=== PATIENT | female | born 1970 | race Hispanic/Latino ===

== ENCOUNTER 2016-05-19 04:34 | Emergency (ER) | payer BC ==
[2016-05-19 04:34] VITALS: BMI 21.5
[2016-05-19] MEDS ORDERED: Sodium Chloride 0.9% 2,000 ML IV STA (04:56)
[2016-05-19] MEDS ORDERED: Sodium Chloride 0.9% 1,000 ML IV STA (04:56)
[2016-05-19] MEDS ORDERED: Albuterol-Ipratrop 3 mg / 0.5 (3 ml) UD INH STA ×2 (04:57→04:58)
[2016-05-19] MEDS ORDERED: Piperacillin/Tazobact 3.375 GM in Sodium Chloride 0.9% 100 ML IVPB STA (05:02)
[2016-05-19] MEDS ORDERED: Albuterol-Ipratrop 3 mg / 0.5 (3 ml) UD ONE (05:06)
[2016-05-19] MEDS ORDERED: Vancomycin 1 g Inj ONE (05:07)
[2016-05-19] MEDS ORDERED: Piperacillin/Tazobact 3.375 gm Inj IVPB ONE (05:07)
[2016-05-19 05:18] LABS: VENOUS BLOOD GAS BASE EXCESS 8.3 mmol/L (0.0-2.0); VENOUS BLOOD GAS PCO2 50 mmHg (40-60); VENOUS BLOOD PH 7.44 (7.32-7.43)
--- NOTE | 2016-05-19 05:25 | ED PDOC ---
HPI:Nausea, Vomiting, Diarrhea Time Seen by Provider: 05/19/16 04:39 Chief Complaint (Nursing): GI Problem Chief Complaint (Provider): vomiting History Per: Patient History/Exam Limitations: no limitations Onset/Duration Of Symptoms: Days Current Symptoms Are (Timing): Still Present Have you had recent travel within the past 21 days to any of the following countries: [place], [place], [place] or [place]?: No Additional Complaint(s): 46yo female with longstanding hx of asthma presents to the ED with c/o vomiting x 5 days. Patient states she has bad water running through her house and her dogs have also been vomiting. Patient has started to tolerate liquids, but cannot tolerate solids. Patient also complaining of wheezing for a couple days. Past Medical History Reviewed: Historical Data, Nursing Documentation, Vital Signs Vital Signs: Last Vital Signs Temp 100.9 F H 05/19/16 05:00 Pulse 113 H 05/19/16 04:45 Resp 20 05/19/16 04:45 BP 87/71 L 05/19/16 04:45 Pulse Ox 89 L 05/19/16 04:45 - Medical History PMH: Anxiety, Asthma, Bronchitis, COPD Denies: HIV, Chronic Kidney Disease - Surgical History Surgical History: No Surg Hx - Family History Family History: States: No Known Family Hx - Home Medications Home Medications: Ambulatory Orders Medication Instructions Recorded Albuterol 0.083% [Albuterol 0.083% 3 ml IH Q6H PRN #30 neb 02/28/16 Inhal Jamee (2.5 mg/3 ml) UD] Albuterol HFA [Ventolin HFA 90 2 puff IH [id number] PRN #1 bottle 02/28/16 mcg/actuation (8 g)] Prednisone 50 mg PO DAILY #4 tab 03/18/16 Azithromycin [Z-Ang] 250 mg PO DAILY #6 tab 05/19/16 Ondansetron ODT [Zofran ODT] 4 mg PO Q8 #12 odt 05/19/16 predniSONE [predniSONE Tab] 40 mg PO DAILY 3 Days 05/19/16 - Allergies Allergies/Adverse Reactions: Allergies Allergy/AdvReac Type Severity Reaction Status Date / Time acetaminophen Allergy SHORTNESS Verified 05/19/16 04:45 OF BREATH moxifloxacin HCl Allergy tendonitis Verified 05/19/16 04:45 [From Avelox] Penicillins Allergy SHORTNESS Verified 05/19/16 04:45 OF BREATH Review of Systems ROS Statement: Except As Marked, All Systems Reviewed And Found Negative Respiratory: Positive for: Wheezing Gastrointestinal: Positive for: Vomiting Physical Exam - Reviewed Nursing Documentation Reviewed: Yes Vital Signs Reviewed: Yes - Physical Exam Appears: Positive for: Well, No Acute Distress Head Exam: Positive for: ATRAUMATIC, NORMAL INSPECTION, NORMOCEPHALIC Skin: Positive for: Normal Color, Warm, Dry Eye Exam: Positive for: Normal appearance, EOMI, PERRL ENT: Positive for: Normal ENT Inspection Neck: Positive for: Normal, Painless ROM, Supple Cardiovascular/Chest: Positive for: Regular Rate, Rhythm. Negative for: Murmur , Tachycardia Respiratory: Positive for: Wheezing (b/l ). Negative for: Respiratory Distress Gastrointestinal/Abdominal: Positive for: Normal Exam, Bowel Sounds, Soft. Negative for: Tenderness Back: Positive for: Normal Inspection. Negative for: L CVA Tenderness, R CVA Tenderness Extremity: Positive for: Normal ROM. Negative for: Deformity, Swelling Neurologic/Psych: Positive for: Alert, Oriented - Laboratory Results Result Diagrams: 05/19/16 04:59 05/19/16 05:16 - ECG O2 Sat by Pulse Oximetry: 89 Medical Decision Making Medical Decision Makin: Impression: gastroenteritis with asthma Plan: Patient with initial hypotension and tachycardia. Tachycardia resolving spontaneously. Patient also febrile. Code sepsis called. Sepsis workup initiated. VBG, labs, flu swab, CXR, and blood culture ordered. IVF, Duoneb 3ml INH x2, Mag Sulfate 50ml IVPB, Solu-Medrol 62.5mg IVP, Vancomycin 1gm IVPB, Zosyn 3.375gm IVPB, Zofran 4mg IVP Reassess 0644: Patient feeling much better. Wheezing has improved and vital signs have improved markedly. Will treat patient for bronchitis and refer to PCP for f/u in 1-2 days. Return precautions given. Patient stable for d/c. O2 saturation flucuating but remains near mid-90s, pt. uses O2 at home. Scribe Attestation: Documented by You Morris acting as a scribe for Mack Higuera MD. Provider Scribe Attestation: All medical record entries made by the Scribe were at my direction and personally dictated by me. I have reviewed the chart and agree that the record accurately reflects my personal performance of the history, physical exam, medical decision making, and the department course for this patient. I have also personally directed, reviewed, and agree with the discharge instructions and disposition. Disposition - Clinical Impression Clinical Impression: Bronchitis, Vomiting - Patient ED Disposition Is Patient to be Admitted: No - Disposition Referrals: [facility] [Outside] Disposition: Routine/Home Disposition Time: 06:44 Condition: IMPROVED Prescriptions: Azithromycin [Z-Ang] 250 mg PO DAILY #6 tab Ondansetron ODT [Zofran ODT] 4 mg PO Q8 #12 odt predniSONE [predniSONE Tab] 40 mg PO DAILY 3 Days Instructions: Acute Bronchitis (ED), Acute Nausea and Vomiting (ED)
[2016-05-19 06:05] LABS: BASO # 0.1 K/uL (0.0-0.2); BASO % 1.4 % (0.0-2.0); EOS # 0.3 K/uL (0.0-0.7); EOS % 4.4 % (0.0-4.0); HEMATOCRIT 40.7 % (34.0-47.0); LYMPH # 0.9 K/uL (1.0-4.3); LYMPH % 14.2 % (20.0-40.0); MEAN CELL VOLUME 92.2 fl (81.0-99.0); MEAN CORPUSCULAR HGB CONC 33.6 g/dL (33.0-37.0); MEAN PLATELET VOLUME 8.6 fl (7.2-11.7); MONO % 15.1 % (0.0-10.0); NEUT # 4.1 K/uL (1.8-7.0); NEUT % 64.9 % (50.0-75.0); RED CELL DISTRIBUTION WIDTH 13.6 % (11.5-14.5); WHITE BLOOD COUNT 6.4 K/uL (4.8-10.8)
[2016-05-19 06:14] LABS: BLOOD UREA NITROGEN 23 mg/dl (7-17); CALCIUM 9.6 mg/dL (8.4-10.2); CARBON DIOXIDE 28 mmol/L (22-30); CHLORIDE 100 mmol/L (98-107); GFR AFRICAN-AMERICAN > 60; GLUCOSE,RANDOM 114 mg/dL (65-105); MAGNESIUM 1.8 MG/DL (1.6-2.3); POTASSIUM 3.8 MMOL/L (3.6-5.0); SODIUM 144 mmol/l (132-148)
--- NOTE | 2016-05-19 08:19 | RAD ---
PROCEDURE: CHEST RADIOGRAPH, 1 VIEW HISTORY: r/o PNA COMPARISON: 03/24/2016 FINDINGS: LUNGS: Clear. PLEURA: No pneumothorax or pleural fluid seen. CARDIOVASCULAR: Normal. OSSEOUS STRUCTURES: No significant abnormalities. VISUALIZED UPPER ABDOMEN: Normal. OTHER FINDINGS: None. IMPRESSION: No active disease. No interval pathology noted
[2016-05-19 09:16] VITALS: BP 104/64; PULSE 82; RESP 18; TEMP 98.3; O2SAT 97
== END 2016-05-19 09:36 | disposition home or self-care (01) ==
LOC: H.ER 04:34
DX: J20.9 Acute bronchitis, unspecified (principal); R11.2 Nausea with vomiting, unspecified; J45.909 Unspecified asthma, uncomplicated; R19.7 Diarrhea, unspecified; F41.9 Anxiety disorder, unspecified; I95.9 Hypotension, unspecified; K52.9 Noninfective gastroenteritis and colitis, unspecified; Z99.81 Dependence on supplemental oxygen
CPT/HCPCS: 71010; 80048; 82803; 83735; 84484; 85025; 85610; 85730; 87040; 87804; 94640; 96361; 96374; 96375; 99284; J2930; J7040

== ENCOUNTER 2016-05-20 17:12 | Emergency (ER) | payer BC ==
[2016-05-20 17:15] VITALS: BMI 17.7
[2016-05-20] MEDS ORDERED: Albuterol-Ipratrop 3 mg / 0.5 (3 ml) UD ONE (18:04)
--- NOTE | 2016-05-20 18:12 | ED PDOC ---
HPI: SOB/CHF/COPD Time Seen by Provider: 05/20/16 17:53 Chief Complaint (Nursing): Shortness Of Breath Chief Complaint (Provider): Shortness Of Breath History Per: Patient History/Exam Limitations: no limitations Onset/Duration Of Symptoms: Days Current Symptoms Are (Timing): Still Present Initiating Event: Upper Respiratory Illness Quality: Tightness Current Respiratory Medications: See Home Med List Severity: Moderate Associated Symptoms: Chills Additional Complaint(s): Patient is a 46 year old female with a history of chronic asthma, presents to ED for SOB with wheezing and chills today. Patient reports she was evaluated in ED yesterday for similar symptoms associated with vomiting and fever. States using her nebulizer at home with no relief. Past Medical History Reviewed: Historical Data, Nursing Documentation, Vital Signs Vital Signs: Last Vital Signs Temp 98.3 F 05/20/16 22:05 Pulse 89 05/20/16 22:05 Resp 20 05/20/16 22:05 BP 110/72 05/20/16 22:05 Pulse Ox 94 L 05/20/16 22:33 - Medical History PMH: Anxiety, Asthma, Bronchitis, COPD Denies: HIV, Chronic Kidney Disease - Surgical History Surgical History: No Surg Hx - Family History Family History: States: Unknown Family Hx - Living Arrangements Living Arrangements: With Family - Home Medications Home Medications: Ambulatory Orders Medication Instructions Recorded Albuterol 0.083% [Albuterol 0.083% 3 ml IH Q6H PRN #30 neb 02/28/16 Inhal Jamee (2.5 mg/3 ml) UD] Albuterol HFA [Ventolin HFA 90 2 puff IH [id number] PRN #1 bottle 02/28/16 mcg/actuation (8 g)] Prednisone 50 mg PO DAILY #4 tab 03/18/16 Azithromycin [Z-Ang] 250 mg PO DAILY #6 tab 05/19/16 Ondansetron ODT [Zofran ODT] 4 mg PO Q8 #12 odt 05/19/16 predniSONE [predniSONE Tab] 40 mg PO DAILY 3 Days 05/19/16 - Allergies Allergies/Adverse Reactions: Allergies Allergy/AdvReac Type Severity Reaction Status Date / Time acetaminophen Allergy SHORTNESS Verified 05/19/16 04:45 OF BREATH moxifloxacin HCl Allergy tendonitis Verified 05/19/16 04:45 [From Avelox] Penicillins Allergy SHORTNESS Verified 05/19/16 04:45 OF BREATH Review of Systems ROS Statement: Except As Marked, All Systems Reviewed And Found Negative Constitutional: Positive for: Chills. Negative for: Fever Cardiovascular: Negative for: Chest Pain, Palpitations, Light Headedness Respiratory: Positive for: Shortness of Breath, Wheezing Gastrointestinal: Negative for: Nausea, Vomiting, Abdominal Pain Musculoskeletal: Negative for: Neck Pain Skin: Negative for: Rash Neurological: Negative for: Weakness, Numbness Physical Exam - Reviewed Nursing Documentation Reviewed: Yes Vital Signs Reviewed: Yes - Physical Exam Appears: Positive for: Uncomfortable Skin: Positive for: Normal Color, Warm Eye Exam: Positive for: Normal appearance Neck: Positive for: Normal, Painless ROM Cardiovascular/Chest: Positive for: Regular Rate, Rhythm. Negative for: Murmur Respiratory: Positive for: Wheezing, Respiratory Distress (mild). Negative for : Rhonchi Extremity: Positive for: Normal ROM. Negative for: Pedal Edema Neurologic/Psych: Positive for: Alert, Oriented - Laboratory Results Result Diagrams: 05/20/16 18:26 05/20/16 18:26 - ECG O2 Sat by Pulse Oximetry: 99 (RA) Pulse Ox Interpretation: Normal Medical Decision Making Medical Decision Making: Time: 1805 Initial impression: SOB, chronic asthma exacerbation Initial plan: -- Duoneb -- Magnesium IV --Methylprednisolone IV --Reassess Scribe Attestation: Documented by Valerie Estevez acting as a scribe for Mio Whitfield MD MD Scribe Attestation: All medical record entries made by the Scribe were at my direction and personally dictated by me. I have reviewed the chart and agree that the record accurately reflects my personal performance of the history, physical exam, medical decision making, and the department course for this patient. I have also personally directed, reviewed, and agree with the discharge instructions and disposition. Disposition - Clinical Impression Clinical Impression: Asthma exacerbation - Patient ED Disposition Is Patient to be Admitted: Transfer of Care Counseled Patient/Family Regarding: Studies Performed, Diagnosis - Disposition Disposition: Transfer of Care Disposition Time: 19:00 Condition: FAIR Instructions: Asthma (ED) Patient Signed Over To: Lisandro Norman
[2016-05-20] MEDS ORDERED: Albuterol-Ipratrop 3 mg / 0.5 (3 ml) UD INH STA ×2 (18:14→18:15)
[2016-05-20 18:33] LABS: BASO % 0.8 % (0.0-2.0); EOS % 0.4 % (0.0-4.0); HEMATOCRIT 39.9 % (34.0-47.0); LYMPH # 0.9 K/uL (1.0-4.3); LYMPH % 16.1 % (20.0-40.0); MEAN CELL VOLUME 92.3 fl (81.0-99.0); MEAN CORPUSCULAR HEMOGLOBIN 31.4 pg (27.0-31.0); MEAN PLATELET VOLUME 7.8 fl (7.2-11.7); MONO # 0.6 K/uL (0.0-0.8); MONO % 9.9 % (0.0-10.0); NEUT # 4.2 K/uL (1.8-7.0); NEUT % 72.8 % (50.0-75.0); NRBC % 0.2 % (0.0-0.0); RED CELL DISTRIBUTION WIDTH 13.9 % (11.5-14.5); WHITE BLOOD COUNT 5.8 K/uL (4.8-10.8)
[2016-05-20 18:43] LABS: BLOOD UREA NITROGEN 15 mg/dl (7-17); CALCIUM 9.8 mg/dL (8.4-10.2); CARBON DIOXIDE 26 mmol/L (22-30); CHLORIDE 102 mmol/L (98-107); GFR AFRICAN-AMERICAN > 60; GLUCOSE,RANDOM 101 mg/dL (65-105); MAGNESIUM 1.9 MG/DL (1.6-2.3); POTASSIUM 3.8 MMOL/L (3.6-5.0); SODIUM 144 mmol/l (132-148)
--- NOTE | 2016-05-20 19:43 | ED PDOC ---
- Laboratory Results Result Diagrams: 05/20/16 18:26 05/20/16 18:26 - ECG O2 Sat by Pulse Oximetry: 94 Medical Decision Making Medical Decision Making: Time: 1900 Patient signed out by Dr. Whitfield pending labs, re-evaluation and disposition Labs: Hematology and Chemistry [id number] Patient reports significant improvement in symptoms and is stable for discharge. Patient was advised to fill all prescriptions that were previously given. Dx: asthma exacerbation Scribe Attestation: Documented by Valerie Estevez acting as a scribe for Lisandro Norman MD MD Scribe Attestation: All medical record entries made by the Scribe were at my direction and personally dictated by me. I have reviewed the chart and agree that the record accurately reflects my personal performance of the history, physical exam, medical decision making, and the department course for this patient. I have also personally directed, reviewed, and agree with the discharge instructions and disposition. Disposition - Clinical Impression Clinical Impression: Asthma exacerbation - POA Present On Arrival: None - Disposition Disposition: Routine/Home Disposition Time: 22:20 Condition: STABLE Instructions: Asthma (ED)
[2016-05-20 22:06] VITALS: BP 110/72; PULSE 89; RESP 20; TEMP 98.3
--- NOTE | 2016-05-21 23:09 | CARD ---
APPROVED REPORT EKG Measurement Heart [id number] [place] [id number] <Conclusion> Normal sinus rhythm with sinus arrhythmia Normal ECG
[2016-05-22 09:23] VITALS: O2SAT 99
== END 2016-05-20 22:05 | disposition home or self-care (01) ==
LOC: H.ER 17:12
DX: J45.901 Unspecified asthma with (acute) exacerbation (principal); J44.9 Chronic obstructive pulmonary disease, unspecified; F41.9 Anxiety disorder, unspecified; Z88.0 Allergy status to penicillin
CPT/HCPCS: 80048; 83735; 84484; 85025; 93005; 94640; 96365; 96375; 99284; J2930; J3475

== ENCOUNTER 2016-07-02 20:38 | Emergency (ER) | payer BC ==
[2016-07-02 20:38] VITALS: BMI 17.7
[2016-07-02 20:43] VITALS: BP 108/85; TEMP 98.4
[2016-07-02] MEDS ORDERED: Albuterol-Ipratrop 3 mg / 0.5 (3 ml) UD ONE (20:59)
[2016-07-02] MEDS ORDERED: Magnesium Sulfate 2 gm/50 ml 2 GM/50 ML BAG ONE (20:59)
[2016-07-02] MEDS ORDERED: Albuterol-Ipratrop 3 mg / 0.5 (3 ml) UD INH STA (21:00)
[2016-07-02 21:23] LABS: BASO # 0.2 K/uL (0.0-0.2); BASO % 2.4 % (0.0-2.0); EOS # 0.6 K/uL (0.0-0.7); EOS % 8.3 % (0.0-4.0); HEMATOCRIT 38.5 % (34.0-47.0); LYMPH # 1.9 K/uL (1.0-4.3); LYMPH % 27.6 % (20.0-40.0); MEAN CELL VOLUME 93.5 fl (81.0-99.0); MEAN CORPUSCULAR HEMOGLOBIN 31.2 pg (27.0-31.0); MEAN CORPUSCULAR HGB CONC 33.3 g/dL (33.0-37.0); MONO # 0.8 K/uL (0.0-0.8); MONO % 12.1 % (0.0-10.0); NEUT # 3.5 K/uL (1.8-7.0); NEUT % 49.6 % (50.0-75.0); RED CELL DISTRIBUTION WIDTH 14.4 % (11.5-14.5)
[2016-07-02 21:33] LABS: ALB/GLOB RATIO 1.2 (1.0-2.1); ALKALINE PHOSPHATASE 75 U/L (38-126); ALT/SGPT 29 U/L (9-52); AST/SGOT 31 U/L (14-36); BILIRUBIN,TOTAL 0.4 mg/dl (0.2-1.3); BLOOD UREA NITROGEN 17 mg/dl (7-17); CALCIUM 9.7 mg/dL (8.4-10.2); CARBON DIOXIDE 27 mmol/L (22-30); CHLORIDE 103 mmol/L (98-107); GFR AFRICAN-AMERICAN > 60; GLUCOSE,RANDOM 124 mg/dL (65-105); MAGNESIUM 1.8 MG/DL (1.6-2.3); POTASSIUM 3.7 MMOL/L (3.6-5.0); SODIUM 141 mmol/l (132-148); TOTAL PROTEIN 8.1 G/DL (6.3-8.2)
--- NOTE | 2016-07-02 21:57 | ED PDOC ---
HPI: SOB/CHF/COPD Time Seen by Provider: 07/02/16 20:45 Chief Complaint (Nursing): Shortness Of Breath Chief Complaint (Provider): Shortness of Breath History Per: Patient History/Exam Limitations: no limitations Onset/Duration Of Symptoms: Days Current Symptoms Are (Timing): Still Present Initiating Event: Upper Respiratory Illness (Asthma) Current Respiratory Medications: See Home Med List Severity: Moderate Associated Symptoms: denies: Fever, Chills Recently: Seen In ED Additional Complaint(s): Rachel Brown is a 46 year old female, well known to this provider and department, with a past medical history of asthma, who presents to the emergency room for the evaluation of shortness of breath, inclusive of wheezing. Denies a fever, chills, or any other medical complaints. PMD: none specified Past Medical History Reviewed: Historical Data, Nursing Documentation, Vital Signs Vital Signs: Last Vital Signs Temp 98.4 F 07/02/16 20:41 Pulse 106 H 07/02/16 20:41 Resp 22 07/02/16 20:41 BP 108/85 07/02/16 20:41 Pulse Ox 98 07/02/16 22:05 - Medical History PMH: Anxiety, Asthma, Bronchitis, COPD Denies: HIV, Chronic Kidney Disease - Surgical History Surgical History: No Surg Hx - Family History Family History: States: No Known Family Hx - Home Medications Home Medications: Ambulatory Orders Medication Instructions Recorded Albuterol 0.083% [Albuterol 0.083% 3 ml IH Q6H PRN #30 neb 02/28/16 Inhal Jamee (2.5 mg/3 ml) UD] Albuterol HFA [Ventolin HFA 90 2 puff IH [id number] PRN #1 bottle 02/28/16 mcg/actuation (8 g)] Prednisone 50 mg PO DAILY #4 tab 03/18/16 Azithromycin [Z-Ang] 250 mg PO DAILY #6 tab 05/19/16 Ondansetron ODT [Zofran ODT] 4 mg PO Q8 #12 odt 05/19/16 predniSONE [predniSONE Tab] 40 mg PO DAILY 3 Days 05/19/16 Methylprednisolone [Medrol Dosepak] 4 mg PO ASDIR #1 pkg 07/03/16 - Allergies Allergies/Adverse Reactions: Allergies Allergy/AdvReac Type Severity Reaction Status Date / Time acetaminophen Allergy SHORTNESS Verified 05/19/16 04:45 OF BREATH moxifloxacin HCl Allergy tendonitis Verified 05/19/16 04:45 [From Avelox] Penicillins Allergy SHORTNESS Verified 05/19/16 04:45 OF BREATH Review of Systems ROS Statement: Except As Marked, All Systems Reviewed And Found Negative Constitutional: Negative for: Fever, Chills Respiratory: Positive for: Shortness of Breath, Wheezing Physical Exam - Reviewed Nursing Documentation Reviewed: Yes Vital Signs Reviewed: Yes - Physical Exam Appears: Positive for: Well, Non-toxic, No Acute Distress Head Exam: Positive for: ATRAUMATIC, NORMOCEPHALIC Skin: Positive for: Normal Color, Warm, Dry Eye Exam: Positive for: EOMI, Normal appearance, PERRL ENT: Positive for: Normal ENT Inspection. Negative for: Pharyngeal Erythema, Tonsillar Exudate, Tonsillar Swelling Neck: Positive for: Normal, Painless ROM, Supple Cardiovascular/Chest: Positive for: Regular Rate, Rhythm. Negative for: Murmur Respiratory: Positive for: Wheezing. Negative for: Normal Breath Sounds, Respiratory Distress Gastrointestinal/Abdominal: Positive for: Normal Exam, Soft. Negative for: Tenderness Back: Positive for: Normal Inspection. Negative for: L CVA Tenderness, R CVA Tenderness Extremity: Positive for: Normal ROM. Negative for: Tenderness, Swelling Neurologic/Psych: Positive for: Alert, Oriented - Laboratory Results Result Diagrams: 07/02/16 21:00 07/02/16 21:00 - ECG O2 Sat by Pulse Oximetry: 98 (RA) Pulse Ox Interpretation: Normal Medical Decision Making Medical Decision Makin:45 Initial Impression: 46 year old female who presents to the emergency department with a known setting of asthma. Initial Plan: * Electrocardiogram * Complete Blood Count * Comprehensive Metabolic Panel * Magnesium * Urine Dip * Urine * Albuterol 3 ml INH * Magnesium Sulfate 1 gm * SOLU-Medrol 125 mg IVP * Peak Flow Pre/Post Treatment * Reevaluation Scribe Attestation: Documented by Severino Barrett, acting as a scribe for Lisandro Norman MD. Provider Scribe Attestation: All medical record entries made by the Scribe were at my direction and personally dictated by me. I have reviewed the chart and agree that the record accurately reflects my personal performance of the history, physical exam, medical decision making, and the department course for this patient. I have also personally directed, reviewed, and agree with the discharge instructions and disposition. Time: 00:22 --30 minutes of critical care --Reports significant improvement in symptoms after second dose of Magnesium Sulfate 1 gm. Upon provider reevaluation patient is feeling better, is medically stable, and requires no further treatment in the ED at this time. Patient will be discharged home with Rx for Medrol Dosepak 4 mg. Counseling was provided and all questions were answered regarding diagnosis and need for follow up with primary care physician. There is agreement to discharge plan. Return if symptoms persist or worsen. Clinical Impression: Asthma Exacerbation Scribe Attestation: Documented by Rox Matta, acting as a scribe for Lisandro Norman MD. Provider Scribe Attestation: All medical record entries made by the Scribe were at my direction and personally dictated by me. I have reviewed the chart and agree that the record accurately reflects my personal performance of the history, physical exam, medical decision making, and the department course for this patient. I have also personally directed, reviewed, and agree with the discharge instructions and disposition. Disposition - Clinical Impression Clinical Impression: Asthma exacerbation - Patient ED Disposition Is Patient to be Admitted: No Counseled Patient/Family Regarding: Studies Performed, Diagnosis, Rx Given - Disposition Disposition: Routine/Home Disposition Time: 00:22 Condition: STABLE Prescriptions: Methylprednisolone [Medrol Dosepak] 4 mg PO ASDIR #1 pkg Instructions: Asthma (ED)
[2016-07-03] MEDS ORDERED: MethylPREDNISolone 40 mg Vial ONE (00:24)
[2016-07-03] MEDS ORDERED: Albuterol-Ipratrop 3 mg / 0.5 (3 ml) UD ONE (00:39)
[2016-07-03] MEDS ORDERED: Albuterol-Ipratrop 3 mg / 0.5 (3 ml) UD INH STA (00:42)
[2016-07-03] MEDS ORDERED: Promethazine/Cod 6.25mg-10mg/5ml Syr UD ONE (01:31)
[2016-07-03] MEDS ORDERED: Promethazine/Cod 6.25mg-10mg/5ml Syr UD PO STA (01:33)
[2016-07-03 02:22] VITALS: PULSE 97; O2SAT 92
[2016-07-03 02:30] VITALS: RESP 25
--- NOTE | 2016-07-07 10:03 | CARD ---
APPROVED REPORT EKG Measurement Heart [id number] [place] [id number] [id number] <Conclusion> Normal sinus rhythm with sinus arrhythmia Normal ECG
== END 2016-07-03 02:32 | disposition home or self-care (01) ==
LOC: H.ER 20:38
DX: J44.9 Chronic obstructive pulmonary disease, unspecified (principal); J45.901 Unspecified asthma with (acute) exacerbation; F41.9 Anxiety disorder, unspecified; Z88.0 Allergy status to penicillin
CPT/HCPCS: 80053; 83735; 85025; 94640; 96365; 96366; 96375; 99282; J2930; J3475

== ENCOUNTER 2016-07-23 04:21 | Emergency (ER) | payer BC ==
[2016-07-23 04:21] VITALS: BMI 17.7
--- NOTE | 2016-07-23 04:38 | ED PDOC ---
HPI: SOB/CHF/COPD Time Seen by Provider: 07/23/16 04:27 Chief Complaint (Nursing): Shortness Of Breath Chief Complaint (Provider): SOB History Per: Patient History/Exam Limitations: no limitations Onset/Duration Of Symptoms: Mins Current Symptoms Are (Timing): Still Present Additional Complaint(s): Rachel Brown is a 46 year old female, well known to this provider and department, with a past medical history of asthma, who presents to the emergency room for evaluation of shortness of breath with associated wheezing. Denies fever, chills, or any other medical complaints. Past Medical History Reviewed: Historical Data, Nursing Documentation, Vital Signs Vital Signs: Last Vital Signs Temp 98 F 07/23/16 06:34 Pulse 92 H 07/23/16 06:34 Resp 16 07/23/16 06:34 BP 102/55 L 07/23/16 06:34 Pulse Ox 95 07/23/16 06:34 - Medical History PMH: Anxiety, Asthma, Bronchitis, COPD Denies: HIV, Chronic Kidney Disease - Surgical History Surgical History: No Surg Hx - Family History Family History: States: No Known Family Hx - Social History Current smoker - smoking cessation education provided: No Alcohol: None Drugs: Denies - Home Medications Home Medications: Ambulatory Orders Medication Instructions Recorded Albuterol 0.083% [Albuterol 0.083% 3 ml IH Q6H PRN #30 neb 02/28/16 Inhal Jamee (2.5 mg/3 ml) UD] Albuterol HFA [Ventolin HFA 90 2 puff IH [id number] PRN #1 bottle 02/28/16 mcg/actuation (8 g)] Prednisone 50 mg PO DAILY #4 tab 03/18/16 Azithromycin [Z-Ang] 250 mg PO DAILY #6 tab 05/19/16 Ondansetron ODT [Zofran ODT] 4 mg PO Q8 #12 odt 05/19/16 predniSONE [predniSONE Tab] 40 mg PO DAILY 3 Days 05/19/16 Methylprednisolone [Medrol Dosepak] 4 mg PO ASDIR #1 pkg 07/03/16 - Allergies Allergies/Adverse Reactions: Allergies Allergy/AdvReac Type Severity Reaction Status Date / Time acetaminophen Allergy SHORTNESS Verified 05/19/16 04:45 OF BREATH moxifloxacin HCl Allergy tendonitis Verified 05/19/16 04:45 [From Avelox] Penicillins Allergy SHORTNESS Verified 05/19/16 04:45 OF BREATH Review of Systems ROS Statement: Except As Marked, All Systems Reviewed And Found Negative Constitutional: Negative for: Fever, Chills Respiratory: Positive for: Shortness of Breath, Wheezing Physical Exam - Reviewed Nursing Documentation Reviewed: Yes Vital Signs Reviewed: Yes - Physical Exam Appears: Positive for: Well, No Acute Distress Head Exam: Positive for: ATRAUMATIC, NORMAL INSPECTION, NORMOCEPHALIC Skin: Positive for: Normal Color, Warm, Dry Eye Exam: Positive for: Normal appearance, EOMI, PERRL ENT: Positive for: Normal ENT Inspection Neck: Positive for: Normal, Painless ROM, Supple Cardiovascular/Chest: Positive for: Regular Rate, Rhythm. Negative for: Murmur , Tachycardia Respiratory: Positive for: Wheezing (b/l ). Negative for: Respiratory Distress Gastrointestinal/Abdominal: Positive for: Normal Exam, Soft. Negative for: Tenderness Back: Positive for: Normal Inspection Extremity: Positive for: Normal ROM. Negative for: Deformity, Swelling Neurologic/Psych: Positive for: Alert, Oriented - Laboratory Results Result Diagrams: 07/23/16 04:55 07/23/16 04:55 - ECG O2 Sat by Pulse Oximetry: 98 Pulse Ox Interpretation: Normal - Critical Care Total Time (In Min): 30 Medical Decision Making Medical Decision Makin: Impression: 46yo female w/ SOB and wheezing in setting of known hx of asthma Plan: EKG Labs duoneb 3ml INH x3, mag sulfate 1gm in 100ml IV, solu-medrol 60mg in 50ml IV reassess At 6AM pt reports marked improvement and is stable on discharge Dx Asthma Exacerbation Stable Scribe Attestation: Documented by You Morris acting as a scribe for Lisandro Norman MD. Provider Scribe Attestation: All medical record entries made by the Scribe were at my direction and personally dictated by me. I have reviewed the chart and agree that the record accurately reflects my personal performance of the history, physical exam, medical decision making, and the department course for this patient. I have also personally directed, reviewed, and agree with the discharge instructions and disposition. Disposition - Clinical Impression Clinical Impression: Asthma exacerbation attacks - Patient ED Disposition Is Patient to be Admitted: No - Disposition Disposition: Routine/Home Disposition Time: 06:00 Condition: STABLE Instructions: Asthma (ED)
[2016-07-23] MEDS ORDERED: methylPREDNISolone 60 MG in Sodium Chloride 0.9% 50 ML IV STA (04:41)
[2016-07-23] MEDS ORDERED: Albuterol-Ipratrop 3 mg / 0.5 (3 ml) UD INH STA ×3 (04:42→04:43)
[2016-07-23 04:59] LABS: BASO # 0.1 K/uL (0.0-0.2); BASO % 1.1 % (0.0-2.0); EOS # 0.6 K/uL (0.0-0.7); HEMATOCRIT 39.4 % (34.0-47.0); LYMPH # 2.6 K/uL (1.0-4.3); LYMPH % 27.8 % (20.0-40.0); MEAN CELL VOLUME 94.8 fl (81.0-99.0); MEAN CORPUSCULAR HEMOGLOBIN 31.6 pg (27.0-31.0); MEAN CORPUSCULAR HGB CONC 33.3 g/dL (33.0-37.0); MONO # 0.9 K/uL (0.0-0.8); MONO % 9.3 % (0.0-10.0); NEUT # 5.3 K/uL (1.8-7.0); NEUT % 55.8 % (50.0-75.0); RED CELL DISTRIBUTION WIDTH 13.9 % (11.5-14.5); WHITE BLOOD COUNT 9.4 K/uL (4.8-10.8)
[2016-07-23 05:17] LABS: ALB/GLOB RATIO 1.3 (1.0-2.1); ALKALINE PHOSPHATASE 67 U/L (38-126); ALT/SGPT 34 U/L (9-52); AST/SGOT 34 U/L (14-36); BILIRUBIN,TOTAL 0.9 mg/dl (0.2-1.3); BLOOD UREA NITROGEN 16 mg/dl (7-17); CALCIUM 9.3 mg/dL (8.4-10.2); CARBON DIOXIDE 26 mmol/L (22-30); CHLORIDE 101 mmol/L (98-107); GFR AFRICAN-AMERICAN > 60; GLUCOSE,RANDOM 97 mg/dL (65-105); MAGNESIUM 2.3 MG/DL (1.6-2.3); POTASSIUM 4.2 MMOL/L (3.6-5.0); SODIUM 138 mmol/l (132-148); TOTAL PROTEIN 8.1 G/DL (6.3-8.2)
[2016-07-23 06:34] VITALS: BP 102/55; PULSE 92; RESP 16; TEMP 98
[2016-07-23 06:42] VITALS: O2SAT 98
--- NOTE | 2016-07-23 12:05 | CARD ---
APPROVED REPORT EKG Measurement Heart [id number] [place] [id number] <Conclusion> Normal sinus rhythm with sinus arrhythmia Normal ECG
== END 2016-07-23 06:36 | disposition home or self-care (01) ==
LOC: H.ER 04:21
DX: J45.909 Unspecified asthma, uncomplicated (principal)
CPT/HCPCS: 80053; 83735; 85025; 93005; 94640; 96360; 99283; J2920; J3475

== ENCOUNTER 2016-08-16 22:38 | Emergency (ER) | payer BC ==
[2016-08-16 22:38] VITALS: BMI 17.7
[2016-08-16] MEDS ORDERED: Albuterol-Ipratrop 3 mg / 0.5 (3 ml) UD ONE (23:08)
[2016-08-16] MEDS ORDERED: MethylPREDNISolone 40 mg Vial IVPB STA ×2 (23:19→23:43)
[2016-08-16] MEDS ORDERED: Albuterol-Ipratrop 3 mg / 0.5 (3 ml) UD INH STA (23:19)
--- NOTE | 2016-08-16 23:39 | ED PDOC ---
HPI: SOB/CHF/COPD Time Seen by Provider: 08/16/16 23:16 Chief Complaint (Nursing): Shortness Of Breath Chief Complaint (Provider): cough History Per: Patient History/Exam Limitations: no limitations Onset/Duration Of Symptoms: Days (2), Gradual, Persistent Additional Complaint(s): Coughing productive of yellow sputum associated with shortness of breath and chest tightness similar to previous episodes of asthma exacerbation. No relief with home meds. She regularly gets asthma exacerbation due to dental infection which she has chronically. Past Medical History Reviewed: Historical Data, Nursing Documentation, Vital Signs Vital Signs: Last Vital Signs Temp 97.4 F L 08/17/16 04:43 Pulse 72 08/17/16 04:43 Resp 16 08/17/16 04:43 BP 110/66 08/17/16 04:43 Pulse Ox 96 08/17/16 04:43 - Medical History PMH: Anxiety, Asthma, Bronchitis, COPD Denies: HIV, Chronic Kidney Disease - Family History Family History: States: No Known Family Hx - Social History Current smoker - smoking cessation education provided: No - Home Medications Home Medications: Ambulatory Orders Medication Instructions Recorded Albuterol 0.083% [Albuterol 0.083% 3 ml IH Q6H PRN #30 neb 02/28/16 Inhal Jamee (2.5 mg/3 ml) UD] Albuterol HFA [Ventolin HFA 90 2 puff IH [id number] PRN #1 bottle 02/28/16 mcg/actuation (8 g)] Prednisone 50 mg PO DAILY #4 tab 03/18/16 Azithromycin [Z-Ang] 250 mg PO DAILY #6 tab 05/19/16 Ondansetron ODT [Zofran ODT] 4 mg PO Q8 #12 odt 05/19/16 predniSONE [predniSONE Tab] 40 mg PO DAILY 3 Days 05/19/16 Methylprednisolone [Medrol Dosepak] 4 mg PO ASDIR #1 pkg 07/03/16 Albuterol HFA [Ventolin HFA 90 1 - 2 puff IH Q6 PRN #1 inhaler 08/17/16 mcg/actuation (8 g)] Methylprednisolone [Medrol Dosepak] 4 mg PO ASDIR #1 pkg 08/17/16 - Allergies Allergies/Adverse Reactions: Allergies Allergy/AdvReac Type Severity Reaction Status Date / Time acetaminophen Allergy SHORTNESS Verified 05/19/16 04:45 OF BREATH moxifloxacin HCl Allergy tendonitis Verified 05/19/16 04:45 [From Avelox] Penicillins Allergy SHORTNESS Verified 05/19/16 04:45 OF BREATH Review of Systems ROS Statement: Except As Marked, All Systems Reviewed And Found Negative Constitutional: Negative for: Fever, Chills ENT: Negative for: Nose Discharge, Throat Pain Cardiovascular: Positive for: Chest Pain Respiratory: Positive for: Cough, Shortness of Breath, SOB with Exertion, Pleuritic Pain Physical Exam - Reviewed Nursing Documentation Reviewed: Yes Vital Signs Reviewed: Yes - Physical Exam Appears: Positive for: Uncomfortable, In Acute Distress Head Exam: Positive for: ATRAUMATIC, NORMOCEPHALIC Skin: Positive for: Warm, Dry Eye Exam: Positive for: EOMI, PERRL ENT: Negative for: Pharyngeal Erythema, Tonsillar Exudate Neck: Positive for: Painless ROM, Supple Cardiovascular/Chest: Positive for: Chest Non Tender, Tachycardia. Negative for : Murmur Respiratory: Positive for: Rhonchi, Wheezing, Respiratory Distress Gastrointestinal/Abdominal: Positive for: Soft. Negative for: Tenderness Back: Positive for: Normal Inspection. Negative for: Vertebral Tenderness Lymphatic: Negative for: Adenopathy Neurologic/Psych: Positive for: Alert. Negative for: Motor/Sensory Deficits - Laboratory Results Result Diagrams: 08/16/16 23:50 08/16/16 23:50 - ECG O2 Sat by Pulse Oximetry: 91 Medical Decision Making Medical Decision Making: Impression: Asthma exacerbation Duoneb x 3, Solumedrol 60mg and Mag 1mg IV Reassess. Disposition - Clinical Impression Clinical Impression: Asthma exacerbation - Disposition Disposition: Transfer of Care Disposition Time: 00:00 Condition: STABLE Prescriptions: Albuterol HFA [Ventolin HFA 90 mcg/actuation (8 g)] 1 - 2 puff IH Q6 PRN #1 inhaler PRN Reason: Shortness Of Breath Methylprednisolone [Medrol Dosepak] 4 mg PO ASDIR #1 pkg Patient Signed Over To: Lisandro Norman Handoff Comments: Pending reassessment and final ER dispo
[2016-08-16] MEDS ORDERED: Magnesium Sulfate 2 gm/50 ml 2 GM/50 ML BAG ONE (23:52)
[2016-08-16 23:54] LABS: BASO # 0.2 K/uL (0.0-0.2); BASO % 3.3 % (0.0-2.0); EOS # 0.7 K/uL (0.0-0.7); EOS % 8.7 % (0.0-4.0); HEMOGLOBIN 13.3 g/dL (12.0-16.0); LYMPH # 2.9 K/uL (1.0-4.3); LYMPH % 38.1 % (20.0-40.0); MEAN CELL VOLUME 95.6 fl (81.0-99.0); MEAN CORPUSCULAR HEMOGLOBIN 31.6 pg (27.0-31.0); MEAN PLATELET VOLUME 8.1 fl (7.2-11.7); MONO # 0.7 K/uL (0.0-0.8); MONO % 8.9 % (0.0-10.0); NEUT # 3.1 K/uL (1.8-7.0); PLATELET COUNT 302 K/uL (130-400); RBC 4.22 Mil/uL (3.80-5.20); RED CELL DISTRIBUTION WIDTH 13.9 % (11.5-14.5); WHITE BLOOD COUNT 7.6 K/uL (4.8-10.8)
[2016-08-17 00:05] LABS: ALB/GLOB RATIO 1.2 (1.0-2.1); ALBUMIN 4.5 g/dL (3.5-5.0); ALT/SGPT 34 U/L (9-52); AST/SGOT 29 U/L (14-36); BLOOD UREA NITROGEN 21 mg/dl (7-17); CALCIUM 9.3 mg/dL (8.4-10.2); GFR AFRICAN-AMERICAN > 60; GFR NON-AFRICAN AMERICAN > 60; MAGNESIUM 1.9 MG/DL (1.6-2.3)
--- NOTE | 2016-08-17 00:33 | ED PDOC ---
- Laboratory Results Result Diagrams: 08/16/16 23:50 08/16/16 23:50 - ECG O2 Sat by Pulse Oximetry: 91 Medical Decision Making Medical Decision Makin Patient signed out to provider from Dr. Fuller pending labs and re-evaluation. 0030 * Magnesium sulfate 1gm IV * Re-eval 0105 * Duonebs 3mL INH * Peak flow pre/post Tx 0115 Upon re-evaluation, patient notes significant improvement in symptoms after 2nd gram of magnesium sulfate. Patient is stable for discharge. Counseling has been provided and patient is in agreement. Return if symptoms persist or acutely worsen. Dx: asthma exacerbation Scribe Attestation: Documented by Mattie Melo acting as a scribe for Lisandro Norman MD. Scribe Attestation: All medical record entries made by the Scribe were at my direction and personally dictated by me. I have reviewed the chart and agree that the record accurately reflects my personal performance of the history, physical exam, medical decision making, and the department course for this patient. I have also personally directed, reviewed, and agree with the discharge instructions and disposition. Disposition - Clinical Impression Clinical Impression: Asthma exacerbation - POA Present On Arrival: None - Disposition Disposition: Routine/Home Disposition Time: 01:15 Condition: IMPROVED Prescriptions: Albuterol HFA [Ventolin HFA 90 mcg/actuation (8 g)] 1 - 2 puff IH Q6 PRN #1 inhaler PRN Reason: Shortness Of Breath Methylprednisolone [Medrol Dosepak] 4 mg PO ASDIR #1 pkg
[2016-08-17] MEDS ORDERED: Albuterol-Ipratrop 3 mg / 0.5 (3 ml) UD INH STA (01:05)
[2016-08-17] MEDS ORDERED: Albuterol-Ipratrop 3 mg / 0.5 (3 ml) UD ONE (01:09)
[2016-08-17 03:29] LABS: BASOPHIL 1 % (0-2); EOSINOPHIL 6 % (0-7); LYMPHOCYTE 36 % (20-50); MONOCYTE 4 % (0-10); NEUTROPHIL 53 % (42-75); PLATELET ESTIMATE NORMAL (NORMAL); TOTAL CELLS COUNTED 100
[2016-08-17 03:33] LABS: ANISOCYTOSIS SLIGHT
[2016-08-17 03:34] LABS: LARGE PLATELETS PRESENT
[2016-08-17 03:35] LABS: TEARDROP CELLS SLIGHT
[2016-08-17 04:44] VITALS: BP 110/66; PULSE 72; RESP 16; TEMP 97.4
[2016-08-17 14:30] VITALS: O2SAT 91
--- NOTE | 2016-08-20 13:09 | CARD ---
APPROVED REPORT EKG Measurement Heart [id number] [id number] <Conclusion> Sinus tachycardia Otherwise normal ECG
== END 2016-08-17 04:51 | disposition home or self-care (01) ==
LOC: H.ER 22:38
DX: J45.901 Unspecified asthma with (acute) exacerbation (principal); Z88.0 Allergy status to penicillin; F41.9 Anxiety disorder, unspecified; J44.9 Chronic obstructive pulmonary disease, unspecified
CPT/HCPCS: 80053; 83735; 84100; 85025; 87040; 93005; 94640; 96365; 96366; 96375; 99283; J2920; J3475

== ENCOUNTER 2016-08-24 06:21 | Emergency (ER) | payer BC ==
[2016-08-24 06:21] VITALS: BMI 17.7
[2016-08-24 06:39] VITALS: O2SAT 96
[2016-08-24] MEDS ORDERED: Magnesium Sulfate 2 GM in Sodium Chloride 0.9% 100 ML IVPB ONE (07:05)
[2016-08-24] MEDS ORDERED: Albuterol-Ipratrop 3 mg / 0.5 (3 ml) UD INH STA ×2 (07:05→09:23)
[2016-08-24] MEDS ORDERED: Magnesium Sulfate 2 gm/50 ml 2 GM/50 ML BAG ONE (07:18)
[2016-08-24] MEDS ORDERED: Albuterol-Ipratrop 3 mg / 0.5 (3 ml) UD ONE (07:18)
--- NOTE | 2016-08-24 07:32 | ED PDOC ---
HPI: SOB/CHF/COPD Time Seen by Provider: 08/24/16 07:05 Chief Complaint (Nursing): Respiratory Distress Chief Complaint (Provider): Respiratory Distress History Per: Patient History/Exam Limitations: no limitations Onset/Duration Of Symptoms: Hrs (x1.5), Persistent Current Symptoms Are (Timing): Still Present Quality: Tightness Exacerbating Factor(s): Exertion, Coughing Severity: Moderate Recently: Seen In ED Additional Complaint(s): Rachel Brown is a 46 year old female, with a past medical history of severe persistent asthma who was brought to the emergency department via EMS due to asthma exacerbation onset for an hour and half prior to arrival. Patient reports wheezing, shortness of breath, coughing and chest tightness. Patient reports symptoms are similar to that of her previous asthma symptoms. She has a history of multiple intubations in the past. PMD: none provided Past Medical History Reviewed: Historical Data, Nursing Documentation, Vital Signs Vital Signs: Last Vital Signs Temp 97 F L 08/24/16 10:11 Pulse 81 08/24/16 10:11 Resp 18 08/24/16 10:11 BP 121/77 08/24/16 10:11 Pulse Ox 96 08/24/16 10:11 - Medical History PMH: Anxiety, Asthma, Bronchitis, COPD Denies: HIV, Chronic Kidney Disease - Family History Family History: States: Unknown Family Hx - Social History Alcohol: None Drugs: Denies - Home Medications Home Medications: Ambulatory Orders Medication Instructions Recorded Albuterol 0.083% [Albuterol 0.083% 3 ml IH Q6H PRN #30 neb 02/28/16 Inhal Jamee (2.5 mg/3 ml) UD] Albuterol HFA [Ventolin HFA 90 2 puff IH [id number] PRN #1 bottle 02/28/16 mcg/actuation (8 g)] Prednisone 50 mg PO DAILY #4 tab 03/18/16 Azithromycin [Z-Ang] 250 mg PO DAILY #6 tab 05/19/16 Ondansetron ODT [Zofran ODT] 4 mg PO Q8 #12 odt 05/19/16 predniSONE [predniSONE Tab] 40 mg PO DAILY 3 Days 05/19/16 Methylprednisolone [Medrol Dosepak] 4 mg PO ASDIR #1 pkg 07/03/16 Albuterol HFA [Ventolin HFA 90 1 - 2 puff IH Q6 PRN #1 inhaler 08/17/16 mcg/actuation (8 g)] Methylprednisolone [Medrol Dosepak] 4 mg PO ASDIR #1 pkg 08/17/16 Albuterol 0.083% [Albuterol 0.083% 2.5 mg IH Q4 PRN #20 neb 08/24/16 Inhal Jamee (2.5 mg/3 ml) UD] - Allergies Allergies/Adverse Reactions: Allergies Allergy/AdvReac Type Severity Reaction Status Date / Time acetaminophen Allergy SHORTNESS Verified 05/19/16 04:45 OF BREATH moxifloxacin HCl Allergy tendonitis Verified 05/19/16 04:45 [From Avelox] Penicillins Allergy SHORTNESS Verified 05/19/16 04:45 OF BREATH Review of Systems ROS Statement: Except As Marked, All Systems Reviewed And Found Negative Respiratory: Positive for: Cough, Shortness of Breath, Wheezing, Other (chest tightness) Physical Exam - Reviewed Nursing Documentation Reviewed: Yes Vital Signs Reviewed: Yes - Physical Exam Appears: Positive for: Non-toxic, In Acute Distress (mild to moderate respiratory distress) Head Exam: Positive for: ATRAUMATIC, NORMAL INSPECTION, NORMOCEPHALIC Skin: Positive for: Normal Color, Warm, Dry Eye Exam: Positive for: Normal appearance, EOMI, PERRL ENT: Positive for: Other (poor dentition ) Neck: Positive for: Normal, Painless ROM, Supple Cardiovascular/Chest: Positive for: Regular Rate, Rhythm Respiratory: Positive for: Wheezing (bilaterally ), Respiratory Distress (mild to moderate) Gastrointestinal/Abdominal: Positive for: Normal Exam, Bowel Sounds, Soft. 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 labs reviewed, unremarkable. given mag sulfate, susi anderson improvement 935a- SPO2 94% RA. Work of breathing improved, she states at baseline. Wants to go home. Offered hospital admission but states she prefers to use meds at home. Explained risk of respiratory failure, she knows her asthma very well. Scribe Attestation: Documented by Fran England, acting as a scribe for Danny Bingham DO. Provider Scribe Attestation: All medical record entries made by the Scribe were at my direction and personally dictated by me. I have reviewed the chart and agree that the record accurately reflects my personal performance of the history, physical exam, medical decision making, and the department course for this patient. I have also personally directed, reviewed, and agree with the discharge instructions and disposition. Disposition - Clinical Impression Clinical Impression: Acute respiratory distress, Asthma exacerbation - Patient ED Disposition Is Patient to be Admitted: No Counseled Patient/Family Regarding: Studies Performed, Diagnosis - Disposition Disposition: Routine/Home Disposition Time: 09:00 Condition: STABLE Prescriptions: Albuterol 0.083% [Albuterol 0.083% Inhal Jamee (2.5 mg/3 ml) UD] 2.5 mg IH Q4 PRN #20 neb PRN Reason: Wheezing Instructions: Asthma (ED)
[2016-08-24 07:50] LABS: BASO # 0.2 K/uL (0.0-0.2); BASO % 2.4 % (0.0-2.0); EOS # 0.7 K/uL (0.0-0.7); EOS % 9.1 % (0.0-4.0); HEMOGLOBIN 13.8 g/dL (12.0-16.0); LYMPH # 2.5 K/uL (1.0-4.3); LYMPH % 33.9 % (20.0-40.0); MEAN CORPUSCULAR HEMOGLOBIN 31.7 pg (27.0-31.0); MEAN CORPUSCULAR HGB CONC 33.7 g/dL (33.0-37.0); MEAN PLATELET VOLUME 8.4 fl (7.2-11.7); MONO # 0.7 K/uL (0.0-0.8); MONO % 9.7 % (0.0-10.0); NEUT # 3.3 K/uL (1.8-7.0); NEUT % 44.9 % (50.0-75.0); NRBC % 0.1 % (0.0-0.0); RBC 4.35 Mil/uL (3.80-5.20); RED CELL DISTRIBUTION WIDTH 13.8 % (11.5-14.5); WHITE BLOOD COUNT 7.4 K/uL (4.8-10.8)
[2016-08-24 08:01] LABS: BLOOD UREA NITROGEN 16 mg/dl (7-17); CALCIUM 9.3 mg/dL (8.4-10.2); GFR AFRICAN-AMERICAN > 60; GFR NON-AFRICAN AMERICAN > 60
[2016-08-24 10:11] VITALS: BP 121/77; PULSE 81; RESP 18; TEMP 97
--- NOTE | 2016-08-27 06:13 | CARD ---
APPROVED REPORT EKG Measurement Heart [id number] [place] [id number] <Conclusion> Normal sinus rhythm with sinus arrhythmia Normal ECG
== END 2016-08-24 10:11 | disposition home or self-care (01) ==
LOC: H.ER 06:21
DX: J45.51 Severe persistent asthma with (acute) exacerbation (principal); F41.9 Anxiety disorder, unspecified; Z88.0 Allergy status to penicillin
CPT/HCPCS: 80048; 85025; 93005; 94640; 96365; 99282; J3475

== ENCOUNTER 2016-08-28 18:13 | Emergency (ER) | payer BC ==
[2016-08-28 18:13] VITALS: BMI 17.7
[2016-08-28] MEDS ORDERED: Albuterol-Ipratrop 3 mg / 0.5 (3 ml) UD ONE ×2 (18:24→18:56)
[2016-08-28 18:29] VITALS: BP 150/80; PULSE 130; RESP 24; TEMP 98.3
[2016-08-28] MEDS ORDERED: Magnesium Sulfate 2 gm/50 ml 2 GM/50 ML BAG IVPB ONE (18:33)
[2016-08-28] MEDS ORDERED: MethylPREDNISolone 40 mg Vial IVP STA (18:33)
[2016-08-28] MEDS ORDERED: Albuterol-Ipratrop 3 mg / 0.5 (3 ml) UD INH STA (18:33)
[2016-08-28] MEDS ORDERED: MethylPREDNISolone 40 mg Vial ONE (18:43)
[2016-08-28] MEDS ORDERED: Magnesium Sulfate 2 gm/50 ml 2 GM/50 ML BAG ONE (18:43)
--- NOTE | 2016-08-28 18:46 | ED PDOC ---
HPI: Asthma Time Seen by Provider: 08/28/16 18:33 Chief Complaint (Nursing): Respiratory Distress Chief Complaint (Provider): shortness of breath History Per: Patient History/Exam Limitations: no limitations Onset/Duration Of Symptoms: Days (4), Gradual, Persistent Associated Symptoms: Cough, Sputum Production Additional Complaint(s): shortness of breath progressive for 4 days, started day she had some dental work done. 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 - Asthma History Date Of Last ED Visit: 08/24/16 Past Medical History Vital Signs: Last Vital Signs Temp 98.3 F 08/28/16 18:27 Pulse 130 H 08/28/16 18:27 Resp 24 08/28/16 18:27 BP 150/80 08/28/16 18:27 Pulse Ox 87 L 08/28/16 18:27 - Medical History PMH: Anxiety, Asthma, Bronchitis, COPD Denies: HIV, Chronic Kidney Disease - Family History Family History: States: Unknown Family Hx - Social History Current smoker - smoking cessation education provided: No - Home Medications Home Medications: Ambulatory Orders Medication Instructions Recorded Albuterol 0.083% [Albuterol 0.083% 3 ml IH Q6H PRN #30 neb 02/28/16 Inhal Jamee (2.5 mg/3 ml) UD] Albuterol HFA [Ventolin HFA 90 2 puff IH [id number] PRN #1 bottle 02/28/16 mcg/actuation (8 g)] Prednisone 50 mg PO DAILY #4 tab 03/18/16 Azithromycin [Z-Ang] 250 mg PO DAILY #6 tab 05/19/16 Ondansetron ODT [Zofran ODT] 4 mg PO Q8 #12 odt 05/19/16 predniSONE [predniSONE Tab] 40 mg PO DAILY 3 Days 05/19/16 Methylprednisolone [Medrol Dosepak] 4 mg PO ASDIR #1 pkg 07/03/16 Albuterol HFA [Ventolin HFA 90 1 - 2 puff IH Q6 PRN #1 inhaler 08/17/16 mcg/actuation (8 g)] Methylprednisolone [Medrol Dosepak] 4 mg PO ASDIR #1 pkg 08/17/16 Albuterol 0.083% [Albuterol 0.083% 2.5 mg IH Q4 PRN #20 neb 08/24/16 Inhal Jamee (2.5 mg/3 ml) UD] Clindamycin [Cleocin] 300 mg PO TID #21 cap 08/28/16 - Allergies Allergies/Adverse Reactions: Allergies Allergy/AdvReac Type Severity Reaction Status Date / Time acetaminophen Allergy SHORTNESS Verified 05/19/16 04:45 OF BREATH moxifloxacin HCl Allergy tendonitis Verified 05/19/16 04:45 [From Avelox] Penicillins Allergy SHORTNESS Verified 05/19/16 04:45 OF BREATH Review of Systems ROS Statement: Except As Marked, All Systems Reviewed And Found Negative (and as per HPI) Cardiovascular: Positive for: Chest Pain Respiratory: Positive for: Cough, Shortness of Breath, Pleuritic Pain, Sputum, Wheezing Physical Exam - Reviewed Nursing Documentation Reviewed: Yes Vital Signs Reviewed: Yes - Physical Exam Appears: Positive for: Non-toxic, In Acute Distress Head Exam: Positive for: ATRAUMATIC, NORMOCEPHALIC Skin: Positive for: Warm, Dry Eye Exam: Positive for: EOMI, PERRL ENT: Positive for: Normal ENT Inspection Neck: Positive for: Painless ROM, Supple Cardiovascular/Chest: Positive for: Regular Rate, Rhythm, Chest Non Tender, Tachycardia Respiratory: Positive for: Accessory Muscle Use, Rhonchi, Wheezing, Respiratory Distress Gastrointestinal/Abdominal: Positive for: Soft. Negative for: Tenderness Back: Positive for: Normal Inspection. Negative for: Vertebral Tenderness Extremity: Positive for: Normal ROM. Negative for: Pedal Edema Lymphatic: Negative for: Adenopathy Neurologic/Psych: Positive for: Alert. Negative for: Motor/Sensory Deficits - Laboratory Results Result Diagrams: 08/28/16 18:39 08/28/16 18:39 Interpretation Of Abn Labs: Labs unremarkable - ECG O2 Sat by Pulse Oximetry: 87 Pulse Ox Interpretation: Abnormal (IV steroid and nebs given.) - Radiology X-Ray Interpretation: No Acute Disease - Progress Re-evaluation Time: 21:15 Condition: Improved (Feels better, appears more comfortable, and eager to go home) - Critical Care Total Time (In Min): 30 Documented Critical Care: Time excludes all time spent performint seperately billable procedures Disposition - Clinical Impression Clinical Impression: Asthma exacerbation Counseled Patient/Family Regarding: Studies Performed, Diagnosis, Need For Followup, Rx Given - Disposition Disposition: Routine/Home Disposition Time: 21:13 Condition: IMPROVED Prescriptions: Clindamycin [Cleocin] 300 mg PO TID #21 cap Instructions: Asthma (ED)
[2016-08-28 18:50] LABS: BASO # 0.1 K/uL (0.0-0.2); BASO % 0.6 % (0.0-2.0); EOS # 0.8 K/uL (0.0-0.7); EOS % 7.7 % (0.0-4.0); HEMOGLOBIN 14.6 g/dL (12.0-16.0); LYMPH # 3.1 K/uL (1.0-4.3); LYMPH % 29.5 % (20.0-40.0); MEAN CELL VOLUME 94.4 fl (81.0-99.0); MEAN CORPUSCULAR HEMOGLOBIN 31.4 pg (27.0-31.0); MEAN CORPUSCULAR HGB CONC 33.3 g/dL (33.0-37.0); MEAN PLATELET VOLUME 8.4 fl (7.2-11.7); MONO # 0.9 K/uL (0.0-0.8); MONO % 8.5 % (0.0-10.0); NEUT # 5.6 K/uL (1.8-7.0); NEUT % 53.7 % (50.0-75.0); NRBC % 0.1 % (0.0-0.0); RBC 4.67 Mil/uL (3.80-5.20); RED CELL DISTRIBUTION WIDTH 13.4 % (11.5-14.5); WHITE BLOOD COUNT 10.4 K/uL (4.8-10.8)
[2016-08-28 18:58] LABS: ALB/GLOB RATIO 1.4 (1.0-2.1); ALBUMIN 4.9 g/dL (3.5-5.0); ALT/SGPT 34 U/L (9-52); AST/SGOT 24 U/L (14-36); BLOOD UREA NITROGEN 22 mg/dl (7-17); CALCIUM 9.8 mg/dL (8.4-10.2); GFR AFRICAN-AMERICAN > 60; GFR NON-AFRICAN AMERICAN > 60
[2016-08-28 21:15] VITALS: O2SAT 87
--- NOTE | 2016-08-29 08:30 | RAD ---
HISTORY: sob COMPARISON: No prior. FINDINGS: LUNGS: No active pulmonary disease. PLEURA: No significant pleural effusion identified, no pneumothorax apparent. CARDIOVASCULAR: Normal. OSSEOUS STRUCTURES: No significant abnormalities. VISUALIZED UPPER ABDOMEN: Normal. OTHER FINDINGS: None. IMPRESSION: No active disease.
--- NOTE | 2016-09-01 06:31 | CARD ---
APPROVED REPORT EKG Measurement Heart [id number] ID [id number] <Conclusion> Sinus tachycardia Right atrial enlargement Borderline ECG
== END 2016-08-28 21:30 | disposition home or self-care (01) ==
LOC: H.ER 18:13
DX: J45.901 Unspecified asthma with (acute) exacerbation (principal); F41.9 Anxiety disorder, unspecified; Z88.0 Allergy status to penicillin
CPT/HCPCS: 71010; 80053; 83735; 84100; 84484; 85025; 87040; 94640; 96374; 99284; J2920

== ENCOUNTER 2016-10-08 04:51 | Emergency (ER) | payer BC ==
[2016-10-08] MEDS ORDERED: Albuterol-Ipratrop 3 mg / 0.5 (3 ml) UD INH STA ×3 (04:58→04:59)
[2016-10-08] MEDS ORDERED: Magnesium Sulfate 2 GM in Sodium Chloride 0.9% 100 ML IV STA (04:58)
[2016-10-08 04:59] VITALS: BP 138/87; PULSE 125; TEMP 98.1; O2SAT 92
--- NOTE | 2016-10-08 05:06 | ED PDOC ---
HPI: SOB/CHF/COPD Time Seen by Provider: 10/08/16 04:55 Chief Complaint (Nursing): Respiratory Distress Chief Complaint (Provider): Respiratory distress History Per: Patient History/Exam Limitations: no limitations Onset/Duration Of Symptoms: Days (x1) Additional Complaint(s): Rachel Brown is a 46 year old female, well known to this provider and department, with a past medical history of asthma, COPD and bronchitis, who presents to the emergency room for evaluation of shortness of breath with associated cough. Denies fever, chills, or any other medical complaints. PMD: None provided Past Medical History Reviewed: Historical Data, Nursing Documentation, Vital Signs Vital Signs: Last Vital Signs Temp 98.1 F 10/08/16 04:56 Pulse 125 H 10/08/16 04:56 Resp 24 10/08/16 05:21 BP 138/87 10/08/16 04:56 Pulse Ox 92 L 10/08/16 05:14 - Medical History PMH: Anxiety, Asthma, Bronchitis, COPD Denies: HIV, Chronic Kidney Disease - Family History Family History: States: Unknown Family Hx - Social History Current smoker - smoking cessation education provided: Yes Alcohol: None Drugs: Denies - Home Medications Home Medications: Ambulatory Orders Medication Instructions Recorded Albuterol 0.083% [Albuterol 0.083% 3 ml IH Q6H PRN #30 neb 02/28/16 Inhal Jamee (2.5 mg/3 ml) UD] Albuterol HFA [Ventolin HFA 90 2 puff IH [id number] PRN #1 bottle 02/28/16 mcg/actuation (8 g)] Prednisone 50 mg PO DAILY #4 tab 03/18/16 Azithromycin [Z-Ang] 250 mg PO DAILY #6 tab 05/19/16 Ondansetron ODT [Zofran ODT] 4 mg PO Q8 #12 odt 05/19/16 predniSONE [predniSONE Tab] 40 mg PO DAILY 3 Days 05/19/16 Methylprednisolone [Medrol Dosepak] 4 mg PO ASDIR #1 pkg 07/03/16 Albuterol HFA [Ventolin HFA 90 1 - 2 puff IH Q6 PRN #1 inhaler 08/17/16 mcg/actuation (8 g)] Methylprednisolone [Medrol Dosepak] 4 mg PO ASDIR #1 pkg 08/17/16 Albuterol 0.083% [Albuterol 0.083% 2.5 mg IH Q4 PRN #20 neb 08/24/16 Inhal Jamee (2.5 mg/3 ml) UD] Clindamycin [Cleocin] 300 mg PO TID #21 cap 08/28/16 Methylprednisolone [Medrol Dosepak] 4 mg PO ASDIR #1 pkg 10/08/16 - Allergies Allergies/Adverse Reactions: Allergies Allergy/AdvReac Type Severity Reaction Status Date / Time acetaminophen Allergy SHORTNESS Verified 05/19/16 04:45 OF BREATH moxifloxacin HCl Allergy tendonitis Verified 05/19/16 04:45 [From Avelox] Penicillins Allergy SHORTNESS Verified 05/19/16 04:45 OF BREATH Review of Systems ROS Statement: Except As Marked, All Systems Reviewed And Found Negative Constitutional: Negative for: Fever, Chills Respiratory: Positive for: Cough, Shortness of Breath Physical Exam - Reviewed Nursing Documentation Reviewed: Yes Vital Signs Reviewed: Yes - Physical Exam Appears: Positive for: Well, Non-toxic, No Acute Distress Head Exam: Positive for: ATRAUMATIC, NORMAL INSPECTION, NORMOCEPHALIC Skin: Positive for: Normal Color, Warm, Dry Eye Exam: Positive for: EOMI, Normal appearance, PERRL Neck: Positive for: Normal, Painless ROM, Supple Cardiovascular/Chest: Positive for: Regular Rate, Rhythm. Negative for: Murmur Respiratory: Positive for: Normal Breath Sounds, Other (cough). Negative for: Respiratory Distress Gastrointestinal/Abdominal: Positive for: Normal Exam, Bowel Sounds, Soft. Negative for: Tenderness Back: Positive for: Normal Inspection. Negative for: L CVA Tenderness, R CVA Tenderness Extremity: Positive for: Normal ROM. Negative for: Pedal Edema, Deformity Neurologic/Psych: Positive for: Alert, Oriented. Negative for: Motor/Sensory Deficits - Laboratory Results Result Diagrams: 10/08/16 05:27 10/08/16 05:27 - ECG O2 Sat by Pulse Oximetry: 92 (RA) Pulse Ox Interpretation: Abnormal - Critical Care Total Time (In Min): 30 Medical Decision Making Medical Decision Making: Initial Impression: 46yo female w/ SOB and cough in setting of known hx of asthma Initial Plan: --EKG --Labs --duoneb 3ml INH x3, mag sulfate 1gm in 100ml IV, solu-medrol 60mg in 50ml IV --reassess 0647 -Lab show no significant abnormalities. Patient's symptoms are improving and is stable for discharge. -Diagnosis: Asthma exarcebation Scribe Attestation: Documented by Fran England, acting as a scribe for Lisandro Norman MD Provider Scribe Attestation: All medical record entries made by the Scribe were at my direction and personally dictated by me. I have reviewed the chart and agree that the record accurately reflects my personal performance of the history, physical exam, medical decision making, and the department course for this patient. I have also personally directed, reviewed, and agree with the discharge instructions and disposition. Disposition - Clinical Impression Clinical Impression: Asthma exacerbation - Disposition Disposition Time: 06:50 Condition: STABLE Prescriptions: Methylprednisolone [Medrol Dosepak] 4 mg PO ASDIR #1 pkg Instructions: Asthma (ED) Forms: [facility] ([place]isian)
[2016-10-08] MEDS ORDERED: Albuterol-Ipratrop 3 mg / 0.5 (3 ml) UD ONE (05:20)
[2016-10-08] MEDS ORDERED: Magnesium Sulfate 2 gm/50 ml 2 GM/50 ML BAG ONE (05:20)
[2016-10-08 05:23] VITALS: RESP 24
[2016-10-08 05:52] LABS: BASO # 0.2 K/uL (0.0-0.2); EOS # 0.4 K/uL (0.0-0.7); EOS % 3.6 % (0.0-4.0); HEMATOCRIT 40.4 % (34.0-47.0); LYMPH # 3.7 K/uL (1.0-4.3); LYMPH % 34.5 % (20.0-40.0); MEAN CELL VOLUME 93.5 fl (81.0-99.0); MEAN CORPUSCULAR HGB CONC 33.1 g/dL (33.0-37.0); MEAN PLATELET VOLUME 8.3 fl (7.2-11.7); MONO # 1.2 K/uL (0.0-0.8); MONO % 11.2 % (0.0-10.0); NEUT # 5.2 K/uL (1.8-7.0); NEUT % 48.7 % (50.0-75.0); RED CELL DISTRIBUTION WIDTH 12.8 % (11.5-14.5); WHITE BLOOD COUNT 10.7 K/uL (4.8-10.8)
[2016-10-08 06:13] LABS: ALB/GLOB RATIO 1.2 (1.0-2.1); ALKALINE PHOSPHATASE 74 U/L (38-126); ALT/SGPT 29 U/L (9-52); AST/SGOT 26 U/L (14-36); BILIRUBIN,TOTAL 0.6 mg/dl (0.2-1.3); BLOOD UREA NITROGEN 18 mg/dl (7-17); CALCIUM 9.6 mg/dL (8.4-10.2); CARBON DIOXIDE 27 mmol/L (22-30); CHLORIDE 106 mmol/L (98-107); GFR AFRICAN-AMERICAN > 60; GLUCOSE,RANDOM 117 mg/dL (65-105); MAGNESIUM 1.7 MG/DL (1.6-2.3); POTASSIUM 4.2 MMOL/L (3.6-5.0); SODIUM 143 mmol/l (132-148); TOTAL PROTEIN 7.9 G/DL (6.3-8.2)
--- NOTE | 2016-10-08 11:49 | CARD ---
APPROVED REPORT EKG Measurement Heart [id number] <Conclusion> Sinus tachycardia Otherwise normal ECG
== END 2016-10-08 07:08 | disposition home or self-care (01) ==
LOC: H.ER 04:51
DX: J45.901 Unspecified asthma with (acute) exacerbation (principal); F41.9 Anxiety disorder, unspecified; Z88.0 Allergy status to penicillin
CPT/HCPCS: 80053; 83735; 85025; 93005; 94640; 96374; 99283; J2930; J3475

== ENCOUNTER 2016-10-15 11:53 | Observation (INO) | payer BC ==
[2016-10-15 11:53] VITALS: BMI 17.7
[2016-10-15] MEDS ORDERED: Albuterol-Ipratrop 3 mg / 0.5 (3 ml) UD INH STA ×4 (12:00→15:34)
[2016-10-15] MEDS ORDERED: Magnesium Sulfate 2 gm/50 ml 2 GM/50 ML BAG IVPB STA (12:00)
[2016-10-15 12:02] VITALS: TEMP 98.2
[2016-10-15] MEDS ORDERED: Magnesium Sulfate 2 gm/50 ml 2 GM/50 ML BAG ONE (12:27)
[2016-10-15] MEDS ORDERED: Albuterol-Ipratrop 3 mg / 0.5 (3 ml) UD ONE (12:28)
[2016-10-15 12:31] LABS: BASO # 0.1 K/uL (0.0-0.2); BASO % 1.2 % (0.0-2.0); EOS # 0.6 K/uL (0.0-0.7); EOS % 6.3 % (0.0-4.0); HEMATOCRIT 42.3 % (34.0-47.0); MEAN CELL VOLUME 93.6 fl (81.0-99.0); MEAN CORPUSCULAR HEMOGLOBIN 30.2 pg (27.0-31.0); MEAN CORPUSCULAR HGB CONC 32.3 g/dL (33.0-37.0); MEAN PLATELET VOLUME 8.4 fl (7.2-11.7); MONO # 0.9 K/uL (0.0-0.8); MONO % 8.9 % (0.0-10.0); NEUT # 4.3 K/uL (1.8-7.0); NEUT % 43.6 % (50.0-75.0); RED CELL DISTRIBUTION WIDTH 12.8 % (11.5-14.5); WHITE BLOOD COUNT 9.9 K/uL (4.8-10.8)
[2016-10-15 12:45] LABS: ALB/GLOB RATIO 1.3 (1.0-2.1); ALKALINE PHOSPHATASE 73 U/L (38-126); ALT/SGPT 29 U/L (9-52); AST/SGOT 25 U/L (14-36); BILIRUBIN,TOTAL 0.5 mg/dl (0.2-1.3); BLOOD UREA NITROGEN 13 mg/dl (7-17); CALCIUM 9.7 mg/dL (8.4-10.2); CARBON DIOXIDE 26 mmol/L (22-30); CHLORIDE 105 mmol/L (98-107); GFR AFRICAN-AMERICAN > 60; GLUCOSE,RANDOM 146 mg/dL (65-105); POTASSIUM 4.2 MMOL/L (3.6-5.0); SODIUM 143 mmol/l (132-148); TOTAL PROTEIN 7.9 G/DL (6.3-8.2)
--- NOTE | 2016-10-15 13:50 | ED PDOC ---
HPI: SOB/CHF/COPD Time Seen by Provider: 10/15/16 11:55 Chief Complaint (Nursing): Shortness Of Breath Chief Complaint (Provider): Shortness of Breath History Per: Patient History/Exam Limitations: clinical condition Onset/Duration Of Symptoms: Hrs (prior to arrival ) Additional Complaint(s): Rachel Brown is a 46 year old female presenting to the ED for an evaluation of shortness of breath occurring prior to arrival. She reports taking a nebulizer treatment at home, with no relief. She then called the ambulance and is requesting Magnesium. PMD: None Provided Past Medical History Reviewed: Historical Data, Nursing Documentation, Vital Signs Vital Signs: Last Vital Signs Temp 98.2 F 10/15/16 12:01 Pulse 87 10/15/16 16:42 Resp 19 10/15/16 16:42 BP 94/66 L 10/15/16 16:42 Pulse Ox 99 10/15/16 16:42 - Medical History PMH: Anxiety, Asthma, Bronchitis, COPD Denies: HIV, Chronic Kidney Disease - Family History Family History: States: Unknown Family Hx - Social History Current smoker - smoking cessation education provided: No Ex-Smoker (has not smoked in the last 12 months): No Alcohol: None Drugs: Denies - Home Medications Home Medications: Ambulatory Orders Medication Instructions Recorded Albuterol 0.083% [Albuterol 0.083% 3 ml IH Q6H PRN #30 neb 02/28/16 Inhal Jamee (2.5 mg/3 ml) UD] Albuterol HFA [Ventolin HFA 90 2 puff IH [id number] PRN #1 bottle 02/28/16 mcg/actuation (8 g)] Prednisone 50 mg PO DAILY #4 tab 03/18/16 Azithromycin [Z-Ang] 250 mg PO DAILY #6 tab 05/19/16 Ondansetron ODT [Zofran ODT] 4 mg PO Q8 #12 odt 05/19/16 predniSONE [predniSONE Tab] 40 mg PO DAILY 3 Days 05/19/16 Methylprednisolone [Medrol Dosepak] 4 mg PO ASDIR #1 pkg 07/03/16 Albuterol HFA [Ventolin HFA 90 1 - 2 puff IH Q6 PRN #1 inhaler 08/17/16 mcg/actuation (8 g)] Methylprednisolone [Medrol Dosepak] 4 mg PO ASDIR #1 pkg 08/17/16 Albuterol 0.083% [Albuterol 0.083% 2.5 mg IH Q4 PRN #20 neb 08/24/16 Inhal Jamee (2.5 mg/3 ml) UD] Clindamycin [Cleocin] 300 mg PO TID #21 cap 08/28/16 Methylprednisolone [Medrol Dosepak] 4 mg PO ASDIR #1 pkg 10/08/16 Albuterol 0.083% [Albuterol 0.083% 3 ml IH Q6H PRN #30 neb 10/15/16 Inhal Jamee (2.5 mg/3 ml) UD] Albuterol HFA [Ventolin HFA 90 2 puff IH [id number] PRN #1 bottle 10/15/16 mcg/actuation (8 g)] Prednisone 50 mg PO DAILY #4 tab 10/15/16 - Allergies Allergies/Adverse Reactions: Allergies Allergy/AdvReac Type Severity Reaction Status Date / Time acetaminophen Allergy SHORTNESS Verified 10/15/16 11:56 OF BREATH moxifloxacin HCl Allergy tendonitis Verified 10/15/16 11:56 [From Avelox] Penicillins Allergy SHORTNESS Verified 10/15/16 11:56 OF BREATH Review of Systems Review Of Systems: ROS cannot be obtained secondary to pt's inabilty to answer questions. (due to clinical condition of pt) Physical Exam - Reviewed Nursing Documentation Reviewed: Yes Vital Signs Reviewed: Yes - Physical Exam Appears: Positive for: Non-toxic Head Exam: Positive for: ATRAUMATIC, NORMOCEPHALIC Cardiovascular/Chest: Positive for: Regular Rate, Rhythm. Negative for: Murmur Respiratory: Positive for: Wheezing (bilateral), Respiratory Distress (in moderate respiratory distress ) Extremity: Positive for: Normal ROM Neurologic/Psych: Positive for: Alert, Oriented (x3). Negative for: Motor/ Sensory Deficits - Laboratory Results Result Diagrams: 10/15/16 12:20 10/15/16 12:20 - ECG Interpretation Of ECG: ST @ 125, no ST-T changes. O2 Sat by Pulse Oximetry: 100 (RA) Pulse Ox Interpretation: Normal - Critical Care Total Time (In Min): 30 Medical Decision Making Medical Decision Making: Time: 11:55 Impression: Shortness of Breath Differential diagnosis includes but is not limited to asthma exacerbation. Plan: * ED EKG * CMP * CBC (with differential) * Chest Portable [RAD] * Blood Culture * Peak Flow Pre/Post Tx * Duoneb 3 mg/0.5 mg (3 ml) UD 3 ml Inh * Magnesium Sulfate 2 gm/50 ml Water IVPB * SOLU-Medrol 125 mg IVP * Reevaluation 16:15 Pt feels better, wants to go home, requesting copy of labs. Scribe Attestation: Documented by Susanne Becerra, acting as a scribe for Olga Cervantes MD. Provider Scribe Attestation: All medical record entries made by the Scribe were at my direction and personally dictated by me. I have reviewed the chart and agree that the record accurately reflects my personal performance of the history, physical exam, medical decision making, and the department course for this patient. I have also personally directed, reviewed, and agree with the discharge instructions and disposition. ED OBSERVATION Date of observation admission: 10/15/16 Time of observation admission: 12:00 - Observation admission statement Patient is being placed in observation because:: Time intensive ED evaluation. - Goals of Observation Goals of observation are:: Results of ED workup and eventual disposition. - Progress Note Progress Note: 10/15/16 15:38 Pt's symptoms are better, with continued wheezing. Pt is speaking full sentences and resting comfortably. Disposition - Clinical Impression Clinical Impression: Asthma exacerbation - Patient ED Disposition Is Patient to be Admitted: No - Disposition Disposition: Routine/Home Disposition Time: 16:15 Condition: IMPROVED
[2016-10-15 16:44] VITALS: BP 94/66; PULSE 87; RESP 19
[2016-10-15 18:15] VITALS: O2SAT 100
--- NOTE | 2016-10-15 18:20 | CARD ---
APPROVED REPORT EKG Measurement Heart [id number] <Conclusion> Sinus tachycardia Biatrial enlargement Nonspecific ST abnormality Abnormal ECG
== END 2016-10-15 16:30 | disposition home or self-care (01) ==
LOC: H.ER 11:53 → H.EROBSV 12:00
PROVIDERS: ADMIT Emergency Medicine; ATTEND Emergency Medicine
DX: J44.9 Chronic obstructive pulmonary disease, unspecified (principal); J45.901 Unspecified asthma with (acute) exacerbation; F41.9 Anxiety disorder, unspecified
CPT/HCPCS: 80053; 85025; 87040; 93005; 96374; 99282; G0378; J2930

== ENCOUNTER 2016-10-22 03:05 | Emergency (ER) | payer BC ==
[2016-10-22 03:06] VITALS: BMI 17.7
[2016-10-22 03:10] VITALS: BP 132/88; PULSE 125; RESP 19; O2SAT 92
[2016-10-22] MEDS ORDERED: Albuterol-Ipratrop 3 mg / 0.5 (3 ml) UD INH STA ×4 (03:13→05:12)
--- NOTE | 2016-10-22 03:22 | ED PDOC ---
HPI: SOB/CHF/COPD Time Seen by Provider: 10/22/16 03:12 Chief Complaint (Nursing): Respiratory Distress Chief Complaint (Provider): SOB and cough History Per: Patient History/Exam Limitations: no limitations Onset/Duration Of Symptoms: Intermittent Episodes Current Symptoms Are (Timing): Still Present Current Respiratory Medications: See Home Med List Severity: Moderate Associated Symptoms: denies: Fever, Chills, Sweating, Chest Pain, Bloody Cough, Heart Racing, Leg/Calf Pain, Ankle/Leg Swelling, Dizziness, Light-headedness, Anxiety, Tingling In Hands Or Face, Musle Spasms In Hands Or Feet Recently: Seen In ED Additional History Per: Patient Additional Complaint(s): 46 y/o female with known history of asthma, COPD, and bronchitis complaining of shortness of breath and cough. No fever, chills, chest pain, or other complaint. Past Medical History Vital Signs: Last Vital Signs Temp Pulse 125 H 10/22/16 03:07 Resp 19 10/22/16 03:07 BP 132/88 10/22/16 03:07 Pulse Ox 92 L 10/22/16 05:50 - Medical History PMH: Anxiety, Asthma, Bronchitis, COPD Denies: HIV, Chronic Kidney Disease - Surgical History Surgical History: No Surg Hx - Family History Family History: States: Unknown Family Hx - Social History Current smoker - smoking cessation education provided: No Ex-Smoker (has not smoked in the last 12 months): No Alcohol: None Drugs: Denies - Home Medications Home Medications: Ambulatory Orders Medication Instructions Recorded Albuterol 0.083% [Albuterol 0.083% 3 ml IH Q6H PRN #30 neb 02/28/16 Inhal Jamee (2.5 mg/3 ml) UD] Albuterol HFA [Ventolin HFA 90 2 puff IH [id number] PRN #1 bottle 02/28/16 mcg/actuation (8 g)] Prednisone 50 mg PO DAILY #4 tab 03/18/16 Azithromycin [Z-Ang] 250 mg PO DAILY #6 tab 05/19/16 Ondansetron ODT [Zofran ODT] 4 mg PO Q8 #12 odt 05/19/16 predniSONE [predniSONE Tab] 40 mg PO DAILY 3 Days 05/19/16 Methylprednisolone [Medrol Dosepak] 4 mg PO ASDIR #1 pkg 07/03/16 Albuterol HFA [Ventolin HFA 90 1 - 2 puff IH Q6 PRN #1 inhaler 08/17/16 mcg/actuation (8 g)] Methylprednisolone [Medrol Dosepak] 4 mg PO ASDIR #1 pkg 08/17/16 Albuterol 0.083% [Albuterol 0.083% 2.5 mg IH Q4 PRN #20 neb 08/24/16 Inhal Jamee (2.5 mg/3 ml) UD] Clindamycin [Cleocin] 300 mg PO TID #21 cap 08/28/16 Methylprednisolone [Medrol Dosepak] 4 mg PO ASDIR #1 pkg 10/08/16 Albuterol 0.083% [Albuterol 0.083% 3 ml IH Q6H PRN #30 neb 10/15/16 Inhal Jamee (2.5 mg/3 ml) UD] Albuterol HFA [Ventolin HFA 90 2 puff IH [id number] PRN #1 bottle 10/15/16 mcg/actuation (8 g)] Prednisone 50 mg PO DAILY #4 tab 10/15/16 - Allergies Allergies/Adverse Reactions: Allergies Allergy/AdvReac Type Severity Reaction Status Date / Time acetaminophen Allergy SHORTNESS Verified 10/15/16 11:56 OF BREATH moxifloxacin HCl Allergy tendonitis Verified 10/15/16 11:56 [From Avelox] Penicillins Allergy SHORTNESS Verified 10/15/16 11:56 OF BREATH Review of Systems ROS Statement: Except As Marked, All Systems Reviewed And Found Negative Respiratory: Positive for: Cough, Shortness of Breath Physical Exam - Reviewed Nursing Documentation Reviewed: Yes Vital Signs Reviewed: Yes - Physical Exam Appears: Positive for: Well, Non-toxic, No Acute Distress Head Exam: Positive for: ATRAUMATIC, NORMAL INSPECTION, NORMOCEPHALIC Skin: Positive for: Normal Color, Warm, DRY Eye Exam: Positive for: EOMI, Normal appearance, PERRL ENT: Positive for: Normal ENT Inspection Neck: Positive for: Normal, Painless ROM Cardiovascular/Chest: Positive for: Regular Rate, Rhythm Respiratory: Positive for: Normal Breath Sounds, Other (cough). Negative for: Respiratory Distress Gastrointestinal/Abdominal: Positive for: Normal Exam, Bowel Sounds, Soft Back: Positive for: Normal Inspection Extremity: Positive for: Normal ROM Neurologic/Psych: Positive for: Alert, Oriented - Laboratory Results Result Diagrams: 10/22/16 03:27 10/22/16 03:27 - ECG O2 Sat by Pulse Oximetry: 92 (RA) Pulse Ox Interpretation: Abnormal - Critical Care Total Time (In Min): 30 Medical Decision Making Medical Decision Making: Impression: 46 y/o female with cough and shortness of breath in the setting of known asthma and COPD. Plan: - Labs - Duo Neb x3 - Prednisone, Magnesium Sulfate - Reevaluation 05:13: patient is feeling better, but continues to feel short of breath. Duo Neb given 5:30: Labs reviewed and showed no clinically significant findings. Patient reevaluated and is markedly improved. She is medically stable for discharge. All questions answered. Encouraged her to follow up with her PMD in the next 2- 3 days. Scribe Attestation: Documented by Rebecca Jaimes, acting as a scribe for Lisandro Norman MD Provider Scribe Attestation: All medical record entries made by the Scribe were at my direction and personally dictated by me. I have reviewed the chart and agree that the record accurately reflects my personal performance of the history, physical exam, medical decision making, and the department course for this patient. I have also personally directed, reviewed, and agree with the discharge instructions and disposition. Disposition - Clinical Impression Clinical Impression: Asthma exacerbation - Patient ED Disposition Is Patient to be Admitted: No Doctor Will See Patient In The: Office Counseled Patient/Family Regarding: Studies Performed, Diagnosis, Need For Followup - Disposition Disposition: Routine/Home Disposition Time: 05:30 Condition: STABLE Instructions: Asthma (ED) Forms: [facility] (Kazakh)
[2016-10-22 03:31] LABS: BASO # 0.1 K/uL (0.0-0.2); BASO % 0.9 % (0.0-2.0); EOS # 0.9 K/uL (0.0-0.7); EOS % 9.8 % (0.0-4.0); HEMATOCRIT 40.6 % (34.0-47.0); LYMPH # 3.7 K/uL (1.0-4.3); MEAN CELL VOLUME 92.4 fl (81.0-99.0); MEAN CORPUSCULAR HGB CONC 33.6 g/dL (33.0-37.0); MEAN PLATELET VOLUME 8.3 fl (7.2-11.7); MONO # 0.9 K/uL (0.0-0.8); MONO % 9.6 % (0.0-10.0); NEUT # 3.8 K/uL (1.8-7.0); NEUT % 40.7 % (50.0-75.0); NRBC % 0.1 % (0.0-0.0); RED CELL DISTRIBUTION WIDTH 13.1 % (11.5-14.5); WHITE BLOOD COUNT 9.4 K/uL (4.8-10.8)
[2016-10-22 03:45] LABS: BLOOD UREA NITROGEN 18 mg/dl (7-17); CALCIUM 9.1 mg/dL (8.4-10.2); CARBON DIOXIDE 26 mmol/L (22-30); CHLORIDE 103 mmol/L (98-107); GFR AFRICAN-AMERICAN > 60; GLUCOSE,RANDOM 148 mg/dL (65-105); MAGNESIUM 1.7 MG/DL (1.6-2.3); POTASSIUM 3.4 MMOL/L (3.6-5.0); SODIUM 142 mmol/l (132-148)
[2016-10-22] MEDS ORDERED: Albuterol-Ipratrop 3 mg / 0.5 (3 ml) UD ONE ×2 (04:11→05:15)
--- NOTE | 2016-10-22 08:58 | CARD ---
APPROVED REPORT EKG Measurement Heart [id number] <Conclusion> Sinus rhythm rhythm Nonspecific T wave abnormality Abnormal ECG
== END 2016-10-22 05:52 | disposition home or self-care (01) ==
LOC: H.ER 03:05
DX: J45.901 Unspecified asthma with (acute) exacerbation (principal)
CPT/HCPCS: 80048; 83735; 85025; 93005; 96374; 99282; J2930; J3475

== ENCOUNTER 2016-10-29 02:31 | Emergency (ER) | payer BC ==
[2016-10-29 02:32] VITALS: BMI 17.7
--- NOTE | 2016-10-29 02:51 | ED PDOC ---
HPI: SOB/CHF/COPD Chief Complaint (Provider): Shortness of breath History Per: Patient History/Exam Limitations: no limitations Onset/Duration Of Symptoms: Days (1) Additional Complaint(s): Patient is a 46 y/o female with a past medical history of asthma and chronic pulmonary obstructive disease presenting to the emergency department for shortness of breath. Denies fever, chills, chest pain, or other complaints. PCP: none provided. Past Medical History Reviewed: Historical Data, Nursing Documentation, Vital Signs Vital Signs: Last Vital Signs Temp 98.1 F 10/29/16 02:53 Pulse 129 H 10/29/16 02:53 Resp 20 10/29/16 03:12 BP 136/103 H 10/29/16 02:53 Pulse Ox 100 10/29/16 03:12 - Medical History PMH: Anxiety, Asthma, Bronchitis, COPD Denies: HIV, Chronic Kidney Disease - Surgical History Other surgeries: Jaw surgery - Family History Family History: States: Unknown Family Hx - Social History Current smoker - smoking cessation education provided: No Ex-Smoker (has not smoked in the last 12 months): No Alcohol: None Drugs: Denies - Home Medications Home Medications: Ambulatory Orders Medication Instructions Recorded Albuterol 0.083% [Albuterol 0.083% 3 ml IH Q6H PRN #30 neb 02/28/16 Inhal Jamee (2.5 mg/3 ml) UD] Albuterol HFA [Ventolin HFA 90 2 puff IH [id number] PRN #1 bottle 02/28/16 mcg/actuation (8 g)] Prednisone 50 mg PO DAILY #4 tab 03/18/16 Azithromycin [Z-Ang] 250 mg PO DAILY #6 tab 05/19/16 Ondansetron ODT [Zofran ODT] 4 mg PO Q8 #12 odt 05/19/16 predniSONE [predniSONE Tab] 40 mg PO DAILY 3 Days tab 05/19/16 Methylprednisolone [Medrol Dosepak] 4 mg PO ASDIR #1 pkg 07/03/16 Albuterol HFA [Ventolin HFA 90 1 - 2 puff IH Q6 PRN #1 inhaler 08/17/16 mcg/actuation (8 g)] Methylprednisolone [Medrol Dosepak] 4 mg PO ASDIR #1 pkg 07/11/17 Albuterol 0.083% [Albuterol 0.083% 2.5 mg IH Q4 PRN #20 neb 08/24/16 Inhal Jamee (2.5 mg/3 ml) UD] Clindamycin [Cleocin] 300 mg PO TID #21 cap 08/28/16 Methylprednisolone [Medrol Dosepak] 4 mg PO ASDIR #1 pkg 10/08/16 Albuterol 0.083% [Albuterol 0.083% 3 ml IH Q6H PRN #30 neb 10/15/16 Inhal Jamee (2.5 mg/3 ml) UD] Albuterol HFA [Ventolin HFA 90 2 puff IH [id number] PRN #1 bottle 10/15/16 mcg/actuation (8 g)] Prednisone 50 mg PO DAILY #4 tab 10/15/16 - Allergies Allergies/Adverse Reactions: Allergies Allergy/AdvReac Type Severity Reaction Status Date / Time acetaminophen Allergy SHORTNESS Verified 10/15/16 11:56 OF BREATH moxifloxacin HCl Allergy tendonitis Verified 10/15/16 11:56 [From Avelox] Penicillins Allergy SHORTNESS Verified 10/15/16 11:56 OF BREATH Review of Systems ROS Statement: Except As Marked, All Systems Reviewed And Found Negative Constitutional: Negative for: Fever, Chills Cardiovascular: Negative for: Chest Pain Respiratory: Positive for: Shortness of Breath Physical Exam - Reviewed Nursing Documentation Reviewed: Yes Vital Signs Reviewed: Yes - Physical Exam Appears: Positive for: Non-toxic Head Exam: Positive for: ATRAUMATIC, NORMAL INSPECTION, NORMOCEPHALIC Skin: Positive for: Normal Color, Warm, Dry Eye Exam: Positive for: Normal appearance Cardiovascular/Chest: Positive for: Regular Rate, Rhythm. Negative for: Murmur Respiratory: Positive for: Wheezing (bilateral diffuse expiratory wheezing), Respiratory Distress (moderate). Negative for: Accessory Muscle Use Extremity: Positive for: Normal ROM. Negative for: Pedal Edema Neurologic/Psych: Positive for: Alert, Oriented (x3) - Laboratory Results Result Diagrams: 10/29/16 03:11 10/29/16 03:11 - Critical Care Total Time (In Min): 30 Medical Decision Making Medical Decision Making: Time: 02:59 Initial impression: Patient is a 46 y/o female complaining of shortness of breath. Initial plan: EKG Labs Duoneb 3 mL INH SOLU-Medrol 60 mg IVP Heplock Insertion Peak flow assessment pre/post treatment Reevaluation 05:07 Patient's condition remains stable. 05:49 Upon provider reevaluation patient shows marked improvement of symptoms, is medically stable for discharge, and requires no further treatment in the ED at this time. Counseling was provided and all questions were answered regarding diagnosis. There is agreement to discharge plan. Return if symptoms persist or worsen. Clinical Impression: Asthma exacerbation Scribe Attestation: Documented by Maribell Delcid, acting as a scribe for Lisandro Norman MD. Provider Scribe Attestation: All medical record entries made by the Scribe were at my direction and personally dictated by me. I have reviewed the chart and agree that the record accurately reflects my personal performance of the history, physical exam, medical decision making, and the department course for this patient. I have also personally directed, reviewed, and agree with the discharge instructions and disposition. Disposition - Clinical Impression Clinical Impression: Asthma exacerbation - Patient ED Disposition Is Patient to be Admitted: No Counseled Patient/Family Regarding: Diagnosis - Disposition Disposition: Routine/Home Disposition Time: 05:49 Condition: STABLE Instructions: Asthma (ED) Forms: [email or web address] (Khmer)
[2016-10-29 02:58] VITALS: TEMP 98.1
[2016-10-29] MEDS ORDERED: Albuterol-Ipratrop 3 mg / 0.5 (3 ml) UD INH STA ×3 (02:59→03:01)
[2016-10-29] MEDS ORDERED: MethylPREDNISolone 40 mg Vial ONE (03:01)
[2016-10-29] MEDS ORDERED: Sterile Water 10 ML IV ONE (03:03)
[2016-10-29 03:16] LABS: BASO # 0.1 K/uL (0.0-0.2); BASO % 0.8 % (0.0-2.0); EOS # 0.8 K/uL (0.0-0.7); EOS % 8.3 % (0.0-4.0); HEMATOCRIT 39.5 % (34.0-47.0); LYMPH # 3.8 K/uL (1.0-4.3); LYMPH % 39.2 % (20.0-40.0); MEAN CELL VOLUME 92.2 fl (81.0-99.0); MEAN CORPUSCULAR HEMOGLOBIN 31.4 pg (27.0-31.0); MEAN PLATELET VOLUME 8.1 fl (7.2-11.7); MONO # 0.8 K/uL (0.0-0.8); MONO % 8.2 % (0.0-10.0); NEUT # 4.3 K/uL (1.8-7.0); NEUT % 43.5 % (50.0-75.0); NRBC % 0.1 % (0.0-0.0); RED CELL DISTRIBUTION WIDTH 12.8 % (11.5-14.5); WHITE BLOOD COUNT 9.8 K/uL (4.8-10.8)
[2016-10-29 03:30] LABS: GLUCOSE,RANDOM 123 mg/dL (65-105)
[2016-10-29 03:31] LABS: BLOOD UREA NITROGEN 19 mg/dl (7-17); CALCIUM 9.4 mg/dL (8.4-10.2); CARBON DIOXIDE 27 mmol/L (22-30); CHLORIDE 104 mmol/L (98-107); GFR AFRICAN-AMERICAN > 60; POTASSIUM 3.6 MMOL/L (3.6-5.0); SODIUM 142 mmol/l (132-148)
[2016-10-29 05:57] VITALS: BP 123/69; PULSE 99; RESP 18; O2SAT 95
--- NOTE | 2016-10-29 08:44 | CARD ---
APPROVED REPORT EKG Measurement Heart [id number] <Conclusion> Sinus tachycardia Cannot rule out Anterior infarct, age undetermined Abnormal ECG
== END 2016-10-29 06:17 | disposition home or self-care (01) ==
LOC: H.ER 02:31
DX: J45.901 Unspecified asthma with (acute) exacerbation (principal); F41.9 Anxiety disorder, unspecified; Z88.0 Allergy status to penicillin; J44.9 Chronic obstructive pulmonary disease, unspecified
CPT/HCPCS: 80048; 85025; 93005; 94150; 94640; 96374; 99285; J2930; J3475

== ENCOUNTER 2016-11-03 12:24 | Emergency (ER) | payer BC ==
[2016-11-03 12:24] VITALS: BMI 17.7
[2016-11-03 12:33] VITALS: TEMP 98.9
[2016-11-03] MEDS ORDERED: Magnesium Sulfate 1 gm in D5W 1 GM/100 ML BAG IVPB ONE (12:39)
[2016-11-03] MEDS ORDERED: Albuterol-Ipratrop 3 mg / 0.5 (3 ml) UD IH STA (12:40)
[2016-11-03] MEDS ORDERED: Sodium Chloride 0.9% 1,000 ML IV STA ×2 (12:40→14:46)
[2016-11-03] MEDS ORDERED: Magnesium Sulfate 2 gm/50 ml 2 GM/50 ML BAG ONE (12:50)
--- NOTE | 2016-11-03 12:51 | ED PDOC ---
HPI: CCC, URI, Sore Throat Time Seen by Provider: 11/03/16 12:36 Chief Complaint (Nursing): Cough, Cold, Congestion Chief Complaint (Provider): coughing History Per: Patient History/Exam Limitations: no limitations Onset/Duration Of Symptoms: Days (x 2) Additional Complaint(s): Rachel Brown is a 46 year old female, with a previous medical history of asthma and COPD, who presents to the ED with complaints of a cough associated with wheezing and shortness of breath ongoing for 2 days. Patient is requesting IV magnesium sulfate along with IV fluids. She is refusing to have any CXR, nebulizers, blood work and steroids. PMD: none provided Past Medical History Reviewed: Historical Data, Nursing Documentation, Vital Signs Vital Signs: Last Vital Signs Temp 98.9 F 11/03/16 12:30 Pulse 128 H 11/03/16 12:30 Resp 18 11/03/16 12:30 BP 107/70 11/03/16 12:30 Pulse Ox 99 11/03/16 12:55 - Medical History PMH: Anxiety, Asthma, Bronchitis, COPD Denies: HIV, Chronic Kidney Disease - Family History Family History: States: Unknown Family Hx - Home Medications Home Medications: Ambulatory Orders Medication Instructions Recorded Albuterol 0.083% [Albuterol 0.083% 3 ml IH Q6H PRN #30 neb 02/28/16 Inhal Jamee (2.5 mg/3 ml) UD] Albuterol HFA [Ventolin HFA 90 2 puff IH [id number] PRN #1 bottle 02/28/16 mcg/actuation (8 g)] Prednisone 50 mg PO DAILY #4 tab 03/18/16 Azithromycin [Z-Ang] 250 mg PO DAILY #6 tab 05/19/16 Ondansetron ODT [Zofran ODT] 4 mg PO Q8 #12 odt 05/19/16 predniSONE [predniSONE Tab] 40 mg PO DAILY 3 Days tab 05/19/16 Methylprednisolone [Medrol Dosepak] 4 mg PO ASDIR #1 pkg 07/03/16 Albuterol HFA [Ventolin HFA 90 1 - 2 puff IH Q6 PRN #1 inhaler 08/17/16 mcg/actuation (8 g)] Methylprednisolone [Medrol Dosepak] 4 mg PO ASDIR #1 pkg 08/17/16 Albuterol 0.083% [Albuterol 0.083% 2.5 mg IH Q4 PRN #20 neb 08/24/16 Inhal Jamee (2.5 mg/3 ml) UD] Clindamycin [Cleocin] 300 mg PO TID #21 cap 08/28/16 Methylprednisolone [Medrol Dosepak] 4 mg PO ASDIR #1 pkg 10/08/16 Albuterol 0.083% [Albuterol 0.083% 3 ml IH Q6H PRN #30 neb 10/15/16 Inhal Jamee (2.5 mg/3 ml) UD] Albuterol HFA [Ventolin HFA 90 2 puff IH [id number] PRN #1 bottle 10/15/16 mcg/actuation (8 g)] Prednisone 50 mg PO DAILY #4 tab 10/15/16 - Allergies Allergies/Adverse Reactions: Allergies Allergy/AdvReac Type Severity Reaction Status Date / Time acetaminophen Allergy SHORTNESS Verified 10/15/16 11:56 OF BREATH moxifloxacin HCl Allergy tendonitis Verified 10/15/16 11:56 [From Avelox] Penicillins Allergy SHORTNESS Verified 10/15/16 11:56 OF BREATH Review of Systems ROS Statement: Except As Marked, All Systems Reviewed And Found Negative Respiratory: Positive for: Cough, Shortness of Breath, Wheezing Physical Exam - Reviewed Nursing Documentation Reviewed: Yes Vital Signs Reviewed: Yes - Physical Exam Appears: Positive for: Well, Non-toxic, No Acute Distress Head Exam: Positive for: ATRAUMATIC, NORMAL INSPECTION, NORMOCEPHALIC Skin: Positive for: Normal Color, Warm, DRY Eye Exam: Positive for: EOMI, Normal appearance, PERRL ENT: Positive for: Normal ENT Inspection Neck: Positive for: Normal, Painless ROM Cardiovascular/Chest: Positive for: Regular Rate, Rhythm Respiratory: Positive for: Rhonchi (bilaterally ), Wheezing (expiratory). Negative for: Respiratory Distress Gastrointestinal/Abdominal: Positive for: Normal Exam, Bowel Sounds, Soft Back: Positive for: Normal Inspection Extremity: Positive for: Normal ROM Neurologic/Psych: Positive for: Alert, Oriented - ECG O2 Sat by Pulse Oximetry: 99 (RA) Pulse Ox Interpretation: Normal - Progress Re-evaluation Time: 15:14 Condition: Improved Medical Decision Making Medical Decision Making: Initial Plan: * IV NS 1,000 ml at 200 ml/hr * magnesium sulfate * albuterol * peak flow pre/post treatment * reevaluation ----- Scribe Attestation: Documented by Olga Horton acting as a scribe for Danny Segura MD. Scribe Attestation: All medical record entries made by the Scribe were at my direction and personally dictated by me. I have reviewed the chart and agree that the record accurately reflects my personal performance of the history, physical exam, medical decision making, and the department course for this patient. I have also personally directed, reviewed, and agree with the discharge instructions and disposition. Disposition - Clinical Impression Clinical Impression: Asthma exacerbation, mild - Patient ED Disposition Is Patient to be Admitted: No Counseled Patient/Family Regarding: Diagnosis, Need For Followup - Disposition Referrals: Rita Ochoa MD [Staff Provider] - Disposition: Routine/Home Disposition Time: 15:15 Condition: FAIR Instructions: Asthma (ED) Forms: [facility] ([place]err[place]ian)
[2016-11-03 15:22] VITALS: BP 106/73; PULSE 89; RESP 16; O2SAT 96
== END 2016-11-03 15:28 | disposition home or self-care (01) ==
LOC: H.ER 12:24
DX: J45.901 Unspecified asthma with (acute) exacerbation (principal); F41.9 Anxiety disorder, unspecified; Z88.0 Allergy status to penicillin
CPT/HCPCS: 94640; 96374; 99282; J3475; J7040

== ENCOUNTER 2016-12-09 00:33 | Emergency (ER) | payer BC ==
[2016-12-09] MEDS ORDERED: Albuterol-Ipratrop 3 mg / 0.5 (3 ml) UD IH STA (00:45)
[2016-12-09 00:46] VITALS: BMI 18.3
[2016-12-09] MEDS ORDERED: Albuterol-Ipratrop 3 mg / 0.5 (3 ml) UD INH STA (00:46)
[2016-12-09] MEDS ORDERED: Albuterol-Ipratrop 3 mg / 0.5 (3 ml) UD ONE (00:50)
[2016-12-09 01:05] VITALS: O2SAT 98
[2016-12-09 01:08] LABS: BASO # 0.1 K/uL (0.0-0.2); BASO % 1.4 % (0.0-2.0); EOS # 0.6 K/uL (0.0-0.7); EOS % 6.7 % (0.0-4.0); HEMATOCRIT 34.6 % (34.0-47.0); LYMPH # 2.2 K/uL (1.0-4.3); LYMPH % 26.1 % (20.0-40.0); MEAN CELL VOLUME 93.5 fl (81.0-99.0); MEAN CORPUSCULAR HEMOGLOBIN 30.8 pg (27.0-31.0); MEAN CORPUSCULAR HGB CONC 32.9 g/dL (33.0-37.0); MONO # 0.9 K/uL (0.0-0.8); NEUT # 4.6 K/uL (1.8-7.0); NEUT % 54.8 % (50.0-75.0); RED CELL DISTRIBUTION WIDTH 14.2 % (11.5-14.5); WHITE BLOOD COUNT 8.4 K/uL (4.8-10.8)
[2016-12-09 01:08] LABS: VENOUS BLOOD GAS BASE EXCESS -1.2 mmol/L (0.0-2.0); VENOUS BLOOD GAS PCO2 39 mmHg (40-60); VENOUS BLOOD PH 7.39 (7.32-7.43)
--- NOTE | 2016-12-09 01:14 | ED PDOC ---
HPI: SOB/CHF/COPD Time Seen by Provider: 12/09/16 00:38 Chief Complaint (Nursing): Respiratory Distress Chief Complaint (Provider): Respiratory Distress History Per: Patient History/Exam Limitations: no limitations Additional Complaint(s): Rachel Brown is a 46 year old female that is well known to the ED and has a history of asthma that was brought in by EMS for difficulty breathing. Patient was given Solumedrol, Albuterol Nebulizer treatment, Magnesium, and Atrovent treatment prior to arrival in ED. She reports that she had allergy-like symptoms , including a runny nose and itchy throat, that triggered her asthma exacerbation. Past Medical History Reviewed: Historical Data, Nursing Documentation, Vital Signs Vital Signs: Last Vital Signs Temp 98.3 F 12/09/16 00:42 Pulse 84 12/09/16 02:01 Resp 17 12/09/16 02:01 BP 116/73 12/09/16 02:01 Pulse Ox 98 12/09/16 03:43 - Medical History PMH: Anxiety, Asthma, Bronchitis, COPD Denies: HIV, Chronic Kidney Disease - Family History Family History: States: Unknown Family Hx - Home Medications Home Medications: Ambulatory Orders Medication Instructions Recorded Albuterol 0.083% [Albuterol 0.083% 3 ml IH Q6H PRN #30 neb 02/28/16 Inhal Jamee (2.5 mg/3 ml) UD] Albuterol HFA [Ventolin HFA 90 2 puff IH [id number] PRN #1 bottle 02/28/16 mcg/actuation (8 g)] Prednisone 50 mg PO DAILY #4 tab 03/18/16 Azithromycin [Z-Ang] 250 mg PO DAILY #6 tab 05/19/16 Ondansetron ODT [Zofran ODT] 4 mg PO Q8 #12 odt 05/19/16 predniSONE [predniSONE Tab] 40 mg PO DAILY 3 Days tab 05/19/16 Methylprednisolone [Medrol Dosepak] 4 mg PO ASDIR #1 pkg 07/03/16 Albuterol HFA [Ventolin HFA 90 1 - 2 puff IH Q6 PRN #1 inhaler 08/17/16 mcg/actuation (8 g)] Methylprednisolone [Medrol Dosepak] 4 mg PO ASDIR #1 pkg 08/17/16 Albuterol 0.083% [Albuterol 0.083% 2.5 mg IH Q4 PRN #20 neb 08/24/16 Inhal Jamee (2.5 mg/3 ml) UD] Clindamycin [Cleocin] 300 mg PO TID #21 cap 08/28/16 Methylprednisolone [Medrol Dosepak] 4 mg PO ASDIR #1 pkg 10/08/16 Albuterol 0.083% [Albuterol 0.083% 3 ml IH Q6H PRN #30 neb 10/15/16 Inhal Jamee (2.5 mg/3 ml) UD] Albuterol HFA [Ventolin HFA 90 2 puff IH [id number] PRN #1 bottle 10/15/16 mcg/actuation (8 g)] Prednisone 50 mg PO DAILY #4 tab 10/15/16 Prednisone 10 mg PO DAILY #3 12/09/16 - Allergies Allergies/Adverse Reactions: Allergies Allergy/AdvReac Type Severity Reaction Status Date / Time acetaminophen Allergy SHORTNESS Verified 10/15/16 11:56 OF BREATH moxifloxacin HCl Allergy tendonitis Verified 10/15/16 11:56 [From Avelox] Penicillins Allergy SHORTNESS Verified 10/15/16 11:56 OF BREATH Review of Systems Respiratory: Positive for: Other (Respiratory distress) Physical Exam - Reviewed Nursing Documentation Reviewed: Yes Vital Signs Reviewed: Yes - Physical Exam Appears: Positive for: Non-toxic, No Acute Distress Head Exam: Positive for: ATRAUMATIC, NORMOCEPHALIC Skin: Positive for: Normal Color, Warm Eye Exam: Positive for: Normal appearance, EOMI, PERRL Neck: Positive for: Normal, Painless ROM, Supple Cardiovascular/Chest: Positive for: Regular Rate, Rhythm. Negative for: Murmur Respiratory: Positive for: Wheezing (b/l), Other (Prolonged expiratory phase). Negative for: Normal Breath Sounds Gastrointestinal/Abdominal: Positive for: Normal Exam, Soft. Negative for: Tenderness Back: Positive for: Normal Inspection. Negative for: L CVA Tenderness, R CVA Tenderness Extremity: Positive for: Normal ROM. Negative for: Pedal Edema, Deformity Neurologic/Psych: Positive for: Alert, Oriented. Negative for: Motor/Sensory Deficits - Laboratory Results Result Diagrams: 12/09/16 00:51 12/09/16 00:51 - ECG O2 Sat by Pulse Oximetry: 98 (RA) Pulse Ox Interpretation: Normal Medical Decision Making Medical Decision Making: Impression: Asthma Exacerbation Plan: * BMP * CBC * Duoneb 3 ml INH, 2 txs * Peak Flow Pre/Post Tx * Reevaluation 3:35 Patient is no longer wheezing and reports that she is feeling much better. Patient given Rx for Prednisone and is stable for discharge home. Clinical Impression: Asthma Exacerbation/Hypokalemia Scribe Attestation: Documented by Pam Carty, acting as a scribe for Mack Higuera MD. Provider Scribe Attestation: All medical record entries made by the Scribe were at my direction and personally dictated by me. I have reviewed the chart and agree that the record accurately reflects my personal performance of the history, physical exam, medical decision making, and the department course for this patient. I have also personally directed, reviewed, and agree with the discharge instructions and disposition. Disposition - Clinical Impression Clinical Impression: Asthma exacerbation, Hypokalemia - Disposition Referrals: [facility] [Outside] Disposition: Routine/Home Disposition Time: 03:35 Condition: STABLE Prescriptions: Prednisone 10 mg PO DAILY #3 Instructions: Asthma (ED), Hypokalemia (ED) Forms: [employer] (Upper Sorbian)
[2016-12-09] MEDS ORDERED: Potassium Chloride 20 mEq ER Tab PO ONE ×2 (01:21→01:33)
[2016-12-09 01:27] LABS: BLOOD UREA NITROGEN 12 mg/dl (7-17); CALCIUM 8.5 mg/dL (8.4-10.2); CARBON DIOXIDE 22 mmol/L (22-30); CHLORIDE 108 mmol/L (98-107); GFR AFRICAN-AMERICAN > 60; GLUCOSE,RANDOM 137 mg/dL (65-105); POTASSIUM 2.9 MMOL/L (3.6-5.0); SODIUM 140 mmol/l (132-148)
[2016-12-09 03:48] VITALS: RESP 17
[2016-12-09 03:50] VITALS: BP 114/71; PULSE 82; TEMP 98
== END 2016-12-09 03:43 | disposition home or self-care (01) ==
LOC: H.ER 00:33
DX: J45.901 Unspecified asthma with (acute) exacerbation (principal); E87.6 Hypokalemia; F41.9 Anxiety disorder, unspecified; Z88.0 Allergy status to penicillin

== ENCOUNTER 2016-12-22 04:34 | Emergency (ER) | payer BC ==
[2016-12-22 04:34] VITALS: BMI 18.3
[2016-12-22 04:39] VITALS: PULSE 117; RESP 25; O2SAT 94
[2016-12-22] MEDS ORDERED: Albuterol-Ipratrop 3 mg / 0.5 (3 ml) UD INH STA ×5 (04:41→06:33)
[2016-12-22] MEDS ORDERED: Magnesium Sulfate 2 gm/50 ml 2 GM/50 ML BAG IV STA (04:51)
[2016-12-22] MEDS ORDERED: Albuterol-Ipratrop 3 mg / 0.5 (3 ml) UD ONE (04:57)
[2016-12-22] MEDS ORDERED: Magnesium Sulfate 2 gm/50 ml 2 GM/50 ML BAG ONE (04:57)
[2016-12-22 04:59] LABS: BASO # 0.2 K/uL (0.0-0.2); BASO % 0.9 % (0.0-2.0); EOS # 1.7 K/uL (0.0-0.7); HEMATOCRIT 39.9 % (34.0-47.0); LYMPH % 33.4 % (20.0-40.0); MEAN CORPUSCULAR HGB CONC 32.3 g/dL (33.0-37.0); MEAN PLATELET VOLUME 7.9 fl (7.2-11.7); MONO # 1.6 K/uL (0.0-0.8); MONO % 7.6 % (0.0-10.0); NEUT # 10.6 K/uL (1.8-7.0); NEUT % 50.1 % (50.0-75.0); NRBC % 0.1 % (0.0-0.0); RED CELL DISTRIBUTION WIDTH 14.2 % (11.5-14.5); WHITE BLOOD COUNT 21.1 K/uL (4.8-10.8)
--- NOTE | 2016-12-22 05:03 | ED PDOC ---
HPI: SOB/CHF/COPD Time Seen by Provider: 12/22/16 04:37 Chief Complaint (Nursing): Respiratory Distress Chief Complaint (Provider): Shortness of breath History Per: Patient, Other (ALS - Advanced Life Support) History/Exam Limitations: clinical condition Onset/Duration Of Symptoms: Hrs (half hour) Current Symptoms Are (Timing): Still Present Additional Complaint(s): Patient is a 46 y/o female with past medical history of asthma who is well known to this provider and ED for multiple visits related to asthma exacerbation. Patient brought to ED by ALS (advanced life support) with shortness of breath and wheezing, and was given a single DuoNeb in the field. As per ALS personnel, patient refused any steroids and was demanding Magnesium Sulfate. History is limited due to patient's clinical condition. PCP: Provider SYDNEY Past Medical History Reviewed: Historical Data, Nursing Documentation, Vital Signs Vital Signs: Last Vital Signs Temp 98.1 F 12/22/16 05:04 Pulse 117 H 12/22/16 04:36 Resp 25 H 12/22/16 05:03 BP 130/83 12/22/16 06:05 Pulse Ox 94 L 12/22/16 05:15 - Medical History PMH: Anxiety, Asthma, Bronchitis, COPD Denies: HIV, Chronic Kidney Disease - Surgical History Surgical History: No Surg Hx - Family History Family History: States: No Known Family Hx, Unknown Family Hx - Home Medications Home Medications: Ambulatory Orders Medication Instructions Recorded Albuterol 0.083% [Albuterol 0.083% 3 ml IH Q6H PRN #30 neb 02/28/16 Inhal Jamee (2.5 mg/3 ml) UD] Albuterol HFA [Ventolin HFA 90 2 puff IH [id number] PRN #1 bottle 02/28/16 mcg/actuation (8 g)] Prednisone 50 mg PO DAILY #4 tab 03/18/16 Azithromycin [Z-Ang] 250 mg PO DAILY #6 tab 05/19/16 Ondansetron ODT [Zofran ODT] 4 mg PO Q8 #12 odt 05/19/16 predniSONE [predniSONE Tab] 40 mg PO DAILY 3 Days tab 05/19/16 Methylprednisolone [Medrol Dosepak] 4 mg PO ASDIR #1 pkg 07/03/16 Albuterol HFA [Ventolin HFA 90 1 - 2 puff IH Q6 PRN #1 inhaler 08/17/16 mcg/actuation (8 g)] Methylprednisolone [Medrol Dosepak] 4 mg PO ASDIR #1 pkg 08/17/16 Albuterol 0.083% [Albuterol 0.083% 2.5 mg IH Q4 PRN #20 neb 08/24/16 Inhal Jamee (2.5 mg/3 ml) UD] Clindamycin [Cleocin] 300 mg PO TID #21 cap 08/28/16 Methylprednisolone [Medrol Dosepak] 4 mg PO ASDIR #1 pkg 10/08/16 Albuterol 0.083% [Albuterol 0.083% 3 ml IH Q6H PRN #30 neb 10/15/16 Inhal Jamee (2.5 mg/3 ml) UD] Albuterol HFA [Ventolin HFA 90 2 puff IH [id number] PRN #1 bottle 10/15/16 mcg/actuation (8 g)] Prednisone 50 mg PO DAILY #4 tab 10/15/16 Prednisone 10 mg PO DAILY #3 12/09/16 predniSONE [predniSONE Tab] 60 mg PO QAM #12 tab 12/22/16 - Allergies Allergies/Adverse Reactions: Allergies Allergy/AdvReac Type Severity Reaction Status Date / Time acetaminophen Allergy SHORTNESS Verified 10/15/16 11:56 OF BREATH moxifloxacin HCl Allergy tendonitis Verified 10/15/16 11:56 [From Avelox] Penicillins Allergy SHORTNESS Verified 10/15/16 11:56 OF BREATH Review of Systems ROS Statement: Except As Marked, All Systems Reviewed And Found Negative Respiratory: Positive for: Shortness of Breath, Wheezing Physical Exam - Reviewed Nursing Documentation Reviewed: Yes Vital Signs Reviewed: Yes - Physical Exam Appears: Positive for: No Acute Distress Head Exam: Positive for: ATRAUMATIC, NORMOCEPHALIC Skin: Positive for: Normal Color, Warm, Dry Eye Exam: Positive for: Normal appearance, EOMI, PERRL Neck: Positive for: Normal, Painless ROM, Supple Cardiovascular/Chest: Positive for: Regular Rate, Rhythm. Negative for: Murmur Respiratory: Positive for: Wheezing (Bilateral expiratory wheezing), Respiratory Distress (mild), Other (Decreased air entry) Gastrointestinal/Abdominal: Positive for: Normal Exam, Soft. Negative for: Tenderness Back: Positive for: Normal Inspection. Negative for: L CVA Tenderness, R CVA Tenderness, Vertebral Tenderness Extremity: Positive for: Normal ROM. Negative for: Pedal Edema, Deformity Neurologic/Psych: Positive for: Alert, Oriented (x3). Negative for: Motor/ Sensory Deficits - Laboratory Results Result Diagrams: 12/22/16 04:56 12/22/16 04:56 - ECG O2 Sat by Pulse Oximetry: 94 (RA) Pulse Ox Interpretation: Normal - Critical Care Total Time (In Min): 60 Medical Decision Making Medical Decision Makin:40 Initial Impression: 46 y/o female with acute asthma exacerbation Initial Plan: --EKG --Labs --Albuterol/Ipratropium 3 ml INH --Albuterol/Ipratropium 3 ml INH --Albuterol/Ipratropium 3 ml INH --Magnesium Sulfate 1 gm, Sodium Chloride 0.9% 100 ml IV --Magnesium Sulfate 1 gm, Sodium Chloride 0.9% 50 ml IV --Magnesium Sulfate 2 gm in 50 ml IV --Solu-Medrol 125 mg IVP --Heplock Onsertion --Peak flow pre/post treatment 06:21 -Patient shows marked improvement in symptoms, stable for discharge Clinical Impression: Asthma Exacerbation Upon provider evaluation patient is medically stable, and requires no further treatment in the ED at this time. Patient will be discharged with Rx for Prednisone 60mg. Counseling was provided and all questions were answered regarding diagnosis. There is agreement to discharge plan. Return if symptoms persist or worsen. Scribe Attestation: Documented by Jermaine Clay, acting as a scribe for Lisandro Norman MD Provider Scribe Attestation: All medical record entries made by the Scribe were at my direction and personally dictated by me. I have reviewed the chart and agree that the record accurately reflects my personal performance of the history, physical exam, medical decision making, and the department course for this patient. I have also personally directed, reviewed, and agree with the discharge instructions and disposition. Disposition - Clinical Impression Clinical Impression: Asthma exacerbation - Patient ED Disposition Is Patient to be Admitted: No - Disposition Disposition: Routine/Home Disposition Time: 06:21 Condition: IMPROVED Prescriptions: predniSONE [predniSONE Tab] 60 mg PO QAM #12 tab Instructions: Asthma (ED) Forms: [employer] (Divehi)
[2016-12-22 05:05] VITALS: TEMP 98.1
[2016-12-22 05:10] LABS: ALB/GLOB RATIO 1.2 (1.0-2.1); ALKALINE PHOSPHATASE 66 U/L (38-126); ALT/SGPT 33 U/L (9-52); AST/SGOT 23 U/L (14-36); BILIRUBIN,TOTAL 0.3 mg/dl (0.2-1.3); BLOOD UREA NITROGEN 19 mg/dl (7-17); CARBON DIOXIDE 27 mmol/L (22-30); CHLORIDE 104 mmol/L (98-107); GFR AFRICAN-AMERICAN > 60; GLUCOSE,RANDOM 193 mg/dL (65-105); MAGNESIUM 1.8 MG/DL (1.6-2.3); POTASSIUM 4.2 MMOL/L (3.6-5.0); SODIUM 141 mmol/l (132-148); TOTAL PROTEIN 7.9 G/DL (6.3-8.2)
[2016-12-22 06:28] VITALS: BP 130/83
--- NOTE | 2016-12-22 11:45 | CARD ---
APPROVED REPORT EKG Measurement Heart [id number] <Conclusion> Sinus tachycardia Otherwise normal ECG
== END 2016-12-22 07:20 | disposition home or self-care (01) ==
LOC: H.ER 04:34
DX: J45.901 Unspecified asthma with (acute) exacerbation (principal); F41.9 Anxiety disorder, unspecified; J44.9 Chronic obstructive pulmonary disease, unspecified; Z88.0 Allergy status to penicillin
CPT/HCPCS: 80053; 83735; 85025; 93005; 94640; 96374; 99284; J2930

== ENCOUNTER 2016-12-31 04:41 | Emergency (ER) | payer BC ==
[2016-12-31 04:41] VITALS: BMI 18.3
[2016-12-31] MEDS ORDERED: Albuterol-Ipratrop 3 mg / 0.5 (3 ml) UD INH STA ×2 (04:55)
[2016-12-31 04:56] VITALS: BP 123/72; PULSE 107; RESP 18; O2SAT 99
--- NOTE | 2016-12-31 05:03 | ED PDOC ---
HPI: SOB/CHF/COPD Time Seen by Provider: 12/31/16 04:54 Chief Complaint (Nursing): Shortness Of Breath Chief Complaint (Provider): Shortness of breath History Per: Patient History/Exam Limitations: no limitations Onset/Duration Of Symptoms: Persistent Current Symptoms Are (Timing): Still Present Additional Complaint(s): 46 y/o female with a past medical history of asthma and chronic pulmonary obstructive disease, brought to the ED by EMS with complaints of shortness of breath. Per EMS, patient has been given a dose of Duoneb, solumedrol and magnesium sulfate in the field prior to arrival. Patient denies fever, chills, chest pain, or other complaints. Of note, patient is well known to provider and facility for multiple visits with same complaints. Past Medical History Reviewed: Historical Data, Nursing Documentation, Vital Signs Vital Signs: Last Vital Signs Temp Pulse 107 H 12/31/16 04:46 Resp 18 12/31/16 04:46 BP 123/72 12/31/16 04:46 Pulse Ox 99 12/31/16 06:08 - Medical History PMH: Anxiety, Asthma, Bronchitis, COPD Denies: HIV, Chronic Kidney Disease - Surgical History Surgical History: No Surg Hx - Family History Family History: States: No Known Family Hx, Unknown Family Hx - Home Medications Home Medications: Ambulatory Orders Medication Instructions Recorded Albuterol 0.083% [Albuterol 0.083% 3 ml IH Q6H PRN #30 neb 02/28/16 Inhal Jamee (2.5 mg/3 ml) UD] Albuterol HFA [Ventolin HFA 90 2 puff IH [id number] PRN #1 bottle 02/28/16 mcg/actuation (8 g)] Prednisone 50 mg PO DAILY #4 tab 03/18/16 Azithromycin [Z-Ang] 250 mg PO DAILY #6 tab 05/19/16 Ondansetron ODT [Zofran ODT] 4 mg PO Q8 #12 odt 05/19/16 predniSONE [predniSONE Tab] 40 mg PO DAILY 3 Days tab 05/19/16 Methylprednisolone [Medrol Dosepak] 4 mg PO ASDIR #1 pkg 07/03/16 Albuterol HFA [Ventolin HFA 90 1 - 2 puff IH Q6 PRN #1 inhaler 07/11/17 mcg/actuation (8 g)] Methylprednisolone [Medrol Dosepak] 4 mg PO ASDIR #1 pkg 08/17/16 Albuterol 0.083% [Albuterol 0.083% 2.5 mg IH Q4 PRN #20 neb 08/24/16 Inhal Jamee (2.5 mg/3 ml) UD] Clindamycin [Cleocin] 300 mg PO TID #21 cap 08/28/16 Methylprednisolone [Medrol Dosepak] 4 mg PO ASDIR #1 pkg 10/08/16 Albuterol 0.083% [Albuterol 0.083% 3 ml IH Q6H PRN #30 neb 10/15/16 Inhal Jamee (2.5 mg/3 ml) UD] Albuterol HFA [Ventolin HFA 90 2 puff IH [id number] PRN #1 bottle 10/15/16 mcg/actuation (8 g)] Prednisone 50 mg PO DAILY #4 tab 10/15/16 Prednisone 10 mg PO DAILY #3 12/09/16 predniSONE [predniSONE Tab] 60 mg PO QAM #12 tab 12/22/16 - Allergies Allergies/Adverse Reactions: Allergies Allergy/AdvReac Type Severity Reaction Status Date / Time acetaminophen Allergy SHORTNESS Verified 10/15/16 11:56 OF BREATH moxifloxacin HCl Allergy tendonitis Verified 10/15/16 11:56 [From Avelox] Penicillins Allergy SHORTNESS Verified 10/15/16 11:56 OF BREATH Review of Systems ROS Statement: Except As Marked, All Systems Reviewed And Found Negative Constitutional: Negative for: Fever, Chills Cardiovascular: Negative for: Chest Pain Respiratory: Positive for: Shortness of Breath Gastrointestinal: Negative for: Abdominal Pain Physical Exam - Reviewed Nursing Documentation Reviewed: Yes Vital Signs Reviewed: Yes - Physical Exam Appears: Positive for: Non-toxic, Uncomfortable (mild distress) Head Exam: Positive for: ATRAUMATIC, NORMAL INSPECTION, NORMOCEPHALIC Skin: Positive for: Normal Color Eye Exam: Positive for: Normal appearance Neck: Positive for: Supple Cardiovascular/Chest: Positive for: Regular Rate, Rhythm Respiratory: Positive for: Wheezing (bilateral diffuse expiratory wheezing). Negative for: Respiratory Distress Gastrointestinal/Abdominal: Positive for: Normal Exam Back: Positive for: Normal Inspection Extremity: Positive for: Normal ROM Neurologic/Psych: Positive for: Alert, Oriented - Laboratory Results Result Diagrams: 12/31/16 05:12 12/31/16 05:12 - ECG O2 Sat by Pulse Oximetry: 99 (RA) Pulse Ox Interpretation: Normal Medical Decision Making Medical Decision Making: Time: 454 Impression: 46yo female w/ shortness of breath in setting of history of COPD Plan: -- labs -- Duoneb x 2 Reassess Time: 55 Patient reports feeling much better, stable for discharge home. Scribe Attestation: Documented by Mariah Johns acting as a scribe for Lisandro Norman MD. Provider Attestation: All medical record entries made by the Scribe were at my direction and personally dictated by me. I have reviewed the chart and agree that the record accurately reflects my personal performance of the history, physical exam, medical decision making, and the department course for this patient. I have also personally directed, reviewed, and agree with the discharge instructions and disposition. Disposition - Clinical Impression Clinical Impression: Asthma exacerbation attacks - Patient ED Disposition Is Patient to be Admitted: No - Disposition Disposition: Routine/Home Disposition Time: 06:55 Condition: STABLE Instructions: Asthma (ED) Forms: [employer] (Qatari)
[2016-12-31 05:17] LABS: BASO # 0.1 K/uL (0.0-0.2); BASO % 0.6 % (0.0-2.0); EOS # 0.7 K/uL (0.0-0.7); EOS % 6.8 % (0.0-4.0); HEMATOCRIT 40.9 % (34.0-47.0); LYMPH # 2.3 K/uL (1.0-4.3); MEAN CORPUSCULAR HEMOGLOBIN 31.2 pg (27.0-31.0); MEAN CORPUSCULAR HGB CONC 32.9 g/dL (33.0-37.0); MEAN PLATELET VOLUME 8.3 fl (7.2-11.7); MONO # 1.1 K/uL (0.0-0.8); NEUT # 6.6 K/uL (1.8-7.0); NEUT % 61.6 % (50.0-75.0); RED CELL DISTRIBUTION WIDTH 14.2 % (11.5-14.5); WHITE BLOOD COUNT 10.7 K/uL (4.8-10.8)
[2016-12-31 05:29] LABS: ALB/GLOB RATIO 1.2 (1.0-2.1); ALKALINE PHOSPHATASE 69 U/L (38-126); ALT/SGPT 28 U/L (9-52); AST/SGOT 22 U/L (14-36); BILIRUBIN,TOTAL 0.8 mg/dl (0.2-1.3); BLOOD UREA NITROGEN 14 mg/dl (7-17); CALCIUM 8.8 mg/dL (8.4-10.2); CARBON DIOXIDE 24 mmol/L (22-30); CHLORIDE 104 mmol/L (98-107); GFR AFRICAN-AMERICAN > 60; GLUCOSE,RANDOM 141 mg/dL (65-105); MAGNESIUM 3.3 MG/DL (1.6-2.3); POTASSIUM 3.8 MMOL/L (3.6-5.0); SODIUM 139 mmol/l (132-148); TOTAL PROTEIN 7.5 G/DL (6.3-8.2)
--- NOTE | 2016-12-31 08:25 | CARD ---
APPROVED REPORT EKG Measurement Heart [id number] [place] [id number] <Conclusion> Sinus tachycardia Biatrial enlargement Nonspecific T wave abnormality Abnormal ECG
== END 2016-12-31 07:03 | disposition home or self-care (01) ==
LOC: H.ER 04:41
DX: J45.901 Unspecified asthma with (acute) exacerbation (principal); F41.9 Anxiety disorder, unspecified; I51.7 Cardiomegaly; Z88.0 Allergy status to penicillin
CPT/HCPCS: 80053; 83735; 85025; 93005; 94640; 96365; 99283; J3475

== ENCOUNTER 2017-01-06 14:39 | Emergency (ER) | payer BC ==
[2017-01-06 14:39] VITALS: BMI 18.3
[2017-01-06 14:43] VITALS: BP 135/80; PULSE 107; TEMP 98.6; O2SAT 100
[2017-01-06] MEDS ORDERED: Albuterol-Ipratrop 3 mg / 0.5 (3 ml) UD INH STA (15:19)
[2017-01-06] MEDS ORDERED: Magnesium Sulfate 2 gm/50 ml 2 GM/50 ML BAG IVPB ONE (15:20)
[2017-01-06] MEDS ORDERED: Magnesium Sulfate 2 gm/50 ml 2 GM/50 ML BAG ONE (15:40)
[2017-01-06] MEDS ORDERED: Albuterol-Ipratrop 3 mg / 0.5 (3 ml) UD ONE (15:40)
[2017-01-06 15:59] LABS: BASO # 0.1 K/uL (0.0-0.2); BASO % 1.4 % (0.0-2.0); EOS # 0.7 K/uL (0.0-0.7); EOS % 8.8 % (0.0-4.0); HEMATOCRIT 36.6 % (34.0-47.0); LYMPH # 2.2 K/uL (1.0-4.3); LYMPH % 26.5 % (20.0-40.0); MEAN CORPUSCULAR HEMOGLOBIN 31.3 pg (27.0-31.0); MEAN CORPUSCULAR HGB CONC 32.9 g/dL (33.0-37.0); MEAN PLATELET VOLUME 8.1 fl (7.2-11.7); MONO # 0.8 K/uL (0.0-0.8); MONO % 9.4 % (0.0-10.0); NEUT # 4.4 K/uL (1.8-7.0); NEUT % 53.9 % (50.0-75.0); NRBC % 0.1 % (0.0-0.0); RED CELL DISTRIBUTION WIDTH 13.9 % (11.5-14.5); WHITE BLOOD COUNT 8.2 K/uL (4.8-10.8)
--- NOTE | 2017-01-06 16:17 | ED PDOC ---
HPI: SOB/CHF/COPD Time Seen by Provider: 01/06/17 15:18 Chief Complaint (Nursing): Shortness Of Breath Chief Complaint (Provider): Shortness of breath History Per: Patient History/Exam Limitations: no limitations Onset/Duration Of Symptoms: Days (x1) Current Symptoms Are (Timing): Still Present Current Respiratory Medications: See Home Med List Pain Scale Rating Of: 0 Associated Symptoms: Other (cough & wheeze) Recently: Seen In ED Additional Complaint(s): Rachel Brown is a 46 year old female, with a past medical history of asthma, COPD, and bronchitis, who presents to the emergency department complaining of shortness of breath associated with cough and wheeze onset since last night. Patient is well known to me for frequent visits for asthma. Asthma exacerbation consistent with her normal and regular episodes. States she is currently taking Ivermectin due to intestinal parasites. She denies any fever, hemoptysis, or respiratory distress. No further medical complaints. PMD: None provided. Past Medical History Reviewed: Historical Data, Nursing Documentation, Vital Signs Vital Signs: Last Vital Signs Temp 98.6 F 01/06/17 14:40 Pulse 107 H 01/06/17 14:40 Resp 18 01/06/17 16:17 BP 135/80 01/06/17 14:40 Pulse Ox 100 01/06/17 16:28 - Medical History PMH: Anxiety, Asthma, Bronchitis, COPD Denies: HIV, Chronic Kidney Disease - Family History Family History: States: Unknown Family Hx - Social History Current smoker - smoking cessation education provided: No - Home Medications Home Medications: Ambulatory Orders Medication Instructions Recorded Albuterol 0.042% [Albuterol 0.042% 1 inh NEB QID 01/07/17 Inhal Jamee (1.25mg/3ml) UD] Codeine Sulfate 30 mg PO BID PRN 01/07/17 Ivermectin [Stromectol] 3 mg PO DAILY 01/07/17 Morphine [Morphine Immediate 15 mg PO BID PRN 01/07/17 Release Tab] - Allergies Allergies/Adverse Reactions: Allergies Allergy/AdvReac Type Severity Reaction Status Date / Time acetaminophen Allergy SHORTNESS Verified 10/15/16 11:56 OF BREATH moxifloxacin HCl Allergy tendonitis Verified 10/15/16 11:56 [From Avelox] Penicillins Allergy SHORTNESS Verified 09/08/17 11:56 OF BREATH Review of Systems ROS Statement: Except As Marked, All Systems Reviewed And Found Negative Constitutional: Negative for: Fever Respiratory: Positive for: Cough, Shortness of Breath, Wheezing. Negative for: Hemoptysis Physical Exam - Reviewed Vital Signs Reviewed: Yes - Physical Exam Appears: Positive for: Non-toxic Head Exam: Positive for: ATRAUMATIC, NORMAL INSPECTION, NORMOCEPHALIC Skin: Positive for: Normal Color, Warm, Dry Eye Exam: Positive for: EOMI, Normal appearance, PERRL Neck: Positive for: Normal, Painless ROM, Supple Cardiovascular/Chest: Positive for: Regular Rate, Rhythm. Negative for: Murmur Respiratory: Positive for: Wheezing (audible bilaterally ), Respiratory Distress (mild. speaking full sentences) Gastrointestinal/Abdominal: Positive for: Normal Exam, Bowel Sounds, Soft. Negative for: Tenderness, Guarding, Rebound Back: Positive for: Normal Inspection. Negative for: L CVA Tenderness, R CVA Tenderness Extremity: Positive for: Normal ROM. Negative for: Deformity, Swelling Neurologic/Psych: Positive for: Alert, Oriented. Negative for: Motor/Sensory Deficits Comments: Poor hygiene - Laboratory Results Result Diagrams: 01/06/17 15:43 01/06/17 15:43 - ECG O2 Sat by Pulse Oximetry: 100 (RA) Pulse Ox Interpretation: Normal Medical Decision Making Medical Decision Making: Initial Impression: Asthma exacerbation Initial Plan: --Basic Metabolic Panel --Magnesium --CBC w/ differential --Chest portable [RAD] --Duoneb 3 ml INH --Magnesium Sulfate 2gm in 50 ml IVPB --SOLU-medrol 125 mg IVP --reevaluation -Patient requested magnesium sulfate as it often helps her asthma. -Patient refused chest x-ray and SOLU-medrol Over course of ED stay she improved, SPO2 was 98% on RA. She refused further nebulizer treatments and was comfortable appearing, spoke normal sentences, inquiring if her dogs could be a cause of her asthma (noticed to have her clothes and hat covered in extensive dog hair). She also questioned need for continued ivermectin, I explained unable to offer adequate insight as she is unaware of what specific parasite she has, if its been located in her stool, or if this is empiric treatment, or the length of such. She stated a Dr Mccann? prescribed it, but shes unsure when followup is scheduled. She was offered further hospital monitoring as wheeze remained, but stated she often wheezes daily. She refused Rx for prednisone (also refused solumedrol in ED, and stated she had albuterol at home. She requested food prior to discharge and left ED under own power with stable vitals and no respiratory distress. note-Chart was completed with awareness of events of 01/07. Scribe Attestation: Documented by Fran England, acting as a scribe for Danny Bingham MD Provider Scribe Attestation: All medical record entries made by the Scribe were at my direction and personally dictated by me. I have reviewed the chart and agree that the record accurately reflects my personal performance of the history, physical exam, medical decision making, and the department course for this patient. I have also personally directed, reviewed, and agree with the discharge instructions and disposition. Disposition - Clinical Impression Clinical Impression: Asthma attack - Patient ED Disposition Is Patient to be Admitted: No Counseled Patient/Family Regarding: Studies Performed, Diagnosis, Need For Followup, Rx Given - Disposition Disposition: Routine/Home Disposition Time: 17:35 Condition: STABLE Additional Instructions: Return to ER for any difficulty breathing. Instructions: Asthma (ED), How Your Lungs Work (ED) Forms: [employer] (Uzbek)
[2017-01-06 16:21] VITALS: RESP 18
[2017-01-06 16:28] LABS: BLOOD UREA NITROGEN 15 mg/dl (7-17); CALCIUM 8.6 mg/dL (8.4-10.2); CARBON DIOXIDE 24 mmol/L (22-30); CHLORIDE 108 mmol/L (98-107); GFR AFRICAN-AMERICAN > 60; GLUCOSE,RANDOM 94 mg/dL (65-105); MAGNESIUM 1.8 MG/DL (1.6-2.3); POTASSIUM 3.6 MMOL/L (3.6-5.0); SODIUM 140 mmol/l (132-148)
[2017-01-06] MEDS ORDERED: Albuterol 0.083% Inhal Sol (2.5 mg/3 mL) UD INH STA (17:03)
[2017-01-06] MEDS ORDERED: Albuterol 0.083% Inhal Sol (2.5 mg/3 mL) UD ONE (17:19)
== END 2017-01-06 17:50 | disposition home or self-care (01) ==
LOC: H.ER 14:39
DX: J45.901 Unspecified asthma with (acute) exacerbation (principal); Z88.0 Allergy status to penicillin; F41.9 Anxiety disorder, unspecified

== ENCOUNTER 2017-01-07 08:30 | Inpatient (IN) | payer BC ==
[2017-01-07 08:31] VITALS: BMI 18.3
--- NOTE | 2017-01-07 08:40 | ED PDOC ---
HPI: SOB/CHF/COPD Time Seen by Provider: 01/07/17 08:36 Chief Complaint (Nursing): Respiratory Distress Chief Complaint (Provider): Respiratory arrest History Per: EMS History/Exam Limitations: clinical condition Onset/Duration Of Symptoms: Mins Current Symptoms Are (Timing): Still Present Additional Complaint(s): 46yo female, history of asthma, COPD (per prior charts) brought to ED by EMS in respiratory arrest. Per EMS, patient was noted by her partner to have difficulty breathing after which her partner called EMS to her home. EMS report the patient arrested in front of them and was subsequently intubated in field using a 7.0 ET tube. She was given 75 mg Ketamine prior to intubation and 100 mg ketamine post intubation. Patient was also given 2g magnesium, 125 mg solumedol and 3x nebulizer treatment in field. Patient is currently unresponsive so a full HPI and ROS is unavailable. Past Medical History Reviewed: Historical Data, Nursing Documentation, Vital Signs Vital Signs: Last Vital Signs Temp 98.6 F 01/07/17 09:49 Pulse 101 H 01/07/17 10:17 Resp 10 L 01/07/17 09:49 BP 140/90 01/07/17 09:49 Pulse Ox 100 01/07/17 10:17 - Medical History PMH: Anxiety, Asthma, Bronchitis, COPD Denies: HIV, Chronic Kidney Disease - Family History Family History: States: No Known Family Hx, Unknown Family Hx - Home Medications Home Medications: Ambulatory Orders Medication Instructions Recorded Albuterol 0.042% [Albuterol 0.042% 1 inh NEB QID 01/07/17 Inhal Jamee (1.25mg/3ml) UD] Codeine Sulfate 30 mg PO BID PRN 01/07/17 Ivermectin [Stromectol] 3 mg PO DAILY 01/07/17 Morphine [Morphine Immediate 15 mg PO BID PRN 01/07/17 Release Tab] - Allergies Allergies/Adverse Reactions: Allergies Allergy/AdvReac Type Severity Reaction Status Date / Time acetaminophen Allergy SHORTNESS Verified 10/15/16 11:56 OF BREATH moxifloxacin HCl Allergy tendonitis Verified 10/15/16 11:56 [From Avelox] Penicillins Allergy SHORTNESS Verified 10/15/16 11:56 OF BREATH Review of Systems Review Of Systems: ROS cannot be obtained secondary to pt's inabilty to answer questions. Respiratory: Positive for: Other (respiratory arrest) Physical Exam - Reviewed Nursing Documentation Reviewed: Yes Vital Signs Reviewed: Yes - Physical Exam Appears: Positive for: In Acute Distress Head Exam: Positive for: ATRAUMATIC, NORMAL INSPECTION, NORMOCEPHALIC Skin: Positive for: Normal Color ENT: Positive for: Other (intubated) Cardiovascular/Chest: Positive for: Regular Rate, Rhythm, Tachycardia Respiratory: Positive for: Decreased Breath Sounds (bilaterally, more decreased sound in left than right), Wheezing (severe wheezing bilateral), Respiratory Distress Gastrointestinal/Abdominal: Positive for: Soft. Negative for: Distended Neurologic/Psych: Positive for: Other (sedated ). Negative for: Alert, Oriented - Laboratory Results Result Diagrams: 01/07/17 08:47 01/07/17 08:47 - ECG ECG: Positive for: Interpreted By Me, Viewed By Me ECG Rhythm: Positive for: Normal QRS, Normal ST Segment, Sinus Tachycardia. Negative for: ST/T Changes Rate: 101 O2 Sat by Pulse Oximetry: 100 - Radiology X-Ray: Viewed By Me X-Ray Interpretation: No Acute Disease (ET Tube in place) - Critical Care Total Time (In Min): 60 Documented Critical Care: Time excludes all time spent performint seperately billable procedures Medical Decision Making Medical Decision Making: Time: 836 Impression: Respiratory arrest Plan: --ABG -- EKG -- BMP -- Urine drug screen -- Magnesium levels -- CBC -- Chest x-ray -- Albuterol 10mg INH continuous -- Fentanyl 2500MCG/250 ML D5W Reassess Time: [address] Michael, human resources administrator manager business operations who is aware. Patient to be admitted under Dr. Ho Jacobo for acute respiratory failure. Time: 904 Patient is stable on ventilator; properly sedated at present. Continuous nebs administered. Condition unchanged and critical. Time: 936 Patient unchanged from prior evaluation; stable on ventilator. Condition critical. Scribe Attestation: Documented by Mariah Johns acting as a scribe for Mio Whitfield MD. Provider Attestation: All medical record entries made by the Scribe were at my direction and personally dictated by me. I have reviewed the chart and agree that the record accurately reflects my personal performance of the history, physical exam, medical decision making, and the department course for this patient. I have also personally directed, reviewed, and agree with the discharge instructions and disposition. Disposition - Clinical Impression Clinical Impression: Acute respiratory failure with hypercapnia, Asthma exacerbation, COPD (chronic obstructive pulmonary disease) - Patient ED Disposition Is Patient to be Admitted: Yes Discussed With : Ho Jacobo Doctor Will See Patient In The: Hospital Counseled Patient/Family Regarding: Studies Performed, Diagnosis - Disposition Disposition Time: 08:45 Condition: CRITICAL - Pt Status Changed To: Hospital Disposition Of: Inpatient - Admit Certification Admit to Inpatient:: After my assessment, the patient will require hospitalization for at least two midnights. This is because of the severity of symptoms shown, intensity of services needed, and/or the medical risk in this patient being treated as an outpatient. - POA Present On Arrival: None
[2017-01-07] MEDS ORDERED: Albuterol 0.083% Inhal Sol (2.5 mg/3 mL) UD INH STA (08:41)
[2017-01-07] MEDS ORDERED: Albuterol-Ipratrop 3 mg / 0.5 (3 ml) UD ONE (08:42)
[2017-01-07] MEDS ORDERED: Fentanyl Citrate 2,500 MCG in Dextrose 5% In Water 200 ML IV SCH (08:45)
[2017-01-07 08:53] LABS: BASO # 0.2 K/uL (0.0-0.2); BASO % 1.1 % (0.0-2.0); EOS # 0.5 K/uL (0.0-0.7); EOS % 3.5 % (0.0-4.0); HEMATOCRIT 36.2 % (34.0-47.0); LYMPH # 3.3 K/uL (1.0-4.3); LYMPH % 24.3 % (20.0-40.0); MEAN CELL VOLUME 95.2 fl (81.0-99.0); MEAN CORPUSCULAR HEMOGLOBIN 30.3 pg (27.0-31.0); MEAN CORPUSCULAR HGB CONC 31.8 g/dL (33.0-37.0); MEAN PLATELET VOLUME 7.8 fl (7.2-11.7); MONO # 0.9 K/uL (0.0-0.8); NEUT # 8.6 K/uL (1.8-7.0); NEUT % 64.1 % (50.0-75.0); RED CELL DISTRIBUTION WIDTH 13.7 % (11.5-14.5); WHITE BLOOD COUNT 13.4 K/uL (4.8-10.8)
[2017-01-07 09:03] LABS: BLOOD UREA NITROGEN 14 mg/dl (7-17); CALCIUM 7.9 mg/dL (8.4-10.2); CARBON DIOXIDE 23 mmol/L (22-30); CHLORIDE 107 mmol/L (98-107); GFR AFRICAN-AMERICAN > 60; GLUCOSE,RANDOM 226 mg/dL (65-105); MAGNESIUM 3.4 MG/DL (1.6-2.3); POTASSIUM 3.8 MMOL/L (3.6-5.0); SODIUM 140 mmol/l (132-148)
[2017-01-07 09:16] LABS: ABG ALLEN TEST YES; ABG MECHANICAL RATE 8; ARTERIAL BLOOD GAS HCO3 21.7 mmol/L (21-28); ARTERIAL BLOOD GAS MODE PRVC AC; ARTERIAL BLOOD GAS O2 CAPACITY 10.8 mL/dL (16-24); ARTERIAL BLOOD GAS O2 CONTENT 10.8 ML/dL (15-23); ARTERIAL BLOOD GAS PH 7.16 (7.35-7.45); ARTERIAL BLOOD GAS PO2 203 mm/Hg (80-100); ARTERIAL BLOOD HGB O2 SAT 96.4 % (95.0-98.0); ATERIAL BLOOD GAS PEEP 5; CARBOXYHEMOGLOBIN 0.9 % (0.5-1.5); HHB 0.2 % (0.0-5.0); METHEMOGLOBIN 2.5 % (0.0-3.0)
--- NOTE | 2017-01-07 10:40 | RAD ---
PROCEDURE: CHEST RADIOGRAPH, 1 VIEW HISTORY: asthma COMPARISON: None available. FINDINGS: LUNGS: Clear. PLEURA: No pneumothorax or pleural fluid seen. CARDIOVASCULAR: Normal. OSSEOUS STRUCTURES: No significant abnormalities. VISUALIZED UPPER ABDOMEN: Markedly distended stomach. OTHER FINDINGS: Interval intubation with tip at the level of the clavicular heads. IMPRESSION: Endotracheal tube with tip projecting between the clavicles and the corey. Marked interval gaseous distention of the stomach.
--- NOTE | 2017-01-07 13:07 | CP.CCUPN ---
CCU Subjective - Physician Review Subjective (Free Text): ICU Admission for intubated patient: 46F with h/o Asthma, was found by Paramedics in resp arrest from severe asthma and intubated in the field, brought to ER, stable hemodynamics otherwise and remains orally intubated on MV support. Sedated on fentanyl drip now. Breathing 14 on AC 14, 450 ml TV, 5PEEP 60% oxygen, SPo2 100%. No family available, no further HPI obtainable from patient, all [facility] available records and entries reviewed. Multiple ER visits over the past several months since May 2016 for SOB and asthma. Last hospitalization in ICU in Mar 2016 for Asthma exacerbation and was intubated at that time. Other vitals and I/O's reviewed. ALLERGIES: penicillin, Moxifloxacin, Acetaminophen Home Meds: Albuterol, Codeine prn, Ivermectin, Morphine ROS: Unobtainable, intubated and sedated. No other pertinent negs or positives on 10+ system review. PMSFH: All Nursing and physician documentation reviewed to date; no new pertinent info noted relevant to current medical problems. CXR: ETT position OM, hyperinflated lung emmanuel, no PTX, mild increase in R basilar interstitial changes, no gross consolidation. Air-Distended stomach (my interp) EKG: sinus tachy 100/min, no acute ischemic changes. IMPRESSION / MAJOR PROBLEMS NOW: 1. Acute Hypoxemic Resp Failure 2 severe asthma exacerbation 2. r/o Tracheobronchits 3. Ivermectin usage: indication?? Lice, scabies, other parasitic. 4. Opiate Abuse?? PLAN: 1. MV support, Duonebs, steroids, empiric abx coverage. Check ABG, Pulm eval. 2. Decrease FIo2 3. IVF hydration. 4. Check Mag, Phos levels. 5. ICU supportive care, see orders. CCU Objective - Vital Signs / Intake & Output Vital Signs (Last 4 hours): Vital Signs Temp Pulse Resp BP Pulse Ox 01/07/17 11:04 97.6 F 92 H 10 L 122/90 100 01/07/17 10:38 101 H 01/07/17 10:33 101 H 100 01/07/17 10:33 97.6 F 92 H 10 L 122/75 100 01/07/17 09:49 98.6 F 110 H 10 L 140/90 100 01/07/17 09:19 104 H 16 150/90 100 Intake and Output (Last 8hrs): Intake & Output 01/06/17 01/07/17 01/07/17 22:59 06:59 14:59 Weight 130 lb - Medications Active Medications: Active Medications Generic Name Dose Route Start Last Admin Trade Name Bradq PRN Reason Stop Dose Admin Fentanyl Citrate 2,500 mcg/ 250 mls @ 5.89 mls/hr 01/07/17 08:45 01/07/17 09: 42 Dextrose IV 5.89 mls/hr .Q24H BRANDI Administration Protocol 1 MCG/KG/HR - Patient Studies Lab Studies: Lab Studies 01/07/17 01/07/17 01/07/17 Range/Units 09:01 08:47 08:47 WBC 13.4 H D (4.8-10.8) K/uL RBC 3.81 (3.80-5.20) Mil/uL Hgb 11.5 L (12.0-16.0) g/dL Hct 36.2 (34.0-47.0) % MCV 95.2 (81.0-99.0) fl MCH 30.3 (27.0-31.0) pg MCHC 31.8 L (33.0-37.0) g/dL RDW 13.7 (11.5-14.5) % Plt Count 285 (130-400) K/uL MPV 7.8 (7.2-11.7) fl Neut % (Auto) 64.1 (50.0-75.0) % Lymph % (Auto) 24.3 (20.0-40.0) % [place] % (Auto) 7.0 (0.0-10.0) % Eos % (Auto) 3.5 (0.0-4.0) % Baso % (Auto) 1.1 (0.0-2.0) % Neut # 8.6 H (1.8-7.0) K/uL Lymph # 3.3 (1.0-4.3) K/uL [place] # 0.9 H (0.0-0.8) K/uL Eos # 0.5 (0.0-0.7) K/uL Baso # 0.2 (0.0-0.2) K/uL pCO2 (35-45) mm/Hg pO2 (80-100) mm/Hg HCO3 (21-28) mmol/L ABG pH (7.35-7.45) ABG Total CO2 (22-28) mmol/L ABG O2 Saturation (95-98) % ABG O2 Content (15-23) ML/dL ABG Base Excess (-2.0-3.0) mmol/L ABG Hemoglobin (11.7-17.4) g/dL ABG Carboxyhemoglobin (0.5-1.5) % POC ABG HHb (Measured) (0.0-5.0) % ABG Methemoglobin (0.0-3.0) % ABG O2 Capacity (16-24) mL/dL Apolinar Test A-a O2 Difference mm/Hg Hgb O2 Saturation (95.0-98.0) % Vent Mode Mechanical Rate FiO2 % Tidal Volume PEEP Crit Value Called To Crit Value Called By Crit Value Read Back Blood Gas Notified Time Sodium 140 (132-148) mmol/l Potassium 3.8 (3.6-5.0) MMOL/L Chloride 107 (98-107) mmol/L Carbon Dioxide 23 (22-30) mmol/L Anion Gap 14 (10-20) BUN 14 (7-17) mg/dl Creatinine 0.6 L (0.7-1.2) mg/dl Est GFR ( Amer) > 60 Est GFR (Non-Af Amer) > 60 Random Glucose 226 H (65-105) mg/dL Calcium 7.9 L (8.4-10.2) mg/dL Magnesium 3.4 H (1.6-2.3) MG/DL Urine Opiates Screen Positive H (NEGATIVE) Urine Methadone Screen Negative (NEGATIVE) Ur Barbiturates Screen Negative (NEGATIVE) Ur Phencyclidine Scrn Negative (NEGATIVE) Ur Amphetamines Screen Negative (NEGATIVE) U Benzodiazepines Scrn Negative (NEGATIVE) U Oth Cocaine Metabols Negative (NEGATIVE) U Cannabinoids Screen Negative (NEGATIVE) 01/07/17 Range/Units 08:40 WBC (4.8-10.8) K/uL RBC (3.80-5.20) Mil/uL Hgb (12.0-16.0) g/dL Hct (34.0-47.0) % MCV (81.0-99.0) fl MCH (27.0-31.0) pg MCHC (33.0-37.0) g/dL RDW (11.5-14.5) % Plt Count (130-400) K/uL MPV (7.2-11.7) fl Neut % (Auto) (50.0-75.0) % Lymph % (Auto) (20.0-40.0) % [place] % (Auto) (0.0-10.0) % Eos % (Auto) (0.0-4.0) % Baso % (Auto) (0.0-2.0) % Neut # (1.8-7.0) K/uL Lymph # (1.0-4.3) K/uL [place] # (0.0-0.8) K/uL Eos # (0.0-0.7) K/uL Baso # (0.0-0.2) K/uL pCO2 69 H (35-45) mm/Hg pO2 203 H (80-100) mm/Hg HCO3 21.7 (21-28) mmol/L ABG pH 7.16 L* (7.35-7.45) ABG Total CO2 26.7 (22-28) mmol/L ABG O2 Saturation 99.8 H (95-98) % ABG O2 Content 10.8 L (15-23) ML/dL ABG Base Excess -4.2 L (-2.0-3.0) mmol/L ABG Hemoglobin 7.6 L (11.7-17.4) g/dL ABG Carboxyhemoglobin 0.9 (0.5-1.5) % POC ABG HHb (Measured) 0.2 (0.0-5.0) % ABG Methemoglobin 2.5 (0.0-3.0) % ABG O2 Capacity 10.8 L (16-24) mL/dL Apolinar Test Yes A-a O2 Difference 139.0 mm/Hg Hgb O2 Saturation 96.4 (95.0-98.0) % Vent Mode Prvc ac Mechanical Rate 8 FiO2 60.0 % Tidal Volume 450 PEEP 5 Crit Value Called To Armen deleon Crit Value Called By 15 Crit Value Read Back Y Blood Gas Notified Time 950 Sodium (132-148) mmol/l Potassium (3.6-5.0) MMOL/L Chloride (98-107) mmol/L Carbon Dioxide (22-30) mmol/L Anion Gap (10-20) BUN (7-17) mg/dl Creatinine (0.7-1.2) mg/dl Est GFR ( Amer) Est GFR (Non-Af Amer) Random Glucose (65-105) mg/dL Calcium (8.4-10.2) mg/dL Magnesium (1.6-2.3) MG/DL Urine Opiates Screen (NEGATIVE) Urine Methadone Screen (NEGATIVE) Ur Barbiturates Screen (NEGATIVE) Ur Phencyclidine Scrn (NEGATIVE) Ur Amphetamines Screen (NEGATIVE) U Benzodiazepines Scrn (NEGATIVE) U Oth Cocaine Metabols (NEGATIVE) U Cannabinoids Screen (NEGATIVE) Laboratory Results - last 24 hr 01/07/17 01/07/17 01/07/17 08:40 08:47 08:47 WBC 13.4 H D RBC 3.81 Hgb 11.5 L Hct 36.2 MCV 95.2 MCH 30.3 MCHC 31.8 L RDW 13.7 Plt Count 285 MPV 7.8 Neut % (Auto) 64.1 Lymph % (Auto) 24.3 [place] % (Auto) 7.0 Eos % (Auto) 3.5 Baso % (Auto) 1.1 Neut # 8.6 H Lymph # 3.3 [place] # 0.9 H Eos # 0.5 Baso # 0.2 pCO2 69 H pO2 203 H HCO3 21.7 ABG pH 7.16 L* ABG Total CO2 26.7 ABG O2 Saturation 99.8 H ABG O2 Content 10.8 L ABG Base Excess -4.2 L ABG Hemoglobin 7.6 L ABG Carboxyhemoglobin 0.9 POC ABG HHb (Measured) 0.2 ABG Methemoglobin 2.5 ABG O2 Capacity 10.8 L Apolinar Test Yes A-a O2 Difference 139.0 Hgb O2 Saturation 96.4 Vent Mode Prvc ac Mechanical Rate 8 FiO2 60.0 Tidal Volume 450 PEEP 5 Crit Value Called To Armen deleon Crit Value Called By 15 Crit Value Read Back Y Blood Gas Notified Time 950 Sodium 140 Potassium 3.8 Chloride 107 Carbon Dioxide 23 Anion Gap 14 BUN 14 Creatinine 0.6 L Est GFR ( Amer) > 60 Est GFR (Non-Af Amer) > 60 Random Glucose 226 H Calcium 7.9 L Magnesium 3.4 H Urine Opiates Screen Urine Methadone Screen Ur Barbiturates Screen Ur Phencyclidine Scrn Ur Amphetamines Screen U Benzodiazepines Scrn U Oth Cocaine Metabols U Cannabinoids Screen 01/07/17 09:01 WBC RBC Hgb Hct MCV MCH MCHC RDW Plt Count MPV Neut % (Auto) Lymph % (Auto) [place] % (Auto) Eos % (Auto) Baso % (Auto) Neut # Lymph # Columbia # Eos # Baso # pCO2 pO2 HCO3 ABG pH ABG Total CO2 ABG O2 Saturation ABG O2 Content ABG Base Excess ABG Hemoglobin ABG Carboxyhemoglobin POC ABG HHb (Measured) ABG Methemoglobin ABG O2 Capacity Apolinar Test A-a O2 Difference Hgb O2 Saturation Vent Mode Mechanical Rate FiO2 Tidal Volume PEEP Crit Value Called To Crit Value Called By Crit Value Read Back Blood Gas Notified Time Sodium Potassium Chloride Carbon Dioxide Anion Gap BUN Creatinine Est GFR ( Amer) Est GFR (Non-Af Amer) Random Glucose Calcium Magnesium Urine Opiates Screen Positive H Urine Methadone Screen Negative Ur Barbiturates Screen Negative Ur Phencyclidine Scrn Negative Ur Amphetamines Screen Negative U Benzodiazepines Scrn Negative U Oth Cocaine Metabols Negative U Cannabinoids Screen Negative EKG/Cardiology Studies: Cardiology / EKG Studies 01/07/17 08:37 ELECTROCARDIOGRAM Stat Comment: Mode Of Transportation: Reason For Exam: dyspnea Fingerstick Blood Sugar Results: 264 Review of Systems - Review of Systems Systems not reviewed;Unavailable: Intubated Critical Care Progress Note - Ventilator Checklist Head of Bed 30 Degrees: Yes Daily Sedation Vacation: Yes (Start in AM) Daily Assessment of Readiness to Wean: Yes (start in AM) Daily Spontaneous Breathing Trial: Yes (start in AM) PUD Prophalyxis: Yes DVT Prophylaxis: Yes Oral Care with Chlorhexidine Gluconate {CHG}: Yes - Vent Settings MODE:: ASSIST CONTROL TIDAL VOLUME:: 450 RESP RATE:: 14 FIO2:: 60 PEEP:: 5 - Extremities/Vascular Does the Patient have a Central Venous Catheter?: No Does the Patient need a Central Venous Catheter?: No Does the Patient have a Roche Catheter?: Yes Does the Patient need a Roche Catheter?: Yes Catheter Insertion Criteria: Need for accurate measurement of output in critically ill patient - Restraints Justification for Restraints: High risk for self extubation, High risk for removing IV access, High risk for harming self - Prophylaxis GI Prophylaxis GI: Pepsid - Prophylaxis DVT Prophylaxis DVT: SCDs
[2017-01-07] MEDS: Potassium Ch 20mEq in D5-1/2NS 1,000 ML IV SCH ×2 (14:01→23:30)
[2017-01-07] MEDS: Albuterol-Ipratrop 3 mg / 0.5 (3 ml) UD INH SCH ×3 (15:00→20:41)
--- NOTE | 2017-01-07 16:43 | PCM.PROC ---
Procedures Attestation:: I certify that I have explained the specified Operation(s) or Procedure(s), risks, benefits and reasonable alternatives to the Patient and/or other person responsible. The opportunity was given to ask questions and all questions answered - Extubation Clinical Parameters: Hemodynamically Stable, Spontaneous Respirations, Acceptable Vent Settings (FIO2<50%, PEEP<8, PaO2>75, pH>7.25) Patient Condition: Patient has been successfully extubated and assessed Oxygen Therapy: O2 via Venti Mask Patient Tolerated Procedure: Well Additional Comments: Patient awakened from Fetanyl infusion, writing notes to stepdaughter and friend at the bedside requesting ETT to be removed. Placed on brief trial on CPAP PS with good tolerance. Extubated and ETT removed without difficulty, no immediate stridor noted. As soon as ETT removed, patient asked for "oxycodone" tablets for "pain,: but could not describe the nature of the "pain." Informed patient that she had been just rapidly weaned and extubated from MV support earlier than anticipated and according to her and her male friend's urging and request; and that admistering opioid narcotics will cause lethargy, respiratory depression further impeding her spontaneous breathing efforts.
[2017-01-07] MEDS ORDERED: methylPREDNISolone 40 MG in Sodium Chloride 0.9% 50 ML IVPB SCH (17:00)
[2017-01-07] MEDS: MethylPREDNISolone 40 mg Vial IV SCH (19:09)
[2017-01-08] MEDS: MethylPREDNISolone 40 mg Vial IV SCH (01:00)
[2017-01-08] MEDS: Albuterol-Ipratrop 3 mg / 0.5 (3 ml) UD INH SCH ×4 (07:19→19:00)
[2017-01-08] MEDS ORDERED: Albuterol-Ipratrop 3 mg / 0.5 (3 ml) UD INH STA (07:28)
[2017-01-08] MEDS ORDERED: Albuterol-Ipratrop 3 mg / 0.5 (3 ml) UD INH PRN (07:29)
[2017-01-08 07:43] LABS: PARTIAL THROMBOPLASTIN TIME 26.7 Seconds (25.6-37.1)
[2017-01-08 07:45] LABS: ALB/GLOB RATIO 1.1 (1.0-2.1); ALKALINE PHOSPHATASE 68 U/L (38-126); ALT/SGPT 29 U/L (9-52); AST/SGOT 22 U/L (14-36); BILIRUBIN,TOTAL 0.5 mg/dl (0.2-1.3); BLOOD UREA NITROGEN 13 mg/dl (7-17); CALCIUM 9.2 mg/dL (8.4-10.2); CARBON DIOXIDE 26 mmol/L (22-30); CHLORIDE 106 mmol/L (98-107); GFR AFRICAN-AMERICAN > 60; GLUCOSE,RANDOM 114 mg/dL (65-105); POTASSIUM 4.7 MMOL/L (3.6-5.0); SODIUM 139 mmol/l (132-148); TOTAL PROTEIN 7.1 G/DL (6.3-8.2)
[2017-01-08 07:47] LABS: BASO % 0.3 % (0.0-2.0); EOS % 0.1 % (0.0-4.0); HEMATOCRIT 34.8 % (34.0-47.0); LYMPH # 1.4 K/uL (1.0-4.3); LYMPH % 10.4 % (20.0-40.0); MEAN CELL VOLUME 93.7 fl (81.0-99.0); MEAN CORPUSCULAR HEMOGLOBIN 31.5 pg (27.0-31.0); MEAN CORPUSCULAR HGB CONC 33.7 g/dL (33.0-37.0); MEAN PLATELET VOLUME 8.4 fl (7.2-11.7); MONO # 1.2 K/uL (0.0-0.8); MONO % 9.1 % (0.0-10.0); NEUT # 10.5 K/uL (1.8-7.0); NEUT % 80.1 % (50.0-75.0); RED CELL DISTRIBUTION WIDTH 13.7 % (11.5-14.5)
[2017-01-08] MEDS: Potassium Ch 20mEq in D5-1/2NS 1,000 ML IV SCH (09:26)
--- NOTE | 2017-01-08 10:17 | CARD ---
APPROVED REPORT EKG Measurement Heart [id number] <Conclusion> Sinus tachycardia Possible Left atrial enlargement Borderline ECG
[2017-01-09] MEDS: Albuterol-Ipratrop 3 mg / 0.5 (3 ml) UD INH SCH ×4 (07:19→19:10)
[2017-01-09 09:57] LABS: MEAN CELL VOLUME 93.6 fl (81.0-99.0); MEAN CORPUSCULAR HEMOGLOBIN 31.1 pg (27.0-31.0); MEAN CORPUSCULAR HGB CONC 33.2 g/dL (33.0-37.0); RED CELL DISTRIBUTION WIDTH 13.8 % (11.5-14.5); WHITE BLOOD COUNT 14.2 K/uL (4.8-10.8)
[2017-01-09 10:07] LABS: ALB/GLOB RATIO 1.1 (1.0-2.1); ALKALINE PHOSPHATASE 69 U/L (38-126); ALT/SGPT 17 U/L (9-52); AST/SGOT 22 U/L (14-36); BILIRUBIN,TOTAL 0.4 mg/dl (0.2-1.3); BLOOD UREA NITROGEN 23 mg/dl (7-17); CALCIUM 9.4 mg/dL (8.4-10.2); CARBON DIOXIDE 25 mmol/L (22-30); CHLORIDE 105 mmol/L (98-107); GFR AFRICAN-AMERICAN > 60; GLUCOSE,RANDOM 112 mg/dL (65-105); POTASSIUM 3.6 MMOL/L (3.6-5.0); SODIUM 139 mmol/l (132-148); TOTAL PROTEIN 7.3 G/DL (6.3-8.2)
--- NOTE | 2017-01-09 12:10 | PN ---
DATE: 01/09/2017 SUBJECTIVE: The patient seen and examined. Interim events noted. The patient remains very uncooperative with , feels much better, although still has occasional wheezing, no chest pain, was able to sleep. PHYSICAL EXAMINATION: GENERAL: The patient is in no acute distress. VITAL SIGNS: Stable. HEART: S1 and S2 normal and regular. LUNGS: Bilateral prolonged expiration and rhonchi. No audible wheezing. ABDOMEN: Soft, nontender. No organomegaly. No fluid. Bowel sounds are present. EXTREMITIES: No edema, No calf swelling. No tenderness. No acute ischemia. CENTRAL NERVOUS SYSTEM: Essentially unchanged. DIAGNOSTIC DATA: Available diagnostic data reviewed. ASSESSMENT AND PLAN: Overall, the patient is still improving, but remains uncooperative. Plan as ordered. Ho Jacobo MD
[2017-01-10 00:23] VITALS: RESP 20
[2017-01-10] MEDS: Albuterol-Ipratrop 3 mg / 0.5 (3 ml) UD INH SCH (07:30)
[2017-01-10 08:18] VITALS: BP 111/67; PULSE 81; TEMP 97.7; O2SAT 96
--- NOTE | 2017-01-10 08:54 | HP ---
CHIEF COMPLAINT: Shortness of breath and respiratory failure. HISTORY OF PRESENT ILLNESS: This is a 46-year-old female, known case of bronchial asthma, who is kind of noncompliant with her medication and disease management, who called EMS for shortness of breath and when EMS arrived, they found the patient in respiratory arrest and the patient was found in respiratory distress and was intubated by EMS and was brought to emergency room for further management. REVIEW OF SYSTEM: Positive for shortness of breath at this time. The patient had been uncooperative since admission and is currently refusing treatment other than inhalational treatment and still has audible wheezing and shortness of breath. PAST MEDICAL HISTORY: Significant for asthma, COPD, anxiety, and bronchitis. PAST SURGICAL HISTORY: Unremarkable. PERSONAL HISTORY: The patient is currently nonsmoker and nondrinker. No substance abuse. MEDICATION: The patient is on inhalational treatment for her asthma. ALLERGIES: THE PATIENT IS APPARENTLY ALLERGIC TO AVELOX, PENICILLIN, AND ACETAMINOPHEN. FAMILY HISTORY: Noncontributory. PHYSICAL EXAMINATION: GENERAL: Cachectic 46-year-old female, with audible wheezing and mild respiratory distress, but no respiratory failure. The patient is able to speak and communicate. VITAL SIGNS: Temperature 98.5, pulse 100, respirations 18, blood pressure 117/70. HEENT: Pupils reacting to light. HEART: S1 and S2, normal and regular. LUNGS: Bilateral diffuse wheezing and rhonchi. ABDOMEN: Soft, nontender. No organomegaly, no fluid. Bowel sounds are present. EXTREMITIES: No edema. No calf swelling. No tenderness. No acute ischemia. CENTRAL NERVOUS SYSTEM: Essentially unchanged. DIAGNOSTIC DATA: Available diagnostic data reviewed. WBC 13.1, hemoglobin 11.5, hematocrit 36.2, platelets 285. ABGs yesterday was pH 7.16, pCO2 of 69, pO2 of 203. Sodium 140, potassium 3.8, chloride 107, bicarb 23, BUN 14, creatinine 0.6. Accu-Cheks are 257 and 226. Toxicology is positive for opiate positive. Fur Mixer Operator's intervention noted and appreciated. ADMITTING IMPRESSION: Acute exacerbation of bronchial asthma, chronic obstructive pulmonary disease, bronchitis, and anxiety. PLAN: As ordered. Case and plan discussed with the patient. Ho Jacobo MD
[2017-01-10 10:14] LABS: HEMATOCRIT 35.8 % (34.0-47.0); MEAN CELL VOLUME 94.1 fl (81.0-99.0); MEAN CORPUSCULAR HEMOGLOBIN 31.1 pg (27.0-31.0); MEAN CORPUSCULAR HGB CONC 33.1 g/dL (33.0-37.0); RED CELL DISTRIBUTION WIDTH 13.8 % (11.5-14.5); WHITE BLOOD COUNT 9.5 K/uL (4.8-10.8)
[2017-01-10 11:02] LABS: ALB/GLOB RATIO 1.1 (1.0-2.1); ALKALINE PHOSPHATASE 64 U/L (38-126); ALT/SGPT 32 U/L (9-52); AST/SGOT 23 U/L (14-36); BILIRUBIN,TOTAL 0.6 mg/dl (0.2-1.3); BLOOD UREA NITROGEN 19 mg/dl (7-17); CARBON DIOXIDE 27 mmol/L (22-30); CHLORIDE 104 mmol/L (98-107); GFR AFRICAN-AMERICAN > 60; GLUCOSE,RANDOM 108 mg/dL (65-105); POTASSIUM 4.1 MMOL/L (3.6-5.0); SODIUM 135 mmol/l (132-148); TOTAL PROTEIN 7.1 G/DL (6.3-8.2)
--- NOTE | 2017-01-10 12:10 | PN ---
DATE OF SERVICE: 01/10/2017 SUBJECTIVE: The patient is seen and examined. Interim events noted. The patient remains in regular medical floor. Nauseated, more cooperative, and was able to get treated with Solu-Medrol. Feels a little better, still has occasional whistling in her chest . No chest pain. No chest tightness. No shortness of breath. PHYSICAL EXAMINATION: GENERAL: The patient is in no acute distress. VITAL SIGNS: Stable. HEART: S1 and S2, normal, regular. LUNGS: Good bilateral air entry. The patient still has prolonged expiration and a few rhonchi bilaterally. ABDOMEN: Soft, nontender. No organomegaly. No fluid. Bowel sounds are positive. EXTREMITIES: Some edema. No calf swelling. No tenderness. No acute ischemia. RESEARCH ENGINEER: Essentially unchanged. DIAGNOSTIC DATA: Available diagnostic data reviewed. ASSESSMENT AND PLAN: Overall, the patient is slowly improving. Plan as ordered. Ho Jacobo MD
== END 2017-01-10 10:20 | disposition left against medical advice (07) | DRG 208 ==
LOC: H.ER 08:30 → H.ERHOLD 08:46 → H.ICU/CCU 11:00 → H.MEDSURG1 21:41
PROVIDERS: ADMIT Internal Medicine; ATTEND Internal Medicine
PROC: 5A1935Z Respiratory Ventilation, Less than 24 Consecutive Hours (ICD-10-PCS; principal; 2017-01-07)
DX: J45.901 Unspecified asthma with (acute) exacerbation (principal); J96.01 Acute respiratory failure with hypoxia; R09.2 Respiratory arrest; Z88.6 Allergy status to analgesic agent; Z88.0 Allergy status to penicillin; J44.9 Chronic obstructive pulmonary disease, unspecified; F41.9 Anxiety disorder, unspecified

== ENCOUNTER 2017-02-03 03:26 | Emergency (ER) | payer BC ==
[2017-02-03 03:26] VITALS: BMI 18.3
[2017-02-03 03:38] VITALS: TEMP 97.5
[2017-02-03] MEDS ORDERED: Albuterol-Ipratrop 3 mg / 0.5 (3 ml) UD INH STA ×2 (03:40→03:41)
[2017-02-03] MEDS ORDERED: Magnesium Sulfate 2 gm/50 ml 2 GM/50 ML BAG IVPB ONE (03:41)
[2017-02-03] MEDS ORDERED: Albuterol-Ipratrop 3 mg / 0.5 (3 ml) UD ONE ×2 (03:52→09:46)
[2017-02-03] MEDS ORDERED: Magnesium Sulfate 2 gm/50 ml 2 GM/50 ML BAG ONE ×2 (03:52→09:54)
--- NOTE | 2017-02-03 04:20 | ED PDOC ---
HPI: Dental Pain/Injury Time Seen by Provider: 02/03/17 03:34 Chief Complaint (Nursing): Dental Pain Chief Complaint (Provider): Dental Pain History Per: Patient History/Exam Limitations: no limitations Onset/Duration Of Symptoms: Hrs (x 2) Current Symptoms Are (Timing): Still Present Additional Complaint(s): 46 year old female with a history of asthma presents to the ED complaining of jaw pain. Patient is well known to ED. States that asthma exacerbation provokes chronic jaw infection. She reports she takes codeine at home to control the pain. Used asthma pump without relief. Denies fever, chills and cough. PMD: none provided Past Medical History Reviewed: Historical Data, Nursing Documentation, Vital Signs Vital Signs: Last Vital Signs Temp 97.5 F L 02/03/17 03:36 Pulse 122 H 02/03/17 03:36 Resp 20 02/03/17 03:36 BP 145/86 02/03/17 03:36 Pulse Ox 94 L 02/03/17 03:36 - Medical History PMH: Anxiety, Asthma, Bronchitis, COPD Denies: HIV, Chronic Kidney Disease - Family History Family History: States: Unknown Family Hx - Home Medications Home Medications: Ambulatory Orders Medication Instructions Recorded Albuterol 0.042% [Albuterol 0.042% 1 inh NEB QID 01/07/17 Inhal Jamee (1.25mg/3ml) UD] Codeine Sulfate 30 mg PO BID PRN 01/07/17 Ivermectin [Stromectol] 3 mg PO DAILY 01/07/17 Morphine [Morphine Immediate 15 mg PO BID PRN 01/07/17 Release Tab] - Allergies Allergies/Adverse Reactions: Allergies Allergy/AdvReac Type Severity Reaction Status Date / Time acetaminophen Allergy SHORTNESS Verified 10/15/16 11:56 OF BREATH moxifloxacin HCl Allergy tendonitis Verified 10/15/16 11:56 [From Avelox] Penicillins Allergy SHORTNESS Verified 10/15/16 11:56 OF BREATH Review of Systems ROS Statement: Except As Marked, All Systems Reviewed And Found Negative Constitutional: Negative for: Fever, Chills ENT: Positive for: Mouth Pain (jaw) Respiratory: Negative for: Cough Physical Exam - Reviewed Nursing Documentation Reviewed: Yes Vital Signs Reviewed: Yes - Physical Exam Appears: Positive for: Non-toxic, No Acute Distress Head Exam: Positive for: ATRAUMATIC, NORMOCEPHALIC Skin: Positive for: Normal Color, Warm, Dry Eye Exam: Positive for: Normal appearance, PERRL ENT: Negative for: Other (jaw swelling, tenderness or erythema) Neck: Positive for: Normal, Painless ROM, Supple Cardiovascular/Chest: Positive for: Regular Rate, Rhythm. Negative for: Murmur Respiratory: Positive for: Wheezing (bilaterally) Gastrointestinal/Abdominal: Positive for: Normal Exam, Soft Back: Positive for: Normal Inspection. Negative for: L CVA Tenderness, R CVA Tenderness, Vertebral Tenderness Extremity: Positive for: Normal ROM Neurologic/Psych: Positive for: Alert, Oriented. Negative for: Motor/Sensory Deficits - ECG O2 Sat by Pulse Oximetry: 94 (RA) Pulse Ox Interpretation: Normal Medical Decision Making Medical Decision Making: Time: 03:42 Impression: asthma exacerbation Initial Plan: --Duoneb 3 ml INH --Duoneb 3 ml INH --Magnesium Sulfate 2 gm in 50 ml IVPB --Peak flow Pre/post Patient is improved, no longer wheezing and requires no further treatment in the ED at this time. Patient will be discharged home. Return if symptoms persist or worsen. Scribe Attestation: Documented by Rohini Monaco, acting as a scribe for Mack Higuera MD Provider Scribe Attestation: All medical record entries made by the Scribe were at my direction and personally dictated by me. I have reviewed the chart and agree that the record accurately reflects my personal performance of the history, physical exam, medical decision making, and the department course for this patient. I have also personally directed, reviewed, and agree with the discharge instructions and disposition. Disposition - Clinical Impression Clinical Impression: Asthma - Disposition Referrals: [facility] [Outside] Disposition: Routine/Home Disposition Time: 04:48 Condition: IMPROVED Instructions: Asthma (ED) Forms: [facility] (French)
[2017-02-03 05:28] VITALS: BP 108/71; PULSE 88; RESP 17; O2SAT 96
== END 2017-02-03 05:28 | disposition home or self-care (01) ==
LOC: H.ER 03:26
DX: J45.901 Unspecified asthma with (acute) exacerbation (principal); F41.9 Anxiety disorder, unspecified; Z88.0 Allergy status to penicillin; R68.84 Jaw pain

== ENCOUNTER 2017-02-03 09:32 | Emergency (ER) | payer BC ==
[2017-02-03 09:32] VITALS: BMI 18.3
[2017-02-03 09:45] VITALS: TEMP 98
[2017-02-03] MEDS ORDERED: Albuterol-Ipratrop 3 mg / 0.5 (3 ml) UD IH STA ×2 (09:50→10:32)
--- NOTE | 2017-02-03 09:53 | ED PDOC ---
HPI: SOB/CHF/COPD Time Seen by Provider: 02/03/17 09:39 Chief Complaint (Nursing): Shortness Of Breath History Per: Patient Onset/Duration Of Symptoms: Days (2) Initiating Event: Upper Respiratory Illness Current Respiratory Medications: See Home Med List Severity: Moderate Associated Symptoms: denies: Fever, Productive Cough Additional Complaint(s): SOB assoc with wheezing and nonproductive cough x 2 days. No fever. No chest pain. Past Medical History Vital Signs: Last Vital Signs Temp 98 F 02/03/17 09:44 Pulse 128 H 02/03/17 09:44 Resp BP 153/82 H 02/03/17 09:44 Pulse Ox 100 02/03/17 09:53 - Medical History PMH: Anxiety, Asthma, Bronchitis, COPD Denies: HIV, Chronic Kidney Disease - Family History Family History: States: Unknown Family Hx - Home Medications Home Medications: Ambulatory Orders Medication Instructions Recorded Albuterol 0.042% [Albuterol 0.042% 1 inh NEB QID 01/07/17 Inhal Jamee (1.25mg/3ml) UD] Codeine Sulfate 30 mg PO BID PRN 01/07/17 Ivermectin [Stromectol] 3 mg PO DAILY 01/07/17 Morphine [Morphine Immediate 15 mg PO BID PRN 01/07/17 Release Tab] Clindamycin [Cleocin] 300 mg PO TID #30 cap 02/03/17 - Allergies Allergies/Adverse Reactions: Allergies Allergy/AdvReac Type Severity Reaction Status Date / Time acetaminophen Allergy SHORTNESS Verified 10/15/16 11:56 OF BREATH moxifloxacin HCl Allergy tendonitis Verified 10/15/16 11:56 [From Avelox] Penicillins Allergy SHORTNESS Verified 10/15/16 11:56 OF BREATH Review of Systems ROS Statement: Except As Marked, All Systems Reviewed And Found Negative Constitutional: Positive for: Fever Respiratory: Positive for: Cough, Shortness of Breath, Wheezing Physical Exam - Reviewed Nursing Documentation Reviewed: Yes Vital Signs Reviewed: Yes - Physical Exam Appears: Positive for: Non-toxic, No Acute Distress Head Exam: Positive for: ATRAUMATIC, NORMAL INSPECTION, NORMOCEPHALIC Skin: Positive for: Normal Color, Warm, DRY Eye Exam: Positive for: EOMI, Normal appearance, PERRL ENT: Positive for: Normal ENT Inspection Neck: Positive for: Normal, Painless ROM Cardiovascular/Chest: Positive for: Regular Rate, Rhythm Respiratory: Positive for: Rhonchi, Wheezing. Negative for: Respiratory Distress Gastrointestinal/Abdominal: Positive for: Normal Exam, Bowel Sounds, Soft Back: Positive for: Normal Inspection Extremity: Positive for: Normal ROM Neurologic/Psych: Positive for: Alert, Oriented - ECG O2 Sat by Pulse Oximetry: 100 - Progress Re-evaluation Time: 11:33 Condition: Improved Disposition - Clinical Impression Clinical Impression: Asthma exacerbation - Patient ED Disposition Is Patient to be Admitted: No Counseled Patient/Family Regarding: Diagnosis, Need For Followup, Rx Given - Disposition Referrals: [facility] [Outside] Disposition: Routine/Home Disposition Time: 11:33 Condition: FAIR Prescriptions: Clindamycin [Cleocin] 300 mg PO TID #30 cap Instructions: Asthma (ED) Forms: [facility] (Lao)
[2017-02-03] MEDS ORDERED: Magnesium Sulfate 2 gm/50 ml 2 GM/50 ML BAG IVPB ONE (09:56)
[2017-02-03 12:06] VITALS: BP 100/64
[2017-02-03 12:52] VITALS: PULSE 98; RESP 20; O2SAT 96
== END 2017-02-03 14:53 | disposition home or self-care (01) ==
LOC: H.ER 09:32
DX: J45.901 Unspecified asthma with (acute) exacerbation (principal); F41.9 Anxiety disorder, unspecified; Z88.0 Allergy status to penicillin
CPT/HCPCS: 94640; 96374; 96375; 99284; J2930

== ENCOUNTER 2017-02-09 05:37 | Inpatient (IN) | payer BC ==
[2017-02-09 05:42] VITALS: BMI 18.8
[2017-02-09] MEDS ORDERED: Albuterol-Ipratrop 3 mg / 0.5 (3 ml) UD INH STA ×3 (05:46→05:55)
[2017-02-09] MEDS ORDERED: Magnesium Sulfate 2 gm/50 ml 2 GM/50 ML BAG IV STA (05:46)
[2017-02-09] MEDS ORDERED: Magnesium Sulfate 2 gm/50 ml 2 GM/50 ML BAG ONE (05:49)
[2017-02-09] MEDS ORDERED: Naloxone 0.4 mg/ml Inj (Adult) IVP STA (05:53)
[2017-02-09] MEDS ORDERED: Albuterol-Ipratrop 3 mg / 0.5 (3 ml) UD ONE (06:08)
--- NOTE | 2017-02-09 06:16 | ED PDOC ---
HPI: SOB/CHF/COPD <MagalieRachid L - Last Filed: 02/09/17 08:31> Chief Complaint (Provider): Respiratory Distress History Per: EMS History/Exam Limitations: clinical condition Onset/Duration Of Symptoms: Other (prior to arrival) Current Symptoms Are (Timing): Still Present <Lisandro Norman - Last Filed: 02/09/17 20:48> Time Seen by Provider: 02/09/17 05:46 Chief Complaint (Nursing): Respiratory Distress Additional Complaint(s): 46 year old female, with a past medical history of asthma. Patient is well known to this provider for multiple ED visits. Patient comes to ED today with EMS and ALS for shortness of breath consistent with previous asthma exacerbation. As per ALS, patient was attempting to take several pills of Codeine. On arrival to ED patient is in moderate respiratory distress. PMD: Provider TBD (Lisandro Norman) Past Medical History <MagalieRachid L - Last Filed: 02/09/17 08:31> Reviewed: Historical Data, Nursing Documentation, Vital Signs, Unable To Obtain - Medical History PMH: Anxiety, Asthma, Bronchitis, COPD Denies: HIV, Chronic Kidney Disease - Surgical History Other surgeries: Jaw Surgery - Family History Family History: States: Unknown Family Hx - Social History Current smoker - smoking cessation education provided: No Alcohol: None Drugs: Denies <CorbinkayywayneGlenisLisandrovicki Moctezuma - Last Filed: 02/09/17 20:48> Vital Signs: Last Vital Signs Temp 98.4 F 02/09/17 20:09 Pulse 94 H 02/09/17 20:09 Resp 14 02/09/17 20:09 BP 96/64 L 02/09/17 20:09 Pulse Ox 95 02/09/17 20:09 - Home Medications Home Medications: Ambulatory Orders Medication Instructions Recorded Albuterol 0.042% [Albuterol 0.042% 1 inh NEB QID 01/07/17 Inhal Jamee (1.25mg/3ml) UD] Codeine Sulfate 30 mg PO BID PRN 01/07/17 Hydrocortisone [Cortef] 02/09/17 Ipratropium 0.02% [Atrovent] 02/09/17 Levalbuterol [Xopenex] 02/09/17 - Allergies Allergies/Adverse Reactions: Allergies Allergy/AdvReac Type Severity Reaction Status Date / Time acetaminophen Allergy SHORTNESS Verified 02/09/17 05:41 OF BREATH moxifloxacin HCl Allergy tendonitis Verified 02/09/17 05:41 [From Avelox] Penicillins Allergy SHORTNESS Verified 02/09/17 05:41 OF BREATH Review of Systems Review Of Systems: ROS cannot be obtained secondary to pt's inabilty to answer questions. Respiratory: Positive for: Cough, Shortness of Breath, Wheezing <Lisandro Norman - Last Filed: 02/09/17 20:48> Physical Exam - Reviewed Nursing Documentation Reviewed: Yes Vital Signs Reviewed: Yes - Physical Exam Appears: Positive for: Non-toxic, In Acute Distress Head Exam: Positive for: ATRAUMATIC, NORMAL INSPECTION, NORMOCEPHALIC Skin: Positive for: Normal Color, Warm, Dry. Negative for: Rash Eye Exam: Positive for: EOMI, Normal appearance, PERRL Neck: Positive for: Normal, Painless ROM, Supple Cardiovascular/Chest: Positive for: Tachycardia Respiratory: Positive for: Wheezing (bilateral diffuse expiratory wheezing), Respiratory Distress (moderate), Other (Intercostal supraclavicular retractions) Gastrointestinal/Abdominal: Positive for: Normal Exam, Bowel Sounds, Soft. Negative for: Tenderness Back: Positive for: Normal Inspection. Negative for: L CVA Tenderness, R CVA Tenderness, Vertebral Tenderness Extremity: Positive for: Normal ROM. Negative for: Pedal Edema, Deformity Neurologic/Psych: Positive for: Alert. Negative for: Motor/Sensory Deficits <Lisandro Norman - Last Filed: 02/09/17 20:48> - Laboratory Results Result Diagrams: 02/09/17 06:10 02/09/17 06:10 <Rachid Mejias - Last Filed: 02/09/17 08:31> - Laboratory Results Result Diagrams: 02/09/17 06:10 02/09/17 06:10 - ECG O2 Sat by Pulse Oximetry: 93 (BIPAP) Pulse Ox Interpretation: Abnormal - Critical Care Total Time (In Min): 60 <Lisandro Norman - Last Filed: 02/09/17 20:48> Medical Decision Making <Rachid Mejias - Last Filed: 02/09/17 08:31> <Lisandro Norman - Last Filed: 02/09/17 20:48> Medical Decision Making: Dr. Michael, ICU attending, came to evaluate patient and feels as though she can go to telemetry and not the ICU. Patient is speaking in full sentences and not in respiratory distress. Her lungs are clear. No w/r/r. Mild retractions. Patient is not suicidal. Will place patient in telemetry. (Rachid Mejias) Time: 05:46 Initial Impression: 46 year old female with acute asthma exacerbation and moderate to severe respiratory distress Plan: --EKG --Acetaminophen --CMP --Salicylate --ED Urine dipstick --Urine --CBC w/ differential --Portable Chest X-Ray --Duoneb 3 ml INH --Duoneb 3 ml INH --Duoneb 3 ml INH --Tertbutaline 0.25 mg SC --Magnesium Sulfate 2 gm in 50 ml IV --Narcan 0.4 mg IVP --Blood culture --Heplock insertion --BIPAP --Peak flow pre/post treatment --Urinalysis --Reevaluation Time: 06:20 --Nursing staff informed provider that patient had verbalized feeling suicidal given her ingestion of codeine just prior. Will place on 1:1 observation. --1:1 observation --Reevaluation Time: 06:30 --Patient shows mild improvement on BIPAP after Duoneb, Magnesium Sulfate, and Tertbutaline. Patient will be admitted to ICU for respiratory distress, asthma exacerbation, and suicidal ideation/attempt. Case discussed with Dr. Mcknight, Hospitalist behavioral intervention specialist, and Dr. Bullard, ICU. Time: 06:50 --Patient markedly improved. Now reports she did not say she "does not want to live." States she said she feels like she won't live due to the condition of her asthma exacerbation. Patient is well known to this provider who finds her rendition very credible. --1:1 discontinued; Pt to remain as ICU admission due to initial requirement of 4 g Mg SO4, Terbutaline, Duonebs, Solumedrol and BIPAP Scribe Attestation: Documented by Christopher Alex acting as a scribe for Lisandro Norman MD. Scribe Attestation: All medical record entries made by the Scribe were at my direction and personally dictated by me. I have reviewed the chart and agree that the record accurately reflects my personal performance of the history, physical exam, medical decision making, and the department course for this patient. I have also personally directed, reviewed, and agree with the discharge instructions and disposition. (Lisandro Norman) Disposition - Patient ED Disposition Is Patient to be Admitted: Yes Discussed With Dr.: Corwin Mcknight - Pt Status Changed To: Hospital Disposition Of: Inpatient - Admit Certification Admit to Inpatient:: After my assessment, the patient will require hospitalization for at least two midnights. This is because of the severity of symptoms shown, intensity of services needed, and/or the medical risk in this patient being treated as an outpatient. <Rachid Mejias - Last Filed: 02/09/17 08:31> - Patient ED Disposition Is Patient to be Admitted: Yes Discussed With Dr.: Corwin Mcknight Counseled Patient/Family Regarding: Studies Performed, Diagnosis - Disposition Disposition Time: 06:30 - Pt Status Changed To: Hospital Disposition Of: Inpatient - Admit Certification Admit to Inpatient:: After my assessment, the patient will require hospitalization for at least two midnights. This is because of the severity of symptoms shown, intensity of services needed, and/or the medical risk in this patient being treated as an outpatient. <Lisandro Norman - Last Filed: 02/09/17 20:48> - Clinical Impression Clinical Impression: Asthma exacerbation, Respiratory failure - Disposition Condition: GUARDED
[2017-02-09 06:52] LABS: BASO # 0.2 K/uL (0.0-0.2); BASO % 1.2 % (0.0-2.0); EOS # 1.3 K/uL (0.0-0.7); EOS % 6.9 % (0.0-4.0); HEMOGLOBIN 13.9 g/dL (12.0-16.0); LYMPH # 7.4 K/uL (1.0-4.3); LYMPH % 40.3 % (20.0-40.0); MEAN CELL VOLUME 93.8 fl (81.0-99.0); MEAN CORPUSCULAR HEMOGLOBIN 31.3 pg (27.0-31.0); MEAN CORPUSCULAR HGB CONC 33.4 g/dL (33.0-37.0); MEAN PLATELET VOLUME 8.8 fl (7.2-11.7); MONO # 1.8 K/uL (0.0-0.8); MONO % 9.6 % (0.0-10.0); NEUT # 7.7 K/uL (1.8-7.0); NRBC % 0.1 % (0.0-0.0); RBC 4.43 Mil/uL (3.80-5.20); RED CELL DISTRIBUTION WIDTH 13.1 % (11.5-14.5); WHITE BLOOD COUNT 18.4 K/uL (4.8-10.8)
[2017-02-09 07:02] LABS: ALB/GLOB RATIO 1.2 (1.0-2.1); ALBUMIN 4.5 g/dL (3.5-5.0); ALT/SGPT 28 U/L (9-52); AST/SGOT 24 U/L (14-36); BLOOD UREA NITROGEN 21 mg/dl (7-17); CALCIUM 9.7 mg/dL (8.4-10.2); GFR AFRICAN-AMERICAN > 60; GFR NON-AFRICAN AMERICAN > 60
[2017-02-09 07:56] LABS: ACETAMINOPHEN < 10.0 ug/ml (10.0-30.0); SALICYLATE < 1.0 mg/dl
[2017-02-09 08:00] LABS: SQUAMOUS EPITHIAL 14 /hpf (0-5); URINE BACTERIA OCC (<OCC); URINE BILIRUBIN NEGATIVE (NEGATIVE); URINE BLOOD SMALL (NEGATIVE); URINE CLARITY CLOUDY (Clear); URINE COLOR YELLOW (YELLOW); URINE GLUCOSE (UA) >=500 mg/dL (Normal); URINE LEUKOCYTE ESTERASE SMALL Leu/uL (Negative); URINE NITRATE NEGATIVE (NEGATIVE); URINE PROTEIN 30 mg/dL (NEGATIVE); URINE UROBILINOGEN 0.2-1.0 mg/dL (0.2-1.0)
[2017-02-09] MEDS ORDERED: methylPREDNISolone 60 MG in Sodium Chloride 0.9% 50 ML IVPB SCH (10:15)
--- NOTE | 2017-02-09 10:45 | CP.PCM.CON ---
History of Present Illness - History of Present Illness History of Present Illness: Psychiatry consult note HPI: 46 yo female w/ history of asthma, presented w/ acute SOB. Patient states that she said that she felt like she was going to and that the ambulance staff is mistaken that she said that she "wanted" to . Patient denies acute depression/anxiety/psychosis/SI/HI. She is goal oriented and is hopeful for the further. She denies suicidal ideation/plan/intent. PPHx: No past psychiatric history. No h/o suicide attempts. PMHx: Asthma, Bronchitis, COPD, Tetanus infection ALL: Acetaminophen, Moxifloxacin, PCN FHx: Denies family h/o mental illness MSE: A + O x 3, calm, cooperative, no acute distress, mood/affect-neutral, no AH /VH/paranoia/delusions, thought process-linear/coherent, speech normal, no SI/HI , I/J good Impression: 46 yo female w/o any acute psychiatric issues. Patient does not need psychiatric medications or acute inpatient psychiatric hospitalization. Past Patient History - Infectious Disease Hx of Infectious Diseases: None - Past Medical History & Family History Past Medical History?: Yes - Past Social History Alcohol: None Drugs: Denies - CARDIAC Hx Cardiac Disorders: No - PULMONARY Hx Respiratory Disorders: Yes (asthma, bronchitis, copd) - NEUROLOGICAL Hx Neurological Disorder: No - HEENT Hx HEENT Problems: No - RENAL Hx Chronic Kidney Disease: No - ENDOCRINE/METABOLIC Hx Endocrine Disorders: No - HEMATOLOGICAL/ONCOLOGICAL Hx Human Immunodeficiency Virus (HIV): No - INTEGUMENTARY Hx Dermatological Problems: No - MUSCULOSKELETAL/RHEUMATOLOGICAL Hx Falls: No - GASTROINTESTINAL Hx Gastrointestinal Disorders: No - GENITOURINARY/GYNECOLOGICAL Hx Genitourinary Disorders: No - PSYCHIATRIC Hx Psychophysiologic Disorder: Yes (anxiety) - SURGICAL HISTORY Hx Surgeries: Yes Other/Comment: 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 - ANESTHESIA Hx Anesthesia: Yes Hx Anesthesia Reactions: No Hx Malignant Hyperthermia: No Meds Allergies/Adverse Reactions: Allergies Allergy/AdvReac Type Severity Reaction Status Date / Time acetaminophen Allergy SHORTNESS Verified 02/09/17 05:41 OF BREATH moxifloxacin HCl Allergy tendonitis Verified 02/09/17 05:41 [From Avelox] Penicillins Allergy SHORTNESS Verified 02/09/17 05:41 OF BREATH - Medications Medications: Current Medications Albuterol/Ipratropium (Duoneb 3 Mg/0.5 Mg (3 Ml) Ud) 3 ml INH RQ6 BRANDI Methylprednisolone (Solu-Medrol) 60 mg IV Q12H BRANDI Results - Vital Signs Recent Vital Signs: Last Vital Signs Temp 97.6 F 02/09/17 09:45 Pulse 100 H 02/09/17 09:45 Resp 20 02/09/17 09:45 BP 96/60 L 02/09/17 09:45 Pulse Ox 94 L 02/09/17 09:45 - Labs Result Diagrams: 02/09/17 06:10 02/09/17 06:10 Labs: Laboratory Results - last 24 hr 02/09/17 02/09/17 02/09/17 06:10 06:10 06:37 WBC 18.4 H D RBC 4.43 Hgb 13.9 D Hct 41.5 MCV 93.8 MCH 31.3 H MCHC 33.4 RDW 13.1 Plt Count 435 H MPV 8.8 Neut % (Auto) 42.0 L Lymph % (Auto) 40.3 H Swift % (Auto) 9.6 Eos % (Auto) 6.9 H Baso % (Auto) 1.2 Neut # 7.7 H Lymph # 7.4 H Swift # 1.8 H Eos # 1.3 H Baso # 0.2 Sodium 142 Potassium 4.2 Chloride 101 Carbon Dioxide 27 Anion Gap 18 BUN 21 H Creatinine 0.7 Est GFR ( Amer) > 60 Est GFR (Non-Af Amer) > 60 Random Glucose 220 H Calcium 9.7 Total Bilirubin 0.4 AST 24 ALT 28 Alkaline Phosphatase 89 Total Protein 8.3 H Albumin 4.5 Globulin 3.8 Albumin/Globulin Ratio 1.2 Urine Color Urine Clarity Urine pH Ur Specific Santa Urine Protein Urine Glucose (UA) Urine Ketones Urine Blood Urine Nitrate Urine Bilirubin Urine Urobilinogen Ur Leukocyte Esterase Urine RBC (Auto) Urine Microscopic WBC Ur Squamous Epith Cells Urine Bacteria Hyaline Casts Salicylates < 1.0 Acetaminophen < 10.0 L 02/09/17 07:30 WBC RBC Hgb Hct MCV MCH MCHC RDW Plt Count MPV Neut % (Auto) Lymph % (Auto) Swift % (Auto) Eos % (Auto) Baso % (Auto) Neut # Lymph # Swift # Eos # Baso # Sodium Potassium Chloride Carbon Dioxide Anion Gap BUN Creatinine Est GFR ( Amer) Est GFR (Non-Af Amer) Random Glucose Calcium Total Bilirubin AST ALT Alkaline Phosphatase Total Protein Albumin Globulin Albumin/Globulin Ratio Urine Color Yellow Urine Clarity Cloudy Urine pH 5.0 Ur Specific Santa 1.012 Urine Protein 30 Urine Glucose (UA) >=500 Urine Ketones Negative Urine Blood Small Urine Nitrate Negative Urine Bilirubin Negative Urine Urobilinogen 0.2-1.0 Ur Leukocyte Esterase Small Urine RBC (Auto) 7 H Urine Microscopic WBC 32 H Ur Squamous Epith Cells 14 H Urine Bacteria Occ H Hyaline Casts 11-20 H Salicylates Acetaminophen
[2017-02-09] MEDS: Albuterol-Ipratrop 3 mg / 0.5 (3 ml) UD INH SCH ×2 (13:03→19:30)
--- NOTE | 2017-02-09 18:45 | HP ---
ADMITTING HISTORY AND PHYSICAL HISTORY OF PRESENT ILLNESS: Ms. Brown is a 46-year-old female, who was admitted via the emergency room because of shortness of breath and acute exacerbation of asthma. She indicated that she got short of breath on the night of admission, was brought to the emergency room by EMS, and she had tried taking some codeine p.o. because she indicates it makes her breathe better and she was asking for IV magnesium. The EMS thought she wanted to kill herself and she was given Narcan in the emergency room and also received multiple anti-asthma medications. She feels better and indicates that she was not trying to kill herself, was indicating that she had difficulty breathing and thought she was going to . PAST MEDICAL HISTORY: She has a past medical history of anxiety, asthma. FAMILY HISTORY: Noncontributory. SOCIAL HISTORY: Lives alone. Does not drink or smoke. Indicates that she works for the [employer]; I not exactly sure in what capacity. PHYSICAL EXAMINATION: GENERAL: The patient is alert, oriented to person, place and time. VITAL SIGNS: Blood pressure 93/56 with a pulse of 110, respiratory rate 18. She is afebrile. O2 sat is 100% on nasal cannula oxygen. SKIN: Shows fair turgor. HEENT: Pupils equal and reactive to light and accommodation. Mouth shows fair hygiene. LUNGS: Fair aeration with mild wheezing. HEART: S1 and S2. BREASTS: Normal. ABDOMEN: Soft, nontender, no organomegaly. EXTREMITIES: Show no edema or cyanosis. CENTRAL NERVOUS SYSTEM: Grossly intact. LABORATORY DATA: WBC 18.4, hemoglobin 13.9, platelet count 435,000. Sodium 142, potassium 4.2, BUN 21, creatinine 0.7. Toxicology unremarkable. IMPRESSION: 1. Acute exacerbation of asthma. 2. Doubt suicidal ideation. PLAN: The plan is to obtain Psychiatry evaluation. For now, continue anti-asthma medications, obtain chest x-ray, and monitor O2 sat level and maintain above 95%. Corwin Mcknight MD
[2017-02-10 00:11] VITALS: RESP 18
[2017-02-10] MEDS: Albuterol-Ipratrop 3 mg / 0.5 (3 ml) UD INH SCH ×3 (01:00→13:12)
[2017-02-10 05:13] VITALS: O2SAT 95
[2017-02-10 07:46] VITALS: BP 92/52; PULSE 85; TEMP 98.2
--- NOTE | 2017-02-10 09:19 | PQF GENQUE ---
Dr. Mcknight, Please provide specificity regarding respiratory failure: VERSUS Respiratory Failure ruled out? 1. Please specify acuity: Acute Chronic Acute on chronic Other (please specify) Clinically unable to determine Unknown 2. Please specify type: With hypercapnia With hypoxia With hypercapnia and hypoxia Other (please specify) Clinically unable to determine Unknown 3. Please specify underlying cause: Due to procedure Due to trauma Due to underlying respiratory disease (please specify) Other cause (please specify) Clinically unable to determine Unknown ER note : ROS: Respiratory:Positive for: Cough, Shortness of Breath, Wheezing PE : Appears: Positive for:-- In Acute Distress Respiratory: Positive for: Wheezing (bilateral diffuse expiratory wheezing), Respiratory Distress ( moderate), Other (Intercostal supraclavicular retractions ) Initial Impression: 46 year old female with acute asthma exacerbation and moderate to severe respiratory distress Time: 06:30 --Patient shows mild improvement on BIPAP after Duoneb, Magnesium Sulfate, and Tertbutaline. Pt to remain as ICU admission due to initial requirement of 4 g Mg SO4, Terbutaline, Duonebs, Solumedrol and BIPAP Clinical Impression : Asthma exacerbation, Respiratory failure V/S tab in the EMR: Respirations: 30->32 (SOB, Labored: Respiratory Pattern: Tachypnea->32 This form is a permanent part of the medical record Clarification of your documentation is requested to better reflect the severity of illness and intensity of treatment of your patient. Indicators present [] Specify: [x]acute respiratory failure due to asthma [] Specify: [] [] Specify: [] [] Specify: [] Location in the medical record that reflects the above clinical findings: [] Treatment Provided: [] PHYSICIAN'S RESPONSE Based on your medical judgment of the clinical indicators outlined above please clarify the following: [] Practitioner response [] If unable to determine, please check the box, sign and date. Present On Admission (POA) Indicator: [] Present at the time of admission [] Not present at the time of admission [] Clinically Undetermined In responding to this query, please exercise your independent professional judgment. The fact that a question is asked does not imply that any particular answer is desired or expected. Thank you for your clarification on this documentation. If you have any questions please call. * Thank you, Ambar Rosales RN ext. #[phone] MTDD
--- NOTE | 2017-02-10 09:24 | PQF GENQUE ---
Dr. Mcknight, In agreement with BMI: 18.2? If yes: (1) please include the BMI in your progress note (2) and a correlating diagnosis or etiology of the BMI:18.2: i.e. Underweight or Small Frame etc. OR: Disagree OR: Other explanation of clinical finding EMR: BMI 18.8 5 ft 7in 120 lb. This form is a permanent part of the medical record Clarification of your documentation is requested to better reflect the severity of illness and intensity of treatment of your patient. Indicators present [] Specify: [] [] Specify: [] [] Specify: [] [] Specify: [] Location in the medical record that reflects the above clinical findings: [] Treatment Provided: [] PHYSICIAN'S RESPONSE Based on your medical judgment of the clinical indicators outlined above please clarify the following: [] Practitioner response [] If unable to determine, please check the box, sign and date. Present On Admission (POA) Indicator: [] Present at the time of admission [] Not present at the time of admission [] Clinically Undetermined In responding to this query, please exercise your independent professional judgment. The fact that a question is asked does not imply that any particular answer is desired or expected. Thank you for your clarification on this documentation. If you have any questions please call. * Thank you, Ambar Rosales RN ext. #[phone] MTDD
--- NOTE | 2017-02-10 09:30 | PQF GENQUE ---
Dr. Mcknight, 2 queries: 1. Please clarify type of asthma: if known: 2. COPD ruled in or ruled out? i.e. Mild intermittent Mild persistent Moderate persistent Severe persistent With bronchitis(please clarify acuity of bronchitis) With chronic lung disease (please document specific chronic lung disease) Other (please specify) Clinically unable to determine Unknown ER and Psych consult notes include: hx. COPD ER note:ROS: Respiratory:Positive for: Cough, Shortness of Breath, Wheezing PE : Appears: Positive for: Non-toxic, In Acute Distress Respiratory: Positive for: Wheezing (bilateral diffuse expiratory wheezing), Respiratory Distress ( moderate), Other (Intercostal supraclavicular retractions ) Initial Impression: 46 year old female with acute asthma exacerbation and moderate to severe respiratory distress Time: 06:30 --Patient shows mild improvement on BIPAP after Duoneb, Magnesium Sulfate, and Tertbutaline. Pt to remain as ICU admission due to initial requirement of 4 g Mg SO4, Terbutaline, Duonebs, Solumedrol and BIPAP Clinical Impression : Asthma exacerbation, Respiratory failure H and P: Impression: Acute exacerbation of asthma This form is a permanent part of the medical record Clarification of your documentation is requested to better reflect the severity of illness and intensity of treatment of your patient. Indicators present [] Specify: [x copd ruled out] [] Specify: [] [] Specify: [] [] Specify: [] Location in the medical record that reflects the above clinical findings: [] Treatment Provided: [] PHYSICIAN'S RESPONSE Based on your medical judgment of the clinical indicators outlined above please clarify the following: [] Practitioner response [] If unable to determine, please check the box, sign and date. Present On Admission (POA) Indicator: [] Present at the time of admission [] Not present at the time of admission [] Clinically Undetermined In responding to this query, please exercise your independent professional judgment. The fact that a question is asked does not imply that any particular answer is desired or expected. Thank you for your clarification on this documentation. If you have any questions please call. * Thank you, Ambar Rosales RN ext. #[phone] MTDD
--- NOTE | 2017-02-10 10:36 | CARD ---
APPROVED REPORT EKG Measurement Heart [id number] [id number] <Conclusion> Sinus tachycardia with frequent premature ventricular complexes Junctional ST depression, probably normal Borderline ECG
--- NOTE | 2017-02-10 10:42 | CP.PCM.DIS ---
Provider - Provider Date of Admission: 02/09/17 06:33 Attending physician: Corwin Mcknight MD Time Spent in preparation of Discharge (in minutes): 30 Diagnosis - Discharge Diagnosis (1) Anxiety Status: Acute (2) Asthma exacerbation Status: Acute Hospital Course - Lab Results Lab Results: Micro Results 02/09/17 05:58 Blood-Venous Blood Culture - Preliminary NO GROWTH AFTER 24 HOURS 02/09/17 06:10 Blood-Venous Blood Culture - Preliminary NO GROWTH AFTER 24 HOURS Most Recent Lab Values WBC 18.4 K/uL (4.8-10.8) H D 02/09/17 06:10 RBC 4.43 Mil/uL (3.80-5.20) 02/09/17 06:10 Hgb 13.9 g/dL (12.0-16.0) D 02/09/17 06:10 Hct 41.5 % (34.0-47.0) 02/09/17 06:10 MCV 93.8 fl (81.0-99.0) 02/09/17 06:10 MCH 31.3 pg (27.0-31.0) H 02/09/17 06:10 MCHC 33.4 g/dL (33.0-37.0) 02/09/17 06:10 RDW 13.1 % (11.5-14.5) 02/09/17 06:10 Plt Count 435 K/uL (130-400) H 02/09/17 06:10 MPV 8.8 fl (7.2-11.7) 02/09/17 06:10 Neut % (Auto) 42.0 % (50.0-75.0) L 02/09/17 06:10 Lymph % (Auto) 40.3 % (20.0-40.0) H 02/09/17 06:10 [place] % (Auto) 9.6 % (0.0-10.0) 02/09/17 06:10 Eos % (Auto) 6.9 % (0.0-4.0) H 02/09/17 06:10 Baso % (Auto) 1.2 % (0.0-2.0) 02/09/17 06:10 Neut # 7.7 K/uL (1.8-7.0) H 02/09/17 06:10 Lymph # 7.4 K/uL (1.0-4.3) H 02/09/17 06:10 [place] # 1.8 K/uL (0.0-0.8) H 02/09/17 06:10 Eos # 1.3 K/uL (0.0-0.7) H 02/09/17 06:10 Baso # 0.2 K/uL (0.0-0.2) 02/09/17 06:10 Sodium 142 mmol/l (132-148) 02/09/17 06:10 Potassium 4.2 MMOL/L (3.6-5.0) 02/09/17 06:10 Chloride 101 mmol/L (98-107) 02/09/17 06:10 Carbon Dioxide 27 mmol/L (22-30) 02/09/17 06:10 Anion Gap 18 (10-20) 02/09/17 06:10 BUN 21 mg/dl (7-17) H 02/09/17 06:10 Creatinine 0.7 mg/dl (0.7-1.2) 02/09/17 06:10 Est GFR ( Amer) > 60 02/09/17 06:10 Est GFR (Non-Af Amer) > 60 02/09/17 06:10 Random Glucose 220 mg/dL (65-105) H 02/09/17 06:10 Calcium 9.7 mg/dL (8.4-10.2) 02/09/17 06:10 Total Bilirubin 0.4 mg/dl (0.2-1.3) 02/09/17 06:10 AST 24 U/L (14-36) 02/09/17 06:10 ALT 28 U/L (9-52) 02/09/17 06:10 Alkaline Phosphatase 89 U/L (38-126) 02/09/17 06:10 Total Protein 8.3 G/DL (6.3-8.2) H 02/09/17 06:10 Albumin 4.5 g/dL (3.5-5.0) 02/09/17 06:10 Globulin 3.8 gm/dL (2.2-3.9) 02/09/17 06:10 Albumin/Globulin Ratio 1.2 (1.0-2.1) 02/09/17 06:10 Urine Color Yellow (YELLOW) 02/09/17 07:30 Urine Clarity Cloudy (Clear) 02/09/17 07:30 Urine pH 5.0 (5.0-8.0) 02/09/17 07:30 Ur Specific [place] 1.012 (1.003-1.030) 02/09/17 07:30 Urine Protein 30 mg/dL (NEGATIVE) 02/09/17 07:30 Urine Glucose (UA) >=500 mg/dL (Normal) 02/09/17 07:30 Urine Ketones Negative mg/dL (NEGATIVE) 02/09/17 07:30 Urine Blood Small (NEGATIVE) 02/09/17 07:30 Urine Nitrate Negative (NEGATIVE) 02/09/17 07:30 Urine Bilirubin Negative (NEGATIVE) 02/09/17 07:30 Urine Urobilinogen 0.2-1.0 mg/dL (0.2-1.0) 02/09/17 07:30 Ur Leukocyte Esterase Small Zac/uL (Negative) 02/09/17 07:30 Urine RBC (Auto) 7 /hpf (0-3) H 02/09/17 07:30 Urine Microscopic WBC 32 /hpf (0-5) H 02/09/17 07:30 Ur Squamous Epith Cells 14 /hpf (0-5) H 02/09/17 07:30 Urine Bacteria Occ (<OCC) H 02/09/17 07:30 Hyaline Casts 11-20 /hpf (0-2) H 02/09/17 07:30 Salicylates < 1.0 mg/dl 02/09/17 06:37 Acetaminophen < 10.0 ug/ml (10.0-30.0) L 02/09/17 06:37 - Hospital Course Hospital Course: SHORTNESS OF BREATH RESOLVED Discharge Exam - Head Exam Head Exam: ATRAUMATIC, NORMAL INSPECTION, NORMOCEPHALIC - Eye Exam Eye Exam: EOMI, Normal appearance, PERRL Pupil Exam: NORMAL ACCOMODATION, PERRL - GI/Abdominal Exam GI & Abdominal Exam: Normal Bowel Sounds - Rectal Exam Rectal Exam: NORMAL INSPECTION - Neurological Exam Neurological exam: Alert, CN II-XII Intact, Normal Gait, Oriented x3, Reflexes Normal - Psychiatric Exam Psychiatric exam: Normal Affect, Normal Mood - Skin Skin Exam: Dry, Intact, Normal Color, Warm Discharge Plan - Follow Up Plan Condition: GUARDED Disposition: HOME/ ROUTINE Patient education suggested?: Yes Additional Instructions: FOLLOW UP WITH PRIVATE PHYSICIAN
== END 2017-02-10 13:45 | disposition home or self-care (01) | DRG 189 ==
LOC: H.ER 05:37 → H.ERHOLD 06:33 → H.TEL 09:39
PROVIDERS: ADMIT Internal Medicine Pulmonary Disease; ATTEND Internal Medicine Pulmonary Disease
DX: J96.00 Acute respiratory failure, unspecified whether with hypoxia or hypercapnia (principal); J45.41 Moderate persistent asthma with (acute) exacerbation; J44.9 Chronic obstructive pulmonary disease, unspecified; F41.9 Anxiety disorder, unspecified; Z88.6 Allergy status to analgesic agent; Z88.3 Allergy status to other anti-infective agents; Z88.0 Allergy status to penicillin

== ENCOUNTER 2017-02-18 09:37 | Emergency (ER) | payer BC ==
[2017-02-18 09:46] VITALS: BMI 17.7
[2017-02-18 09:47] VITALS: BP 101/69; PULSE 109; TEMP 98.5; O2SAT 93
[2017-02-18 10:13] VITALS: RESP 19
[2017-02-18] MEDS ORDERED: Albuterol-Ipratrop 3 mg / 0.5 (3 ml) UD INH STA ×3 (10:37→10:38)
[2017-02-18] MEDS ORDERED: Magnesium Sulfate 2 gm/50 ml 2 GM/50 ML BAG IVPB ONE (10:39)
[2017-02-18] MEDS ORDERED: Magnesium Sulfate 2 gm/50 ml 2 GM/50 ML BAG ONE (10:57)
[2017-02-18] MEDS ORDERED: Albuterol-Ipratrop 3 mg / 0.5 (3 ml) UD ONE ×2 (10:57→11:06)
[2017-02-18 11:12] LABS: BASO # 0.1 K/uL (0.0-0.2); BASO % 1.5 % (0.0-2.0); EOS # 0.4 K/uL (0.0-0.7); EOS % 5.7 % (0.0-4.0); HEMOGLOBIN 12.3 g/dL (12.0-16.0); LYMPH # 3.1 K/uL (1.0-4.3); LYMPH % 39.7 % (20.0-40.0); MEAN CELL VOLUME 94.1 fl (81.0-99.0); MEAN CORPUSCULAR HEMOGLOBIN 30.8 pg (27.0-31.0); MEAN CORPUSCULAR HGB CONC 32.7 g/dL (33.0-37.0); MEAN PLATELET VOLUME 8.3 fl (7.2-11.7); MONO # 0.7 K/uL (0.0-0.8); MONO % 8.5 % (0.0-10.0); NEUT # 3.5 K/uL (1.8-7.0); NEUT % 44.6 % (50.0-75.0); NRBC % 0.1 % (0.0-0.0); RED CELL DISTRIBUTION WIDTH 12.9 % (11.5-14.5); WHITE BLOOD COUNT 7.8 K/uL (4.8-10.8)
--- NOTE | 2017-02-18 11:23 | ED PDOC ---
HPI: SOB/CHF/COPD Time Seen by Provider: 02/18/17 10:16 Chief Complaint (Nursing): Shortness Of Breath Chief Complaint (Provider): Shortness Of Breath History Per: Patient History/Exam Limitations: no limitations Onset/Duration Of Symptoms: Days Additional Complaint(s): 46 year old female presents to the emergency department with a complaint of shortness of breath with wheezing since yesterday, 02/17/2017. Associated with a dry cough and says she felt more short of breath this morning compared to yesterday. Reports taking a pump at home with nebulizer and advil with mild relief. Patient has a history of asthma and has been admitted multiple times for asthma exacerbation in this hospital many times in incentive care unit and intubated as well. Denies fever, chest pain, and leg swelling. Past Medical History Reviewed: Historical Data, Nursing Documentation, Vital Signs Vital Signs: Last Vital Signs Temp 98.5 F 02/18/17 09:46 Pulse 109 H 02/18/17 09:46 Resp 19 02/18/17 10:09 BP 101/69 02/18/17 09:46 Pulse Ox 93 L 02/20/17 12:42 - Medical History PMH: Anxiety, Asthma, Bronchitis, COPD Denies: HIV, Chronic Kidney Disease - Surgical History Surgical History: No Surg Hx - Family History Family History: States: Unknown Family Hx - Home Medications Home Medications: Ambulatory Orders Medication Instructions Recorded Albuterol 0.042% [Albuterol 0.042% 1 inh NEB QID 01/07/17 Inhal Jamee (1.25mg/3ml) UD] Codeine Sulfate 30 mg PO BID PRN 01/07/17 Hydrocortisone [Cortef] 02/09/17 Ipratropium 0.02% [Atrovent] 02/09/17 Levalbuterol [Xopenex] 02/09/17 Albuterol HFA [Ventolin HFA 90 2 puff IH [id number] PRN #1 inh 02/18/17 mcg/actuation (8 g)] Prednisone 50 mg PO DAILY #5 tablet 02/18/17 - Allergies Allergies/Adverse Reactions: Allergies Allergy/AdvReac Type Severity Reaction Status Date / Time acetaminophen Allergy SHORTNESS Verified 02/09/17 05:41 OF BREATH moxifloxacin HCl Allergy tendonitis Verified 02/09/17 05:41 [From Avelox] Penicillins Allergy SHORTNESS Verified 02/09/17 05:41 OF BREATH Review of Systems ROS Statement: Except As Marked, All Systems Reviewed And Found Negative (As per HPI, otherwise negative) Constitutional: Negative for: Fever Cardiovascular: Negative for: Chest Pain Respiratory: Positive for: Cough, Shortness of Breath, Wheezing Musculoskeletal: Negative for: Other (Leg swelling) Physical Exam - Reviewed Nursing Documentation Reviewed: Yes Vital Signs Reviewed: Yes - Physical Exam Appears: Positive for: Non-toxic, In Acute Distress (Mildly) Head Exam: Positive for: NORMAL INSPECTION, NORMOCEPHALIC Skin: Positive for: Normal Color, Warm, Dry Eye Exam: Positive for: Normal appearance, EOMI, PERRL Cardiovascular/Chest: Positive for: Regular Rate, Rhythm. Negative for: Murmur Respiratory: Positive for: Accessory Muscle Use, Wheezing (Diffuse bilaterally) Gastrointestinal/Abdominal: Positive for: Normal Exam, Soft. Negative for: Tenderness Extremity: Positive for: Normal ROM. Negative for: Pedal Edema Neurologic/Psych: Positive for: Alert, Oriented (x3) - Laboratory Results Result Diagrams: 02/18/17 10:56 02/18/17 10:56 - ECG O2 Sat by Pulse Oximetry: 93 (RA) Pulse Ox Interpretation: Normal - Progress Re-evaluation Time: 13:50 Condition: Re-examined, Improved Nebulizer Treatments/Peak Flow - Duonebs Number of Bronchodilator Doses given?: 3 - Steroid Treatment Steroid: IV - Clinical Response Clinical Response: Improved Medical Decision Making Medical Decision Making: Time: 1036 Initial Impression: Asthma exacerbation Initial Plan: EKG BMP Magnesium Duoneb 3 ml INH Duoneb 3 ml INH Duoneb 3 ml INH Magnesium Sulfate 2 gm in 50 ml iVPB Methylprednisolone 125 mg IVP Reevaluation --EKG: Sinus tachy at 105 bpm. Normal QRS. No ST changes. Scribe~Attestation: Documented by Rox Matta, acting as a scribe for Mio Whitfield MD. Provider Scribe~Attestation: All medical record entries made by the Scribe were at my direction and personally dictated by me. I have reviewed the chart and agree that the record accurately reflects my personal performance of the history, physical exam, medical decision making, and the department course for this patient. I have also personally directed, reviewed, and agree with the discharge instructions and disposition. Disposition - Clinical Impression Clinical Impression: Asthma, Asthma exacerbation - Patient ED Disposition Is Patient to be Admitted: No Doctor Will See Patient In The: Office Counseled Patient/Family Regarding: Studies Performed, Diagnosis, Need For Followup - Disposition Referrals: Corwin Mcknight MD [Staff Provider] - Disposition: Routine/Home Disposition Time: 13:59 Condition: GOOD Additional Instructions: Take your medications as instructed. Follow up with your PCP in 2-3 days. Prescriptions: Albuterol HFA [Ventolin HFA 90 mcg/actuation (8 g)] 2 puff IH [id number] PRN #1 inh PRN Reason: Wheezing Prednisone 50 mg PO DAILY #5 tablet Instructions: Asthma (ED)
[2017-02-18 11:24] LABS: BLOOD UREA NITROGEN 13 mg/dl (7-17); CALCIUM 9.1 mg/dL (8.4-10.2); GFR AFRICAN-AMERICAN > 60; GFR NON-AFRICAN AMERICAN > 60; MAGNESIUM 1.7 MG/DL (1.6-2.3)
--- NOTE | 2017-02-19 13:15 | CARD ---
APPROVED REPORT EKG Measurement Heart [id number] OR 148P80 [id number] <Conclusion> Sinus tachycardia Otherwise normal ECG
== END 2017-02-18 14:20 | disposition home or self-care (01) ==
LOC: H.ER 09:37 → SUPCPDRO 09:37 → H.ER 14:20
DX: J45.901 Unspecified asthma with (acute) exacerbation (principal); J44.9 Chronic obstructive pulmonary disease, unspecified; Z88.0 Allergy status to penicillin
CPT/HCPCS: 80048; 83735; 85025; 93005; 94640; 96374; 99284; J2930

== ENCOUNTER 2017-03-04 08:28 | Emergency (ER) | payer BC ==
[2017-03-04 08:28] VITALS: BMI 17.7
[2017-03-04 08:32] VITALS: TEMP 97.6
[2017-03-04 09:02] VITALS: RESP 17; O2SAT 96
[2017-03-04] MEDS ORDERED: Albuterol-Ipratrop 3 mg / 0.5 (3 ml) UD INH STA ×2 (09:18→10:21)
[2017-03-04] MEDS ORDERED: Magnesium Sulfate 2 gm/50 ml 2 GM/50 ML BAG IVPB STA (09:18)
[2017-03-04 09:44] LABS: BASO # 0.2 K/uL (0.0-0.2); BASO % 2.4 % (0.0-2.0); EOS # 0.6 K/uL (0.0-0.7); EOS % 9.7 % (0.0-4.0); HEMOGLOBIN 12.5 g/dL (12.0-16.0); LYMPH # 1.9 K/uL (1.0-4.3); LYMPH % 28.9 % (20.0-40.0); MEAN CELL VOLUME 92.4 fl (81.0-99.0); MEAN CORPUSCULAR HEMOGLOBIN 30.6 pg (27.0-31.0); MEAN CORPUSCULAR HGB CONC 33.2 g/dL (33.0-37.0); MEAN PLATELET VOLUME 7.8 fl (7.2-11.7); MONO # 0.6 K/uL (0.0-0.8); MONO % 8.9 % (0.0-10.0); NEUT # 3.3 K/uL (1.8-7.0); NEUT % 50.1 % (50.0-75.0); NRBC % 0.1 % (0.0-0.0); RBC 4.08 Mil/uL (3.80-5.20); RED CELL DISTRIBUTION WIDTH 12.8 % (11.5-14.5); WHITE BLOOD COUNT 6.6 K/uL (4.8-10.8)
[2017-03-04] MEDS ORDERED: Magnesium Sulfate 2 gm/50 ml 2 GM/50 ML BAG ONE (09:50)
--- NOTE | 2017-03-04 09:53 | ED PDOC ---
HPI: SOB/CHF/COPD Time Seen by Provider: 03/04/17 09:09 Chief Complaint (Nursing): Shortness Of Breath Chief Complaint (Provider): Shortness Of Breath History Per: Patient History/Exam Limitations: no limitations Onset/Duration Of Symptoms: Hrs (x2) Current Symptoms Are (Timing): Still Present Additional Complaint(s): 46 year old female with medical history of asthma and COPD, who presents to the emergency department with a complaint of shortness of breath associated with dry cough ongoing since this morning. Denied any fever, chills or chest pain. PMD: none provided Past Medical History Reviewed: Historical Data, Nursing Documentation, Vital Signs Vital Signs: Last Vital Signs Temp 97.6 F 03/04/17 08:32 Pulse 87 03/04/17 10:19 Resp 17 03/04/17 08:44 BP 103/67 03/04/17 10:19 Pulse Ox 96 03/04/17 11:20 - Medical History PMH: Anxiety, Asthma, Bronchitis, COPD Denies: HIV, Chronic Kidney Disease - Surgical History Surgical History: Denies: No Surg Hx Other surgeries: jaw - Family History Family History: States: Unknown Family Hx - Social History Current smoker - smoking cessation education provided: No Ex-Smoker (has not smoked in the last 12 months): No Alcohol: None Drugs: Denies - Home Medications Home Medications: Ambulatory Orders Medication Instructions Recorded Albuterol 0.042% [Albuterol 0.042% 1 inh NEB QID 01/07/17 Inhal Jamee (1.25mg/3ml) UD] Codeine Sulfate 30 mg PO BID PRN 01/07/17 Hydrocortisone [Cortef] 02/09/17 Ipratropium 0.02% [Atrovent] 02/09/17 Levalbuterol [Xopenex] 02/09/17 Albuterol HFA [Ventolin HFA 90 2 puff IH [id number] PRN #1 inh 02/18/17 mcg/actuation (8 g)] Prednisone 50 mg PO DAILY #5 tablet 02/18/17 Prednisone 50 mg PO DAILY #4 tab 03/04/17 - Allergies Allergies/Adverse Reactions: Allergies Allergy/AdvReac Type Severity Reaction Status Date / Time acetaminophen Allergy SHORTNESS Verified 03/04/17 08:40 OF BREATH moxifloxacin HCl Allergy tendonitis Verified 03/04/17 08:40 [From Avelox] Penicillins Allergy SHORTNESS Verified 03/04/17 08:40 OF BREATH Review of Systems ROS Statement: Except As Marked, All Systems Reviewed And Found Negative Constitutional: Negative for: Fever, Chills Cardiovascular: Negative for: Chest Pain Respiratory: Positive for: Cough (dry), Shortness of Breath Physical Exam - Reviewed Nursing Documentation Reviewed: Yes Vital Signs Reviewed: Yes - Physical Exam Appears: Positive for: Non-toxic, Uncomfortable, In Acute Distress (moderate). Negative for: No Acute Distress Head Exam: Positive for: ATRAUMATIC, NORMAL INSPECTION, NORMOCEPHALIC Skin: Positive for: Normal Color Eye Exam: Positive for: Normal appearance, EOMI, PERRL. Negative for: Nystagmus ENT: Positive for: Normal ENT Inspection Neck: Positive for: Normal, Painless ROM Cardiovascular/Chest: Positive for: Regular Rate, Rhythm, Chest Non Tender Respiratory: Positive for: Decreased Breath Sounds (with decrease air intake), Wheezing (bilteral), Respiratory Distress. Negative for: Normal Breath Sounds Gastrointestinal/Abdominal: Positive for: Normal Exam, Soft. Negative for: Tenderness Extremity: Positive for: Normal ROM (upper/lower). Negative for: Pedal Edema, Calf Tenderness Neurologic/Psych: Positive for: Alert, Aphasia (unable to speak full sentences) - Laboratory Results Result Diagrams: 03/04/17 09:31 03/04/17 09:31 - ECG O2 Sat by Pulse Oximetry: 96 (RA) Pulse Ox Interpretation: Normal Medical Decision Making Medical Decision Making: Initial Impression: Asthma exacerbation Initial Plan: * EKG * CMP * Magnesium * Urine * CBC * CXR * Duoneb 3ml INH * Magnesium sulfate 2gm in 50ml IVPB * Solu-Medrol 125mg IVP * Blood culture Time: 917 --Patient refused Medrol treatment and CXR. Pt refused further nebulizer treatents, states she is not wheezing anymore, wants to be discharged. Scribe Attestation: Documented by Kortney Bae, acting as a scribe for Olga Cervantes MD. Provider Scribe Attestation: All medical record entries made by the Scribe were at my direction and personally dictated by me. I have reviewed the chart and agree that the record accurately reflects my personal performance of the history, physical exam, medical decision making, and the department course for this patient. I have also personally directed, reviewed, and agree with the discharge instructions and disposition. Disposition - Clinical Impression Clinical Impression: Asthma exacerbation - Disposition Disposition: Routine/Home Disposition Time: 11:20 Condition: IMPROVED Additional Instructions: FOLLOW-UP WITH PMD WITHIN 2 DAYS FOR REEVALUATION. Prescriptions: Prednisone 50 mg PO DAILY #4 tab Instructions: Asthma (ED) Forms: [employer] (Frisian)
[2017-03-04 10:20] VITALS: BP 103/67; PULSE 87
[2017-03-04 10:27] LABS: ALB/GLOB RATIO 1.1 (1.0-2.1); ALT/SGPT 21 U/L (9-52); AST/SGOT 27 U/L (14-36); BLOOD UREA NITROGEN 19 mg/dl (7-17); CALCIUM 9.5 mg/dL (8.4-10.2); GFR AFRICAN-AMERICAN > 60; GFR NON-AFRICAN AMERICAN > 60; MAGNESIUM 1.7 MG/DL (1.6-2.3)
[2017-03-04] MEDS ORDERED: Albuterol-Ipratrop 3 mg / 0.5 (3 ml) UD ONE (10:29)
--- NOTE | 2017-03-04 18:07 | CARD ---
APPROVED REPORT EKG Measurement Heart [id number] TN [id number] [id number] <Conclusion> Normal sinus rhythm with sinus arrhythmia Normal ECG
== END 2017-03-04 11:38 | disposition home or self-care (01) ==
LOC: H.ER 08:28
DX: J45.901 Unspecified asthma with (acute) exacerbation (principal); F41.9 Anxiety disorder, unspecified; Z88.0 Allergy status to penicillin; J44.9 Chronic obstructive pulmonary disease, unspecified

== ENCOUNTER 2017-03-10 05:34 | Emergency (ER) | payer BC ==
[2017-03-10 05:34] VITALS: BMI 17.7
[2017-03-10] MEDS ORDERED: Magnesium Sulfate 2 gm/50 ml 2 GM/50 ML BAG IVPB ONE (06:12)
--- NOTE | 2017-03-10 06:20 | ED PDOC ---
HPI: SOB/CHF/COPD Time Seen by Provider: 03/10/17 05:44 Chief Complaint (Nursing): Shortness Of Breath Chief Complaint (Provider): Shortness Of Breath History Per: Patient History/Exam Limitations: no limitations Onset/Duration Of Symptoms: Days (x 1) Current Symptoms Are (Timing): Still Present Additional Complaint(s): 46 year old female with a history of COPD presents to the ED complaining of wheezing, onset last week. She is well known to the ED. Patient reports last week she had surgery on her jaw for tetanus. Also complains of trouble sleeping. States she used her albuterol inhaler three times with relief. Now she is concerned she is going to start wheezing again and does not want to use her inhaler because she is starting to feel jittery. Patient is requesting magnesium. PMD: none provided Past Medical History Reviewed: Historical Data, Nursing Documentation, Vital Signs Vital Signs: Last Vital Signs Temp 98.1 F 03/10/17 05:40 Pulse 105 H 03/10/17 05:40 Resp 21 03/10/17 05:40 BP 118/54 L 03/10/17 05:40 Pulse Ox 97 03/10/17 06:31 - Medical History PMH: Anxiety, Asthma, Bronchitis, COPD Denies: HIV, Chronic Kidney Disease - Surgical History Other surgeries: right jaw surgery - Family History Family History: States: Unknown Family Hx - Home Medications Home Medications: Ambulatory Orders Medication Instructions Recorded Albuterol 0.042% [Albuterol 0.042% 1 inh NEB QID 01/07/17 Inhal Jamee (1.25mg/3ml) UD] Codeine Sulfate 30 mg PO BID PRN 01/07/17 Hydrocortisone [Cortef] 02/09/17 Ipratropium 0.02% [Atrovent] 02/09/17 Levalbuterol [Xopenex] 02/09/17 Albuterol HFA [Ventolin HFA 90 2 puff IH [id number] PRN #1 inh 02/18/17 mcg/actuation (8 g)] Prednisone 50 mg PO DAILY #5 tablet 02/18/17 Prednisone 50 mg PO DAILY #4 tab 03/04/17 - Allergies Allergies/Adverse Reactions: Allergies Allergy/AdvReac Type Severity Reaction Status Date / Time acetaminophen Allergy SHORTNESS Verified 03/04/17 08:40 OF BREATH moxifloxacin HCl Allergy tendonitis Verified 03/04/17 08:40 [From Avelox] Penicillins Allergy SHORTNESS Verified 03/04/17 08:40 OF BREATH Review of Systems ROS Statement: Except As Marked, All Systems Reviewed And Found Negative Respiratory: Positive for: Wheezing Physical Exam - Reviewed Nursing Documentation Reviewed: Yes Vital Signs Reviewed: Yes - Physical Exam Appears: Positive for: Non-toxic, No Acute Distress Head Exam: Positive for: ATRAUMATIC, NORMOCEPHALIC Skin: Positive for: Normal Color, Warm, Dry Eye Exam: Positive for: EOMI, Normal appearance, PERRL Neck: Positive for: Normal, Painless ROM, Supple Cardiovascular/Chest: Positive for: Regular Rate, Rhythm. Negative for: Murmur Respiratory: Positive for: Normal Breath Sounds, Wheezing (mild ). Negative for : Respiratory Distress Gastrointestinal/Abdominal: Positive for: Normal Exam, Soft Back: Positive for: Normal Inspection Extremity: Positive for: Normal ROM. Negative for: Deformity Neurologic/Psych: Positive for: Alert, Oriented. Negative for: Motor/Sensory Deficits - ECG O2 Sat by Pulse Oximetry: 97 (RA) Pulse Ox Interpretation: Normal Medical Decision Making Medical Decision Making: Time: 06:12 Impression: mild asthma exacerbation and magnesium seeking behavior Initial Plan: --Magnesium sulfate 2 gm in 50 ml IVPB Time: 0700 Patient feeling much better, will d/c home. Return precautions discussed. Scribe Attestation: Documented by Rohini Monaco, acting as a scribe for Mack Higuera MD. Provider Scribe Attestation: All medical record entries made by the Scribe were at my direction and personally dictated by me. I have reviewed the chart and agree that the record accurately reflects my personal performance of the history, physical exam, medical decision making, and the department course for this patient. I have also personally directed, reviewed, and agree with the discharge instructions and disposition. Disposition - Clinical Impression Clinical Impression: Asthma exacerbation in COPD - Patient ED Disposition Is Patient to be Admitted: No - Disposition Referrals: Corwin Mcknight MD [Staff Provider] - Disposition: Routine/Home Disposition Time: 06:43 Condition: IMPROVED Instructions: Asthma (ED) Forms: [employer] (Czech)
[2017-03-10] MEDS ORDERED: Magnesium Sulfate 2 gm/50 ml 2 GM/50 ML BAG ONE (06:34)
[2017-03-10 07:38] VITALS: RESP 18
[2017-03-10 07:47] VITALS: BP 121/74; PULSE 86; TEMP 98; O2SAT 98
== END 2017-03-10 07:45 | disposition home or self-care (01) ==
LOC: H.ER 05:34
DX: J45.901 Unspecified asthma with (acute) exacerbation (principal); F41.9 Anxiety disorder, unspecified; Z88.0 Allergy status to penicillin; J44.0 Chronic obstructive pulmonary disease with (acute) lower respiratory infection

== ENCOUNTER 2017-03-11 21:38 | Emergency (ER) | payer BC ==
[2017-03-11 21:38] VITALS: BMI 17.7
[2017-03-11 21:44] VITALS: TEMP 97.2
[2017-03-11 22:03] VITALS: RESP 22
--- NOTE | 2017-03-11 22:14 | ED PDOC ---
HPI: SOB/CHF/COPD Time Seen by Provider: 03/11/17 22:12 Chief Complaint (Nursing): Respiratory Distress Chief Complaint (Provider): SOB History Per: Patient (46 Y/O FEMALE H/O ASTHMA HERE FOR ASTHMA EXACERABATION BROUGHT BY MEDICS. GIVEN MG 2 GM IV AND DUONEB X 3 EN ROUTE WITH IMPROVEMENT . PATIENT DENIES ANY FEVERS/CHILLS/CHANGE IN COUGH. PATIENT DOES NOT WANT ANY PREDNISONE/SOLUMEDROL. PATIENT REFUSES CXR AND ANY ADDITIONAL TESTING.) Past Medical History Reviewed: Historical Data, Nursing Documentation, Vital Signs Vital Signs: Last Vital Signs Temp 97.2 F L 03/11/17 21:40 Pulse 78 03/12/17 00:00 Resp 22 03/11/17 22:00 BP 118/78 03/12/17 00:00 Pulse Ox 98 03/12/17 00:00 - Medical History PMH: Anxiety, Asthma, Bronchitis, COPD Denies: HIV, Chronic Kidney Disease - Family History Family History: States: Unknown Family Hx - Home Medications Home Medications: Ambulatory Orders Medication Instructions Recorded Albuterol 0.042% [Albuterol 0.042% 1 inh NEB QID 01/07/17 Inhal Jamee (1.25mg/3ml) UD] Codeine Sulfate 30 mg PO BID PRN 01/07/17 Hydrocortisone [Cortef] 02/09/17 Ipratropium 0.02% [Atrovent] 02/09/17 Levalbuterol [Xopenex] 02/09/17 Albuterol HFA [Ventolin HFA 90 2 puff IH [id number] PRN #1 inh 02/18/17 mcg/actuation (8 g)] Prednisone 50 mg PO DAILY #5 tablet 02/18/17 Prednisone 50 mg PO DAILY #4 tab 03/04/17 predniSONE [predniSONE Tab] 3 tab PO DAILY #15 tab 03/11/17 - Allergies Allergies/Adverse Reactions: Allergies Allergy/AdvReac Type Severity Reaction Status Date / Time acetaminophen Allergy SHORTNESS Verified 03/11/17 21:40 OF BREATH moxifloxacin HCl Allergy tendonitis Verified 03/11/17 21:40 [From Avelox] Penicillins Allergy SHORTNESS Verified 03/11/17 21:40 OF BREATH Review of Systems ROS Statement: Except As Marked, All Systems Reviewed And Found Negative Physical Exam - Reviewed Nursing Documentation Reviewed: Yes Vital Signs Reviewed: Yes - Physical Exam Appears: Positive for: Well, Non-toxic, No Acute Distress Head Exam: Positive for: ATRAUMATIC, NORMAL INSPECTION, NORMOCEPHALIC Skin: Positive for: Normal Color, Warm, DRY Eye Exam: Positive for: EOMI, Normal appearance, PERRL ENT: Positive for: Normal ENT Inspection Neck: Positive for: Normal, Painless ROM Cardiovascular/Chest: Positive for: Regular Rate, Rhythm Respiratory: Positive for: Normal Breath Sounds, Wheezing Gastrointestinal/Abdominal: Positive for: Normal Exam, Bowel Sounds, Soft Back: Positive for: Normal Inspection Extremity: Positive for: Normal ROM Neurologic/Psych: Positive for: Alert, Oriented - ECG O2 Sat by Pulse Oximetry: 97 Disposition - Clinical Impression Clinical Impression: Asthma exacerbation attacks - Patient ED Disposition Is Patient to be Admitted: No - Disposition Disposition: Routine/Home Disposition Time: 00:00 Condition: FAIR Prescriptions: predniSONE [predniSONE Tab] 3 tab PO DAILY #15 tab Instructions: Asthma (DC) Forms: [employer] (Haitian)
[2017-03-11] MEDS ORDERED: Albuterol-Ipratrop 3 mg / 0.5 (3 ml) UD INH STA (22:15)
[2017-03-11] MEDS ORDERED: Albuterol-Ipratrop 3 mg / 0.5 (3 ml) UD ONE (22:39)
[2017-03-12 00:19] VITALS: BP 118/78; PULSE 78
[2017-03-12 04:25] VITALS: O2SAT 97
== END 2017-03-12 00:19 | disposition home or self-care (01) ==
LOC: H.ER 21:38
DX: J45.901 Unspecified asthma with (acute) exacerbation (principal); F41.9 Anxiety disorder, unspecified; Z88.0 Allergy status to penicillin

== ENCOUNTER 2017-03-12 14:56 | Observation (INO) | payer BC ==
[2017-03-12 14:57] VITALS: BMI 17.7
[2017-03-12] MEDS ORDERED: Magnesium Sulfate 2 gm/50 ml 2 GM/50 ML BAG ONE (15:12)
[2017-03-12] MEDS ORDERED: Albuterol-Ipratrop 3 mg / 0.5 (3 ml) UD IH STA (15:12)
[2017-03-12] MEDS ORDERED: Magnesium Sulfate 2 gm/50 ml 2 GM/50 ML BAG IVPB ONE (15:12)
[2017-03-12] MEDS ORDERED: Sodium Chloride 0.9% 500 ML IV STA (15:13)
--- NOTE | 2017-03-12 16:32 | ED PDOC ---
HPI: SOB/CHF/COPD Time Seen by Provider: 03/12/17 15:06 Chief Complaint (Nursing): Shortness Of Breath Chief Complaint (Provider): Shortness of Breath History Per: Patient History/Exam Limitations: no limitations Onset/Duration Of Symptoms: Hrs Current Symptoms Are (Timing): Still Present Associated Symptoms: denies: Fever, Chest Pain (chest tightness), Dizziness, Light-headedness Additional Complaint(s): 46 year old female with a pas medical history of asthma presents to the ED complaining of shortness of breath. Patient notes a cough and chest tightness. Denies dizziness, lightheadedness. Patient is known to provider as this is her 4th visit in 4 days. Has had same many times and feels like her asthma. No weakness. Got mag, duoneb, solumedrol in the ambulance. No leg pain, headaches. Of note: Patient has surgery on Tuesday for tetanus infection. PMD: Dr. Pham Past Medical History Reviewed: Historical Data, Nursing Documentation, Vital Signs Vital Signs: Last Vital Signs Temp 99.2 F 03/12/17 14:59 Pulse 121 H 03/12/17 14:59 Resp 25 H 03/12/17 14:59 BP 141/101 H 03/12/17 14:59 Pulse Ox 99 03/12/17 16:46 - Medical History PMH: Anxiety, Asthma, Bronchitis, COPD Denies: HIV, Chronic Kidney Disease - Surgical History Surgical History: No Surg Hx - Family History Family History: States: Unknown Family Hx - Social History Current smoker - smoking cessation education provided: No Alcohol: None Drugs: Denies - Home Medications Home Medications: Ambulatory Orders Medication Instructions Recorded Albuterol 0.042% [Albuterol 0.042% 1 inh NEB QID 01/07/17 Inhal Jamee (1.25mg/3ml) UD] Codeine Sulfate 30 mg PO BID PRN 01/07/17 Hydrocortisone [Cortef] 02/09/17 Ipratropium 0.02% [Atrovent] 02/09/17 Levalbuterol [Xopenex] 02/09/17 Albuterol HFA [Ventolin HFA 90 2 puff IH [id number] PRN #1 inh 02/18/17 mcg/actuation (8 g)] Prednisone 50 mg PO DAILY #5 tablet 02/18/17 Prednisone 50 mg PO DAILY #4 tab 03/04/17 predniSONE [predniSONE Tab] 3 tab PO DAILY #15 tab 03/11/17 - Allergies Allergies/Adverse Reactions: Allergies Allergy/AdvReac Type Severity Reaction Status Date / Time acetaminophen Allergy SHORTNESS Verified 03/12/17 14:59 OF BREATH moxifloxacin HCl Allergy tendonitis Verified 03/12/17 14:59 [From Avelox] Penicillins Allergy SHORTNESS Verified 03/12/17 14:59 OF BREATH Review of Systems ROS Statement: Except As Marked, All Systems Reviewed And Found Negative Constitutional: Negative for: Fever Cardiovascular: Negative for: Chest Pain (chest tightness) Respiratory: Positive for: Cough, Shortness of Breath Physical Exam - Reviewed Nursing Documentation Reviewed: Yes Vital Signs Reviewed: Yes - Physical Exam Appears: Positive for: Uncomfortable Head Exam: Positive for: ATRAUMATIC, NORMAL INSPECTION, NORMOCEPHALIC Skin: Positive for: Normal Color, Warm, Dry. Negative for: Pallor, Rash Eye Exam: Positive for: Normal appearance, EOMI, PERRL. Negative for: Nystagmus ENT: Positive for: Normal ENT Inspection. Negative for: Nasal Congestion, Tonsillar Exudate, Tonsillar Swelling Neck: Positive for: Normal, Painless ROM, Supple Cardiovascular/Chest: Positive for: Regular Rate, Rhythm, Chest Non Tender. Negative for: Tachycardia Respiratory: Positive for: Wheezing (diffuse ). Negative for: Rhonchi, Respiratory Distress Gastrointestinal/Abdominal: Positive for: Normal Exam, Bowel Sounds, Soft. Negative for: Tenderness, Guarding, Rebound Back: Positive for: Normal Inspection. Negative for: L CVA Tenderness, R CVA Tenderness Extremity: Positive for: Normal ROM. Negative for: Tenderness, Deformity, Swelling Neurologic/Psych: Positive for: Alert, Oriented, Gait - Laboratory Results Result Diagrams: 03/12/17 16:23 03/12/17 16:23 Interpretation Of Abn Labs: no acute - ECG ECG: Positive for: Interpreted By Me, Viewed By Me ECG Rhythm: Positive for: Normal QRS, Normal ST Segment, Sinus Rhythm O2 Sat by Pulse Oximetry: 99 (RA) Pulse Ox Interpretation: Normal - Radiology X-Ray: Read By Radiologist X-Ray Interpretation: No Acute Disease - Progress ED Course And Treament: 1736: Still some wheezes. Will admit to Dr. Guido. He will put in further orders. - Critical Care Total Time (In Min): 30 Documented Critical Care: Time excludes all time spent performint seperately billable procedures Medical Decision Making Medical Decision Makin Initial Impression 46 y/o female presenting with shortness of breath Initial plan: * EKG * B-type Natriuretic * CMP * Troponin * CBC * Partial Thromboplatin * Prothrombin Time * CXR * Albuterol 3mL INH * Magnesium Sulfate 2 gm in 50ml IVPB * NS 500 mL IV 100mls/hr * Peak Flow * Reevaluation Patient is requesting albuterol. Documented by Kiah Morales acting as a scribe for Sony Lin MD. All medical record entries made by the Scribe were at my direction and personally dictated by me. I have reviewed the chart and agree that the record accurately reflects my personal performance of the history, physical exam, medical decision making, and the department course for this patient. I have also personally directed, reviewed, and agree with the discharge instructions and disposition. Disposition - Clinical Impression Clinical Impression: Asthma exacerbation - Patient ED Disposition Is Patient to be Admitted: Yes Counseled Patient/Family Regarding: Studies Performed, Diagnosis - Disposition Disposition Time: 17:37 Condition: FAIR - Pt Status Changed To: Hospital Disposition Of: Observation - POA Present On Arrival: None
--- NOTE | 2017-03-12 16:35 | RAD ---
HISTORY: dyspnea COMPARISON: Chest radiograph dated 01/07/2017. FINDINGS: LUNGS: No active pulmonary disease. PLEURA: No significant pleural effusion identified, no pneumothorax apparent. CARDIOVASCULAR: Normal. OSSEOUS STRUCTURES: No significant abnormalities. VISUALIZED UPPER ABDOMEN: Normal. OTHER FINDINGS: None. IMPRESSION: No active disease.
[2017-03-12 16:40] LABS: BASO # 0.2 K/uL (0.0-0.2); BASO % 2.5 % (0.0-2.0); EOS # 0.4 K/uL (0.0-0.7); EOS % 4.8 % (0.0-4.0); HEMOGLOBIN 12.7 g/dL (12.0-16.0); LYMPH # 1.4 K/uL (1.0-4.3); LYMPH % 15.5 % (20.0-40.0); MEAN CELL VOLUME 92.9 fl (81.0-99.0); MEAN CORPUSCULAR HEMOGLOBIN 30.6 pg (27.0-31.0); MEAN PLATELET VOLUME 8.2 fl (7.2-11.7); MONO # 0.3 K/uL (0.0-0.8); NEUT # 6.9 K/uL (1.8-7.0); NEUT % 74.2 % (50.0-75.0); RBC 4.15 Mil/uL (3.80-5.20); WHITE BLOOD COUNT 9.3 K/uL (4.8-10.8)
[2017-03-12 16:51] LABS: ALB/GLOB RATIO 1.2 (1.0-2.1); ALBUMIN 4.3 g/dL (3.5-5.0); BLOOD UREA NITROGEN 15 mg/dl (7-17); CALCIUM 9.4 mg/dL (8.4-10.2); GFR AFRICAN-AMERICAN > 60; GFR NON-AFRICAN AMERICAN > 60
[2017-03-12 17:26] LABS: B-TYPE NATRIURETIC PEPTIDE 258 pg/ml (0-450)
[2017-03-12 17:41] LABS: ALT/SGPT 26 U/L (9-52); AST/SGOT 37 U/L (14-36)
[2017-03-12 18:07] LABS: PARTIAL THROMBOPLASTIN TIME 29.4 Seconds (25.6-37.1); PROTHROMBIN TIME 10.5 Seconds (9.8-13.1)
[2017-03-12] MEDS ORDERED: Albuterol 0.083% Inhal Sol (2.5 mg/3 mL) UD INH PRN (22:07)
[2017-03-12] MEDS: Dextrose 5%/Lactated Ringer's 1,000 ML IV SCH (22:31)
[2017-03-12] MEDS: Fluticasone-Salmeterol 250-50mcg Diskus IH SCH (22:46)
--- NOTE | 2017-03-12 23:56 | CP.PCM.HP ---
History of Present Illness - History of Present Illness History of Present Illness: This is a 46 y/o female admitted for worsening of asthma Past Patient History - Infectious Disease Hx of Infectious Diseases: None - Past Medical History & Family History Past Medical History?: Yes - Past Social History Alcohol: None Drugs: Denies - CARDIAC Hx Cardiac Disorders: No - PULMONARY Hx Respiratory Disorders: Yes - NEUROLOGICAL Hx Neurological Disorder: No - HEENT Hx HEENT Problems: No - RENAL Hx Chronic Kidney Disease: No - ENDOCRINE/METABOLIC Hx Endocrine Disorders: No - HEMATOLOGICAL/ONCOLOGICAL Hx Human Immunodeficiency Virus (HIV): No - INTEGUMENTARY Hx Dermatological Problems: No - MUSCULOSKELETAL/RHEUMATOLOGICAL Hx Falls: No - GASTROINTESTINAL Hx Gastrointestinal Disorders: No - GENITOURINARY/GYNECOLOGICAL Hx Genitourinary Disorders: No - PSYCHIATRIC Hx Anxiety: Yes - SURGICAL HISTORY Hx Surgeries: Yes Other/Comment: Jaw surgery (right lower) December 2014 at [facility] [place] of [place] from an infection. - ANESTHESIA Hx Anesthesia: Yes Hx Anesthesia Reactions: No Hx Malignant Hyperthermia: No Meds Allergies/Adverse Reactions: Allergies Allergy/AdvReac Type Severity Reaction Status Date / Time acetaminophen Allergy SHORTNESS Verified 03/12/17 14:59 OF BREATH moxifloxacin HCl Allergy tendonitis Verified 03/12/17 14:59 [From Avelox] Penicillins Allergy SHORTNESS Verified 03/12/17 14:59 OF BREATH Results - Vital Signs Recent Vital Signs: Last Vital Signs Temp 98.2 F 03/12/17 20:50 Pulse 94 H 03/12/17 20:50 Resp 18 03/12/17 20:50 BP 108/69 03/12/17 20:50 Pulse Ox 93 L 03/12/17 20:50 - Labs Result Diagrams: 03/12/17 16:23 03/12/17 16:23 Labs: Laboratory Results - last 24 hr 03/12/17 03/12/17 03/12/17 16:23 16:23 16:23 WBC 9.3 RBC 4.15 Hgb 12.7 Hct 38.6 MCV 92.9 MCH 30.6 MCHC 33.0 RDW 13.0 Plt Count 315 MPV 8.2 Neut % (Auto) 74.2 Lymph % (Auto) 15.5 L [place] % (Auto) 3.0 Eos % (Auto) 4.8 H Baso % (Auto) 2.5 H Neut # (Auto) 6.9 Lymph # (Auto) 1.4 [place] # (Auto) 0.3 Eos # (Auto) 0.4 Baso # (Auto) 0.2 PT 10.5 INR 1.0 APTT 29.4 Sodium 140 Potassium 3.7 Chloride 103 Carbon Dioxide 27 Anion Gap 14 BUN 15 Creatinine 0.8 Est GFR ( Amer) > 60 Est GFR (Non-Af Amer) > 60 Random Glucose 133 H Calcium 9.4 Total Bilirubin 0.6 AST 37 H D ALT 26 Alkaline Phosphatase 80 Troponin I < 0.0120 NT-Pro-B Natriuret Pep 258 Total Protein 8.0 Albumin 4.3 Globulin 3.6 Albumin/Globulin Ratio 1.2
[2017-03-13] MEDS ORDERED: Albuterol 0.083% Inhal Sol (2.5 mg/3 mL) UD INH SCH (02:00)
[2017-03-13] MEDS: Albuterol-Ipratrop 3 mg / 0.5 (3 ml) UD INH SCH ×4 (07:35→20:28)
[2017-03-13 08:51] LABS: HEMOGLOBIN 11.5 g/dL (12.0-16.0); MEAN CELL VOLUME 92.8 fl (81.0-99.0); MEAN CORPUSCULAR HEMOGLOBIN 30.7 pg (27.0-31.0); MEAN CORPUSCULAR HGB CONC 33.1 g/dL (33.0-37.0); RBC 3.74 Mil/uL (3.80-5.20); RED CELL DISTRIBUTION WIDTH 12.8 % (11.5-14.5); WHITE BLOOD COUNT 5.7 K/uL (4.8-10.8)
[2017-03-13 08:55] LABS: ALB/GLOB RATIO 1.1 (1.0-2.1); ALBUMIN 3.6 g/dL (3.5-5.0); ALT/SGPT 22 U/L (9-52); AST/SGOT 26 U/L (14-36); BLOOD UREA NITROGEN 24 mg/dl (7-17); CALCIUM 9.3 mg/dL (8.4-10.2); GFR AFRICAN-AMERICAN > 60; GFR NON-AFRICAN AMERICAN > 60
[2017-03-13] MEDS ORDERED: Magnesium Sulfate 2 gm/50 ml 2 GM/50 ML BAG IVPB ONE (09:00)
[2017-03-13] MEDS: Fluticasone-Salmeterol 250-50mcg Diskus IH SCH ×2 (09:04→21:02)
[2017-03-13] MEDS: Dextrose 5%/Lactated Ringer's 1,000 ML IV SCH (09:53)
--- NOTE | 2017-03-13 11:20 | CARD ---
APPROVED REPORT EKG Measurement Heart [id number] <Conclusion> Sinus tachycardia Otherwise normal ECG
--- NOTE | 2017-03-13 22:39 | CP.PCM.CON ---
History of Present Illness - History of Present Illness History of Present Illness: Patient seen and examined, chart reviewed, full consult to be dictated. Cont present treatment. Past Patient History - Infectious Disease Hx of Infectious Diseases: None - Past Medical History & Family History Past Medical History?: Yes - Past Social History Alcohol: None Drugs: Denies - CARDIAC Hx Cardiac Disorders: No - PULMONARY Hx Respiratory Disorders: Yes - NEUROLOGICAL Hx Neurological Disorder: No - HEENT Hx HEENT Problems: No - RENAL Hx Chronic Kidney Disease: No - ENDOCRINE/METABOLIC Hx Endocrine Disorders: No - HEMATOLOGICAL/ONCOLOGICAL Hx Human Immunodeficiency Virus (HIV): No - INTEGUMENTARY Hx Dermatological Problems: No - MUSCULOSKELETAL/RHEUMATOLOGICAL Hx Falls: No - GASTROINTESTINAL Hx Gastrointestinal Disorders: No - GENITOURINARY/GYNECOLOGICAL Hx Genitourinary Disorders: No - PSYCHIATRIC Hx Anxiety: Yes - SURGICAL HISTORY Hx Surgeries: Yes Other/Comment: Jaw surgery (right lower) December 2014 at [facility]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 - ANESTHESIA Hx Anesthesia: Yes Hx Anesthesia Reactions: No Hx Malignant Hyperthermia: No Meds Allergies/Adverse Reactions: Allergies Allergy/AdvReac Type Severity Reaction Status Date / Time acetaminophen Allergy SHORTNESS Verified 03/12/17 14:59 OF BREATH moxifloxacin HCl Allergy tendonitis Verified 03/12/17 14:59 [From Avelox] Penicillins Allergy SHORTNESS Verified 03/12/17 14:59 OF BREATH - Medications Medications: Current Medications Albuterol Sulfate (Albuterol 0.083% Inhal Jamee (2.5 Mg/3 Ml) Ud) 2.5 mg INH RQ6 PRN PRN Reason: Shortness of Breath Albuterol/Ipratropium (Duoneb 3 Mg/0.5 Mg (3 Ml) Ud) 3 ml INH RQID BRANDI Last Admin: 03/13/17 20:28 Dose: Not Given Heparin Sodium (Porcine) (Heparin) 5,000 units SC Q12 BRANDI PRN Reason: Protocol Last Admin: 03/13/17 21:03 Dose: Not Given Ibuprofen (Motrin Tab) 600 mg PO Q6 PRN PRN Reason: pain 4-7 Last Admin: 03/13/17 17:54 Dose: 600 mg Methylprednisolone (Solu-Medrol) 125 mg IVP Q6 BRANDI Last Admin: 03/13/17 21:03 Dose: Not Given Montelukast Sodium (Singulair) 10 mg PO HS [facility] Last Admin: 03/13/17 22:06 Dose: Not Given Fluticasone/Salmeterol (Advair Diskus 250/50) 1 puff IH Q12 [facility] Last Admin: 03/13/17 21:02 Dose: 1 puff Results - Vital Signs Recent Vital Signs: Last Vital Signs Temp 98.6 F 03/13/17 21:00 Pulse 92 H 03/13/17 21:00 Resp 19 03/13/17 21:00 BP 112/72 03/13/17 21:00 Pulse Ox 93 L 03/13/17 21:00 - Labs Result Diagrams: 03/13/17 07:50 03/13/17 07:50 Labs: Laboratory Results - last 24 hr 03/13/17 03/13/17 07:50 07:50 WBC 5.7 RBC 3.74 L Hgb 11.5 L Hct 34.7 MCV 92.8 MCH 30.7 MCHC 33.1 RDW 12.8 Plt Count 292 Sodium 138 Potassium 4.8 Chloride 104 Carbon Dioxide 28 Anion Gap 11 BUN 24 H Creatinine 0.7 Est GFR ( Amer) > 60 Est GFR (Non-Af Amer) > 60 Random Glucose 135 H Calcium 9.3 Total Bilirubin 0.5 AST 26 ALT 22 Alkaline Phosphatase 58 Total Protein 6.9 Albumin 3.6 Globulin 3.3 Albumin/Globulin Ratio 1.1
[2017-03-14] MEDS: Albuterol-Ipratrop 3 mg / 0.5 (3 ml) UD INH SCH ×3 (07:41→15:35)
[2017-03-14] MEDS: Fluticasone-Salmeterol 250-50mcg Diskus IH SCH (08:27)
--- NOTE | 2017-03-14 09:07 | PQF GENQUE ---
Dr. Guido, 2 queries: 1. Please clarify type of asthma: if known and 2. Is COPD ruled in or ruled out? Mild intermittent Mild persistent Moderate persistent Severe persistent With bronchitis(please clarify acuity of bronchitis) With chronic lung disease (please document specific chronic lung disease) : in exacerbation or Stable: if ruled in Other (please specify) Clinically unable to determine Unknown 2. Please clarify acuity of asthma: Uncomplicated With exacerbation(acute) With status asthmaticus Other (please specify) Clinically unable to determine Unknown ER: PMH: Anxiety, Asthma, Bronchitis, COPD Clinical Imp: Asthma exacerbation Draft H and P: - PT. hx.: Pulmpnery: Hx Respiratory Disorders: Yes HPI: admitted for worsening of asthma Advair Diskus; one puff IH Q12, Albuterol Inhal Jamee: INHRQ6 ->PRN, Duoneb INH QID, Solumedrol IVP Q6, Singulair This form is a permanent part of the medical record Clarification of your documentation is requested to better reflect the severity of illness and intensity of treatment of your patient. Indicators present [] Specify: [] [] Specify: [] [] Specify: [] [] Specify: [] Location in the medical record that reflects the above clinical findings: [] Treatment Provided: [] PHYSICIAN'S RESPONSE Based on your medical judgment of the clinical indicators outlined above please clarify the following: [] Practitioner response [] If unable to determine, please check the box, sign and date. Present On Admission (POA) Indicator: [] Present at the time of admission [] Not present at the time of admission [] Clinically Undetermined In responding to this query, please exercise your independent professional judgment. The fact that a question is asked does not imply that any particular answer is desired or expected. Thank you for your clarification on this documentation. If you have any questions please call. * Thank you, Ambar Rosales RN ext. #[phone] MTDD
--- NOTE | 2017-03-14 09:19 | PQF GENQUE ---
Dr. Guido, Please provide a nutritional diagnosis, if known, related to the information below: i.e Underweight versus Small frame etc. The following clinical indicators are present in the medical record: BMI:16.1 is listed in the EMR: 5ft 6in OR: Disagree OR: Other explanation of clinical finding This form is a permanent part of the medical record Clarification of your documentation is requested to better reflect the severity of illness and intensity of treatment of your patient. Indicators present [] Specify: [] [] Specify: [] [] Specify: [] [] Specify: [] Location in the medical record that reflects the above clinical findings: [] Treatment Provided: [] PHYSICIAN'S RESPONSE Based on your medical judgment of the clinical indicators outlined above please clarify the following: [] Practitioner response [] If unable to determine, please check the box, sign and date. Present On Admission (POA) Indicator: [] Present at the time of admission [] Not present at the time of admission [] Clinically Undetermined In responding to this query, please exercise your independent professional judgment. The fact that a question is asked does not imply that any particular answer is desired or expected. Thank you for your clarification on this documentation. If you have any questions please call. * Thank you, mAbar Rosales RN ext. #[phone] MTDD
[2017-03-14] MEDS ORDERED: Magnesium Sulfate 2 gm/50 ml 2 GM/50 ML BAG IVPB ONE (11:38)
[2017-03-14] MEDS ORDERED: Pantoprazole 40 mg EC Tab PO SCH (11:45)
[2017-03-14] MEDS: Promethazine 12.5 mg/10 ml Syrup PO SCH ×2 (12:24→17:01)
[2017-03-14 12:47] VITALS: BP 115/76; PULSE 73; RESP 20; TEMP 98.4; O2SAT 92
== END 2017-03-14 16:45 | disposition home or self-care (01) ==
LOC: H.ER 14:56 → OBSVTOIN 17:20 → UNDOADMOB 17:20 → H.ERHOLD 17:20 → INTOOBSV 17:20 → H.ERHOLD 20:46 → H.TEL 20:46 → OBSVTOIN 03-13 14:09 → H.TEL 03-13 14:09 → INTOOBSV 03-13 14:09 → UNDOADMOB 03-13 14:09 → UNDODISOB 03-14 16:45
PROVIDERS: ADMIT Family Medicine; ATTEND Family Medicine
DX: J44.9 Chronic obstructive pulmonary disease, unspecified (principal)
CPT/HCPCS: 36415; 71045; 80053; 83880; 84484; 85025; 85027; 85610; 85730; 93005; 94640; 96365; 99285; G0378; J1644; J7040; J7120

== ENCOUNTER 2017-03-18 18:48 | Emergency (ER) | payer BC, MEDICARE ==
[2017-03-18 18:48] VITALS: BMI 17.7
[2017-03-18 18:56] VITALS: BP 123/72; O2SAT 96
[2017-03-18] MEDS ORDERED: Magnesium Sulfate 2 gm/50 ml 2 GM/50 ML BAG IVPB ONE ×2 (19:09→21:01)
[2017-03-18] MEDS ORDERED: Albuterol-Ipratrop 3 mg / 0.5 (3 ml) UD INH STA (19:10)
[2017-03-18] MEDS ORDERED: Albuterol-Ipratrop 3 mg / 0.5 (3 ml) UD ONE (19:15)
[2017-03-18] MEDS ORDERED: Magnesium Sulfate 2 gm/50 ml 2 GM/50 ML BAG ONE (19:16)
--- NOTE | 2017-03-18 19:58 | ED PDOC ---
HPI: SOB/CHF/COPD Time Seen by Provider: 03/18/17 19:09 Chief Complaint (Nursing): Shortness Of Breath Chief Complaint (Provider): Anxious and whezzing History Per: Patient History/Exam Limitations: no limitations Onset/Duration Of Symptoms: Hrs (4 hours ago) Current Symptoms Are (Timing): Still Present Additional Complaint(s): 46 yo female with a history of COPD is well known to the provider and this ED, presents today complaining of feeling anxious at home with some wheezing, onset of 4 hours ago. In order to combat this, the patient took a low dose of codeine , and came into the ED today requesting magnesium. Past Medical History Reviewed: Historical Data, Nursing Documentation, Vital Signs Vital Signs: Last Vital Signs Temp 99.5 F 03/18/17 18:54 Pulse 88 03/18/17 23:22 Resp 16 03/18/17 23:22 BP 123/72 03/18/17 18:54 Pulse Ox 96 03/18/17 23:37 - Medical History PMH: Anxiety, Asthma, Bronchitis, COPD Denies: HIV, Chronic Kidney Disease - Surgical History Surgical History: No Surg Hx - Family History Family History: States: Unknown Family Hx - Social History Current smoker - smoking cessation education provided: No Ex-Smoker (has not smoked in the last 12 months): No Alcohol: None Drugs: Denies - Home Medications Home Medications: Ambulatory Orders Medication Instructions Recorded Albuterol 0.042% [Albuterol 0.042% 1 inh NEB QID 01/07/17 Inhal Jamee (1.25mg/3ml) UD] Ipratropium 0.02% [Atrovent] 1 inh INH Q6 PRN 02/09/17 Levalbuterol [Xopenex] 1 inh INH 12 02/09/17 Fluticasone/Salmeterol 500/50 1 dsk IH Q12 #60 puff 03/14/17 [Advair Diskus] Methylprednisolone [Medrol Dose 4 mg PO DAILY #21 mg 03/14/17 Pack (21 tabs)] Montelukast [Singulair] 10 mg PO HS #30 tab 03/14/17 Promethazine [Phenergan Syrup] 12.5 mg PO Q6 #1 bottle 03/14/17 predniSONE [predniSONE Tab] 60 mg PO DAILY 3 Days tab 03/18/17 - Allergies Allergies/Adverse Reactions: Allergies Allergy/AdvReac Type Severity Reaction Status Date / Time acetaminophen Allergy SHORTNESS Verified 03/18/17 18:54 OF BREATH moxifloxacin HCl Allergy tendonitis Verified 03/18/17 18:54 [From Avelox] Penicillins Allergy SHORTNESS Verified 03/18/17 18:54 OF BREATH Review of Systems ROS Statement: Except As Marked, All Systems Reviewed And Found Negative Respiratory: Positive for: Wheezing Psych: Positive for: Anxiety Physical Exam - Reviewed Nursing Documentation Reviewed: Yes Vital Signs Reviewed: Yes - Physical Exam Appears: Positive for: Non-toxic, No Acute Distress Head Exam: Positive for: ATRAUMATIC, NORMAL INSPECTION, NORMOCEPHALIC Skin: Positive for: Normal Color, Warm, DRY Eye Exam: Positive for: EOMI, Normal appearance, PERRL ENT: Positive for: Normal ENT Inspection Neck: Positive for: Normal, Painless ROM, Supple Cardiovascular/Chest: Positive for: Regular Rate, Rhythm. Negative for: Murmur Respiratory: Positive for: Wheezing (bilaterally), Respiratory Distress (mild), Other (prolonged end expiratory phase) Gastrointestinal/Abdominal: Positive for: Normal Exam, Soft. Negative for: Tenderness Back: Positive for: Normal Inspection Extremity: Positive for: Normal ROM. Negative for: Pedal Edema, Deformity Neurologic/Psych: Positive for: Alert, Oriented. Negative for: Motor/Sensory Deficits - ECG O2 Sat by Pulse Oximetry: 96 (RA) Pulse Ox Interpretation: Normal Medical Decision Making Medical Decision Making: Time: --19:09 Impression: --COPD exacerbation Plan: --albuterol 3ml INH --magnesium Sulfate 2gm in 50ml IVPB --Peak Flow Pre/Post Reassess -- Scribe Attestation: Documented by Tay Castro acting as a scribe for Mack Higuera MD. Provider Attestation: All medical record entries made by the Scribe were at my direction and personally dictated by me. I have reviewed the chart and agree that the record accurately reflects my personal performance of the history, physical exam, medical decision making, and the department course for this patient. I have also personally directed, reviewed, and agree with the discharge instructions and disposition. Time: 23:30 Upon provider reevaluation patient is no longer wheezing and heart rate had improved. Patient will follow up with electrical continuity inspector on . Return precautions were discussed. Scribe Attestation: Documented by Pooja Baker acting as a scribe for Mack Higuera MD. Scribe Attestation: All medical record entries made by the Scribe were at my direction and personally dictated by me. I have reviewed the chart and agree that the record accurately reflects my personal performance of the history, physical exam, medical decision making, and the department course for this patient. I have also personally directed, reviewed, and agree with the discharge instructions and disposition. Disposition - Clinical Impression Clinical Impression: COPD (chronic obstructive pulmonary disease) - Disposition Referrals: JENNIFER THOMAS [Other] Disposition: Routine/Home Disposition Time: 23:30 Condition: IMPROVED Prescriptions: predniSONE [predniSONE Tab] 60 mg PO DAILY 3 Days tab Instructions: COPD (Chronic Obstructive Pulmonary Disease) (DC) Forms: [employer] (Macedonian)
[2017-03-18] MEDS ORDERED: Sodium Chloride 0.9% 1,000 ML IV STA (21:01)
[2017-03-18 23:23] VITALS: PULSE 88; RESP 16
[2017-03-18 23:47] VITALS: TEMP 98.6
[2017-03-19] MEDS ORDERED: Albuterol-Ipratrop 3 mg / 0.5 (3 ml) UD INH STA (00:10)
== END 2017-03-19 00:45 | disposition home or self-care (01) ==
LOC: H.ER 18:48
DX: J44.1 Chronic obstructive pulmonary disease with (acute) exacerbation (principal); F41.9 Anxiety disorder, unspecified; Z88.0 Allergy status to penicillin
CPT/HCPCS: 94640; 96360; 99285; J7040

== ENCOUNTER 2017-03-20 17:54 | Emergency (ER) | payer MEDICARE, BC ==
[2017-03-20 17:54] VITALS: BMI 17.7
[2017-03-20 18:03] VITALS: TEMP 99.2
[2017-03-20] MEDS ORDERED: Albuterol-Ipratrop 3 mg / 0.5 (3 ml) UD ONE ×2 (18:17→19:50)
[2017-03-20] MEDS ORDERED: Albuterol-Ipratrop 3 mg / 0.5 (3 ml) UD INH STA ×2 (19:37→21:59)
[2017-03-20] MEDS ORDERED: Magnesium Sulfate 2 GM in Sodium Chloride 0.9% 100 ML IVPB ONE (19:40)
[2017-03-20] MEDS ORDERED: Albuterol-Ipratrop 3 mg / 0.5 (3 ml) UD INH PRN (19:41)
[2017-03-20] MEDS ORDERED: Magnesium Sulfate 2 gm/50 ml 2 GM/50 ML BAG ONE (19:51)
[2017-03-20] MEDS ORDERED: Magnesium Sulfate 2 gm/50 ml 2 GM/50 ML BAG IV ONE (20:00)
--- NOTE | 2017-03-20 20:09 | ED PDOC ---
HPI: SOB/CHF/COPD Chief Complaint (Provider): SOB and Wheezing Additional History Per: Patient Time Seen by Provider: 03/20/17 18:00 Chief Complaint (Nursing): Shortness Of Breath Additional Complaint(s): This is 46 y/o female with multiple ED visits and PMH of severe asthma/COPD comes to the ED c/o 1 day hx of wheezing, SOB and chest tightness. Patient has been using Albuterol every hour without any improvement. Patient denies any cough, dizziness, headache, fever, numbness, tingling or edema. Patient is requesting Mg treatment. (Mc Baker) Past Medical History - Medical History PMH: Anxiety, Asthma, Bronchitis, COPD Denies: HIV, Chronic Kidney Disease - Surgical History Surgical History: Denies: Coronary Stent, Pacemaker - Family History Family History: States: Unknown Family Hx - Social History Current smoker - smoking cessation education provided: No Ex-Smoker (has not smoked in the last 12 months): No Alcohol: None Drugs: Denies Vital Signs: Last Vital Signs Temp 99.2 F 03/20/17 17:57 Pulse 96 H 03/21/17 02:00 Resp 16 03/21/17 02:00 BP 135/94 H 03/20/17 23:37 Pulse Ox 91 L 03/21/17 02:16 - Home Medications Home Medications: Ambulatory Orders Medication Instructions Recorded Albuterol 0.042% [Albuterol 0.042% 1 inh NEB QID 01/07/17 Inhal Jamee (1.25mg/3ml) UD] Ipratropium 0.02% [Atrovent] 1 inh INH Q6 PRN 02/09/17 Levalbuterol [Xopenex] 1 inh INH 12 02/09/17 Fluticasone/Salmeterol 500/50 1 dsk IH Q12 #60 puff 03/14/17 [Advair Diskus] Methylprednisolone [Medrol Dose 4 mg PO DAILY #21 mg 03/14/17 Pack (21 tabs)] Montelukast [Singulair] 10 mg PO HS #30 tab 03/14/17 Promethazine [Phenergan Syrup] 12.5 mg PO Q6 #1 bottle 03/14/17 predniSONE [predniSONE Tab] 60 mg PO DAILY 3 Days tab 03/18/17 - Allergies Allergies/Adverse Reactions: Allergies Allergy/AdvReac Type Severity Reaction Status Date / Time acetaminophen Allergy SHORTNESS Verified 03/18/17 18:54 OF BREATH moxifloxacin HCl Allergy tendonitis Verified 03/18/17 18:54 [From Avelox] Penicillins Allergy SHORTNESS Verified 03/18/17 18:54 OF BREATH Curb-65 Severity Score - CURB-65 Severity Score Confusion: No Bun >19mg/dl (>7mmol/L): No Respiratory Rate greater than/equal to 30: No Systolic BP <90 or Diastolic BP less than/equal 60mmHg: No Age >64: No Curb-65 Score: 0 Percentage 30-day mortality: 0.6% Wells Criteria for PE - Wells Criteria for Pulmonary Embolism Clinical Signs and Symptoms of DVT: No P.E is #1 Diagnosis, or Equally Likely: No Heart Rate >100: Yes Immobilization at least 3 days;Surgery previous 4 weeks: No Previous, objectively diagnosed PE or DVT: No Hemoptysis: No Malignancy w/treatment within 6 months, or palliative: No Total Score: 1.5 Review of Systems Constitutional: Negative for: Fever, Chills Eyes: Negative for: Pain ENT: Negative for: Ear Pain, Nose Pain Cardiovascular: Positive for: Other (Chest tightness ). Negative for: Light Headedness Respiratory: Positive for: Cough, Shortness of Breath. Negative for: Hemoptysis Gastrointestinal: Negative for: Nausea, Vomiting, Abdominal Pain, Diarrhea Genitourinary Female: Negative for: Dysuria Musculoskeletal: Negative for: Neck Pain, Shoulder Pain Skin: Negative for: Rash Neurological: Negative for: Weakness, Numbness, Incoordination Physical Exam - Reviewed Nursing Documentation Reviewed: Yes Vital Signs Reviewed: Yes - Physical Exam Appears: Positive for: No Acute Distress Head Exam: Positive for: ATRAUMATIC Skin: Positive for: Normal Color Eye Exam: Positive for: Normal appearance ENT: Positive for: Normal ENT Inspection Neck: Positive for: Normal Cardiovascular/Chest: Positive for: Regular Rate, Rhythm, Chest Non Tender, Tachycardia. Negative for: Edema, JVD Respiratory: Positive for: Crackles, Wheezing. Negative for: Accessory Muscle Use Gastrointestinal/Abdominal: Positive for: Normal Exam Back: Positive for: Normal Inspection Neurologic/Psych: Positive for: Alert, Oriented. Negative for: Motor/Sensory Deficits - ECG O2 Sat by Pulse Oximetry: 91 - Progress Re-evaluation Time: 01:15 Condition: Improved - Progress ED Course And Treament: 46 y/o female with COPD and Asthma exacerbation - Duonab x2 - Mg sulfate 2mg 100ml IVP - Reevaluate Case discussed with Dr. Wagner - IV Solumedrol 60mg given (Patient denied 125mg dose) Patient was reevaluated and still wheezing but improved - Duoneb ordered, patient refused it - Patient just wants to get Mg - Patient is not in acute distress Case discussed and patient seen with Dr. Wagner ([facility]) Medical Decision Making Medical Decision Making: COPD and Asthma exacerbation (Mc Baker) Disposition - Disposition Disposition: Routine/Home Disposition Time: 02:16 - Clinical Impression Clinical Impression: Asthma exacerbation attacks - Disposition Condition: IMPROVED Additional Instructions: follow up with your primary doctor in 1-2 days return to the ED with any worsening or concerning symptoms. Instructions: Asthma (ED) Forms: [employer] (Turkmen)
[2017-03-20] MEDS ORDERED: methylPREDNISolone 125 MG in Sodium Chloride 0.9% 50 ML IVPB STA (20:59)
[2017-03-20] MEDS ORDERED: methylPREDNISolone 60 MG in Sodium Chloride 0.9% 50 ML IVPB STA (21:11)
[2017-03-20 23:38] VITALS: BP 135/94; RESP 16
[2017-03-20 23:40] VITALS: O2SAT 91
[2017-03-21 05:35] VITALS: PULSE 96
== END 2017-03-21 02:35 | disposition home or self-care (01) ==
LOC: H.ER 17:54
DX: J45.901 Unspecified asthma with (acute) exacerbation (principal); J44.9 Chronic obstructive pulmonary disease, unspecified; F41.9 Anxiety disorder, unspecified; Z87.891 Personal history of nicotine dependence; Z88.0 Allergy status to penicillin
CPT/HCPCS: 94640; 96365; 99284; J2930; J3475

== ENCOUNTER 2017-04-05 20:13 | Emergency (ER) | payer MEDICARE, BC ==
[2017-04-05 20:13] VITALS: BMI 17.7
[2017-04-05 20:24] VITALS: BP 154/84; TEMP 98
[2017-04-05] MEDS ORDERED: Albuterol-Ipratrop 3 mg / 0.5 (3 ml) UD INH STA (20:30)
[2017-04-05] MEDS ORDERED: Magnesium Sulfate 2 gm/50 ml 2 GM/50 ML BAG IVPB ONE (20:30)
[2017-04-05] MEDS ORDERED: MethylPREDNISolone 40 mg Vial ONE (20:46)
[2017-04-05 21:12] VITALS: PULSE 115; RESP 20
[2017-04-05 21:15] LABS: BASO # 0.1 K/uL (0.0-0.2); BASO % 0.7 % (0.0-2.0); EOS # 0.7 K/uL (0.0-0.7); EOS % 7.8 % (0.0-4.0); HEMOGLOBIN 13.1 g/dL (12.0-16.0); LYMPH # 2.1 K/uL (1.0-4.3); LYMPH % 23.8 % (20.0-40.0); MEAN CELL VOLUME 92.9 fl (81.0-99.0); MEAN CORPUSCULAR HEMOGLOBIN 31.2 pg (27.0-31.0); MEAN CORPUSCULAR HGB CONC 33.6 g/dL (33.0-37.0); MEAN PLATELET VOLUME 8.4 fl (7.2-11.7); MONO # 0.8 K/uL (0.0-0.8); MONO % 8.7 % (0.0-10.0); NEUT # 5.3 K/uL (1.8-7.0); NRBC % 0.1 % (0.0-0.0); RBC 4.19 Mil/uL (3.80-5.20); RED CELL DISTRIBUTION WIDTH 13.1 % (11.5-14.5)
[2017-04-05 21:28] LABS: ALB/GLOB RATIO 1.1 (1.0-2.1); ALBUMIN 4.3 g/dL (3.5-5.0); ALT/SGPT 26 U/L (9-52); AST/SGOT 27 U/L (14-36); BLOOD UREA NITROGEN 16 mg/dl (7-17); CALCIUM 9.9 mg/dL (8.4-10.2); GFR AFRICAN-AMERICAN > 60; GFR NON-AFRICAN AMERICAN > 60; MAGNESIUM 1.9 MG/DL (1.6-2.3)
--- NOTE | 2017-04-05 21:36 | ED PDOC ---
HPI: SOB/CHF/COPD Time Seen by Provider: 04/05/17 20:27 Chief Complaint (Nursing): Shortness Of Breath Chief Complaint (Provider): Shortness Of Breath History Per: Patient History/Exam Limitations: no limitations Onset/Duration Of Symptoms: Persistent (x1 week) Current Symptoms Are (Timing): Still Present Additional Complaint(s): 46 year old female with medical history of asthma and COPD, presents to the emergency department with a complaint of shortness of breath associated with clear productive cough ongoing for 1 week. She reported no improvement with inhaler use or nebulizer at home. Denied any bloody cough, fever, chills, runny nose or bodyaches. Patient is requesting Magnesium through IV in ED. Has been to this ER multiple times with same presentation. h/o intubation. PMD: none provided Past Medical History Reviewed: Historical Data, Nursing Documentation, Vital Signs Vital Signs: Last Vital Signs Temp 98.0 F 04/05/17 20:22 Pulse 115 H 04/05/17 21:11 Resp 20 04/05/17 21:51 BP 154/84 H 04/05/17 20:22 Pulse Ox 90 L 04/05/17 22:43 - Medical History PMH: Anxiety, Asthma, Bronchitis, COPD Denies: HIV, Chronic Kidney Disease - Surgical History Surgical History: Denies: Coronary Stent, Pacemaker - Family History Family History: States: Unknown Family Hx - Social History Current smoker - smoking cessation education provided: No Alcohol: None Drugs: Denies - Home Medications Home Medications: Ambulatory Orders Medication Instructions Recorded Albuterol 0.042% [Albuterol 0.042% 1 inh NEB QID 01/07/17 Inhal Jamee (1.25mg/3ml) UD] Ipratropium 0.02% [Atrovent] 1 inh INH Q6 PRN 02/09/17 Levalbuterol [Xopenex] 1 inh INH 12 02/09/17 Fluticasone/Salmeterol 500/50 1 dsk IH Q12 #60 puff 03/14/17 [Advair Diskus] Methylprednisolone [Medrol Dose 4 mg PO DAILY #21 mg 03/14/17 Pack (21 tabs)] Montelukast [Singulair] 10 mg PO HS #30 tab 03/14/17 Promethazine [Phenergan Syrup] 12.5 mg PO Q6 #1 bottle 03/14/17 predniSONE [predniSONE Tab] 60 mg PO DAILY 3 Days tab 03/18/17 - Allergies Allergies/Adverse Reactions: Allergies Allergy/AdvReac Type Severity Reaction Status Date / Time acetaminophen Allergy SHORTNESS Verified 04/05/17 20:16 OF BREATH moxifloxacin HCl Allergy tendonitis Verified 04/05/17 20:16 [From Avelox] Penicillins Allergy SHORTNESS Verified 04/05/17 20:16 OF BREATH Review of Systems ROS Statement: Except As Marked, All Systems Reviewed And Found Negative Constitutional: Negative for: Fever, Chills, Other (bodyaches) ENT: Negative for: Nose Discharge Respiratory: Positive for: Cough, Shortness of Breath, Sputum (clear). Negative for: Hemoptysis Physical Exam - Reviewed Nursing Documentation Reviewed: Yes - Physical Exam Appears: Positive for: Non-toxic, In Acute Distress Head Exam: Positive for: ATRAUMATIC, NORMOCEPHALIC Skin: Positive for: Warm, Dry Eye Exam: Positive for: EOMI, PERRL ENT: Positive for: Pharynx Is (clear) Neck: Positive for: Painless ROM, Supple Cardiovascular/Chest: Positive for: Tachycardia. Negative for: Murmur Respiratory: Positive for: Accessory Muscle Use, Rhonchi, Wheezing, Respiratory Distress Gastrointestinal/Abdominal: Positive for: Soft. Negative for: Tenderness Back: Positive for: Normal Inspection. Negative for: Decreased ROM Extremity: Positive for: Normal ROM. Negative for: Pedal Edema Lymphatic: Negative for: Adenopathy Neurologic/Psych: Positive for: Alert. Negative for: Motor/Sensory Deficits - Laboratory Results Result Diagrams: 04/05/17 21:09 04/05/17 21:09 - ECG O2 Sat by Pulse Oximetry: 90 (RA) Pulse Ox Interpretation: Normal Medical Decision Making Medical Decision Making: Initial Impression: Asthma exacerbation Initial Plan: * CMP * Magnesium * Phosphorous * CBC * Duoneb 9ml INH * Magnesium sulfate 2gm in 50ml IVPB * Solu-medrol 60mg IVP * Peak flow pre/post treatment Time: 2217 --Upon provider reevaluation, patient reported feeling better and eager for discharge. She is medically stable and requires no further treatment in the ED at this time. Counseling was provided and all questions were answered regarding diagnosis and need for follow up with PMD. There is agreement to discharge plan. Return if symptoms persist or worsen. Clinical Impression: Scribe Attestation: Documented by Kortney Bae, acting as a scribe for Cary Fuller MD. Provider Scribe Attestation: All medical record entries made by the Scribe were at my direction and personally dictated by me. I have reviewed the chart and agree that the record accurately reflects my personal performance of the history, physical exam, medical decision making, and the department course for this patient. I have also personally directed, reviewed, and agree with the discharge instructions and disposition. Disposition - Clinical Impression Clinical Impression: Asthma exacerbation Counseled Patient/Family Regarding: Studies Performed, Diagnosis - Disposition Disposition: Routine/Home Disposition Time: 22:00 Condition: IMPROVED Additional Instructions: FOLLOW UP WITH YOUR DOCTOR SOON POSSIBLE FOR REEVALUATION RETURN TO ER FOR WORSENING SYMPTOMS Instructions: Asthma, Adult (DC)
[2017-04-05 22:22] VITALS: O2SAT 90
--- NOTE | 2017-04-06 11:43 | CARD ---
APPROVED REPORT EKG Measurement Heart [id number] <Conclusion> Sinus tachycardia Possible Left atrial enlargement Cannot rule out Anterior infarct, age undetermined Abnormal ECG
== END 2017-04-05 23:58 | disposition home or self-care (01) ==
LOC: H.ER 20:13
DX: J45.901 Unspecified asthma with (acute) exacerbation (principal); Z88.0 Allergy status to penicillin; J44.9 Chronic obstructive pulmonary disease, unspecified
CPT/HCPCS: 80053; 83735; 84100; 85025; 93005; 94640; 96374; 96375; 99284; J2930

== ENCOUNTER 2017-04-12 06:03 | Emergency (ER) | payer BC, MEDICARE ==
[2017-04-12 06:04] VITALS: BMI 17.7
[2017-04-12 06:32] VITALS: TEMP 98; O2SAT 95
[2017-04-12] MEDS ORDERED: Albuterol-Ipratrop 3 mg / 0.5 (3 ml) UD ONE ×3 (06:51→08:12)
[2017-04-12] MEDS: Albuterol-Ipratrop 3 mg / 0.5 (3 ml) UD INH STA ×2 (07:20→07:50)
[2017-04-12] MEDS: Magnesium Sulfate 2 gm/50 ml 2 GM/50 ML BAG IVPB ONE (07:25)
[2017-04-12] MEDS ORDERED: Magnesium Sulfate 2 gm/50 ml 2 GM/50 ML BAG ONE (07:29)
--- NOTE | 2017-04-12 08:02 | ED PDOC ---
HPI: SOB/CHF/COPD Time Seen by Provider: 04/12/17 07:10 Chief Complaint (Nursing): Shortness Of Breath Chief Complaint (Provider): Wheezing History Per: Patient History/Exam Limitations: no limitations Onset/Duration Of Symptoms: Hrs (last night) Current Symptoms Are (Timing): Still Present Initiating Event: Upper Respiratory Illness (COPD), Possible Allergic Reaction Associated Symptoms: denies: Fever, Chills, Chest Pain Similar Symptoms Previously: with past asthma attacks Additional Complaint(s): Rachel Brown is a 46 year old female with a past medical history of asthma and chronic obstructive pulmonary disease, who presents to the Emergency Department complaining of wheezing with associated dyspnea, onset last night. Patient reports taking her nebulizer yesterday as well as this morning with minimal relief of symptoms. She has a history with the ER, with multiple visits including intubation, and ICU admission. Patient states she has had similar asthma attacks in the past and reports taking multiple asthma medications, one of which is Prednisone 20 mg. She believes the onset of her wheezing is due to an allergic reaction. She denies any fever, chills, or chest pain. Patient offers no other medical complaints at this time. PMD: Dr. Mccann Past Medical History Reviewed: Historical Data, Nursing Documentation, Vital Signs Vital Signs: Last Vital Signs Temp 98.0 F 04/12/17 06:29 Pulse 95 H 04/12/17 08:00 Resp 16 04/12/17 08:00 BP 116/75 04/12/17 08:00 Pulse Ox 95 04/12/17 08:15 - Medical History PMH: Anxiety, Asthma, Bronchitis, COPD Denies: HIV, Chronic Kidney Disease - Surgical History Surgical History: Denies: Coronary Stent, Pacemaker - Family History Family History: States: Unknown Family Hx - Home Medications Home Medications: Ambulatory Orders Medication Instructions Recorded Albuterol 0.042% [Albuterol 0.042% 1 inh NEB QID 01/07/17 Inhal Jamee (1.25mg/3ml) UD] Ipratropium 0.02% [Atrovent] 1 inh INH Q6 PRN 02/09/17 Levalbuterol [Xopenex] 1 inh INH 12 02/09/17 Fluticasone/Salmeterol 500/50 1 dsk IH Q12 #60 puff 03/14/17 [Advair Diskus] Methylprednisolone [Medrol Dose 4 mg PO DAILY #21 mg 03/14/17 Pack (21 tabs)] Montelukast [Singulair] 10 mg PO HS #30 tab 03/14/17 Promethazine [Phenergan Syrup] 12.5 mg PO Q6 #1 bottle 03/14/17 Albuterol 0.083% [Albuterol 3 ml IH Q4 PRN #20 neb 04/12/17 Sulfate 3 Ml] predniSONE [predniSONE Tab] 60 mg PO DAILY 3 Days tab 04/12/17 - Allergies Allergies/Adverse Reactions: Allergies Allergy/AdvReac Type Severity Reaction Status Date / Time acetaminophen Allergy SHORTNESS Verified 04/05/17 20:16 OF BREATH moxifloxacin HCl Allergy tendonitis Verified 04/05/17 20:16 [From Avelox] Penicillins Allergy SHORTNESS Verified 04/05/17 20:16 OF BREATH Review of Systems ROS Statement: Except As Marked, All Systems Reviewed And Found Negative Constitutional: Negative for: Fever, Chills Cardiovascular: Negative for: Chest Pain Respiratory: Positive for: Wheezing, Other (dyspnea secondary to wheezing) Physical Exam - Reviewed Nursing Documentation Reviewed: Yes Vital Signs Reviewed: Yes - Physical Exam Appears: Positive for: Non-toxic, No Acute Distress Head Exam: Positive for: ATRAUMATIC, NORMAL INSPECTION, NORMOCEPHALIC Skin: Positive for: Normal Color, Warm, Dry Eye Exam: Positive for: EOMI, Normal appearance, PERRL ENT: Positive for: Other Neck: Positive for: Normal, Painless ROM Cardiovascular/Chest: Positive for: Regular Rate, Rhythm. Negative for: Murmur Respiratory: Positive for: Wheezing (diffuse wheezing bilaterally) Gastrointestinal/Abdominal: Positive for: Normal Exam, Soft. Negative for: Tenderness Back: Positive for: Normal Inspection. Negative for: L CVA Tenderness, R CVA Tenderness, Vertebral Tenderness Extremity: Positive for: Normal ROM. Negative for: Pedal Edema, Deformity, Swelling Neurologic/Psych: Positive for: Alert, Oriented - ECG O2 Sat by Pulse Oximetry: 95 (RA) Nebulizer Treatments/Peak Flow - Duonebs Number of Bronchodilator Doses given?: 2 - Steroid Treatment Steroid: Oral - Clinical Response Clinical Response: Improved Medical Decision Making Medical Decision Making: Time: 7:37 Initial Impression: asthma exacerbation Plan: --Duoneb 3 ml INH --Magnesium 1 GM/100 ml --Prednisone 20 mg PO --Peak Flow Pre/Post TX Scribe Attestation: Documented by Lelia Adams, acting as a scribe for Mio Whitfield MD Provider Scribe Attestation: All medical record entries made by the Scribe were at my direction and personally dictated by me. I have reviewed the chart and agree that the record accurately reflects my personal performance of the history, physical exam, medical decision making, and the department course for this patient. I have also personally directed, reviewed, and agree with the discharge instructions and disposition. Disposition - Clinical Impression Clinical Impression: Asthma exacerbation - Patient ED Disposition Is Patient to be Admitted: No Doctor Will See Patient In The: Office Counseled Patient/Family Regarding: Studies Performed, Diagnosis, Need For Followup - Disposition Referrals: [facility] [Outside] Disposition: Routine/Home Disposition Time: 10:00 Condition: GOOD Additional Instructions: Take your medications as instructed. Follow up with your PCP in 2-3 days. Prescriptions: Albuterol 0.083% [Albuterol Sulfate 3 Ml] 3 ml IH Q4 PRN #20 neb PRN Reason: Wheezing predniSONE [predniSONE Tab] 60 mg PO DAILY 3 Days tab Instructions: Asthma in Adults
[2017-04-12 10:36] VITALS: BP 121/85; PULSE 88; RESP 14
== END 2017-04-12 10:35 | disposition home or self-care (01) ==
LOC: H.ER 06:03
DX: J45.901 Unspecified asthma with (acute) exacerbation (principal); F41.9 Anxiety disorder, unspecified; Z88.0 Allergy status to penicillin; J44.9 Chronic obstructive pulmonary disease, unspecified

== ENCOUNTER 2017-04-22 23:50 | Emergency (ER) | payer BC ==
[2017-04-23 00:02] VITALS: BMI 18.3
[2017-04-23 00:04] VITALS: BP 115/80; PULSE 83; TEMP 98.6; O2SAT 95
[2017-04-23] MEDS ORDERED: Albuterol-Ipratrop 3 mg / 0.5 (3 ml) UD INH STA ×3 (00:12→00:33)
[2017-04-23] MEDS ORDERED: methylPREDNISolone 60 MG in Sodium Chloride 0.9% 50 ML IV STA (00:13)
[2017-04-23] MEDS ORDERED: MethylPREDNISolone 40 mg Vial ONE (00:18)
[2017-04-23] MEDS ORDERED: MethylPREDNISolone 40 mg Vial IVP ONE (00:30)
[2017-04-23 01:12] VITALS: RESP 19
[2017-04-23 01:19] LABS: BASO # 0.1 K/uL (0.0-0.2); EOS # 0.5 K/uL (0.0-0.7); EOS % 5.9 % (0.0-4.0); HEMOGLOBIN 13.1 g/dL (12.0-16.0); LYMPH # 2.4 K/uL (1.0-4.3); LYMPH % 27.4 % (20.0-40.0); MEAN CELL VOLUME 92.9 fl (81.0-99.0); MEAN CORPUSCULAR HEMOGLOBIN 31.2 pg (27.0-31.0); MEAN CORPUSCULAR HGB CONC 33.5 g/dL (33.0-37.0); MEAN PLATELET VOLUME 8.4 fl (7.2-11.7); MONO # 0.8 K/uL (0.0-0.8); NEUT # 4.9 K/uL (1.8-7.0); NEUT % 56.7 % (50.0-75.0); RBC 4.19 Mil/uL (3.80-5.20); RED CELL DISTRIBUTION WIDTH 13.5 % (11.5-14.5); WHITE BLOOD COUNT 8.7 K/uL (4.8-10.8)
--- NOTE | 2017-04-23 01:21 | ED PDOC ---
HPI: SOB/CHF/COPD Time Seen by Provider: 04/23/17 00:07 Chief Complaint (Nursing): Respiratory Distress Chief Complaint (Provider): Respiratory Distress History Per: Patient History/Exam Limitations: no limitations Onset/Duration Of Symptoms: Days (x3 days) Additional Complaint(s): 46 y/o female with past medical history of asthma presents to the ED with cough , shortness of breath and wheezing x 3 days. Patient is well known for multiple visits in ED for asthma exacerbation. Denies any further medical complaints. Past Medical History Reviewed: Historical Data, Nursing Documentation, Vital Signs Vital Signs: Last Vital Signs Temp 98.6 F 04/23/17 00:03 Pulse 83 04/23/17 00:03 Resp 19 04/23/17 01:11 BP 115/80 04/23/17 00:03 Pulse Ox 95 04/23/17 01:25 - Medical History PMH: Anxiety, Asthma, Bronchitis, COPD Denies: HIV, Chronic Kidney Disease - Surgical History Surgical History: Denies: Coronary Stent, Pacemaker - Family History Family History: States: Unknown Family Hx - Social History Current smoker - smoking cessation education provided: No Alcohol: None Drugs: Denies - Home Medications Home Medications: Ambulatory Orders Medication Instructions Recorded Albuterol 0.042% [Albuterol 0.042% 1 inh NEB QID 01/07/17 Inhal Jamee (1.25mg/3ml) UD] Ipratropium 0.02% [Atrovent] 1 inh INH Q6 PRN 02/09/17 Levalbuterol [Xopenex] 1 inh INH 12 02/09/17 Fluticasone/Salmeterol 500/50 1 dsk IH Q12 #60 puff 03/14/17 [Advair Diskus] Methylprednisolone [Medrol Dose 4 mg PO DAILY #21 mg 03/14/17 Pack (21 tabs)] Montelukast [Singulair] 10 mg PO HS #30 tab 03/14/17 Promethazine [Phenergan Syrup] 12.5 mg PO Q6 #1 bottle 03/14/17 Albuterol 0.083% [Albuterol 3 ml IH Q4 PRN #20 neb 04/12/17 Sulfate 3 Ml] predniSONE [predniSONE Tab] 60 mg PO DAILY 3 Days tab 04/12/17 - Allergies Allergies/Adverse Reactions: Allergies Allergy/AdvReac Type Severity Reaction Status Date / Time acetaminophen Allergy SHORTNESS Verified 04/23/17 00:10 OF BREATH moxifloxacin HCl Allergy tendonitis Verified 04/23/17 00:10 [From Avelox] Penicillins Allergy SHORTNESS Verified 04/23/17 00:10 OF BREATH Review of Systems ROS Statement: Except As Marked, All Systems Reviewed And Found Negative (As per HPI, otherwise negative) Respiratory: Positive for: Cough, Shortness of Breath Physical Exam - Reviewed Nursing Documentation Reviewed: Yes Vital Signs Reviewed: Yes - Physical Exam Appears: Positive for: Non-toxic Head Exam: Positive for: ATRAUMATIC, NORMAL INSPECTION, NORMOCEPHALIC Skin: Positive for: Normal Color, Warm, Dry Eye Exam: Positive for: EOMI, Normal appearance, PERRL ENT: Positive for: Normal ENT Inspection Neck: Positive for: Normal, Painless ROM, Supple Cardiovascular/Chest: Positive for: Regular Rate, Rhythm. Negative for: Murmur Respiratory: Positive for: Wheezing (Bilateral diffused expiratory wheezing) Gastrointestinal/Abdominal: Positive for: Normal Exam, Bowel Sounds, Soft. Negative for: Tenderness Back: Positive for: Normal Inspection Extremity: Positive for: Normal ROM. Negative for: Deformity Neurologic/Psych: Positive for: Alert, Oriented (x3) - Laboratory Results Result Diagrams: 04/23/17 01:00 04/23/17 01:00 - ECG O2 Sat by Pulse Oximetry: 95 (RA) Pulse Ox Interpretation: Normal Medical Decision Making Medical Decision Making: Time: 00:06 Initial Impression: 46 y/o female with asthma exacerbation Plan: EKG BMP Magnesium CBC w/ differential Albuterol/Ipratropium 3ml INH Albuterol/Ipratropium 3ml INH Albuterol/Ipratropium 3ml INH Magnesium sulfate 1gm Sodium chloride 0.9% 100ml IV Methylprednisolone 60mg IVP Heplock insertion Peak flow pre/post tx Peak flow pre/post tx Peak flow pre/post tx Reevaluation Time: 02:50 -- Labs show no clinically significant abnormalities. Upon provider reevaluation patient shows improvement in symptoms, is medically stable, and requires no further treatment in the ED at this time. Patient will be discharged. Counseling was provided and all questions were answered regarding diagnosis. There is agreement to discharge plan. Return if symptoms persist or worsen. Clinical Impression: Asthma exacerbation Scribe Attestation: Documented by Pooja Baker, acting as a scribe for Lisandro Norman MD. Scribe Attestation: All medical record entries made by the Scribe were at my direction and personally dictated by me. I have reviewed the chart and agree that the record accurately reflects my personal performance of the history, physical exam, medical decision making, and the department course for this patient. I have also personally directed, reviewed, and agree with the discharge instructions and disposition. Disposition - Clinical Impression Clinical Impression: Asthma attack - Disposition Disposition: Routine/Home Disposition Time: 02:50 Condition: STABLE Instructions: Asthma in Adults Forms: [employer] (Romanian)
[2017-04-23] MEDS ORDERED: Albuterol-Ipratrop 3 mg / 0.5 (3 ml) UD ONE (02:12)
[2017-04-23 07:18] LABS: BLOOD UREA NITROGEN 22 mg/dl (7-17); CALCIUM 9.4 mg/dL (8.4-10.2); GFR AFRICAN-AMERICAN > 60; GFR NON-AFRICAN AMERICAN > 60
--- NOTE | 2017-04-23 14:54 | CARD ---
APPROVED REPORT EKG Measurement Heart [id number] <Conclusion> Normal sinus rhythm with sinus arrhythmia Normal ECG
== END 2017-04-23 04:23 | disposition home or self-care (01) ==
LOC: H.ER 23:50
DX: J45.901 Unspecified asthma with (acute) exacerbation (principal); F41.9 Anxiety disorder, unspecified; J44.9 Chronic obstructive pulmonary disease, unspecified; Z88.0 Allergy status to penicillin
CPT/HCPCS: 80048; 83735; 85025; 93005; 94640; 96374; 99283; J2920; J3475

== ENCOUNTER 2017-05-10 00:13 | Emergency (ER) | payer BC ==
[2017-05-10 00:14] VITALS: BMI 18.3
[2017-05-10 00:19] VITALS: TEMP 98.8
[2017-05-10] MEDS ORDERED: Albuterol-Ipratrop 3 mg / 0.5 (3 ml) UD INH STA (00:48)
[2017-05-10] MEDS ORDERED: Magnesium Sulfate 2 gm/50 ml 2 GM/50 ML BAG IVPB ONE (00:49)
[2017-05-10] MEDS ORDERED: Magnesium Sulfate 2 gm/50 ml 2 GM/50 ML BAG ONE (00:56)
[2017-05-10] MEDS ORDERED: Albuterol-Ipratrop 3 mg / 0.5 (3 ml) UD ONE (01:03)
[2017-05-10 01:14] LABS: BASO # 0.1 K/uL (0.0-0.2); BASO % 1.2 % (0.0-2.0); EOS # 0.5 K/uL (0.0-0.7); EOS % 4.4 % (0.0-4.0); HEMOGLOBIN 12.9 g/dL (12.0-16.0); LYMPH # 2.4 K/uL (1.0-4.3); MEAN CELL VOLUME 93.7 fl (81.0-99.0); MEAN CORPUSCULAR HEMOGLOBIN 31.2 pg (27.0-31.0); MEAN CORPUSCULAR HGB CONC 33.3 g/dL (33.0-37.0); MEAN PLATELET VOLUME 7.9 fl (7.2-11.7); MONO # 0.7 K/uL (0.0-0.8); NEUT # 7.4 K/uL (1.8-7.0); NEUT % 66.4 % (50.0-75.0); NRBC % 0.1 % (0.0-0.0); RBC 4.13 Mil/uL (3.80-5.20); RED CELL DISTRIBUTION WIDTH 13.8 % (11.5-14.5); WHITE BLOOD COUNT 11.1 K/uL (4.8-10.8)
[2017-05-10 01:21] LABS: BLOOD UREA NITROGEN 20 mg/dl (7-17); CALCIUM 9.4 mg/dL (8.4-10.2); GFR AFRICAN-AMERICAN > 60; GFR NON-AFRICAN AMERICAN > 60
--- NOTE | 2017-05-10 02:54 | ED PDOC ---
HPI: SOB/CHF/COPD Time Seen by Provider: 05/10/17 00:24 Chief Complaint (Nursing): Respiratory Distress Chief Complaint (Provider): Difficulty Breathing History Per: Patient History/Exam Limitations: no limitations Onset/Duration Of Symptoms: Days (1 day ago) Current Symptoms Are (Timing): Still Present Additional Complaint(s): 47 yo female with a history of asthma and anxiety, [facility] in [facility], presents to the ED complaining of wheezing, shortness of breath, and cough, onset of 1 day ago. Patient reports feeling better throughout the day but suddenly woke up late at night with wheezing, difficulty breathing, and cough. She denies any chest pain or fever. Of note, she used a nebulizer with no relief, and on arrival to the ED she was given 2 duonebs and solu-medrol in the field, where she experiences some mild relief. Past Medical History Reviewed: Historical Data Vital Signs: Last Vital Signs Temp 98.8 F 05/10/17 00:15 Pulse 123 H 05/10/17 03:01 Resp 24 05/10/17 01:15 BP 160/90 H 05/10/17 00:15 Pulse Ox 98 05/10/17 03:01 - Medical History PMH: Anxiety, Asthma, Bronchitis, COPD Denies: HIV, Chronic Kidney Disease - Surgical History Surgical History: No Surg Hx Denies: Coronary Stent, Pacemaker - Family History Family History: States: Unknown Family Hx - Social History Current smoker - smoking cessation education provided: No Ex-Smoker (has not smoked in the last 12 months): No Alcohol: None Drugs: Denies - Home Medications Home Medications: Ambulatory Orders Medication Instructions Recorded Albuterol 0.042% [Albuterol 0.042% 1 inh NEB QID 01/07/17 Inhal Jamee (1.25mg/3ml) UD] Ipratropium 0.02% [Atrovent] 1 inh INH Q6 PRN 02/09/17 Levalbuterol [Xopenex] 1 inh INH 12 02/09/17 Fluticasone/Salmeterol 500/50 1 dsk IH Q12 #60 puff 03/14/17 [Advair Diskus] Methylprednisolone [Medrol Dose 4 mg PO DAILY #21 mg 03/14/17 Pack (21 tabs)] Montelukast [Singulair] 10 mg PO HS #30 tab 02/05/18 Promethazine [Phenergan Syrup] 12.5 mg PO Q6 #1 bottle 03/14/17 Albuterol 0.083% [Albuterol 3 ml IH Q4 PRN #20 neb 04/12/17 Sulfate 3 Ml] predniSONE [predniSONE Tab] 60 mg PO DAILY 3 Days tab 05/10/17 - Allergies Allergies/Adverse Reactions: Allergies Allergy/AdvReac Type Severity Reaction Status Date / Time acetaminophen Allergy SHORTNESS Verified 04/23/17 00:10 OF BREATH moxifloxacin HCl Allergy tendonitis Verified 04/23/17 00:10 [From Avelox] Penicillins Allergy SHORTNESS Verified 04/23/17 00:10 OF BREATH Review of Systems ROS Statement: Except As Marked, All Systems Reviewed And Found Negative Respiratory: Positive for: Cough, Shortness of Breath, Wheezing Psych: Positive for: Anxiety Physical Exam - Reviewed Nursing Documentation Reviewed: Yes Vital Signs Reviewed: Yes - Physical Exam Appears: Positive for: No Acute Distress. Negative for: Uncomfortable Head Exam: Positive for: ATRAUMATIC, NORMAL INSPECTION, NORMOCEPHALIC Skin: Positive for: Normal Color, Warm, DRY Eye Exam: Positive for: EOMI, Normal appearance, PERRL ENT: Positive for: Normal ENT Inspection Neck: Positive for: Normal, Painless ROM, Supple Cardiovascular/Chest: Positive for: Regular Rate, Rhythm. Negative for: Tachycardia Respiratory: Positive for: Accessory Muscle Use, Wheezing (diffuse and bilaterally) Gastrointestinal/Abdominal: Positive for: Normal Exam, Soft. Negative for: Tenderness Back: Positive for: Normal Inspection Extremity: Positive for: Normal ROM. Negative for: Pedal Edema, Deformity Neurologic/Psych: Positive for: Alert, Oriented. Negative for: Motor/Sensory Deficits - Laboratory Results Result Diagrams: 05/10/17 00:56 05/10/17 00:56 - ECG ECG: Positive for: Interpreted By Me, Viewed By Me ECG Rhythm: Positive for: Normal QRS, Sinus Tachycardia, Nonspecific Changes Rate: 123 O2 Sat by Pulse Oximetry: 98 (RA) Pulse Ox Interpretation: Normal - Progress Re-evaluation Time: 03:20 Condition: Re-examined, Improved Medical Decision Making Medical Decision Making: Time: --00:48 Impression: --asthma exacerbation Plan: --ABG --EKG --Albuterol 3ml INH --Magnesium Sulfate 2mg in 50ml IVPB --methylpredinosolone 125mg IVP --Peak Flow Pre/Post Tx Reassess --patient refused ABG ordered Scribe Attestation: Documented by Tay Castro acting as a scribe for Mio Whitfield MD. Provider Attestation: All medical record entries made by the Scribe were at my direction and personally dictated by me. I have reviewed the chart and agree that the record accurately reflects my personal performance of the history, physical exam, medical decision making, and the department course for this patient. I have also personally directed, reviewed, and agree with the discharge instructions and disposition Disposition - Clinical Impression Clinical Impression: Asthma exacerbation - Patient ED Disposition Is Patient to be Admitted: No Doctor Will See Patient In The: Office Counseled Patient/Family Regarding: Studies Performed, Diagnosis, Need For Followup - Disposition Referrals: [facility] [Outside] Disposition: Routine/Home Disposition Time: 03:21 Condition: GOOD Additional Instructions: Take your medications as instructed. Follow up with your PCP in 2-3 days. Return for worsening. Prescriptions: predniSONE [predniSONE Tab] 60 mg PO DAILY 3 Days tab Instructions: Asthma, Adult (DC)
[2017-05-10 03:38] VITALS: BP 102/56; PULSE 103; RESP 18; O2SAT 96
--- NOTE | 2017-05-10 11:39 | CARD ---
APPROVED REPORT EKG Measurement Heart [id number] <Conclusion> Sinus tachycardia Right atrial enlargement Cannot rule out Anterior infarct, age undetermined ST & T wave abnormality, consider inferior ischemia Abnormal ECG
== END 2017-05-10 03:44 | disposition home or self-care (01) ==
LOC: H.ER 00:13
DX: J45.901 Unspecified asthma with (acute) exacerbation (principal); F41.9 Anxiety disorder, unspecified; Z88.0 Allergy status to penicillin

== ENCOUNTER 2017-05-17 16:34 | Emergency (ER) | payer BC ==
[2017-05-17 16:34] VITALS: BMI 18.3
[2017-05-17 16:40] VITALS: BP 129/76; RESP 16; TEMP 98.5
[2017-05-17] MEDS ORDERED: Albuterol-Ipratrop 3 mg / 0.5 (3 ml) UD ONE ×3 (16:47→19:05)
[2017-05-17] MEDS ORDERED: Albuterol-Ipratrop 3 mg / 0.5 (3 ml) UD INH STA ×2 (17:22→18:44)
[2017-05-17] MEDS ORDERED: Magnesium Sulfate 2 gm/50 ml 2 GM/50 ML BAG IVPB STA (17:34)
--- NOTE | 2017-05-17 17:36 | ED PDOC ---
HPI: SOB/CHF/COPD Time Seen by Provider: 05/17/17 17:19 Chief Complaint (Nursing): Respiratory Distress Chief Complaint (Provider): SOB History Per: Patient History/Exam Limitations: no limitations Current Respiratory Medications: Albuterol, Steroid Inhaler Additional Complaint(s): Pt reports SOB since last PM, cough with clear sputum, no fever, no CP, took home meds with mild relief. Past Medical History Reviewed: Nursing Documentation, Vital Signs Vital Signs: Last Vital Signs Temp 98.5 F 05/17/17 16:36 Pulse 113 H 05/17/17 16:36 Resp 16 05/17/17 16:36 BP 129/76 05/17/17 16:36 Pulse Ox 95 05/17/17 16:36 - Medical History PMH: Anxiety, Asthma, Bronchitis, COPD Denies: HIV, Chronic Kidney Disease - Surgical History Surgical History: Denies: Coronary Stent, Pacemaker - Family History Family History: States: Unknown Family Hx - Social History Current smoker - smoking cessation education provided: No - Home Medications Home Medications: Ambulatory Orders Medication Instructions Recorded Albuterol 0.042% [Albuterol 0.042% 1 inh NEB QID 01/07/17 Inhal Jamee (1.25mg/3ml) UD] Ipratropium 0.02% [Atrovent] 1 inh INH Q6 PRN 02/09/17 Levalbuterol [Xopenex] 1 inh INH 12 02/09/17 Fluticasone/Salmeterol 500/50 1 dsk IH Q12 #60 puff 03/14/17 [Advair Diskus] Methylprednisolone [Medrol Dose 4 mg PO DAILY #21 mg 03/14/17 Pack (21 tabs)] Montelukast [Singulair] 10 mg PO HS #30 tab 03/14/17 Promethazine [Phenergan Syrup] 12.5 mg PO Q6 #1 bottle 03/14/17 Albuterol 0.083% [Albuterol 3 ml IH Q4 PRN #20 neb 04/12/17 Sulfate 3 Ml] predniSONE [predniSONE Tab] 60 mg PO DAILY 3 Days tab 05/10/17 - Allergies Allergies/Adverse Reactions: Allergies Allergy/AdvReac Type Severity Reaction Status Date / Time acetaminophen Allergy SHORTNESS Verified 04/23/17 00:10 OF BREATH moxifloxacin HCl Allergy tendonitis Verified 04/23/17 00:10 [From Avelox] Penicillins Allergy SHORTNESS Verified 04/23/17 00:10 OF BREATH Review of Systems Constitutional: Negative for: Fever, Chills Cardiovascular: Negative for: Chest Pain, Palpitations Respiratory: Positive for: Cough, Shortness of Breath, Sputum (Clear), Wheezing Skin: Negative for: Rash, Lesions Neurological: Negative for: Headache Physical Exam - Reviewed Nursing Documentation Reviewed: Yes Vital Signs Reviewed: Yes - Physical Exam Appears: Positive for: Well, No Acute Distress (Speaking full sentences) Skin: Positive for: Normal Color, Warm, Dry Eye Exam: Positive for: Normal appearance, EOMI, PERRL Cardiovascular/Chest: Positive for: Tachycardia. Negative for: Irregularly Irregular Respiratory: Positive for: Wheezing (Bilateral). Negative for: Decreased Breath Sounds, Accessory Muscle Use, Rales, Rhonchi Back: Positive for: Normal Inspection Neurologic/Psych: Positive for: Alert, Oriented - ECG Interpretation Of ECG: NSR @ 82, no ST-T changes. O2 Sat by Pulse Oximetry: 95 Pulse Ox Interpretation: Normal Medical Decision Making Medical Decision Makin yo female with asthma exacerbation. - labs - EKG - CXR - Albuterol/atrovent nebs - Solumedrol - MgSO4 Disposition - Disposition
[2017-05-17] MEDS ORDERED: Magnesium Sulfate 2 gm/50 ml 2 GM/50 ML BAG ONE (18:02)
[2017-05-17 18:18] VITALS: O2SAT 98
[2017-05-17 18:18] LABS: BASO # 0.2 K/uL (0.0-0.2); BASO % 2.9 % (0.0-2.0); EOS # 0.5 K/uL (0.0-0.7); EOS % 6.8 % (0.0-4.0); HEMOGLOBIN 13.4 g/dL (12.0-16.0); LYMPH # 2.2 K/uL (1.0-4.3); MEAN CELL VOLUME 92.8 fl (81.0-99.0); MEAN CORPUSCULAR HEMOGLOBIN 31.7 pg (27.0-31.0); MEAN CORPUSCULAR HGB CONC 34.1 g/dL (33.0-37.0); MEAN PLATELET VOLUME 8.4 fl (7.2-11.7); MONO # 0.6 K/uL (0.0-0.8); NEUT # 3.4 K/uL (1.8-7.0); NEUT % 49.3 % (50.0-75.0); NRBC % 0.3 % (0.0-0.0); RBC 4.25 Mil/uL (3.80-5.20); RED CELL DISTRIBUTION WIDTH 13.3 % (11.5-14.5); WHITE BLOOD COUNT 6.8 K/uL (4.8-10.8)
[2017-05-17 18:33] LABS: ALB/GLOB RATIO 1.1 (1.0-2.1); ALT/SGPT 24 U/L (9-52); AST/SGOT 24 U/L (14-36); BLOOD UREA NITROGEN 19 mg/dl (7-17); CALCIUM 9.3 mg/dL (8.4-10.2); GFR AFRICAN-AMERICAN > 60; GFR NON-AFRICAN AMERICAN > 60
--- NOTE | 2017-05-17 20:27 | ED PDOC ---
- Laboratory Results Result Diagrams: 05/17/17 18:00 05/17/17 18:00 - ECG O2 Sat by Pulse Oximetry: 98 Pulse Ox Interpretation: Normal Medical Decision Making Medical Decision MakinPM Patient signed out to me by Dr. Cervantes pending re-eval after meds 815PM Patient no longer wheezing, states she's feeling much better. O2 sat 98% ON RA , HR 86. Advised to f/u w/ PMD. Return precautions discussed. Disposition - Clinical Impression Clinical Impression: Moderate COPD (chronic obstructive pulmonary disease) - POA Present On Arrival: None - Disposition Referrals: [facility] [Outside] Disposition: Routine/Home Disposition Time: 20:26 Condition: IMPROVED Prescriptions: Prednisone [Deltasone] 40 mg PO DAILY 3 Days tablet Instructions: Chronic Obstructive Pulmonary Disease (COPD), Including Emphysema Forms: [facility] (Romanian)
[2017-05-17 22:05] VITALS: PULSE 102
[2017-05-18] MEDS ORDERED: Albuterol-Ipratrop 3 mg / 0.5 (3 ml) UD ONE (05:35)
[2017-05-18] MEDS ORDERED: Magnesium Sulfate 2 gm/50 ml 2 GM/50 ML BAG ONE (05:36)
--- NOTE | 2017-05-18 09:01 | CARD ---
APPROVED REPORT EKG Measurement Heart [id number] CA [id number] [id number] <Conclusion> Normal sinus rhythm with sinus arrhythmia Normal ECG
== END 2017-05-17 21:00 | disposition home or self-care (01) ==
LOC: H.ER 16:34
DX: J44.9 Chronic obstructive pulmonary disease, unspecified (principal); Z88.0 Allergy status to penicillin

== ENCOUNTER 2017-05-18 05:34 | Emergency (ER) | payer BC ==
[2017-05-18 05:37] VITALS: BMI 18.7
[2017-05-18] MEDS ORDERED: Albuterol-Ipratrop 3 mg / 0.5 (3 ml) UD INH STA ×3 (05:37)
[2017-05-18] MEDS ORDERED: Magnesium Sulfate 2 gm/50 ml 2 GM/50 ML BAG IVPB ONE ×2 (05:37→06:38)
[2017-05-18 05:46] LABS: VENOUS BLOOD GAS BASE EXCESS -0.2 mmol/L (0.0-2.0); VENOUS BLOOD GAS PCO2 63 mmHg (40-60); VENOUS BLOOD GAS PO2 68 mm/Hg (30-55); VENOUS BLOOD PH 7.26 (7.32-7.43)
[2017-05-18 06:11] LABS: BASO # 0.2 K/uL (0.0-0.2); BASO % 2.3 % (0.0-2.0); EOS # 0.7 K/uL (0.0-0.7); EOS % 7.3 % (0.0-4.0); HEMOGLOBIN 13.5 g/dL (12.0-16.0); LYMPH # 3.5 K/uL (1.0-4.3); LYMPH % 39.1 % (20.0-40.0); MEAN CELL VOLUME 94.8 fl (81.0-99.0); MEAN CORPUSCULAR HEMOGLOBIN 32.6 pg (27.0-31.0); MEAN CORPUSCULAR HGB CONC 34.4 g/dL (33.0-37.0); MEAN PLATELET VOLUME 8.2 fl (7.2-11.7); MONO % 11.5 % (0.0-10.0); NEUT # 3.5 K/uL (1.8-7.0); NEUT % 39.8 % (50.0-75.0); NRBC % 0.1 % (0.0-0.0); RBC 4.13 Mil/uL (3.80-5.20); RED CELL DISTRIBUTION WIDTH 13.4 % (11.5-14.5); WHITE BLOOD COUNT 8.9 K/uL (4.8-10.8)
--- NOTE | 2017-05-18 06:22 | ED PDOC ---
HPI: SOB/CHF/COPD Time Seen by Provider: 05/18/17 05:36 Chief Complaint (Nursing): Shortness Of Breath Chief Complaint (Provider): Shortness Of Breath History Per: Patient History/Exam Limitations: no limitations Onset/Duration Of Symptoms: Sudden Onset (x1 hour [employer]) Current Symptoms Are (Timing): Still Present Additional Complaint(s): 47 year old female with medical history of (prior intubation) asthma and COPD, presents to the emergency department via EMS with a complaint of shortness of breath with unknown triggering factors occurring an hour prior to arrival. En route, she was administered (2) Duonebs/125mg Solumedrol/2gm Magnesium treatments. Patient was recently discharged from ED yesterday after treatment for asthma exacerbation. PMD: none provided Past Medical History Reviewed: Historical Data, Nursing Documentation, Vital Signs Vital Signs: Last Vital Signs Temp 97.7 F 05/18/17 05:47 Pulse 124 H 05/18/17 05:47 Resp 26 H 05/18/17 05:47 BP 141/67 05/18/17 05:47 Pulse Ox 99 05/18/17 06:31 - Medical History PMH: Anxiety, Asthma, Bronchitis, COPD Denies: HIV, Chronic Kidney Disease - Surgical History Surgical History: Denies: Coronary Stent, Pacemaker - Family History Family History: States: Unknown Family Hx - Social History Current smoker - smoking cessation education provided: No Alcohol: None Drugs: Denies - Home Medications Home Medications: Ambulatory Orders Medication Instructions Recorded Albuterol 0.042% [Albuterol 0.042% 1 inh NEB QID 01/07/17 Inhal Jamee (1.25mg/3ml) UD] Ipratropium 0.02% [Atrovent] 1 inh INH Q6 PRN 02/09/17 Levalbuterol [Xopenex] 1 inh INH 12 02/09/17 Fluticasone/Salmeterol 500/50 1 dsk IH Q12 #60 puff 03/14/17 [Advair Diskus] Methylprednisolone [Medrol Dose 4 mg PO DAILY #21 mg 03/14/17 Pack (21 tabs)] Montelukast [Singulair] 10 mg PO HS #30 tab 03/14/17 Promethazine [Phenergan Syrup] 12.5 mg PO Q6 #1 bottle 03/14/17 Albuterol 0.083% [Albuterol 3 ml IH Q4 PRN #20 neb 04/12/17 Sulfate 3 Ml] predniSONE [predniSONE Tab] 60 mg PO DAILY 3 Days tab 05/10/17 Prednisone [Deltasone] 40 mg PO DAILY 3 Days tablet 05/17/17 - Allergies Allergies/Adverse Reactions: Allergies Allergy/AdvReac Type Severity Reaction Status Date / Time acetaminophen Allergy SHORTNESS Verified 04/23/17 00:10 OF BREATH moxifloxacin HCl Allergy tendonitis Verified 04/23/17 00:10 [From Avelox] Penicillins Allergy SHORTNESS Verified 04/23/17 00:10 OF BREATH Review of Systems ROS Statement: Except As Marked, All Systems Reviewed And Found Negative Respiratory: Positive for: Shortness of Breath Physical Exam - Reviewed Nursing Documentation Reviewed: Yes Vital Signs Reviewed: Yes - Physical Exam Appears: Positive for: In Acute Distress Head Exam: Positive for: ATRAUMATIC, NORMAL INSPECTION, NORMOCEPHALIC Skin: Positive for: Normal Color Eye Exam: Positive for: Normal appearance ENT: Positive for: Normal ENT Inspection. Negative for: Pharyngeal Erythema, Tonsillar Swelling Neck: Positive for: Normal, Supple Cardiovascular/Chest: Positive for: Regular Rate, Rhythm Respiratory: Positive for: Decreased Breath Sounds, Wheezing (bilaterally), Respiratory Distress (moderate) Neurologic/Psych: Positive for: Alert, Oriented. Negative for: Other (speaking full sentences) - Laboratory Results Result Diagrams: 05/18/17 05:35 05/18/17 05:35 - ECG O2 Sat by Pulse Oximetry: 99 (RA) Pulse Ox Interpretation: Normal Medical Decision Making Medical Decision Making: Initial Impression: A/P: Hx of asthma and COPd presenting with moderate asthma exacerbation. --Will give Duoneb 3ml INH and Magnesium sulfate 2gm in 50ml IVPB for treatment. --Pending lab and CXR results. 0700 Patient still wheezing, requesting 2 grams more of Magnesium. Will administer, will endorse to Dr. Wagner pending re-eval. Patient refusing bipap stating " the Mag will help." Scribe Attestation: Documented by Kortney Bae, acting scribe for Mack Higuera MD. Provider Scribe Attestation: All medical record entries made by the Scribe were at my direction and personally dictated by me. I have reviewed the chart and agree that the record accurately reflects my personal performance of the history, physical exam, medical decision making, and the department course for this patient. I have also personally directed, reviewed, and agree with the discharge instructions and disposition. Disposition - Clinical Impression Clinical Impression: Moderate COPD (chronic obstructive pulmonary disease) - Patient ED Disposition Is Patient to be Admitted: Transfer of Care - Disposition Disposition: Transfer of Care Disposition Time: 07:00 Condition: FAIR Forms: [employer] (Yoruba) Patient Signed Over To: Juan M Wagner Handoff Comments: pending re-eval after Mag
[2017-05-18 06:27] LABS: BLOOD UREA NITROGEN 18 mg/dl (7-17); CALCIUM 8.9 mg/dL (8.4-10.2); GFR AFRICAN-AMERICAN > 60; GFR NON-AFRICAN AMERICAN > 60
--- NOTE | 2017-05-18 08:26 | RAD ---
HISTORY: asthma exacerbation COMPARISON: 03/12/2017 FINDINGS: LUNGS: Bilateral hyperaeration -similar -compatible with COPD, asthma/ emphysema. . No interval consolidation. PLEURA: No significant pleural effusion identified, no pneumothorax apparent. CARDIOVASCULAR: Normal. OSSEOUS STRUCTURES: No significant abnormalities. VISUALIZED UPPER ABDOMEN: Normal. OTHER FINDINGS: None. IMPRESSION: No interval acute cardiopulmonary pathology. Hyperaeration consistent with the above
[2017-05-18 10:49] VITALS: BP 108/71; PULSE 91; RESP 17; TEMP 98.4; O2SAT 97
== END 2017-05-18 11:12 | disposition home or self-care (01) ==
LOC: H.ER 05:34
DX: J44.9 Chronic obstructive pulmonary disease, unspecified (principal); Z88.0 Allergy status to penicillin

== ENCOUNTER 2017-05-25 05:43 | Emergency (ER) | payer BC ==
[2017-05-25 05:44] VITALS: BMI 18.7
[2017-05-25 05:52] VITALS: O2SAT 96
[2017-05-25] MEDS ORDERED: Magnesium Sulfate 1 GM in Dextrose 5% In Water 100 ML IV STA (05:54)
[2017-05-25] MEDS ORDERED: Albuterol-Ipratrop 3 mg / 0.5 (3 ml) UD INH STA ×2 (05:54→08:32)
[2017-05-25] MEDS ORDERED: Albuterol-Ipratrop 3 mg / 0.5 (3 ml) UD ONE (06:02)
--- NOTE | 2017-05-25 06:02 | ED PDOC ---
HPI: SOB/CHF/COPD Time Seen by Provider: 05/25/17 05:46 Chief Complaint (Nursing): Respiratory Distress Chief Complaint (Provider): Respiratory Distress History Per: Patient History/Exam Limitations: no limitations Onset/Duration Of Symptoms: Sudden Onset Current Symptoms Are (Timing): Still Present Additional Complaint(s): 47 year old female with medical history of asthma and COPD, presents to the emergency department for sudden onset of shortness of breath. She denied any nausea, vomiting or chest pain. Patient reports using Albuterol with no alleviation and requesting Magnesium upon arrival. PMD: none provided Past Medical History Reviewed: Historical Data, Nursing Documentation, Vital Signs Vital Signs: Last Vital Signs Temp 98 F 05/25/17 05:49 Pulse 107 H 05/25/17 05:49 Resp 24 05/25/17 06:18 BP 152/90 H 05/25/17 05:49 Pulse Ox 96 05/25/17 06:26 - Medical History PMH: Anxiety, Asthma, Bronchitis, COPD Denies: HIV, Chronic Kidney Disease - Surgical History Surgical History: Denies: Coronary Stent, Pacemaker - Family History Family History: States: Unknown Family Hx - Home Medications Home Medications: Ambulatory Orders Medication Instructions Recorded Albuterol 0.042% [Albuterol 0.042% 1 inh NEB QID 01/07/17 Inhal Jamee (1.25mg/3ml) UD] Ipratropium 0.02% [Atrovent] 1 inh INH Q6 PRN 02/09/17 Levalbuterol [Xopenex] 1 inh INH 12 02/09/17 Fluticasone/Salmeterol 500/50 1 dsk IH Q12 #60 puff 03/14/17 [Advair Diskus] Methylprednisolone [Medrol Dose 4 mg PO DAILY #21 mg 03/14/17 Pack (21 tabs)] Montelukast [Singulair] 10 mg PO HS #30 tab 03/14/17 Promethazine [Phenergan Syrup] 12.5 mg PO Q6 #1 bottle 03/14/17 Albuterol 0.083% [Albuterol 3 ml IH Q4 PRN #20 neb 04/12/17 Sulfate 3 Ml] predniSONE [predniSONE Tab] 60 mg PO DAILY 3 Days tab 05/10/17 Prednisone [Deltasone] 40 mg PO DAILY 3 Days tablet 05/17/17 - Allergies Allergies/Adverse Reactions: Allergies Allergy/AdvReac Type Severity Reaction Status Date / Time acetaminophen Allergy SHORTNESS Verified 05/25/17 05:49 OF BREATH moxifloxacin HCl Allergy tendonitis Verified 05/25/17 05:49 [From Avelox] Penicillins Allergy SHORTNESS Verified 05/25/17 05:49 OF BREATH Review of Systems ROS Statement: Except As Marked, All Systems Reviewed And Found Negative Cardiovascular: Negative for: Chest Pain Respiratory: Positive for: Shortness of Breath Gastrointestinal: Negative for: Nausea, Vomiting Physical Exam - Reviewed Nursing Documentation Reviewed: Yes Vital Signs Reviewed: Yes - Physical Exam Appears: Positive for: Non-toxic, Uncomfortable, In Acute Distress (moderate) Head Exam: Positive for: ATRAUMATIC, NORMAL INSPECTION, NORMOCEPHALIC Skin: Positive for: Normal Color Eye Exam: Positive for: Normal appearance Neck: Positive for: Normal Cardiovascular/Chest: Positive for: Regular Rate, Rhythm, Chest Non Tender Respiratory: Positive for: Decreased Breath Sounds, Wheezing (diffuse bilaterally), Respiratory Distress (moderate) Gastrointestinal/Abdominal: Positive for: Normal Exam, Soft. Negative for: Tenderness Extremity: Positive for: Normal ROM (upper/lower) Neurologic/Psych: Positive for: Alert (x3), Oriented - Laboratory Results Result Diagrams: 05/25/17 06:00 - ECG O2 Sat by Pulse Oximetry: 96 (RA) Pulse Ox Interpretation: Normal - Critical Care Total Time (In Min): 60 Medical Decision Making Medical Decision Making: Initial Impression: 47 y/o female with shortness of breath in setting of known asthma and COPD Initial Plan: * EKG * BMP * Urine * CBC * Duoneb 9ml INH * Magnesium Sulfate 100ml IV * Solu-Medrol 125mg IVP * Peak flow pre/post tx Time: 0700 --Patient is endorsed to Dr. Juan M Wagner. Pending lab results and re- evaluation. Scribe Attestation: Documented by Kortney Bae, acting as a scribe for Lisandro Norman MD. Provider Scribe Attestation: All medical record entries made by the Scribe were at my direction and personally dictated by me. I have reviewed the chart and agree that the record accurately reflects my personal performance of the history, physical exam, medical decision making, and the department course for this patient. I have also personally directed, reviewed, and agree with the discharge instructions and disposition. Disposition - Clinical Impression Clinical Impression: Asthma exacerbation - Patient ED Disposition Is Patient to be Admitted: Transfer of Care - Disposition Disposition Time: 07:00 Condition: FAIR Forms: [email or web address] (Kazakh) Patient Signed Over To: Juan M Wagner
[2017-05-25 06:19] LABS: BASO # 0.1 K/uL (0.0-0.2); BASO % 1.4 % (0.0-2.0); EOS # 0.7 K/uL (0.0-0.7); HEMOGLOBIN 14.4 g/dL (12.0-16.0); LYMPH # 3.9 K/uL (1.0-4.3); LYMPH % 39.6 % (20.0-40.0); MEAN CELL VOLUME 92.6 fl (81.0-99.0); MEAN CORPUSCULAR HEMOGLOBIN 31.6 pg (27.0-31.0); MEAN CORPUSCULAR HGB CONC 34.2 g/dL (33.0-37.0); MEAN PLATELET VOLUME 8.4 fl (7.2-11.7); MONO # 0.7 K/uL (0.0-0.8); MONO % 7.7 % (0.0-10.0); NEUT # 4.3 K/uL (1.8-7.0); NEUT % 44.3 % (50.0-75.0); RBC 4.56 Mil/uL (3.80-5.20); RED CELL DISTRIBUTION WIDTH 13.1 % (11.5-14.5); WHITE BLOOD COUNT 9.7 K/uL (4.8-10.8)
[2017-05-25 07:04] LABS: BLOOD UREA NITROGEN 22 mg/dl (7-17); CALCIUM 9.9 mg/dL (8.4-10.2); GFR AFRICAN-AMERICAN > 60; GFR NON-AFRICAN AMERICAN > 60
--- NOTE | 2017-05-25 07:38 | ED PDOC ---
- Laboratory Results Result Diagrams: 05/25/17 06:00 05/25/17 06:00 - ECG O2 Sat by Pulse Oximetry: 96 (RA) Pulse Ox Interpretation: Normal <Juan M Wagner - Last Filed: 05/25/17 07:37> - Laboratory Results Result Diagrams: 05/25/17 06:00 05/25/17 06:00 <Urban White - Last Filed: 05/25/17 11:00> Medical Decision Making <Juan M Wagner - Last Filed: 05/25/17 07:37> <Urban White - Last Filed: 05/25/17 11:00> Medical Decision Making: Time: 7:00 --Patient transferred to me by Dr. Lisandro Norman pending reevaluation Scribe Attestation: Documented by Tam Wolf, acting as a scribe for Juan M Wagner MD Provider Scribe Attestation: All medical record entries made by the Scribe were at my direction and personally dictated by me. I have reviewed the chart and agree that the record accurately reflects my personal performance of the history, physical exam, medical decision making, and the department course for this patient. I have also personally directed, reviewed, and agree with the discharge instructions and disposition. (KristyJuan M Connelly) Patient was examined at 8:30. States she is feeling better. Still has wheezing, but breathing more comfortably. No cough with inspiration. Will give Magnesium 1 gm and duoneb after. Reeval at 9:30 Declined duoneb, feels much better after Magensium treatment. Wants to go home. Patient states she has Albuterol, Atrovent, Qvar at home. Does not need prescriptions for her medications . Case d/w Dr. Wagner (Urban White) Disposition <Juan M Wagner - Last Filed: 05/25/17 07:37> - POA Present On Arrival: None - Disposition Disposition: Routine/Home Disposition Time: 10:00 <Urban White - Last Filed: 05/25/17 11:00> - Clinical Impression Clinical Impression: Asthma exacerbation - Disposition Referrals: [facility] [Outside] Condition: FAIR Additional Instructions: Patient states she has PCP and inhalers at home. Atrovent, Albuterol, Qvar. Encouraged compliance and clost follow up with PCP. ED precautions given to patient. Instructions: Asthma in Adults, Avoiding Asthma Triggers, Inhalers Forms: [facility] (Ugandan) Print Language: KAZAKH
[2017-05-25] MEDS ORDERED: Magnesium Sulfate 1 gm in D5W 1 GM/100 ML BAG IVPB ONE (08:29)
[2017-05-25 10:16] VITALS: BP 118/67; PULSE 91; RESP 19; TEMP 97.7
== END 2017-05-25 10:24 | disposition home or self-care (01) ==
LOC: H.ER 05:43
DX: J45.901 Unspecified asthma with (acute) exacerbation (principal)
CPT/HCPCS: 80048; 85025; 96365; 96375; 99284; J2930; J3475

== ENCOUNTER 2017-05-29 04:06 | Emergency (ER) | payer BC ==
[2017-05-29 04:06] VITALS: BMI 18.7
[2017-05-29 04:20] VITALS: BP 114/72; PULSE 119; RESP 21; TEMP 98.2; O2SAT 96
[2017-05-29] MEDS ORDERED: Magnesium Sulfate 2 gm/50 ml 2 GM/50 ML BAG IVPB ONE (04:38)
--- NOTE | 2017-05-29 05:16 | ED PDOC ---
HPI: Asthma Time Seen by Provider: 05/29/17 04:13 Chief Complaint (Nursing): Respiratory Distress History Per: Patient History/Exam Limitations: no limitations Onset/Duration Of Symptoms: Hrs (x couple hours ago) Current Symptoms Are (Timing): Still Present Additional History Per: Prior Records Additional Complaint(s): 47-year-old female, with a history of asthma, was brought in by EMS for asthma exacerbation couple hours ago. States she used inhaler, but did not help and called EMS. As per EMS, patient was given 3 nebulizers, Magnesium sulfate IV, and Epi IM. Patient improved after all medications given to her on the field. (+ ) cough, (+) wheezing, (+) difficulty breathing. (-) chest pain, (-) fever. Patient had multiple asthma attacks throughout the year. Patient has multiple visits for asthma exacerbation. Patient is well-know to ED staff. PMD: Dr. Keller Past Medical History Reviewed: Historical Data, Nursing Documentation, Vital Signs Vital Signs: Last Vital Signs Temp 98.2 F 05/29/17 04:12 Pulse 119 H 05/29/17 04:12 Resp 21 05/29/17 04:12 BP 114/72 05/29/17 04:12 Pulse Ox 96 05/29/17 04:12 - Medical History PMH: Anxiety, Asthma, Bronchitis, COPD Denies: HIV, Chronic Kidney Disease - Surgical History Surgical History: Denies: Coronary Stent, Pacemaker - Family History Family History: States: Unknown Family Hx - Social History Current smoker - smoking cessation education provided: No Alcohol: None Drugs: Denies - Home Medications Home Medications: Ambulatory Orders Medication Instructions Recorded Albuterol 0.042% [Albuterol 0.042% 1 inh NEB QID 01/07/17 Inhal Jamee (1.25mg/3ml) UD] Ipratropium 0.02% [Atrovent] 1 inh INH Q6 PRN 02/09/17 Levalbuterol [Xopenex] 1 inh INH 12 02/09/17 Fluticasone/Salmeterol 500/50 1 dsk IH Q12 #60 puff 03/14/17 [Advair Diskus] Methylprednisolone [Medrol Dose 4 mg PO DAILY #21 mg 03/14/17 Pack (21 tabs)] Montelukast [Singulair] 10 mg PO HS #30 tab 03/14/17 Promethazine [Phenergan Syrup] 12.5 mg PO Q6 #1 bottle 03/14/17 Albuterol 0.083% [Albuterol 3 ml IH Q4 PRN #20 neb 04/12/17 Sulfate 3 Ml] Prednisone [Deltasone] 40 mg PO DAILY 3 Days tablet 05/17/17 predniSONE [predniSONE Tab] 60 mg PO DAILY 3 Days tab 05/29/17 - Allergies Allergies/Adverse Reactions: Allergies Allergy/AdvReac Type Severity Reaction Status Date / Time acetaminophen Allergy SHORTNESS Verified 05/29/17 04:12 OF BREATH moxifloxacin HCl Allergy tendonitis Verified 05/29/17 04:12 [From Avelox] Penicillins Allergy SHORTNESS Verified 05/29/17 04:12 OF BREATH Review of Systems ROS Statement: Except As Marked, All Systems Reviewed And Found Negative Constitutional: Negative for: Fever Cardiovascular: Negative for: Chest Pain Respiratory: Positive for: Cough, Wheezing, Other (difficulty breathing) Physical Exam - Reviewed Nursing Documentation Reviewed: Yes Vital Signs Reviewed: Yes - Physical Exam Appears: Positive for: Well Head Exam: Positive for: ATRAUMATIC, NORMAL INSPECTION, NORMOCEPHALIC Skin: Positive for: Normal Color, Warm, Dry Eye Exam: Positive for: Normal appearance, EOMI, PERRL ENT: Positive for: Normal ENT Inspection Neck: Positive for: Normal Cardiovascular/Chest: Positive for: Tachycardia Respiratory: Positive for: Wheezing (Mild diffuse wheezing bilaterally). Negative for: Respiratory Distress Gastrointestinal/Abdominal: Positive for: Normal Exam Back: Positive for: Normal Inspection Extremity: Positive for: Normal ROM. Negative for: Deformity Neurologic/Psych: Positive for: Alert, Oriented - Laboratory Results Result Diagrams: 05/29/17 05:30 05/29/17 05:30 - ECG O2 Sat by Pulse Oximetry: 96 (RA) Pulse Ox Interpretation: Normal Medical Decision Making Medical Decision Making: Time: 04:38 Impression(s): Shortness of Breath Differentials include, but not limited to: Asthma Exacerbation Plan: - EKG - BMP - Magnesium - CBC - Magnesium Sulfate 2 gm/50 ml Water - SOLU-Medrol 125 mg IVP 06.30 Upon provider evaluation patient is medically stable, and requires no further treatment in the ED at this time. Patient will be discharged with Rx for predniSONE Tab. Counseling was provided and all questions were answered regarding diagnosis and need for follow up with PCP. There is agreement to discharge plan. Return if symptoms persist or worsen. Scribe Attestation: Documented by Jean Peters, acting as a scribe for Mio Whitfield MD. Provider Scribe Attestation: All medical record entries made by the Scribe were at my direction and personally dictated by me. I have reviewed the chart and agree that the record accurately reflects my personal performance of the history, physical exam, medical decision making, and the department course for this patient. I have also personally directed, reviewed, and agree with the discharge instructions and disposition. Disposition - Clinical Impression Clinical Impression: Asthma exacerbation attacks - Patient ED Disposition Is Patient to be Admitted: No - Disposition Referrals: [facility] [Outside] Disposition: Routine/Home Disposition Time: 06:54 Condition: IMPROVED Additional Instructions: Take your medications as instructed. Follow up with your PCP in 2-3 days. Prescriptions: predniSONE [predniSONE Tab] 60 mg PO DAILY 3 Days tab Instructions: Asthma, Adult (DC) Forms: [employer] (Scottish)
[2017-05-29 06:14] LABS: BLOOD UREA NITROGEN 18 mg/dl (7-17); CALCIUM 9.2 mg/dL (8.4-10.2); GFR AFRICAN-AMERICAN > 60; GFR NON-AFRICAN AMERICAN > 60
[2017-05-29 06:15] LABS: BASO # 0.1 K/uL (0.0-0.2); BASO % 1.2 % (0.0-2.0); EOS # 0.5 K/uL (0.0-0.7); EOS % 4.7 % (0.0-4.0); HEMOGLOBIN 13.4 g/dL (12.0-16.0); LYMPH # 1.7 K/uL (1.0-4.3); LYMPH % 17.1 % (20.0-40.0); MEAN CELL VOLUME 92.8 fl (81.0-99.0); MEAN CORPUSCULAR HEMOGLOBIN 31.8 pg (27.0-31.0); MEAN CORPUSCULAR HGB CONC 34.2 g/dL (33.0-37.0); MEAN PLATELET VOLUME 8.8 fl (7.2-11.7); MONO # 0.8 K/uL (0.0-0.8); MONO % 7.8 % (0.0-10.0); NEUT % 69.2 % (50.0-75.0); NRBC % 0.1 % (0.0-0.0); RBC 4.22 Mil/uL (3.80-5.20); RED CELL DISTRIBUTION WIDTH 13.2 % (11.5-14.5); WHITE BLOOD COUNT 10.2 K/uL (4.8-10.8)
--- NOTE | 2017-05-29 10:39 | CARD ---
APPROVED REPORT EKG Measurement Heart [id number] <Conclusion> Normal sinus rhythm Normal ECG
[2017-05-29] MEDS ORDERED: Albuterol-Ipratrop 3 mg / 0.5 (3 ml) UD ONE (13:24)
== END 2017-05-29 07:29 | disposition home or self-care (01) ==
LOC: H.ER 04:06
DX: J45.901 Unspecified asthma with (acute) exacerbation (principal); F41.9 Anxiety disorder, unspecified; Z88.0 Allergy status to penicillin; J44.9 Chronic obstructive pulmonary disease, unspecified

== ENCOUNTER 2017-05-29 12:18 | Emergency (ER) | payer BC ==
[2017-05-29 12:18] VITALS: BMI 18.7
[2017-05-29 12:22] VITALS: TEMP 99; O2SAT 99
[2017-05-29] MEDS ORDERED: Albuterol-Ipratrop 3 mg / 0.5 (3 ml) UD INH STA (13:00)
--- NOTE | 2017-05-29 13:04 | ED PDOC ---
HPI: SOB/CHF/COPD Time Seen by Provider: 05/29/17 12:39 Chief Complaint (Nursing): Shortness Of Breath Chief Complaint (Provider): SOB History Per: Patient History/Exam Limitations: no limitations Additional Complaint(s): Pt returns to ED for SOB after being discharged 6 hours [employer]. States she went home, slept, took Prednisone and Codeine without relief. Denies CP, fever, cough. Past Medical History Reviewed: Nursing Documentation, Vital Signs Vital Signs: Last Vital Signs Temp 99.0 F 05/29/17 12:19 Pulse 115 H 05/29/17 12:19 Resp 26 H 05/29/17 12:19 BP 145/72 05/29/17 12:19 Pulse Ox 99 05/29/17 13:05 - Medical History PMH: Anxiety, Asthma, Bronchitis, COPD Denies: HIV, Chronic Kidney Disease - Surgical History Surgical History: Denies: Coronary Stent, Pacemaker - Family History Family History: States: Unknown Family Hx - Home Medications Home Medications: Ambulatory Orders Medication Instructions Recorded Albuterol 0.042% [Albuterol 0.042% 1 inh NEB QID 01/07/17 Inhal Jamee (1.25mg/3ml) UD] Ipratropium 0.02% [Atrovent] 1 inh INH Q6 PRN 02/09/17 Levalbuterol [Xopenex] 1 inh INH 12 02/09/17 Fluticasone/Salmeterol 500/50 1 dsk IH Q12 #60 puff 03/14/17 [Advair Diskus] Methylprednisolone [Medrol Dose 4 mg PO DAILY #21 mg 03/14/17 Pack (21 tabs)] Montelukast [Singulair] 10 mg PO HS #30 tab 03/14/17 Promethazine [Phenergan Syrup] 12.5 mg PO Q6 #1 bottle 03/14/17 Albuterol 0.083% [Albuterol 3 ml IH Q4 PRN #20 neb 04/12/17 Sulfate 3 Ml] Prednisone [Deltasone] 40 mg PO DAILY 3 Days tablet 05/17/17 predniSONE [predniSONE Tab] 60 mg PO DAILY 3 Days tab 05/29/17 - Allergies Allergies/Adverse Reactions: Allergies Allergy/AdvReac Type Severity Reaction Status Date / Time acetaminophen Allergy SHORTNESS Verified 05/29/17 04:12 OF BREATH moxifloxacin HCl Allergy tendonitis Verified 05/29/17 04:12 [From Avelox] Penicillins Allergy SHORTNESS Verified 05/29/17 04:12 OF BREATH Review of Systems Constitutional: Negative for: Fever, Chills Cardiovascular: Negative for: Chest Pain, Palpitations Respiratory: Positive for: Shortness of Breath, Wheezing. Negative for: Cough Gastrointestinal: Negative for: Nausea, Vomiting, Abdominal Pain, Diarrhea Skin: Negative for: Rash, Lesions Neurological: Negative for: Headache, Dizziness Physical Exam - Reviewed Nursing Documentation Reviewed: Yes Vital Signs Reviewed: Yes - Physical Exam Appears: Positive for: Well, No Acute Distress (Speaking full sentences) Skin: Positive for: Normal Color, Warm, Dry Eye Exam: Positive for: Normal appearance, EOMI, PERRL Cardiovascular/Chest: Positive for: Tachycardia Respiratory: Positive for: Wheezing (Minimal bilateral). Negative for: Decreased Breath Sounds, Accessory Muscle Use, Rales, Rhonchi, Stridor, Respiratory Distress Extremity: Positive for: Normal ROM Neurologic/Psych: Positive for: Alert, Oriented - ECG O2 Sat by Pulse Oximetry: 99 Medical Decision Making Medical Decision Makin yo female with SOB. - Albuterol/atrovent neb Pt refusing nebulizer treatment, states the 2 Codeine pills she took prior to coming in helped her. Wants to sleep in ED for 4 hours. Disposition - Clinical Impression Clinical Impression: Asthma - Disposition Disposition: Routine/Home Disposition Time: 14:13 Condition: STABLE Additional Instructions: FOLLOW-UP WITH PMD WITHIN 2 DAYS FOR REEVALUATION. Instructions: Asthma in Adults Forms: [employer] [facility] ([place])
[2017-05-29 15:19] VITALS: BP 140/70; PULSE 92; RESP 18
== END 2017-05-29 15:00 | disposition home or self-care (01) ==
LOC: H.ER 12:18
DX: J45.909 Unspecified asthma, uncomplicated (principal)

== ENCOUNTER 2017-06-03 17:36 | Inpatient (IN) | payer BC, MEDICARE ==
[2017-06-03] MEDS ORDERED: Albuterol-Ipratrop 3 mg / 0.5 (3 ml) UD INH STA ×2 (18:17→19:40)
[2017-06-03] MEDS ORDERED: Magnesium Sulfate 2 gm/50 ml 2 GM/50 ML BAG IVPB STA (18:17)
[2017-06-03] MEDS ORDERED: Albuterol-Ipratrop 3 mg / 0.5 (3 ml) UD ONE (18:24)
--- NOTE | 2017-06-03 18:25 | ED PDOC ---
HPI: SOB/CHF/COPD Time Seen by Provider: 06/03/17 18:08 Chief Complaint (Nursing): Shortness Of Breath Chief Complaint (Provider): Shortness Of Breath History Per: Patient History/Exam Limitations: no limitations Onset/Duration Of Symptoms: Days (x1) Current Symptoms Are (Timing): Still Present Additional Complaint(s): 47 year old female, well known to provider for multiple visits with history of COPD and asthma, presents to the emergency department with a complaint of shortness of breath associated with wheezing, chest pain and dry cough ongoing for 1 day. She denies any fever, chills, leg pain or swelling. Patient reports using her Nebulizer and 1 dose of Prednisone without relief and requesting Magnesium in ED. She states symptoms are similar to her asthma exacerbation, however, this episode is milder compared to her past episodes. PMD: none provided Past Medical History Reviewed: Historical Data, Nursing Documentation, Vital Signs Vital Signs: Last Vital Signs Temp 96.7 F L 06/05/17 08:54 Pulse 104 H 06/05/17 08:54 Resp 20 06/05/17 08:54 BP 95/67 L 06/05/17 08:54 Pulse Ox 95 06/05/17 08:54 - Medical History PMH: Anxiety, Asthma, Bronchitis, COPD Denies: HIV, Chronic Kidney Disease - Surgical History Surgical History: Denies: Coronary Stent, Pacemaker - Family History Family History: States: Unknown Family Hx - Social History Current smoker - smoking cessation education provided: No Alcohol: None Drugs: Denies - Home Medications Home Medications: Ambulatory Orders Medication Instructions Recorded Albuterol 0.042% [Albuterol 0.042% 1 inh NEB QID 01/07/17 Inhal Jamee (1.25mg/3ml) UD] Ipratropium 0.02% [Atrovent] 1 inh INH Q6 PRN 02/09/17 Levalbuterol [Xopenex] 1 inh INH 12 02/09/17 Albuterol 0.083% [Albuterol 3 ml IH Q4 PRN #20 neb 04/12/17 Sulfate 3 Ml] Codeine [Codeine] 30 mg PO Q4 PRN 06/03/17 - Allergies Allergies/Adverse Reactions: Allergies Allergy/AdvReac Type Severity Reaction Status Date / Time acetaminophen Allergy SHORTNESS Verified 06/03/17 18:02 OF BREATH moxifloxacin HCl Allergy tendonitis Verified 06/03/17 18:02 [From Avelox] Penicillins Allergy SHORTNESS Verified 06/03/17 18:02 OF BREATH Wells Criteria for PE - Wells Criteria for Pulmonary Embolism Clinical Signs and Symptoms of DVT: No P.E is #1 Diagnosis, or Equally Likely: No Heart Rate >100: No Immobilization at least 3 days;Surgery previous 4 weeks: No Previous, objectively diagnosed PE or DVT: No Hemoptysis: No Total Score: 0 Review of Systems ROS Statement: Except As Marked, All Systems Reviewed And Found Negative Constitutional: Negative for: Fever, Chills Cardiovascular: Positive for: Chest Pain Respiratory: Positive for: Cough (dry cough), Shortness of Breath, Wheezing Musculoskeletal: Negative for: Leg Pain (or swelling) Physical Exam - Reviewed Nursing Documentation Reviewed: Yes Vital Signs Reviewed: Yes - Physical Exam Appears: Positive for: Non-toxic, No Acute Distress Head Exam: Positive for: ATRAUMATIC, NORMAL INSPECTION, NORMOCEPHALIC Skin: Positive for: Normal Color Eye Exam: Positive for: Normal appearance, EOMI, PERRL ENT: Positive for: Normal ENT Inspection. Negative for: Pharyngeal Erythema, Tonsillar Swelling Neck: Positive for: Normal, Supple Cardiovascular/Chest: Positive for: Regular Rate, Rhythm, Chest Non Tender Respiratory: Positive for: Normal Breath Sounds, Wheezing (bilaterally). Negative for: Decreased Breath Sounds, Accessory Muscle Use, Respiratory Distress Gastrointestinal/Abdominal: Positive for: Normal Exam, Soft. Negative for: Tenderness Extremity: Positive for: Normal ROM (upper/lower). Negative for: Pedal Edema ( bilateral) Neurologic/Psych: Positive for: Alert, Oriented. Negative for: Motor/Sensory Deficits - Laboratory Results Result Diagrams: 06/04/17 05:30 06/04/17 05:30 - ECG O2 Sat by Pulse Oximetry: 93 (RA) Pulse Ox Interpretation: Normal Medical Decision Making Medical Decision Making: Initial Impression: Asthma exacerbation Initial Plan: * EKG * BMP * Troponin I * CBC * Duoneb 3ml INH * Magnesium sulfate 2gm in 50ml IVPB * Solu-medrol 125mg IVP Scribe Attestation: Documented by Kortney Bae, acting as a scribe for Mio Whitfield MD. Provider Scribe Attestation: All medical record entries made by the Scribe were at my direction and personally dictated by me. I have reviewed the chart and agree that the record accurately reflects my personal performance of the history, physical exam, medical decision making, and the department course for this patient. I have also personally directed, reviewed, and agree with the discharge instructions and disposition. Disposition - Clinical Impression Clinical Impression: Status asthmaticus, Asthma exacerbation in COPD - Patient ED Disposition Is Patient to be Admitted: Transfer of Care - Disposition Disposition: Transfer of Care Disposition Time: 19:00 Condition: STABLE Patient Signed Over To: Cary Fuller CARLI Risk Score for UA/NSTEMI - CARLI Risk Score Age > 64: NO 3 or more CAD Risk Factors: NO Known CAD (Stenosis greater than 50%): NO Aspirin use in past 7 days: NO Severe Angina: NO EKG ST changes greater than 0.5mm: NO Positive Cardiac Marker: NO CARLI Score: 0 % risk at 14 days of: all cause mortality, new or recurrent NV, or severe recurrent ischemia requiring urgen revascularization: 5%
[2017-06-03 19:08] LABS: BASO # 0.1 K/uL (0.0-0.2); BASO % 1.3 % (0.0-2.0); EOS # 0.6 K/uL (0.0-0.7); EOS % 6.3 % (0.0-4.0); HEMOGLOBIN 14.1 g/dL (12.0-16.0); LYMPH % 31.9 % (20.0-40.0); MEAN CELL VOLUME 93.5 fl (81.0-99.0); MEAN CORPUSCULAR HEMOGLOBIN 31.5 pg (27.0-31.0); MEAN CORPUSCULAR HGB CONC 33.7 g/dL (33.0-37.0); MEAN PLATELET VOLUME 8.6 fl (7.2-11.7); MONO # 0.8 K/uL (0.0-0.8); MONO % 9.1 % (0.0-10.0); NEUT # 4.8 K/uL (1.8-7.0); NEUT % 51.4 % (50.0-75.0); RBC 4.49 Mil/uL (3.80-5.20); RED CELL DISTRIBUTION WIDTH 13.7 % (11.5-14.5); WHITE BLOOD COUNT 9.3 K/uL (4.8-10.8)
[2017-06-03 19:09] LABS: BLOOD UREA NITROGEN 19 mg/dl (7-17); CALCIUM 9.6 mg/dL (8.4-10.2); GFR AFRICAN-AMERICAN > 60; GFR NON-AFRICAN AMERICAN > 60
--- NOTE | 2017-06-03 19:22 | ED PDOC ---
- Laboratory Results Result Diagrams: 06/03/17 18:56 06/03/17 18:56 - ECG O2 Sat by Pulse Oximetry: 93 (RA) Pulse Ox Interpretation: Abnormal - Critical Care Total Time (In Min): 30 Documented Critical Care: Time excludes all time spent performint seperately billable procedures Medical Decision Making Medical Decision Making: Time: 1899 --Patient is endorsed to provider by Dr. Mio Whitfield. Pending ER workup , reassessment, and final disposition. 2199 After multiple reevaluations at 1999 and 2099 pt continues to have diffuse wheeze and discomfort despite multiple doses of duonebs and magnesium. DW pt at length need for continued workup and hospitalization. Pt agreeable to hospitalization but refuses chest xray or any other doses of steroid or antibiotic. [facility] JORGE Mancini Hospitalist for ICU. Scribe Attestation: Documented by Cyndy Bee, acting as a scribe for Cary Fuller MD Provider Scribe Attestation: All medical entries made by the Scribe were at my direction and personally dictated by me. I have reviewed the chart and agree that the record accurately reflects my personal performance of the history, physical exam, medical decision making, and the department course for this patient. I have also personally directed, reviewed, and agree with the discharge instructions and disposition. Disposition - Clinical Impression Clinical Impression: Status asthmaticus - POA Present On Arrival: None - Disposition Disposition: Admitted as In-Patient Disposition Time: 22:00 Condition: CRITICAL
[2017-06-03] MEDS ORDERED: Magnesium Sulfate 2 gm/50 ml 2 GM/50 ML BAG IVPB ONE ×2 (19:46→21:19)
--- NOTE | 2017-06-03 21:01 | CP.PCM.CON ---
History of Present Illness - History of Present Illness History of Present Illness: CC: asthma exacerbation HPI: This is a 47 y/o female with MHx of asthma with recurrent admissions who comes in with worsening SOB and wheezing. She describes something about a ' tentanus infection' and some sort of 'dental surgery' that set off the exacerbation. Denies productive cough or fevers. ROS: 14 systems reviewed, negative other than HPI MHx: Asthma SHx: Dental surgery recently? Allergies: APAP, Avelox, and PCN Medications: As per med rec Family Hx: No relevant findings Social Hx: Patient lives alone, denies smoking, denies tobacco Past Patient History - Infectious Disease Hx of Infectious Diseases: None - Past Medical History & Family History Past Medical History?: Yes - Past Social History Alcohol: None Drugs: Denies - CARDIAC Hx Pacemaker: No - PULMONARY Hx Asthma: Yes Hx Bronchitis: Yes Hx Chronic Obstructive Pulmonary Disease (COPD): Yes - NEUROLOGICAL Hx Neurological Disorder: No Other/Comment: tetanus - HEENT Hx HEENT Problems: No - RENAL Hx Chronic Kidney Disease: No - ENDOCRINE/METABOLIC Hx Endocrine Disorders: No - HEMATOLOGICAL/ONCOLOGICAL Hx Human Immunodeficiency Virus (HIV): No - INTEGUMENTARY Hx Dermatological Problems: No - MUSCULOSKELETAL/RHEUMATOLOGICAL Hx Falls: No - GASTROINTESTINAL Hx Gastrointestinal Disorders: No - GENITOURINARY/GYNECOLOGICAL Hx Genitourinary Disorders: No - PSYCHIATRIC Hx Anxiety: Yes - SURGICAL HISTORY Hx Coronary Stent: No - ANESTHESIA Hx Anesthesia: Yes Hx Anesthesia Reactions: No Hx Malignant Hyperthermia: No Meds Allergies/Adverse Reactions: Allergies Allergy/AdvReac Type Severity Reaction Status Date / Time acetaminophen Allergy SHORTNESS Verified 06/03/17 18:02 OF BREATH moxifloxacin HCl Allergy tendonitis Verified 06/03/17 18:02 [From Avelox] Penicillins Allergy SHORTNESS Verified 06/03/17 18:02 OF BREATH Physical Exam - Constitutional Additional comments: appears uncomfortable, short of breath - Head Exam Head Exam: ATRAUMATIC, NORMOCEPHALIC - Eye Exam Eye Exam: EOMI, PERRL - ENT Exam ENT Exam: Mucous Membranes Moist - Neck Exam Neck exam: Positive for: Full Rom - Respiratory Exam Respiratory Exam: Clear to Auscultation Bilateral, NORMAL BREATHING PATTERN - Cardiovascular Exam Cardiovascular Exam: REGULAR RHYTHM, +S1, +S2 - GI/Abdominal Exam GI & Abdominal Exam: Normal Bowel Sounds, Soft - Extremities Exam Extremities exam: Positive for: normal inspection - Neurological Exam Neurological exam: Alert, CN II-XII Intact, Oriented x3 - Psychiatric Exam Psychiatric exam: Anxious, Normal Affect - Skin Skin Exam: Dry, Warm Results - Vital Signs Recent Vital Signs: Last Vital Signs Temp 97.9 F 06/03/17 18:02 Pulse 98 H 06/03/17 18:02 Resp 24 06/03/17 18:41 BP 123/80 06/03/17 18:02 Pulse Ox 93 L 06/03/17 19:22 - Labs Result Diagrams: 06/03/17 18:56 06/03/17 18:56 Labs: Laboratory Results - last 24 hr 06/03/17 06/03/17 06/03/17 18:56 18:56 19:48 WBC 9.3 RBC 4.49 Hgb 14.1 Hct 42.0 MCV 93.5 MCH 31.5 H MCHC 33.7 RDW 13.7 Plt Count 337 MPV 8.6 Neut % (Auto) 51.4 Lymph % (Auto) 31.9 [place] % (Auto) 9.1 Eos % (Auto) 6.3 H Baso % (Auto) 1.3 Neut # (Auto) 4.8 Lymph # (Auto) 3.0 [place] # (Auto) 0.8 Eos # (Auto) 0.6 Baso # (Auto) 0.1 Sodium 145 Potassium 3.5 L Chloride 103 Carbon Dioxide 26 Anion Gap 20 BUN 19 H Creatinine 0.7 Est GFR ( Amer) > 60 Est GFR (Non-Af Amer) > 60 Random Glucose 109 H Calcium 9.6 Phosphorus 3.5 Magnesium 2.0 Troponin I < 0.0120 Assessment & Plan (1) Status asthmaticus Assessment and Plan: 47 y/o female with asthma who presents with persistent sob and possible status asthmatics. -Admit ICU -q6h standing and PRN duonebs -IV Solumedrol 60 q8h -Mg IV if needed again -Protonix for ppx while on solumedrol -SQ Lovenox for dvt ppx Status: Acute (2) DVT prophylaxis Status: Acute
[2017-06-03] MEDS ORDERED: methylPREDNISolone 60 MG in Sodium Chloride 0.9% 50 ML IV SCH (21:15)
[2017-06-03] MEDS: Albuterol-Ipratrop 3 mg / 0.5 (3 ml) UD INH PRN (23:24)
[2017-06-04] MEDS ORDERED: Magnesium Sulfate 2 gm/50 ml 2 GM/50 ML BAG IVPB ONE (00:05)
[2017-06-04] MEDS ORDERED: Aspirin 325 mg EC Tablets PO STA (00:42)
[2017-06-04 05:02] VITALS: BMI 17.8
[2017-06-04 06:23] LABS: BASO % 0.2 % (0.0-2.0); HEMOGLOBIN 13.1 g/dL (12.0-16.0); LYMPH # 0.6 K/uL (1.0-4.3); LYMPH % 6.6 % (20.0-40.0); MEAN CELL VOLUME 93.1 fl (81.0-99.0); MEAN CORPUSCULAR HEMOGLOBIN 31.4 pg (27.0-31.0); MEAN CORPUSCULAR HGB CONC 33.7 g/dL (33.0-37.0); MEAN PLATELET VOLUME 8.6 fl (7.2-11.7); MONO # 0.1 K/uL (0.0-0.8); MONO % 1.1 % (0.0-10.0); NEUT # 8.2 K/uL (1.8-7.0); NEUT % 92.1 % (50.0-75.0); PLATELET COUNT 302 K/uL (130-400); RBC 4.17 Mil/uL (3.80-5.20); RED CELL DISTRIBUTION WIDTH 13.3 % (11.5-14.5); WHITE BLOOD COUNT 8.9 K/uL (4.8-10.8)
[2017-06-04 07:13] LABS: BLOOD UREA NITROGEN 17 mg/dl (7-17); GFR AFRICAN-AMERICAN > 60; GFR NON-AFRICAN AMERICAN > 60
[2017-06-04] MEDS: Albuterol-Ipratrop 3 mg / 0.5 (3 ml) UD INH SCH ×4 (07:24→19:25)
[2017-06-04] MEDS: Albuterol-Ipratrop 3 mg / 0.5 (3 ml) UD INH PRN ×2 (08:34→23:40)
[2017-06-04] MEDS: Enoxaparin 40 mg Syringe SC SCH (09:04)
[2017-06-04] MEDS: Pantoprazole 40 mg EC Tab PO SCH (09:09)
[2017-06-04] MEDS: Fluticasone-Salmeterol 500-50mcg Diskus IH SCH ×2 (09:10→21:17)
--- NOTE | 2017-06-04 12:35 | CARD ---
APPROVED REPORT EKG Measurement Heart [id number] <Conclusion> Sinus tachycardia Biatrial enlargement Nonspecific ST abnormality Abnormal ECG artefact present
[2017-06-04 13:15] LABS: LYMPHOCYTE 8 % (20-50); MONOCYTE 1 % (0-10); NEUTROPHIL 90 % (42-75); PLATELET ESTIMATE NORMAL (NORMAL); REACTIVE LYMPHOCYTES 1 % (0-0); TOTAL CELLS COUNTED 100
--- NOTE | 2017-06-04 13:29 | CP.PCM.HP ---
History of Present Illness - History of Present Illness History of Present Illness: Cc: Shortness of breath A 47 year old female with a past medical history of asthma and COPD who presented to the ED with complains of shortness of breath associated with wheezing, chest pain and dry cough ongoing for 1 day. Patient denies any fever, chills, nausea, vomiting, headache, dizziness, leg pain or swelling. States she used her Nebulizer at home as well as 1 dose of Prednisone without relief and requesting Magnesium in ED. Patient states symptoms are similar to her asthma exacerbation, however, this episode is milder compared to her past episodes. Present on Admission - Present on Admission Any Indicators Present on Admission: No Review of Systems - Constitutional Constitutional: As Per HPI. absent: Chills, Fever - Cardiovascular Cardiovascular: absent: Edema, Leg Edema, Palpitations - Respiratory Respiratory: Cough, Dyspnea, Wheezing, Pain with Coughing. absent: Hemoptysis Past Patient History - Infectious Disease Hx of Infectious Diseases: None - Past Medical History & Family History Past Medical History?: Yes Pertinent Family History: Non contributory - Past Social History Smoking Status: Never Smoked - CARDIAC Hx Pacemaker: No - PULMONARY Hx Asthma: Yes Hx Bronchitis: Yes Hx Chronic Obstructive Pulmonary Disease (COPD): Yes - NEUROLOGICAL Hx Neurological Disorder: No - HEENT Hx HEENT Problems: No - RENAL Hx Chronic Kidney Disease: No - ENDOCRINE/METABOLIC Hx Endocrine Disorders: No - HEMATOLOGICAL/ONCOLOGICAL Hx Human Immunodeficiency Virus (HIV): No - INTEGUMENTARY Hx Dermatological Problems: No - MUSCULOSKELETAL/RHEUMATOLOGICAL Hx Falls: No - GASTROINTESTINAL Hx Gastrointestinal Disorders: No - GENITOURINARY/GYNECOLOGICAL Hx Genitourinary Disorders: No - PSYCHIATRIC Hx Anxiety: Yes Hx Substance Use: No - SURGICAL HISTORY Hx Coronary Stent: No - ANESTHESIA Hx Anesthesia: Yes Hx Anesthesia Reactions: No Hx Malignant Hyperthermia: No Has any member of the family had a problem w/ anesthesia?: No Meds Home Medications: Home Medication List Medication Instructions Recorded Confirmed Type Fluticasone/Salmeterol 500/50 1 puff IH Q12 #1 puff 06/06/17 Rx [Advair Diskus 500/50] Methylprednisolone [Medrol Dose 4 mg PO DAILY #21 mg 06/06/17 Rx Pack (21 tabs)] Montelukast [Singulair] 10 mg PO HS #30 tab 06/06/17 Rx Pantoprazole [Protonix EC Tab] 40 mg PO DAILY #14 ect 06/06/17 Rx Allergies/Adverse Reactions: Allergies Allergy/AdvReac Type Severity Reaction Status Date / Time acetaminophen Allergy SHORTNESS Verified 06/03/17 18:02 OF BREATH moxifloxacin HCl Allergy tendonitis Verified 06/03/17 18:02 [From Avelox] Penicillins Allergy SHORTNESS Verified 06/03/17 18:02 OF BREATH Physical Exam - Constitutional Appears: Well, No Acute Distress - Head Exam Head Exam: ATRAUMATIC, NORMOCEPHALIC - Eye Exam Eye Exam: EOMI, Normal appearance, PERRL Pupil Exam: NORMAL ACCOMODATION - ENT Exam ENT Exam: Mucous Membranes Moist, Normal Exam - Neck Exam Neck exam: Positive for: Normal Inspection - Respiratory Exam Respiratory Exam: Wheezes (diffuse bilateral), NORMAL BREATHING PATTERN - Cardiovascular Exam Cardiovascular Exam: REGULAR RHYTHM, +S1, +S2 - GI/Abdominal Exam GI & Abdominal Exam: Normal Bowel Sounds, Soft - Rectal Exam Rectal Exam: Deferred - Extremities Exam Extremities exam: Positive for: full ROM, normal inspection - Back Exam Back exam: NORMAL INSPECTION - Neurological Exam Neurological exam: Alert, CN II-XII Intact, Oriented x3 - Psychiatric Exam Psychiatric exam: Normal Affect, Normal Mood - Skin Skin Exam: Dry, Normal Color, Warm Results - Vital Signs Recent Vital Signs: Last Vital Signs Temp 98.1 F 06/04/17 11:57 Pulse 96 H 06/04/17 11:57 Resp 18 06/04/17 11:57 BP 126/73 06/04/17 11:57 Pulse Ox 94 L 06/04/17 11:57 - Labs Result Diagrams: 06/04/17 05:30 06/04/17 05:30 Labs: Laboratory Results - last 24 hr 06/03/17 06/03/17 06/03/17 18:56 18:56 19:48 WBC 9.3 RBC 4.49 Hgb 14.1 Hct 42.0 MCV 93.5 MCH 31.5 H MCHC 33.7 RDW 13.7 Plt Count 337 MPV 8.6 Neut % (Auto) 51.4 Lymph % (Auto) 31.9 Divide % (Auto) 9.1 Eos % (Auto) 6.3 H Baso % (Auto) 1.3 Neut # (Auto) 4.8 Lymph # (Auto) 3.0 Divide # (Auto) 0.8 Eos # (Auto) 0.6 Baso # (Auto) 0.1 Neutrophils % (Manual) Lymphocytes % (Manual) Reactive Lymphs % Monocytes % (Manual) Platelet Estimate RBC Morphology Sodium 145 Potassium 3.5 L Chloride 103 Carbon Dioxide 26 Anion Gap 20 BUN 19 H Creatinine 0.7 Est GFR ( Amer) > 60 Est GFR (Non-Af Amer) > 60 Random Glucose 109 H Calcium 9.6 Phosphorus 3.5 Magnesium 2.0 Troponin I < 0.0120 06/04/17 06/04/17 05:30 05:30 WBC 8.9 RBC 4.17 Hgb 13.1 Hct 38.8 MCV 93.1 MCH 31.4 H MCHC 33.7 RDW 13.3 Plt Count 302 MPV 8.6 Neut % (Auto) 92.1 H Lymph % (Auto) 6.6 L Divide % (Auto) 1.1 Eos % (Auto) 0.0 Baso % (Auto) 0.2 Neut # (Auto) 8.2 H Lymph # (Auto) 0.6 L Divide # (Auto) 0.1 Eos # (Auto) 0.0 Baso # (Auto) 0.0 Neutrophils % (Manual) 90 H Lymphocytes % (Manual) 8 L Reactive Lymphs % 1 H Monocytes % (Manual) 1 Platelet Estimate Normal RBC Morphology Normal Sodium 136 Potassium 4.6 Chloride 101 Carbon Dioxide 23 Anion Gap 17 BUN 17 Creatinine 0.6 L Est GFR ( Amer) > 60 Est GFR (Non-Af Amer) > 60 Random Glucose 149 H Calcium 9.0 Phosphorus Magnesium Troponin I Assessment & Plan (1) Status asthmaticus Assessment and Plan: Respiratory treatments ATC and PRN Solumedrol IV Oxygen via NC as needed, maintain O2 sat >92% Peak flow Resume home medications, Advair, Singulair DVT prophylaxis Monitor Status: Acute
[2017-06-05] MEDS: Albuterol-Ipratrop 3 mg / 0.5 (3 ml) UD INH SCH ×4 (07:31→19:04)
[2017-06-05] MEDS: Albuterol-Ipratrop 3 mg / 0.5 (3 ml) UD INH PRN ×2 (07:48→14:30)
[2017-06-05] MEDS ORDERED: Magnesium Sulfate 2 gm/50 ml 2 GM/50 ML BAG IVPB ONE (07:49)
[2017-06-05] MEDS: Fluticasone-Salmeterol 500-50mcg Diskus IH SCH ×2 (08:55→21:42)
[2017-06-05] MEDS: Enoxaparin 40 mg Syringe SC SCH (08:56)
[2017-06-05] MEDS: Pantoprazole 40 mg EC Tab PO SCH (08:56)
--- NOTE | 2017-06-05 20:37 | CP.PCM.PN ---
Subjective - Date & Time of Evaluation Date of Evaluation: 06/05/17 Time of Evaluation: 16:50 - Subjective Subjective: Patient seen and examined at bedside. SOB improved Denies fever or chills Objective - Vital Signs/Intake and Output Vital Signs (last 24 hours): Temp Pulse Resp BP Pulse Ox 98 F 85 20 94/63 L 95 06/05/17 19:48 06/05/17 19:48 06/05/17 19:48 06/05/17 19:48 06/05/17 19:48 - Medications Medications: Current Medications Albuterol/Ipratropium (Duoneb 3 Mg/0.5 Mg (3 Ml) Ud) 3 ml INH RQ6 PRN PRN Reason: Shortness of Breath Last Admin: 06/05/17 14:30 Dose: 3 ml Albuterol/Ipratropium (Duoneb 3 Mg/0.5 Mg (3 Ml) Ud) 3 ml INH RQID [facility] Last Admin: 06/05/17 19:04 Dose: Not Given Enoxaparin Sodium (Lovenox) 40 mg SC DAILY BRANDI PRN Reason: Protocol Last Admin: 06/05/17 08:56 Dose: Not Given Methylprednisolone (Solu-Medrol) 60 mg IV Q8H [facility] Last Admin: 06/05/17 14:03 Dose: 60 mg Montelukast Sodium (Singulair) 10 mg PO HS [facility] Last Admin: 06/04/17 21:18 Dose: Not Given Pantoprazole Sodium (Protonix Ec Tab) 40 mg PO DAILY [facility] Last Admin: 06/05/17 08:56 Dose: Not Given Fluticasone/Salmeterol (Advair Diskus 500/50) 1 puff IH Q12 [facility] Last Admin: 06/05/17 08:55 Dose: Not Given - Labs Labs: 06/04/17 05:30 06/04/17 05:30 - Constitutional Appears: Well, No Acute Distress - Head Exam Head Exam: ATRAUMATIC, NORMOCEPHALIC - Respiratory Exam Respiratory Exam: Clear to Ausculation Bilateral, Wheezes (slight), NORMAL BREATHING PATTERN - Cardiovascular Exam Cardiovascular Exam: REGULAR RHYTHM, +S1, +S2 - GI/Abdominal Exam GI & Abdominal Exam: Soft, Normal Bowel Sounds - Neurological Exam Neurological Exam: Alert, Normal Gait, Oriented x3 - Psychiatric Exam Psychiatric exam: Normal Affect, Normal Mood - Skin Skin Exam: Dry, Normal Color, Warm Assessment and Plan (1) Status asthmaticus Assessment & Plan: Respiratory treatments ATC and PRN Solumedrol O2 as needed AdvStar pinkulair DVT prophylaxis monitor Status: Acute
[2017-06-06 07:55] VITALS: BP 105/61; PULSE 69; RESP 18; TEMP 98; O2SAT 95
[2017-06-06] MEDS: Albuterol-Ipratrop 3 mg / 0.5 (3 ml) UD INH SCH (07:56)
--- NOTE | 2017-06-06 10:10 | PQF GENQUE ---
This form is a permanent part of the medical record 06/06/17 Dr. Nascimento, Admitted with SOB, wheezing, chest pain and dry cough. ER notes: History of COPD and Asthma: Impression Status asthmaticus, Asthma exacerbation in COPD. Hospitalist: Asthma, possible status asthmaticus. No CXR results in EMR. Treated with Nebulizers, Magnesium Sulfate, Solumedrol, Singulair. Query: Please clarify the Type of Asthma along with the Acuity Status ( Exacerbation, Status Asthmaticus, Uncomplicated, etc ) AND is the COPD with or without exacerbation Or Other Explanation of Clinical Findings. Please clarify under physician response section. Clarification of your documentation is requested to better reflect the severity of illness and intensity of treatment of your patient. Indicators present PHYSICIAN'S RESPONSE Based on your medical judgment of the clinical indicators outlined above please clarify the following: [] Practitioner response [] If unable to determine, please check the box, sign and date. Present On Admission (POA) Indicator: [] Present at the time of admission [] Not present at the time of admission [] Clinically Undetermined In responding to this query, please exercise your independent professional judgment. The fact that a question is asked does not imply that any particular answer is desired or expected. Thank you for your clarification on this documentation. If you have any questions please call:extension [phone] * Thank you, Malissa Hedrick RN [facility]
--- NOTE | 2017-06-07 00:21 | CP.PCM.DIS ---
Provider - Provider Date of Admission: 06/03/17 20:58 Attending physician: Pj Nascimento MD Time Spent in preparation of Discharge (in minutes): 25 Diagnosis - Discharge Diagnosis (1) Status asthmaticus Status: Acute Hospital Course - Lab Results Lab Results: Micro Results 06/03/17 08:10 Naris MRSA Culture (Admit) - Final MRSA NOT DETECTED Most Recent Lab Values WBC 8.9 K/uL (4.8-10.8) 06/04/17 05:30 RBC 4.17 Mil/uL (3.80-5.20) 06/04/17 05:30 Hgb 13.1 g/dL (12.0-16.0) 06/04/17 05:30 Hct 38.8 % (34.0-47.0) 06/04/17 05:30 MCV 93.1 fl (81.0-99.0) 06/04/17 05:30 MCH 31.4 pg (27.0-31.0) H 06/04/17 05:30 MCHC 33.7 g/dL (33.0-37.0) 06/04/17 05:30 RDW 13.3 % (11.5-14.5) 06/04/17 05:30 Plt Count 302 K/uL (130-400) 06/04/17 05:30 MPV 8.6 fl (7.2-11.7) 06/04/17 05:30 Neut % (Auto) 92.1 % (50.0-75.0) H 06/04/17 05:30 Lymph % (Auto) 6.6 % (20.0-40.0) L 06/04/17 05:30 Knox % (Auto) 1.1 % (0.0-10.0) 06/04/17 05:30 Eos % (Auto) 0.0 % (0.0-4.0) 06/04/17 05:30 Baso % (Auto) 0.2 % (0.0-2.0) 06/04/17 05:30 Neut # (Auto) 8.2 K/uL (1.8-7.0) H 06/04/17 05:30 Lymph # (Auto) 0.6 K/uL (1.0-4.3) L 06/04/17 05:30 Knox # (Auto) 0.1 K/uL (0.0-0.8) 06/04/17 05:30 Eos # (Auto) 0.0 K/uL (0.0-0.7) 06/04/17 05:30 Baso # (Auto) 0.0 K/uL (0.0-0.2) 06/04/17 05:30 Neutrophils % (Manual) 90 % (42-75) H 06/04/17 05:30 Lymphocytes % (Manual) 8 % (20-50) L 06/04/17 05:30 Reactive Lymphs % 1 % (0-0) H 06/04/17 05:30 Monocytes % (Manual) 1 % (0-10) 06/04/17 05:30 Platelet Estimate Normal (NORMAL) 06/04/17 05:30 RBC Morphology Normal (NORMAL) 06/04/17 05:30 Sodium 136 mmol/l (132-148) 06/04/17 05:30 Potassium 4.6 MMOL/L (3.6-5.0) 06/04/17 05:30 Chloride 101 mmol/L (98-107) 06/04/17 05:30 Carbon Dioxide 23 mmol/L (22-30) 06/04/17 05:30 Anion Gap 17 (10-20) 06/04/17 05:30 BUN 17 mg/dl (7-17) 06/04/17 05:30 Creatinine 0.6 mg/dl (0.7-1.2) L 06/04/17 05:30 Est GFR ( Amer) > 60 06/04/17 05:30 Est GFR (Non-Af Amer) > 60 06/04/17 05:30 Random Glucose 149 mg/dL (65-105) H 06/04/17 05:30 Calcium 9.0 mg/dL (8.4-10.2) 06/04/17 05:30 Phosphorus 3.5 mg/dl (2.5-4.5) 06/03/17 19:48 Magnesium 2.0 MG/DL (1.6-2.3) 06/03/17 19:48 Troponin I < 0.0120 ng/mL (0.00-0.120) 06/03/17 18:56 - Hospital Course Hospital Course: A 47 year old female with a pmhx of asthma and COPD who presented with c/o of shortness of breath associated with cough and wheezing. The patient was treated for status asthmaticus with respiratory treatments, inhalers and systemic steroids. The patient improved and felt a lot better today. The patient was discharged home on medrol dose pack, advair, singulair and to continue rest of nebulizers at home and outpatient f/u in a week. Discharge Exam - Head Exam Head Exam: ATRAUMATIC, NORMOCEPHALIC - Respiratory Exam Respiratory Exam: Clear to PA & Lateral, NORMAL BREATHING PATTERN - Cardiovascular Exam Cardiovascular Exam: REGULAR RHYTHM, +S1, +S2 - GI/Abdominal Exam GI & Abdominal Exam: Normal Bowel Sounds, Soft - Psychiatric Exam Psychiatric exam: Normal Affect, Normal Mood - Skin Skin Exam: Dry, Intact, Warm Discharge Plan - Discharge Medications Prescriptions: Fluticasone/Salmeterol 500/50 [Advair Diskus 500/50] 1 puff IH Q12 #1 puff Methylprednisolone [Medrol Dose Pack (21 tabs)] 4 mg PO DAILY #21 mg Pantoprazole [Protonix EC Tab] 40 mg PO DAILY #14 ect Montelukast [Singulair] 10 mg PO HS #30 tab - Follow Up Plan Condition: STABLE Disposition: HOME/ ROUTINE Additional Instructions: pt. cleared for discharge to home today by pt. feels well, denies sob, cp, fever, chills Referrals: Pj Nascimento MD [Staff Provider] -
== END 2017-06-06 09:53 | disposition home or self-care (01) | DRG 191 ==
LOC: H.ER 17:36 → H.ERHOLD 20:58 → H.ICU/CCU 23:00 → H.TEL 06-04 10:13
PROVIDERS: ADMIT Internal Medicine; ATTEND Internal Medicine
DX: J44.1 Chronic obstructive pulmonary disease with (acute) exacerbation (principal); J45.901 Unspecified asthma with (acute) exacerbation; Z88.6 Allergy status to analgesic agent; Z88.3 Allergy status to other anti-infective agents; Z88.0 Allergy status to penicillin; F41.9 Anxiety disorder, unspecified

== ENCOUNTER 2017-06-16 03:51 | Emergency (ER) | payer BC, MEDICARE ==
[2017-06-16 03:51] VITALS: BMI 17.8
[2017-06-16] MEDS ORDERED: Magnesium Sulfate 2 gm/50 ml 2 GM/50 ML BAG IVPB ONE (04:12)
[2017-06-16] MEDS ORDERED: Albuterol-Ipratrop 3 mg / 0.5 (3 ml) UD INH STA ×2 (04:12→04:13)
[2017-06-16] MEDS ORDERED: Magnesium Sulfate 2 gm/50 ml 2 GM/50 ML BAG ONE (04:18)
--- NOTE | 2017-06-16 05:31 | ED PDOC ---
HPI: SOB/CHF/COPD Chief Complaint (Provider): SOB History Per: Patient (47 Y/O FEMALE H/O ASTHMA HERE WITH COMPLAINT OF SOB. NOTES ADDITIONAL SYMPTOMS ASSOCIATED CHRONIC JAW PAIN. PATIENT STATES CHRONIC JAW PAIN IS RELATED TO H/O TETANUS INFECTION.) <Davi Baker - Last Filed: 06/16/17 06:10> <Mack Higuera - Last Filed: 06/16/17 06:53> Time Seen by Provider: 06/16/17 04:09 Chief Complaint (Nursing): Shortness Of Breath Past Medical History Reviewed: Historical Data, Nursing Documentation, Vital Signs - Medical History PMH: Anxiety, Asthma, Bronchitis, COPD Denies: HIV, Chronic Kidney Disease - Surgical History Surgical History: Denies: Coronary Stent, Pacemaker - Family History Family History: States: Unknown Family Hx <Davi Baker - Last Filed: 06/16/17 06:10> <Mack Higuera - Last Filed: 06/16/17 06:53> Vital Signs: Last Vital Signs Temp 98.2 F 06/16/17 06:32 Pulse 87 06/16/17 06:32 Resp 16 06/16/17 06:32 BP 116/65 06/16/17 06:32 Pulse Ox 97 06/16/17 06:32 - Home Medications Home Medications: Ambulatory Orders Medication Instructions Recorded Albuterol 0.042% [Albuterol 0.042% 1 inh NEB QID 01/07/17 Inhal Jamee (1.25mg/3ml) UD] Ipratropium 0.02% [Atrovent] 1 inh INH Q6 PRN 02/09/17 Levalbuterol [Xopenex] 1 inh INH 12 02/09/17 Albuterol 0.083% [Albuterol 0.083% 3 ml IH Q4 PRN #20 neb 04/12/17 Inhal Jamee (2.5 mg/3 ml) UD] Codeine 30 mg PO Q4 PRN 06/03/17 Fluticasone/Salmeterol 500/50 1 puff IH Q12 #1 puff 06/06/17 [Advair Diskus 500/50] Methylprednisolone [Medrol Dose 4 mg PO DAILY #21 mg 06/06/17 Pack (21 tabs)] Montelukast [Singulair] 10 mg PO HS #30 tab 06/06/17 Pantoprazole [Protonix EC Tab] 40 mg PO DAILY #14 ect 06/06/17 predniSONE [predniSONE Tab] 3 tab PO DAILY #12 tab 06/16/17 - Allergies Allergies/Adverse Reactions: Allergies Allergy/AdvReac Type Severity Reaction Status Date / Time acetaminophen Allergy SHORTNESS Verified 06/03/17 18:02 OF BREATH moxifloxacin HCl Allergy tendonitis Verified 06/03/17 18:02 [From Avelox] Penicillins Allergy SHORTNESS Verified 06/03/17 18:02 OF BREATH Review of Systems ROS Statement: Except As Marked, All Systems Reviewed And Found Negative <Davi Baker - Last Filed: 06/16/17 06:10> Physical Exam - Reviewed Nursing Documentation Reviewed: Yes Vital Signs Reviewed: Yes - Physical Exam Appears: Positive for: Well, Non-toxic, No Acute Distress Head Exam: Positive for: ATRAUMATIC, NORMAL INSPECTION, NORMOCEPHALIC Skin: Positive for: Normal Color, Warm, DRY Eye Exam: Positive for: EOMI, Normal appearance, PERRL ENT: Positive for: Normal ENT Inspection Neck: Positive for: Normal, Painless ROM Cardiovascular/Chest: Positive for: Regular Rate, Rhythm Respiratory: Positive for: CNT, Normal Breath Sounds Gastrointestinal/Abdominal: Positive for: Normal Exam, Soft Back: Positive for: Normal Inspection Extremity: Positive for: Normal ROM Neurologic/Psych: Positive for: Alert, Oriented <Davi Baker - Last Filed: 06/16/17 06:10> - ECG O2 Sat by Pulse Oximetry: 93 <Davi Baker - Last Filed: 06/16/17 06:10> - Laboratory Results Result Diagrams: 06/16/17 04:25 06/16/17 04:25 <Mack Higuera - Last Filed: 06/16/17 06:53> - Progress ED Course And Treament: PATIENT REFUSED EKG INITIALLY PATIENT REFUSED SOLUMEDROL DUONEB X 3 / MAGNESIUM 2 GM IV GIVEN ASA 324 MG X 1 DOSE MORPHINE 2 MG IV X 1 DOSE FOR JAW PAIN REQUESTED BY PATIENT EKG: NSR 80BPM NO ECTOPY NO ACUTE CHANGES (Davi Baker) Medical Decision Making <Davi Baker - Last Filed: 06/16/17 06:10> <Mack Higuera - Last Filed: 06/16/17 06:53> Medical Decision Making: PAtient is feeling significantly improved after medicatoins. Speaking full sentences, vitals improved, wheezing improved. Will d/ chome. (Mack Higuera) Disposition - Disposition Disposition: Transfer of Care Disposition Time: 06:00 Patient Signed Over To: Mack Higuera Handoff Comments: LABWORK RESULTS <Davi Baker - Last Filed: 06/16/17 06:10> - Patient ED Disposition Is Patient to be Admitted: No - Disposition Disposition: Routine/Home Disposition Time: 06:53 <Mack Higuera - Last Filed: 06/16/17 06:53> - Clinical Impression Clinical Impression: Asthma exacerbation - Disposition Referrals: [facility] [Outside] Condition: STABLE Prescriptions: predniSONE [predniSONE Tab] 3 tab PO DAILY #12 tab Instructions: Asthma, Adult (DC) Forms: [facility] (Z[place]an)
[2017-06-16] MEDS ORDERED: Morphine 4 MG/ML VIAL IVP ONE (05:34)
[2017-06-16] MEDS ORDERED: Morphine 4 MG/ML VIAL ONE (05:42)
[2017-06-16 06:02] LABS: BASO # 0.1 K/uL (0.0-0.2); BASO % 1.3 % (0.0-2.0); EOS # 0.6 K/uL (0.0-0.7); EOS % 7.6 % (0.0-4.0); HEMOGLOBIN 14.1 g/dL (12.0-16.0); LYMPH # 2.8 K/uL (1.0-4.3); MEAN CELL VOLUME 93.5 fl (81.0-99.0); MEAN CORPUSCULAR HEMOGLOBIN 31.4 pg (27.0-31.0); MEAN CORPUSCULAR HGB CONC 33.6 g/dL (33.0-37.0); MONO # 0.8 K/uL (0.0-0.8); MONO % 10.7 % (0.0-10.0); NEUT # 3.5 K/uL (1.8-7.0); NEUT % 44.4 % (50.0-75.0); NRBC % 0.1 % (0.0-0.0); RBC 4.48 Mil/uL (3.80-5.20); RED CELL DISTRIBUTION WIDTH 13.7 % (11.5-14.5); WHITE BLOOD COUNT 7.8 K/uL (4.8-10.8)
[2017-06-16 06:13] LABS: BLOOD UREA NITROGEN 15 mg/dl (7-17); CALCIUM 9.7 mg/dL (8.4-10.2); GFR AFRICAN-AMERICAN > 60; GFR NON-AFRICAN AMERICAN > 60
[2017-06-16 06:33] VITALS: BP 116/65; PULSE 87; RESP 16; TEMP 98.2; O2SAT 97
--- NOTE | 2017-06-16 12:08 | CARD ---
APPROVED REPORT EKG Measurement Heart [id number] <Conclusion> Normal sinus rhythm Normal ECG
== END 2017-06-16 07:04 | disposition home or self-care (01) ==
LOC: H.ER 03:51
DX: J45.901 Unspecified asthma with (acute) exacerbation (principal); Z88.0 Allergy status to penicillin; F41.9 Anxiety disorder, unspecified; J44.9 Chronic obstructive pulmonary disease, unspecified
CPT/HCPCS: 80048; 84484; 85025; 93005; 94640; 96374; 99283; J2270

== ENCOUNTER 2017-06-25 02:23 | Emergency (ER) | payer BC ==
[2017-06-25 02:23] VITALS: BMI 18.8
[2017-06-25 02:32] VITALS: TEMP 97.8
[2017-06-25] MEDS ORDERED: Magnesium Sulfate 1 GM in Dextrose 5% In Water 100 ML IV STA ×2 (02:49→04:16)
[2017-06-25] MEDS ORDERED: Albuterol-Ipratrop 3 mg / 0.5 (3 ml) UD INH STA ×3 (02:49→02:57)
[2017-06-25] MEDS ORDERED: Albuterol-Ipratrop 3 mg / 0.5 (3 ml) UD ONE (03:06)
--- NOTE | 2017-06-25 03:30 | ED PDOC ---
HPI: SOB/CHF/COPD Time Seen by Provider: 06/25/17 02:38 Chief Complaint (Nursing): Abdominal Pain Chief Complaint (Provider): Shortness of Breath and Wheezing History Per: Patient History/Exam Limitations: no limitations Onset/Duration Of Symptoms: Hrs (x 2) Associated Symptoms: denies: Fever Additional Complaint(s): 47 years old female with history of asthma presents to the ED with complaints of shortness of breath and wheezing onset 2 hours. Patient denies any fever, nausea, vomiting or diarrhea. She is well know to provider for multiple visits to the ED. PMD: non provided Past Medical History Reviewed: Historical Data, Nursing Documentation, Vital Signs Vital Signs: Last Vital Signs Temp 97.8 F 06/25/17 02:31 Pulse 94 H 06/25/17 02:31 Resp 22 06/25/17 04:39 BP 125/83 06/25/17 02:31 Pulse Ox 93 L 06/25/17 03:35 - Medical History PMH: Anxiety, Asthma, Bronchitis, COPD Denies: HIV, Chronic Kidney Disease - Surgical History Surgical History: No Surg Hx Denies: Coronary Stent, Pacemaker - Family History Family History: States: Unknown Family Hx - Social History Current smoker - smoking cessation education provided: No Alcohol: None Drugs: Denies - Home Medications Home Medications: Ambulatory Orders Medication Instructions Recorded Albuterol 0.042% [Albuterol 0.042% 1 inh NEB QID 01/07/17 Inhal Jamee (1.25mg/3ml) UD] Ipratropium 0.02% [Atrovent] 1 inh INH Q6 PRN 02/09/17 Levalbuterol [Xopenex] 1 inh INH 12 02/09/17 Albuterol 0.083% [Albuterol 0.083% 3 ml IH Q4 PRN #20 neb 04/12/17 Inhal Jamee (2.5 mg/3 ml) UD] Codeine 30 mg PO Q4 PRN 06/03/17 Fluticasone/Salmeterol 500/50 1 puff IH Q12 #1 puff 06/06/17 [Advair Diskus 500/50] Methylprednisolone [Medrol Dose 4 mg PO DAILY #21 mg 06/06/17 Pack (21 tabs)] Montelukast [Singulair] 10 mg PO HS #30 tab 06/06/17 Pantoprazole [Protonix EC Tab] 40 mg PO DAILY #14 ect 06/06/17 predniSONE [predniSONE Tab] 3 tab PO DAILY #12 tab 06/16/17 - Allergies Allergies/Adverse Reactions: Allergies Allergy/AdvReac Type Severity Reaction Status Date / Time acetaminophen Allergy SHORTNESS Verified 06/03/17 18:02 OF BREATH moxifloxacin HCl Allergy tendonitis Verified 06/03/17 18:02 [From Avelox] Penicillins Allergy SHORTNESS Verified 06/03/17 18:02 OF BREATH Review of Systems ROS Statement: Except As Marked, All Systems Reviewed And Found Negative Constitutional: Negative for: Fever Respiratory: Positive for: Shortness of Breath, Wheezing Gastrointestinal: Negative for: Nausea, Vomiting, Diarrhea Physical Exam - Reviewed Nursing Documentation Reviewed: Yes Vital Signs Reviewed: Yes - Physical Exam Appears: Positive for: Non-toxic, No Acute Distress Head Exam: Positive for: ATRAUMATIC, NORMOCEPHALIC Skin: Positive for: Normal Color, Warm, Dry Eye Exam: Positive for: Normal appearance, EOMI, PERRL ENT: Positive for: Normal ENT Inspection Neck: Positive for: Normal, Painless ROM, Supple Cardiovascular/Chest: Positive for: Regular Rate, Rhythm. Negative for: Murmur Respiratory: Positive for: Wheezing (bilateral diffused expiratory), Respiratory Distress (mild) Extremity: Positive for: Normal ROM Neurologic/Psych: Positive for: Alert, Oriented - ECG O2 Sat by Pulse Oximetry: 93 (RA) Pulse Ox Interpretation: Abnormal - Critical Care Total Time (In Min): 30 Medical Decision Making Medical Decision Making: Time: 248 Initial Impression: 47 years old female with shortness of breath and wheezing. Initial Plan: --EKG --Albuterol 3 ml INH --Magnesium Sulfate 1 gm --SOLU-Medrol --Peak Flow Pre/Post Tx Time: 0507 Patient reports improvement of symptoms and denies experiencing SOB anymore. Patient is stable for discharge. Scribe Attestation: Documented by Maria Luisa Main, acting as a scribe for Lisandro Norman MD. Provider Scribe Attestation: All medical record entries made by the Scribe were at my direction and personally dictated by me. I have reviewed the chart and agree that the record accurately reflects my personal performance of the history, physical exam, medical decision making, and the department course for this patient. I have also personally directed, reviewed, and agree with the discharge instructions and disposition. Disposition - Clinical Impression Clinical Impression: Asthma exacerbation attacks - Disposition Disposition: Routine/Home Disposition Time: 05:07 Condition: IMPROVED Instructions: Asthma in Adults Forms: [facility] (Hungarian)
[2017-06-25 05:26] VITALS: BP 118/63; PULSE 92; RESP 20; O2SAT 95
== END 2017-06-25 06:20 | disposition home or self-care (01) ==
LOC: H.ER 02:23
DX: J45.901 Unspecified asthma with (acute) exacerbation (principal); F41.9 Anxiety disorder, unspecified; Z88.0 Allergy status to penicillin
CPT/HCPCS: 94640; 96374; 96375; 99283; J2930; J3475

== ENCOUNTER 2017-07-01 02:25 | Emergency (ER) | payer BC ==
[2017-07-01 02:25] VITALS: BMI 18.8
[2017-07-01] MEDS ORDERED: Albuterol-Ipratrop 3 mg / 0.5 (3 ml) UD INH STA ×3 (02:34→02:43)
[2017-07-01] MEDS ORDERED: Magnesium Sulfate 1 GM in Dextrose 5% In Water 100 ML IV STA ×2 (02:34→03:39)
[2017-07-01] MEDS ORDERED: MethylPREDNISolone 40 mg Vial ONE (02:39)
[2017-07-01] MEDS ORDERED: Magnesium Sulfate 2 gm/50 ml 0 GM/0 ML BAG ONE (02:40)
[2017-07-01 04:11] VITALS: O2SAT 98
--- NOTE | 2017-07-01 04:31 | ED PDOC ---
HPI: SOB/CHF/COPD Time Seen by Provider: 07/01/17 02:27 Chief Complaint (Nursing): Respiratory Distress Chief Complaint (Provider): SOB, wheezing History Per: Patient History/Exam Limitations: no limitations Onset/Duration Of Symptoms: Hrs (x2) Current Symptoms Are (Timing): Still Present Additional Complaint(s): 47 year old female, with a past medical history of asthma, presented to ED complaining of SOB and wheezing with onset of 2 hours. Patient is well known to the ED due asthma related visits. Patient denies fever, CP, nausea, vomiting , and diarrhea. PCP: none provided Past Medical History Reviewed: Historical Data, Nursing Documentation, Vital Signs Vital Signs: Last Vital Signs Temp 98.1 F 07/01/17 05:46 Pulse 92 H 07/01/17 05:46 Resp 18 07/01/17 05:46 BP 114/75 07/01/17 05:46 Pulse Ox 98 07/01/17 05:46 - Medical History PMH: Anxiety, Asthma, Bronchitis, COPD Denies: HIV, Chronic Kidney Disease - Surgical History Surgical History: No Surg Hx Denies: Coronary Stent, Pacemaker - Family History Family History: States: Unknown Family Hx - Social History Current smoker - smoking cessation education provided: No Alcohol: None Drugs: Denies - Home Medications Home Medications: Ambulatory Orders Medication Instructions Recorded Albuterol 0.042% [Albuterol 0.042% 1 inh NEB QID 01/07/17 Inhal Jamee (1.25mg/3ml) UD] Ipratropium 0.02% [Atrovent] 1 inh INH Q6 PRN 02/09/17 Levalbuterol [Xopenex] 1 inh INH 12 02/09/17 Albuterol 0.083% [Albuterol 0.083% 3 ml IH Q4 PRN #20 neb 04/12/17 Inhal Jamee (2.5 mg/3 ml) UD] Codeine 30 mg PO Q4 PRN 06/03/17 Fluticasone/Salmeterol 500/50 1 puff IH Q12 #1 puff 06/06/17 [Advair Diskus 500/50] Methylprednisolone [Medrol Dose 4 mg PO DAILY #21 mg 06/06/17 Pack (21 tabs)] Montelukast [Singulair] 10 mg PO HS #30 tab 06/06/17 Pantoprazole [Protonix EC Tab] 40 mg PO DAILY #14 ect 06/06/17 predniSONE [predniSONE Tab] 3 tab PO DAILY #12 tab 06/16/17 - Allergies Allergies/Adverse Reactions: Allergies Allergy/AdvReac Type Severity Reaction Status Date / Time acetaminophen Allergy SHORTNESS Verified 07/01/17 02:31 OF BREATH moxifloxacin HCl Allergy tendonitis Verified 07/01/17 02:31 [From Avelox] Penicillins Allergy SHORTNESS Verified 07/01/17 02:31 OF BREATH Review of Systems ROS Statement: Except As Marked, All Systems Reviewed And Found Negative Constitutional: Negative for: Fever, Chills Cardiovascular: Negative for: Chest Pain Respiratory: Positive for: Shortness of Breath, Wheezing Gastrointestinal: Negative for: Nausea, Vomiting, Diarrhea Physical Exam - Reviewed Nursing Documentation Reviewed: Yes Vital Signs Reviewed: Yes - Physical Exam Appears: Positive for: Non-toxic. Negative for: No Acute Distress (mild distress) Head Exam: Positive for: ATRAUMATIC, NORMAL INSPECTION, NORMOCEPHALIC Skin: Positive for: Normal Color, Warm, Dry Eye Exam: Positive for: Normal appearance Neck: Positive for: Normal, Painless ROM Cardiovascular/Chest: Positive for: Regular Rate, Rhythm, Tachycardia Respiratory: Positive for: Wheezing (bilaterally) Extremity: Positive for: Normal ROM Neurologic/Psych: Positive for: Alert, Oriented. Negative for: Motor/Sensory Deficits - ECG O2 Sat by Pulse Oximetry: 98 (RA) Pulse Ox Interpretation: Normal - Critical Care Total Time (In Min): 30 Medical Decision Making Medical Decision Making: Initial Impression: Asthmatic exacerbation, respiratory distress Initial Plan: ECG Albuterol 3mL INH Magnesium sulfate 1gm dextrose 5% IV Methylprednisolone 60mg IV Peak flow 05:24 Patient reports improvement in symptoms. Patient is stable for discharge with diagnosis of asthmatic exacerbation. Scribe Attestation: Documented by Dilip Becerra acting as a scribe for Lisandro Norman MD. Provider Scribe Attestation: All medical record entries made by the Scribe were at my direction and personally dictated by me. I have reviewed the chart and agree that the record accurately reflects my personal performance of the history, physical exam, medical decision making, and the department course for this patient. I have also personally directed, reviewed, and agree with the discharge instructions and disposition. Disposition - Clinical Impression Clinical Impression: Asthma attack - Patient ED Disposition Is Patient to be Admitted: No - Disposition Disposition: Routine/Home Disposition Time: 05:24 Condition: STABLE Instructions: Asthma in Adults Forms: [facility] (Iranian)
[2017-07-01 05:59] VITALS: BP 114/75; PULSE 92; RESP 18; TEMP 98.1
--- NOTE | 2017-07-01 07:12 | CARD ---
APPROVED REPORT EKG Measurement Heart [id number] <Conclusion> Sinus tachycardia normal ECG
== END 2017-07-01 06:18 | disposition home or self-care (01) ==
LOC: H.ER 02:25
DX: J45.901 Unspecified asthma with (acute) exacerbation (principal); F41.9 Anxiety disorder, unspecified; Z88.0 Allergy status to penicillin; J44.9 Chronic obstructive pulmonary disease, unspecified
CPT/HCPCS: 93005; 94640; 96365; 96366; 99284; J3475

== ENCOUNTER 2017-07-26 00:09 | Emergency (ER) | payer BC ==
[2017-07-26 00:51] VITALS: BMI 18.6
[2017-07-26 00:54] VITALS: BP 108/71; PULSE 85; RESP 18; TEMP 98.2; O2SAT 99
== END 2017-07-26 02:37 | disposition left against medical advice (07) ==
LOC: H.ER 00:09
DX: Z02.89 Encounter for other administrative examinations (principal)

== ENCOUNTER 2017-08-05 15:31 | Emergency (ER) | payer BC ==
[2017-08-05 15:31] VITALS: BMI 18.6
[2017-08-05 16:20] VITALS: BP 118/59; PULSE 99; TEMP 98.2; O2SAT 99
[2017-08-05] MEDS ORDERED: Albuterol-Ipratrop 3 mg / 0.5 (3 ml) UD INH STA (16:22)
[2017-08-05] MEDS ORDERED: Magnesium Sulfate 2 gm/50 ml 2 GM/50 ML BAG IVPB ONE (16:23)
--- NOTE | 2017-08-05 16:35 | ED PDOC ---
HPI: SOB/CHF/COPD Time Seen by Provider: 08/05/17 15:52 Chief Complaint (Nursing): Shortness Of Breath Chief Complaint (Provider): Asthma, Shortness Of Breath History Per: Patient History/Exam Limitations: no limitations Onset/Duration Of Symptoms: Days (x2) Current Symptoms Are (Timing): Still Present Additional Complaint(s): 47 y/o female with a PMHx of asthma, bronchitis, and COPD presenting for evaluation of asthma and shortness of breath associated with non-productive cough and chest tightness x2 days. Patient states her symptoms began last night and have worsened since onset. She reports this episode is similar to her previous episodes of asthma exacerbation. Patient has been to this ER multiple time for the same and treatment involves IV magnesium which patient is requesting at this time. She reports she feels a bit better upon arrival to the ER, but is concerned due to her generally worsening symptoms. She denies any fainting episodes or fever. Patient states she is complying with her medications. She states that she believes her chronic asthma is due to a tetanus infection she has in her tooth. PMD: None provided Past Medical History Reviewed: Historical Data, Nursing Documentation, Vital Signs Vital Signs: Last Vital Signs Temp 98.2 F 08/05/17 16:18 Pulse 99 H 08/05/17 16:18 Resp 20 08/05/17 17:19 BP 118/59 L 08/05/17 16:18 Pulse Ox 99 08/05/17 16:48 - Medical History PMH: Anxiety, Asthma, Bronchitis, COPD Denies: HIV, Chronic Kidney Disease - Surgical History Surgical History: No Surg Hx Denies: Coronary Stent, Pacemaker - Family History Family History: States: Unknown Family Hx - Social History Current smoker - smoking cessation education provided: No Alcohol: None Drugs: Denies - Home Medications Home Medications: Ambulatory Orders Medication Instructions Recorded Albuterol 0.083% [Albuterol 0.083% 3 ml IH Q4 PRN #20 neb 04/12/17 Inhal Jamee (2.5 mg/3 ml) UD] Codeine 30 mg PO Q4 PRN 06/03/17 Albuterol/Ipratropium [Duoneb 3 1 ea IH Q3 PRN #30 neb 07/26/17 MG/3 Ml-0.5 MG/3 Ml 3 Ml] predniSONE [Prednisone] 60 mg PO DAILY #12 tab 07/26/17 - Allergies Allergies/Adverse Reactions: Allergies Allergy/AdvReac Type Severity Reaction Status Date / Time acetaminophen Allergy SHORTNESS Verified 07/26/17 07:08 OF BREATH moxifloxacin HCl Allergy tendonitis Verified 07/26/17 07:08 [From Avelox] Penicillins Allergy SHORTNESS Verified 07/26/17 07:08 OF BREATH Review of Systems ROS Statement: Except As Marked, All Systems Reviewed And Found Negative Constitutional: Negative for: Fever Cardiovascular: Positive for: Other (chest tightness) Respiratory: Positive for: Cough, Shortness of Breath, Wheezing. Negative for: Sputum Neurological: Negative for: Dizziness Physical Exam - Reviewed Nursing Documentation Reviewed: Yes Vital Signs Reviewed: Yes - Physical Exam Appears: Positive for: Non-toxic, In Acute Distress (mild respiratory distress) Head Exam: Positive for: ATRAUMATIC, NORMOCEPHALIC Skin: Positive for: Warm, Dry Eye Exam: Positive for: EOMI, PERRL ENT: Negative for: Pharyngeal Erythema, Tonsillar Exudate Neck: Positive for: Painless ROM, Supple Cardiovascular/Chest: Positive for: Regular Rate, Rhythm. Negative for: Murmur Respiratory: Positive for: Rhonchi (diffuse bilateral), Wheezing (diffuse bilateral). Negative for: Accessory Muscle Use, Rales Gastrointestinal/Abdominal: Positive for: Soft. Negative for: Tenderness Extremity: Positive for: Normal ROM. Negative for: Deformity Lymphatic: Negative for: Adenopathy Neurologic/Psych: Positive for: Alert. Negative for: Motor/Sensory Deficits - Laboratory Results Result Diagrams: 08/05/17 17:08 08/05/17 17:08 - ECG ECG: Positive for: Interpreted By Me ECG Rhythm: Positive for: Normal QRS, Normal ST Segment, Sinus Rhythm O2 Sat by Pulse Oximetry: 99 (RA) Pulse Ox Interpretation: Normal Medical Decision Making Medical Decision Makin:21 Initial Impression: Asthma exacerbation Plan: -Patient refusing to have any IV steroid medication. Prefers to just have nebulizer treatments and IV magnesium -EKG -CMP -Magnesium -Phosphorus -Troponin I -CBC w/ differential -Duoneb 9ml INH -Magnesium Sulfuate 2gm IVPB -Blood culture -patient monitor -IV insertion -Peak flow meter -Reevaluation 6p Pt continues to be comfortable. Stable for discharge. Scribe Attestation: Documented by Christopher Alex, acting as a scribe for Cary Fuller MD. Provider Scribe Attestation: All medical record entries made by the Scribe were at my direction and personally dictated by me. I have reviewed the chart and agree that the record accurately reflects my personal performance of the history, physical exam, medical decision making, and the department course for this patient. I have also personally directed, reviewed, and agree with the discharge instructions and disposition. Disposition - Clinical Impression Clinical Impression: COPD exacerbation Counseled Patient/Family Regarding: Studies Performed, Diagnosis - Disposition Disposition: Routine/Home Disposition Time: 18:05 Condition: IMPROVED Additional Instructions: FOLLOW UP WITH YOUR DOCTOR EARLY NEXT WEEK FOR REEVALUATION KAYLEN NEVAREZ, thank you for letting us take care of you today. Your provider was Cary Fuller MD and you were treated for COPD exacerbation. The emergency medical care you received today was directed at your acute symptoms. If you were prescribed any medication, please fill it and take as directed. It may take several days for your symptoms to resolve. Return to the Emergency Department if your symptoms worsen, do not improve, or if you have any other problems. Please contact your doctor or call one of the physicians/clinics you have been referred to that are listed on the Patient Visit Information form that is included in your discharge packet. Bring any paperwork you were given at discharge with you along with any medications you are taking to your follow up visit. Our treatment cannot replace ongoing medical care by a primary care provider outside of the emergency department. Thank you for allowing the [facility] [employer] team to be part of your care today. If you had an X-Ray or CT scan: A Radiologist will review the ED reading if any change in treatment is needed we will contact you. If you had a blood, urine, or wound culture: It will take several days for the results, if any change in treatment is needed we will contact you. If you had an STI test: It will take 48 hours for the results. Please call after 1 week if you have not heard back. Instructions: Chronic Obstructive Pulmonary Disease (COPD), Including Emphysema
[2017-08-05] MEDS ORDERED: Albuterol-Ipratrop 3 mg / 0.5 (3 ml) UD ONE (16:58)
[2017-08-05] MEDS ORDERED: Magnesium Sulfate 2 gm/50 ml 2 GM/50 ML BAG ONE (16:58)
[2017-08-05 17:16] LABS: BASO % 0.3 % (0.0-2.0); EOS # 0.4 K/uL (0.0-0.7); EOS % 4.5 % (0.0-4.0); HEMOGLOBIN 12.9 g/dL (12.0-16.0); LYMPH # 1.7 K/uL (1.0-4.3); LYMPH % 20.1 % (20.0-40.0); MEAN CELL VOLUME 93.1 fl (81.0-99.0); MEAN CORPUSCULAR HEMOGLOBIN 31.7 pg (27.0-31.0); MEAN PLATELET VOLUME 8.5 fl (7.2-11.7); MONO # 0.8 K/uL (0.0-0.8); NEUT # 5.6 K/uL (1.8-7.0); NEUT % 66.1 % (50.0-75.0); RBC 4.08 Mil/uL (3.80-5.20); RED CELL DISTRIBUTION WIDTH 13.6 % (11.5-14.5); WHITE BLOOD COUNT 8.5 K/uL (4.8-10.8)
[2017-08-05 17:22] VITALS: RESP 20
[2017-08-05 17:33] LABS: ALB/GLOB RATIO 1.4 (1.0-2.1); ALBUMIN 4.2 g/dL (3.5-5.0); ALT/SGPT 30 U/L (9-52); AST/SGOT 24 U/L (14-36); BLOOD UREA NITROGEN 14 mg/dl (7-17); CALCIUM 9.4 mg/dL (8.4-10.2); GFR AFRICAN-AMERICAN > 60; GFR NON-AFRICAN AMERICAN > 60
--- NOTE | 2017-08-06 12:56 | CARD ---
APPROVED REPORT EKG Measurement Heart [id number] <Conclusion> Normal sinus rhythm with sinus arrhythmia Normal ECG
== END 2017-08-05 18:37 | disposition home or self-care (01) ==
LOC: H.ER 15:31
DX: J44.1 Chronic obstructive pulmonary disease with (acute) exacerbation (principal); F41.9 Anxiety disorder, unspecified; Z88.0 Allergy status to penicillin

== ENCOUNTER 2017-08-08 21:28 | Emergency (ER) | payer BC ==
[2017-08-08 21:28] VITALS: BMI 18.6
[2017-08-08 21:52] VITALS: RESP 22; O2SAT 92
[2017-08-08] MEDS ORDERED: Albuterol-Ipratrop 3 mg / 0.5 (3 ml) UD INH STA (22:22)
[2017-08-08] MEDS ORDERED: Magnesium Sulfate 1 GM in Dextrose 5% In Water 100 ML IVPB ONE (22:23)
[2017-08-08] MEDS ORDERED: Albuterol-Ipratrop 3 mg / 0.5 (3 ml) UD ONE (22:35)
[2017-08-08 23:18] LABS: BASO # 0.1 K/uL (0.0-0.2); EOS # 0.5 K/uL (0.0-0.7); EOS % 4.2 % (0.0-4.0); HEMOGLOBIN 13.9 g/dL (12.0-16.0); LYMPH # 1.7 K/uL (1.0-4.3); LYMPH % 14.6 % (20.0-40.0); MEAN CELL VOLUME 92.7 fl (81.0-99.0); MEAN CORPUSCULAR HEMOGLOBIN 30.9 pg (27.0-31.0); MEAN CORPUSCULAR HGB CONC 33.3 g/dL (33.0-37.0); MEAN PLATELET VOLUME 8.6 fl (7.2-11.7); MONO # 0.9 K/uL (0.0-0.8); NEUT # 8.2 K/uL (1.8-7.0); NEUT % 72.2 % (50.0-75.0); RBC 4.48 Mil/uL (3.80-5.20); RED CELL DISTRIBUTION WIDTH 13.5 % (11.5-14.5); WHITE BLOOD COUNT 11.3 K/uL (4.8-10.8)
--- NOTE | 2017-08-08 23:23 | ED PDOC ---
HPI: SOB/CHF/COPD Time Seen by Provider: 08/08/17 22:02 Chief Complaint (Nursing): Chest Pain Chief Complaint (Provider): chest pain and sob History Per: Patient Onset/Duration Of Symptoms: Sudden Onset (about 1/2 hour prior to arrival) Quality: Tightness, "Pain" Current Respiratory Medications: Albuterol Associated Symptoms: Chest Pain. denies: Fever, Chills Additional Complaint(s): Has also been having nonbilious nonbloody vomiting x 3 and watery nonbloody diarrhea x 1 Believes that this may be due to a giardia infection, which she has had in the past Known well to ER for asthma exacerbation and concern that a chronic internal but as of yet unfound infection the recurs in her body triggers her asthma. Also believes that magnesium is always needed to treat her asthma Past Medical History Reviewed: Historical Data, Nursing Documentation, Vital Signs Vital Signs: Last Vital Signs Temp 98.2 F 08/09/17 01:05 Pulse 105 H 08/09/17 01:05 Resp 22 08/09/17 01:05 BP 102/68 08/09/17 01:05 Pulse Ox 92 L 08/09/17 04:40 - Medical History PMH: Anxiety, Asthma, Bronchitis, COPD Denies: HIV, Chronic Kidney Disease - Surgical History Surgical History: Denies: Coronary Stent, Pacemaker - Family History Family History: States: Unknown Family Hx - Home Medications Home Medications: Ambulatory Orders Medication Instructions Recorded Albuterol 0.083% [Albuterol 0.083% 3 ml IH Q4 PRN #20 neb 04/12/17 Inhal Jamee (2.5 mg/3 ml) UD] Codeine 30 mg PO Q4 PRN 06/03/17 Albuterol/Ipratropium [Duoneb 3 1 ea IH Q3 PRN #30 neb 07/26/17 MG/3 Ml-0.5 MG/3 Ml 3 Ml] predniSONE [Prednisone] 60 mg PO DAILY #12 tab 07/26/17 Prednisone 50 mg PO DAILY #4 tab 08/09/17 - Allergies Allergies/Adverse Reactions: Allergies Allergy/AdvReac Type Severity Reaction Status Date / Time acetaminophen Allergy SHORTNESS Verified 08/09/17 11:19 OF BREATH moxifloxacin HCl Allergy tendonitis Verified 08/09/17 11:19 [From Avelox] Penicillins Allergy SHORTNESS Verified 08/09/17 11:19 OF BREATH Review of Systems ROS Statement: Except As Marked, All Systems Reviewed And Found Negative (and as per HPI) Cardiovascular: Positive for: Chest Pain, Light Headedness Respiratory: Positive for: Shortness of Breath, SOB with Exertion Gastrointestinal: Positive for: Nausea, Vomiting, Diarrhea. Negative for: Abdominal Pain, Melena, Hematochezia, Hematemesis Physical Exam - Reviewed Nursing Documentation Reviewed: Yes Vital Signs Reviewed: Yes - Physical Exam Appears: Positive for: Non-toxic, In Acute Distress Head Exam: Positive for: ATRAUMATIC, NORMOCEPHALIC Skin: Positive for: Warm, Dry Eye Exam: Positive for: EOMI, PERRL ENT: Positive for: Pharynx Is (clear), Other (dry mucus membranes) Neck: Positive for: Painless ROM, Supple Cardiovascular/Chest: Positive for: Tachycardia. Negative for: Murmur Respiratory: Positive for: Rhonchi, Wheezing, Respiratory Distress Gastrointestinal/Abdominal: Positive for: Soft. Negative for: Tenderness Back: Positive for: Normal Inspection. Negative for: Decreased ROM Extremity: Positive for: Normal ROM. Negative for: Deformity Lymphatic: Negative for: Adenopathy Neurologic/Psych: Positive for: Alert. Negative for: Motor/Sensory Deficits - Laboratory Results Result Diagrams: 08/08/17 23:04 08/08/17 23:04 - ECG O2 Sat by Pulse Oximetry: 92 Disposition - Clinical Impression Clinical Impression: Asthma exacerbation attacks - Disposition Disposition: Transfer of Care Disposition Time: 00:00 Condition: STABLE Patient Signed Over To: Lisandro Norman Handoff Comments: Pending Reassessment and final ER disposition
[2017-08-08 23:26] LABS: ALBUMIN 4.2 g/dL (3.5-5.0); ALT/SGPT 33 U/L (9-52); AST/SGOT 26 U/L (14-36); BLOOD UREA NITROGEN 14 mg/dl (7-17); CALCIUM 9.6 mg/dL (8.4-10.2); GFR AFRICAN-AMERICAN > 60; GFR NON-AFRICAN AMERICAN > 60
--- NOTE | 2017-08-09 00:36 | ED PDOC ---
- Laboratory Results Result Diagrams: 08/08/17 23:04 08/08/17 23:04 - ECG O2 Sat by Pulse Oximetry: 92 Medical Decision Making Medical Decision Makin:00 Patient endorsed to me by Dr. Fuller pending reevaluation. 01:03 Upon reevaluation, patient reports improvement of symptoms. Patient stable for discharge home. ----- Scribe Attestation: Documented by Christopher Alex, acting as a scribe for Lisandro Norman MD. Provider Scribe Attestation: All medical record entries made by the Scribe were at my direction and personally dictated by me. I have reviewed the chart and agree that the record accurately reflects my personal performance of the history, physical exam, medical decision making, and the department course for this patient. I have also personally directed, reviewed, and agree with the discharge instructions and disposition. Disposition Counseled Patient/Family Regarding: Studies Performed, Diagnosis, Need For Followup - Clinical Impression Clinical Impression: Asthma exacerbation attacks - POA Present On Arrival: None - Disposition Disposition: Routine/Home Disposition Time: 01:03 Condition: STABLE Instructions: Asthma in Adults Forms: [facility] [employer] (Cape Verdean)
[2017-08-09 02:22] VITALS: BP 102/68; PULSE 105; TEMP 98.2
[2017-08-09] MEDS ORDERED: Albuterol-Ipratrop 3 mg / 0.5 (3 ml) UD ONE (11:22)
--- NOTE | 2017-08-09 15:03 | CARD ---
APPROVED REPORT EKG Measurement Heart [id number] 160P83 [id number] <Conclusion> Sinus tachycardia Nonspecific T wave abnormality Abnormal ECG
== END 2017-08-09 01:05 | disposition home or self-care (01) ==
LOC: H.ER 21:28
DX: J45.901 Unspecified asthma with (acute) exacerbation (principal); F41.9 Anxiety disorder, unspecified; Z88.0 Allergy status to penicillin; J44.9 Chronic obstructive pulmonary disease, unspecified
CPT/HCPCS: 80053; 83605; 83735; 84100; 84443; 84484; 85025; 87040; 93005; 94640; 96374; 99283; J3475

== ENCOUNTER 2017-08-09 11:10 | Emergency (ER) | payer BC ==
[2017-08-09 11:10] VITALS: BMI 18.6
[2017-08-09] MEDS: Albuterol-Ipratrop 3 mg / 0.5 (3 ml) UD INH STA ×2 (11:20→11:33)
[2017-08-09] MEDS ORDERED: Albuterol-Ipratrop 3 mg / 0.5 (3 ml) UD INH STA (11:24)
--- NOTE | 2017-08-09 11:44 | ED PDOC ---
HPI: SOB/CHF/COPD Time Seen by Provider: 08/09/17 11:13 Chief Complaint (Nursing): Respiratory Distress Chief Complaint (Provider): shortness of breath History Per: Patient History/Exam Limitations: no limitations Onset/Duration Of Symptoms: Days Current Symptoms Are (Timing): Still Present Additional Complaint(s): 47 year old female was brought to the ED via EMS complaining of shortness of breath. Patient was discharged at 1am today. EMS administered nebulizer treatments, Solu-Medrol and MG. Denies fever or chest pain. PMD: No Family Provider Past Medical History Reviewed: Historical Data, Nursing Documentation, Vital Signs Vital Signs: Last Vital Signs Temp 97.7 F 08/09/17 14:53 Pulse 109 H 08/09/17 14:53 Resp 18 08/09/17 14:53 BP 110/66 08/09/17 14:53 Pulse Ox 96 08/09/17 14:53 - Medical History PMH: Anxiety, Asthma, Bronchitis, COPD Denies: HIV, Chronic Kidney Disease - Surgical History Surgical History: Denies: Coronary Stent, Pacemaker - Family History Family History: States: Unknown Family Hx - Home Medications Home Medications: Ambulatory Orders Medication Instructions Recorded Albuterol 0.083% [Albuterol 0.083% 3 ml IH Q4 PRN #20 neb 04/12/17 Inhal Jamee (2.5 mg/3 ml) UD] Codeine 30 mg PO Q4 PRN 06/03/17 Albuterol/Ipratropium [Duoneb 3 1 ea IH Q3 PRN #30 neb 07/26/17 MG/3 Ml-0.5 MG/3 Ml 3 Ml] predniSONE [Prednisone] 60 mg PO DAILY #12 tab 07/26/17 Prednisone 50 mg PO DAILY #4 tab 08/09/17 - Allergies Allergies/Adverse Reactions: Allergies Allergy/AdvReac Type Severity Reaction Status Date / Time acetaminophen Allergy SHORTNESS Verified 08/09/17 11:19 OF BREATH moxifloxacin HCl Allergy tendonitis Verified 08/09/17 11:19 [From Avelox] Penicillins Allergy SHORTNESS Verified 08/09/17 11:19 OF BREATH Review of Systems ROS Statement: Except As Marked, All Systems Reviewed And Found Negative Constitutional: Negative for: Fever Cardiovascular: Negative for: Chest Pain Respiratory: Positive for: Shortness of Breath Physical Exam - Reviewed Nursing Documentation Reviewed: Yes Vital Signs Reviewed: Yes - Physical Exam Appears: Positive for: Non-toxic, No Acute Distress Head Exam: Positive for: ATRAUMATIC, NORMAL INSPECTION, NORMOCEPHALIC Skin: Positive for: Normal Color, Warm, Dry Cardiovascular/Chest: Positive for: Regular Rate, Rhythm, Tachycardia Respiratory: Positive for: Wheezing (minimal bilaterally) Neurologic/Psych: Positive for: Alert, Oriented (3), Other (speaking full sentences). Negative for: Motor/Sensory Deficits - ECG O2 Sat by Pulse Oximetry: 98 (RA) Pulse Ox Interpretation: Normal Medical Decision Making Medical Decision Making: Time: 1122 Initial Impression: asthma exacerbation Initial Plan: --EKG --CMP --Magnesium --Phosphorous --ED Urine --ED Urine dipstick --CBC w/ Differential --Chest Portable [RAD] --Duoneb 3mg/0.5mg (3ml) --Peak Flow Pre/Post Treatment --Reevaluation 14:40 Pt sleeping comfortably, resolution of wheezing. States she was given Codeine 30 mg tabs for her asthma and is running out. States she has appt with Dental surgery @ 4 PM today. Scribe Attestation: Documented by Farshad Barrera, acting as a scribe for Olga Cervantes MD Provider Scribe Attestation: All medical record entries made by the Scribe were at my direction and personally dictated by me. I have reviewed the chart and agree that the record accurately reflects my personal performance of the history, physical exam, medical decision making, and the department course for this patient. I have also personally directed, reviewed, and agree with the discharge instructions and disposition. Disposition - Clinical Impression Clinical Impression: Asthma exacerbation - Patient ED Disposition Is Patient to be Admitted: No - Disposition Disposition: Routine/Home Disposition Time: 14:48 Condition: IMPROVED Additional Instructions: FOLLOW-UP WITH PMD WITHIN 2 DAYS FOR REEVALUATION. Prescriptions: Prednisone 50 mg PO DAILY #4 tab Instructions: Asthma in Adults Forms: [facility] (Irish)
--- NOTE | 2017-08-09 14:55 | CARD ---
APPROVED REPORT EKG Measurement Heart [id number] <Conclusion> Sinus tachycardia Possible Left atrial enlargement Nonspecific T wave abnormality Abnormal ECG
[2017-08-09 14:58] VITALS: BP 110/66; PULSE 109; RESP 18; TEMP 97.7
[2017-08-11 13:34] VITALS: O2SAT 98
== END 2017-08-09 14:53 | disposition home or self-care (01) ==
LOC: H.ER 11:10
DX: J45.901 Unspecified asthma with (acute) exacerbation (principal); F41.9 Anxiety disorder, unspecified; Z88.0 Allergy status to penicillin; J44.9 Chronic obstructive pulmonary disease, unspecified

== ENCOUNTER 2017-08-17 01:53 | Emergency (ER) | payer BC ==
[2017-08-17 01:54] VITALS: BMI 18.6
[2017-08-17 02:03] VITALS: TEMP 98.5
[2017-08-17] MEDS ORDERED: Albuterol-Ipratrop 3 mg / 0.5 (3 ml) UD INH STA ×4 (02:27→05:27)
[2017-08-17] MEDS ORDERED: Magnesium Sulfate 2 gm/50 ml 2 GM/50 ML BAG IVPB ONE ×2 (02:27→03:37)
--- NOTE | 2017-08-17 02:41 | ED PDOC ---
HPI: SOB/CHF/COPD Time Seen by Provider: 08/17/17 02:20 Chief Complaint (Nursing): Shortness Of Breath History Per: Patient History/Exam Limitations: no limitations Onset/Duration Of Symptoms: Hrs Current Symptoms Are (Timing): Still Present Additional Complaint(s): Patient with hx of COPD well known to ED presenting with exacerbation. Patient unable to speak in full sentences upon arrival, limiting history taking at this time. Past Medical History Reviewed: Historical Data, Nursing Documentation, Vital Signs Vital Signs: Last Vital Signs Temp 98.5 F 08/17/17 02:00 Pulse 120 H 08/17/17 02:00 Resp 21 08/17/17 02:00 BP 125/90 08/17/17 02:00 Pulse Ox 92 L 08/17/17 05:19 - Medical History PMH: Anxiety, Asthma, Bronchitis, COPD Denies: HIV, Chronic Kidney Disease - Surgical History Surgical History: Denies: Coronary Stent, Pacemaker - Family History Family History: States: Unknown Family Hx - Home Medications Home Medications: Ambulatory Orders Medication Instructions Recorded Albuterol 0.083% [Albuterol 0.083% 3 ml IH Q4 PRN #20 neb 04/12/17 Inhal Jamee (2.5 mg/3 ml) UD] Codeine 30 mg PO Q4 PRN 06/03/17 Albuterol/Ipratropium [Duoneb 3 1 ea IH Q3 PRN #30 neb 07/26/17 MG/3 Ml-0.5 MG/3 Ml 3 Ml] predniSONE [Prednisone] 60 mg PO DAILY #12 tab 07/26/17 Prednisone 50 mg PO DAILY #4 tab 08/09/17 Prednisone [Deltasone] 40 mg PO DAILY 3 Days #6 tablet 08/17/17 - Allergies Allergies/Adverse Reactions: Allergies Allergy/AdvReac Type Severity Reaction Status Date / Time acetaminophen Allergy SHORTNESS Verified 08/09/17 11:19 OF BREATH moxifloxacin HCl Allergy tendonitis Verified 08/09/17 11:19 [From Avelox] Penicillins Allergy SHORTNESS Verified 08/09/17 11:19 OF BREATH Review of Systems ROS Statement: Except As Marked, All Systems Reviewed And Found Negative Constitutional: Negative for: Fever, Chills Respiratory: Positive for: Shortness of Breath, Wheezing Physical Exam - Reviewed Nursing Documentation Reviewed: Yes Vital Signs Reviewed: Yes - Physical Exam Appears: Positive for: In Acute Distress Head Exam: Positive for: ATRAUMATIC, NORMAL INSPECTION, NORMOCEPHALIC Skin: Positive for: Warm, Diaphoresis Eye Exam: Positive for: EOMI, Normal appearance, PERRL ENT: Positive for: Normal ENT Inspection Neck: Positive for: Normal, Painless ROM Cardiovascular/Chest: Positive for: Tachycardia Respiratory: Positive for: Accessory Muscle Use, Wheezing, Respiratory Distress Gastrointestinal/Abdominal: Positive for: Normal Exam, Soft. Negative for: Tenderness Back: Positive for: Normal Inspection Extremity: Positive for: Normal ROM Neurologic/Psych: Positive for: Alert, rat poisoner II-XII, Oriented. Negative for: Motor/Sensory Deficits - ECG O2 Sat by Pulse Oximetry: 92 Pulse Ox Interpretation: Abnormal Medical Decision Making Medical Decision MakinAM A/P: Hx of COPD presenting with moderate-severe exaceration -Patient placed on monitor, O2 administered, 3 duonebs ordered, Magnesium ordered; patient refusing solumedrol -Unclear as to trigger -Patient has presented similarly many times in the past 330AM Patient staring to improve Requesting more Mag 515AM Patient now speaking full sentences, comfortably lying in bed off O2 with arms tucked behind head States she is feeling much better, wheezing has significantly improved Will discharge with prednisone and will advise followup with PMD Disposition - Clinical Impression Clinical Impression: Asthma exacerbation in COPD - Disposition Referrals: [facility] [Outside] Disposition: Routine/Home Disposition Time: 05:19 Condition: STABLE Prescriptions: Prednisone [Deltasone] 40 mg PO DAILY 3 Days #6 tablet Instructions: Exacerbation of COPD Forms: [facility] (Uzbek)
[2017-08-17] MEDS ORDERED: Magnesium Sulfate 2 gm/50 ml 2 GM/50 ML BAG ONE (04:04)
[2017-08-17] MEDS ORDERED: Albuterol-Ipratrop 3 mg / 0.5 (3 ml) UD ONE (05:29)
[2017-08-17 05:33] VITALS: BP 121/71; RESP 24; O2SAT 98
[2017-08-17 05:34] VITALS: PULSE 89
== END 2017-08-17 06:10 | disposition home or self-care (01) ==
LOC: H.ER 01:53
DX: J44.1 Chronic obstructive pulmonary disease with (acute) exacerbation (principal); J45.901 Unspecified asthma with (acute) exacerbation; Z88.0 Allergy status to penicillin

== ENCOUNTER 2017-08-17 11:00 | Inpatient (IN) | payer BC, MEDICARE ==
[2017-08-17 11:02] VITALS: BMI 19.3
[2017-08-17] MEDS ORDERED: Magnesium Sulfate 2 gm/50 ml 2 GM/50 ML BAG IVPB ONE ×2 (11:22→16:55)
[2017-08-17] MEDS ORDERED: Albuterol-Ipratrop 3 mg / 0.5 (3 ml) UD IH STA ×3 (11:22→14:26)
--- NOTE | 2017-08-17 11:26 | ED PDOC ---
HPI: SOB/CHF/COPD Time Seen by Provider: 08/17/17 11:18 History Per: Patient Onset/Duration Of Symptoms: Days (2) Current Symptoms Are (Timing): Still Present Current Respiratory Medications: See Home Med List Severity: Moderate Associated Symptoms: denies: Fever, Chest Pain, Productive Cough, Leg/Calf Pain , Ankle/Leg Swelling Additional Complaint(s): SOB, wheezing x 2 days. Denies fever or cough. Has been using home nebs with no improvement. Requesting IV Magnesium Past Medical History Vital Signs: Last Vital Signs Temp 99.9 F H 08/17/17 11:02 Pulse 109 H 08/17/17 13:22 Resp 20 08/17/17 13:22 BP 128/83 08/17/17 11:02 Pulse Ox 95 08/17/17 13:22 - Medical History PMH: Anxiety, Asthma, Bronchitis, COPD Denies: HIV, Chronic Kidney Disease - Surgical History Surgical History: Denies: Coronary Stent, Pacemaker - Family History Family History: States: Unknown Family Hx - Home Medications Home Medications: Ambulatory Orders Medication Instructions Recorded Albuterol 0.083% [Albuterol 0.083% 3 ml IH Q4 PRN #20 neb 04/12/17 Inhal Jamee (2.5 mg/3 ml) UD] Codeine 30 mg PO Q4 PRN 06/03/17 Albuterol/Ipratropium [Duoneb 3 1 ea IH Q3 PRN #30 neb 07/26/17 MG/3 Ml-0.5 MG/3 Ml 3 Ml] predniSONE [Prednisone] 60 mg PO DAILY #12 tab 07/26/17 Prednisone 50 mg PO DAILY #4 tab 08/09/17 Prednisone [Deltasone] 40 mg PO DAILY 3 Days #6 tablet 08/17/17 - Allergies Allergies/Adverse Reactions: Allergies Allergy/AdvReac Type Severity Reaction Status Date / Time acetaminophen Allergy SHORTNESS Verified 08/17/17 11:29 OF BREATH moxifloxacin HCl Allergy tendonitis Verified 08/17/17 11:29 [From Avelox] Penicillins Allergy SHORTNESS Verified 08/17/17 11:29 OF BREATH Review of Systems ROS Statement: Except As Marked, All Systems Reviewed And Found Negative Respiratory: Positive for: Shortness of Breath, Wheezing Physical Exam - Reviewed Nursing Documentation Reviewed: Yes Vital Signs Reviewed: Yes - Physical Exam Appears: Positive for: Non-toxic, No Acute Distress Head Exam: Positive for: ATRAUMATIC, NORMAL INSPECTION, NORMOCEPHALIC Skin: Positive for: Normal Color, Warm, DRY Eye Exam: Positive for: EOMI, Normal appearance, PERRL ENT: Positive for: Normal ENT Inspection Neck: Positive for: Normal, Painless ROM Cardiovascular/Chest: Positive for: Regular Rate, Rhythm, Tachycardia Respiratory: Positive for: Wheezing. Negative for: Respiratory Distress Gastrointestinal/Abdominal: Positive for: Normal Exam, Soft Back: Positive for: Normal Inspection Extremity: Positive for: Normal ROM Neurologic/Psych: Positive for: Alert, Oriented - Laboratory Results Result Diagrams: 08/17/17 11:42 08/17/17 11:42 - ECG O2 Sat by Pulse Oximetry: 99 Medical Decision Making Medical Decision Making: Pt has declined CXR as well as solumedrol. Explained to pt need for IV steroids to tx her asthma, but pt remains adament that she does not need steroids but rather needs Codeine. Has received Magnesium sulfate 2 gm IV x 2 with minimal improvement. Will try to convince pt to take Solumedrol and to be admitted for further management of asthma. Disposition - Clinical Impression Clinical Impression: Exacerbation of asthma - Patient ED Disposition Is Patient to be Admitted: Yes - Disposition Disposition Time: 18:22 Condition: FAIR - Pt Status Changed To: Hospital Disposition Of: Inpatient - Admit Certification Admit to Inpatient:: After my assessment, the patient will require hospitalization for at least two midnights. This is because of the severity of symptoms shown, intensity of services needed, and/or the medical risk in this patient being treated as an outpatient. - POA Present On Arrival: None
[2017-08-17] MEDS ORDERED: Albuterol-Ipratrop 3 mg / 0.5 (3 ml) UD ONE ×2 (11:35→14:40)
[2017-08-17] MEDS ORDERED: Magnesium Sulfate 2 gm/50 ml 2 GM/50 ML BAG ONE ×2 (11:35→16:58)
[2017-08-17 12:00] LABS: BASO # 0.1 K/uL (0.0-0.2); BASO % 1.3 % (0.0-2.0); EOS # 0.4 K/uL (0.0-0.7); EOS % 4.8 % (0.0-4.0); HEMOGLOBIN 13.5 g/dL (12.0-16.0); LYMPH # 1.7 K/uL (1.0-4.3); LYMPH % 21.6 % (20.0-40.0); MEAN CORPUSCULAR HEMOGLOBIN 31.5 pg (27.0-31.0); MEAN CORPUSCULAR HGB CONC 33.5 g/dL (33.0-37.0); MONO # 0.7 K/uL (0.0-0.8); MONO % 9.5 % (0.0-10.0); NEUT % 62.8 % (50.0-75.0); NRBC % 0.2 % (0.0-0.0); RBC 4.3 Mil/uL (3.80-5.20); RED CELL DISTRIBUTION WIDTH 13.9 % (11.5-14.5); WHITE BLOOD COUNT 7.9 K/uL (4.8-10.8)
[2017-08-17 12:27] LABS: ALB/GLOB RATIO 1.2 (1.0-2.1); ALBUMIN 4.7 g/dL (3.5-5.0); ALT/SGPT 21 U/L (9-52); AST/SGOT 53 U/L (14-36); BLOOD UREA NITROGEN 14 mg/dl (7-17); CALCIUM 9.2 mg/dL (8.4-10.2); GFR AFRICAN-AMERICAN > 60; GFR NON-AFRICAN AMERICAN > 60
[2017-08-18] MEDS ORDERED: Albuterol 0.083% Inhal Sol (2.5 mg/3 mL) UD IH PRN (01:44)
[2017-08-18] MEDS ORDERED: methylPREDNISolone 80 MG in Sodium Chloride 0.9% 50 ML IVP SCH (04:00)
[2017-08-18] MEDS ORDERED: methylPREDNISolone 80 MG in Sodium Chloride 0.9% 50 ML IVPB SCH (04:00)
[2017-08-18 08:14] VITALS: RESP 20
--- NOTE | 2017-08-18 08:57 | CP.PCM.HP ---
<Moira Martinez - Last Filed: 08/18/17 12:47> History of Present Illness - History of Present Illness History of Present Illness: 47 yo F with PMH asthma, with multiple exacerbations in the past, admitted due to asthma exacerbation. States that she went to her "homeopathic neurotherapy," treatment and then felt SOB afterward. Pt refused CXR and solumedrol in ED; only wanted magnesium and codeine, as she believes these two medications are what help her asthma. Accepted duoneb treatments. Pt seen on rounds w/ Dr. Jacobo this am. Since coming up to medical floor, she continues to refuse steroids treatment as ordered. Present on Admission - Present on Admission Any Indicators Present on Admission: No Review of Systems - Review of Systems All systems: reviewed and no additional remarkable complaints except - Respiratory Respiratory: Dyspnea Past Patient History - Infectious Disease Hx of Infectious Diseases: None - Past Medical History & Family History Past Medical History?: Yes - Past Social History Smoking Status: Never Smoked - CARDIAC Hx Cardiac Disorders: No - PULMONARY Hx Respiratory Disorders: Yes Hx Asthma: Yes Hx Bronchitis: Yes Hx Chronic Obstructive Pulmonary Disease (COPD): Yes - NEUROLOGICAL Hx Neurological Disorder: No - HEENT Hx HEENT Problems: No - RENAL Hx Chronic Kidney Disease: No - ENDOCRINE/METABOLIC Hx Endocrine Disorders: No - HEMATOLOGICAL/ONCOLOGICAL Hx Blood Disorders: No - INTEGUMENTARY Hx Dermatological Problems: No - MUSCULOSKELETAL/RHEUMATOLOGICAL Hx Musculoskeletal Disorders: No Hx Falls: No - GASTROINTESTINAL Hx Gastrointestinal Disorders: No - GENITOURINARY/GYNECOLOGICAL Hx Genitourinary Disorders: No - PSYCHIATRIC Hx Psychophysiologic Disorder: Yes Hx Anxiety: Yes Hx Substance Use: No - SURGICAL HISTORY Hx Surgeries: Yes Other/Comment: Jaw surgery X9 - ANESTHESIA Hx Anesthesia: Yes Hx Anesthesia Reactions: No Hx Malignant Hyperthermia: No Meds Allergies/Adverse Reactions: Allergies Allergy/AdvReac Type Severity Reaction Status Date / Time acetaminophen Allergy SHORTNESS Verified 08/17/17 11:29 OF BREATH moxifloxacin HCl Allergy tendonitis Verified 08/17/17 11:29 [From Avelox] Penicillins Allergy SHORTNESS Verified 08/17/17 11:29 OF BREATH Physical Exam - Constitutional Appears: No Acute Distress - Respiratory Exam Respiratory Exam: NORMAL BREATHING PATTERN. absent: Respiratory Distress Additional comments: mild wheezing b/l - Cardiovascular Exam Cardiovascular Exam: REGULAR RHYTHM - Extremities Exam Extremities exam: Positive for: normal inspection. Negative for: calf tenderness - Neurological Exam Neurological exam: Alert, Oriented x3 - Psychiatric Exam Psychiatric exam: Agitated - Skin Skin Exam: Normal Color Results - Vital Signs Recent Vital Signs: Last Vital Signs Temp 97.9 F 08/18/17 08:14 Pulse 62 08/18/17 08:14 Resp 20 08/18/17 08:14 BP 92/65 L 08/18/17 08:14 Pulse Ox 96 08/18/17 08:14 - Labs Result Diagrams: 08/17/17 11:42 08/17/17 11:42 Labs: Laboratory Results - last 24 hr 08/17/17 08/17/17 11:42 11:42 WBC 7.9 RBC 4.30 Hgb 13.5 Hct 40.4 MCV 94.0 MCH 31.5 H MCHC 33.5 RDW 13.9 Plt Count 354 MPV 9.0 Neut % (Auto) 62.8 Lymph % (Auto) 21.6 [place] % (Auto) 9.5 Eos % (Auto) 4.8 H Baso % (Auto) 1.3 Neut # (Auto) 5.0 Lymph # (Auto) 1.7 [place] # (Auto) 0.7 Eos # (Auto) 0.4 Baso # (Auto) 0.1 Sodium 141 Potassium 4.0 Chloride 104 Carbon Dioxide 25 Anion Gap 16 BUN 14 Creatinine 0.6 L Est GFR ( Amer) > 60 Est GFR (Non-Af Amer) > 60 Random Glucose 128 H Calcium 9.2 Total Bilirubin 0.9 AST 53 H D ALT 21 Alkaline Phosphatase 74 Total Protein 8.6 H Albumin 4.7 Globulin 3.9 Albumin/Globulin Ratio 1.2 Assessment & Plan - Assessment and Plan (Free Text) Assessment: 47 yo F with asthma exacerbation; refusing appropriate treatment at this time. Plan: - Admitted to tele - IV solumedrol, duoneb tx - Rest of plan as ordered - Encourage compliance with medication <Ho Jacobo - Last Filed: 08/18/17 20:14> Results - Vital Signs Recent Vital Signs: Last Vital Signs Temp 97.7 F 08/18/17 12:24 Pulse 75 08/18/17 12:24 Resp 20 08/18/17 12:24 BP 102/64 08/18/17 12:24 Pulse Ox 95 08/18/17 12:24 - Labs Result Diagrams: 08/17/17 11:42 08/17/17 11:42 Assessment & Plan - Assessment and Plan (Free Text) Plan: Patient was personally seen and examined by me in rounds with residents. Available labs and diagnostic data reviewed. Case, Patient's condition and management plan discussed with residents in rounds. Agree with resident's progress note. Plan: As ordered.
[2017-08-18] MEDS ORDERED: Enoxaparin 40 mg Syringe SC SCH (09:00)
[2017-08-18] MEDS ORDERED: Magnesium Sulfate 2 gm/50 ml 2 GM/50 ML BAG IVPB ONE (11:37)
[2017-08-18 12:24] VITALS: BP 102/64; PULSE 75; TEMP 97.7; O2SAT 95
--- NOTE | 2017-08-18 16:36 | CARD ---
APPROVED REPORT Date of service: 08/17/2017 EKG Measurement Heart [id number] <Conclusion> Sinus tachycardia Right atrial enlargement Cannot rule out Inferior infarct, age undetermined Abnormal ECG
--- NOTE | 2017-08-18 16:37 | CP.PCM.PCO ---
Addendum Addendum: Pt continued to refuse appropriate medical tx; and then stated she wanted to leave. Pt made aware she would be leaving against medical advice. Risks/ benefits of staying vs leaving and AMA form explained to patient and filled out ; pt signed AMA form; ROSEANN Bentley as witness.
== END 2017-08-18 15:45 | disposition left against medical advice (07) | DRG 203 ==
LOC: H.ER 11:00 → H.ERHOLD 18:21 → H.TEL 20:43
PROVIDERS: ADMIT Internal Medicine; ATTEND Internal Medicine
DX: J45.901 Unspecified asthma with (acute) exacerbation (principal); J44.9 Chronic obstructive pulmonary disease, unspecified; Z88.6 Allergy status to analgesic agent; Z88.0 Allergy status to penicillin; Z88.3 Allergy status to other anti-infective agents

== ENCOUNTER 2017-09-05 17:25 | Emergency (ER) | payer BC, MEDICARE ==
[2017-09-05 17:25] VITALS: BMI 19.3
[2017-09-05] MEDS ORDERED: Albuterol-Ipratrop 3 mg / 0.5 (3 ml) UD INH STA (18:43)
--- NOTE | 2017-09-05 19:14 | ED PDOC ---
HPI: SOB/CHF/COPD Time Seen by Provider: 09/05/17 17:55 Chief Complaint (Nursing): Respiratory Distress Chief Complaint (Provider): Shortness of Breath History Per: Patient History/Exam Limitations: no limitations Onset/Duration Of Symptoms: Days (x 2) Current Symptoms Are (Timing): Still Present Associated Symptoms: denies: Fever, Leg/Calf Pain, Ankle/Leg Swelling Additional Complaint(s): 47 year old female with a history of asthma presents to the ED with shortness of breath and wheezing since yesterday. Patient also reports chest pain yesterday that is no longer present today. She has been to this ED multiple times and has a history of multiple admissions to the ICU and intubations. Patient states that symptoms are similar to usual asthma exacerbation and took her inhaler with minimal relief. Denies leg swelling and fever. PMD: none provided Past Medical History Reviewed: Historical Data, Nursing Documentation, Vital Signs Vital Signs: Last Vital Signs Temp 98 F 09/05/17 23:25 Pulse 71 09/05/17 23:25 Resp 14 09/05/17 23:25 BP 103/56 L 09/05/17 23:25 Pulse Ox 94 L 09/05/17 23:25 - Medical History PMH: Anxiety, Asthma, Bronchitis, COPD Denies: HIV, Chronic Kidney Disease - Surgical History Surgical History: No Surg Hx Denies: Coronary Stent, Pacemaker - Family History Family History: States: Unknown Family Hx - Home Medications Home Medications: Ambulatory Orders Medication Instructions Recorded Albuterol 0.083% [Albuterol 0.083% 3 ml IH Q4 PRN #20 neb 04/12/17 Inhal Jamee (2.5 mg/3 ml) UD] Codeine 30 mg PO Q4 PRN 06/03/17 - Allergies Allergies/Adverse Reactions: Allergies Allergy/AdvReac Type Severity Reaction Status Date / Time acetaminophen Allergy SHORTNESS Verified 09/08/17 13:34 OF BREATH moxifloxacin HCl Allergy tendonitis Verified 09/08/17 13:34 [From Avelox] Penicillins Allergy SHORTNESS Verified 09/08/17 13:34 OF BREATH Review of Systems ROS Statement: Except As Marked, All Systems Reviewed And Found Negative Constitutional: Negative for: Fever Respiratory: Positive for: Shortness of Breath, Wheezing Musculoskeletal: Negative for: Leg Pain (swelling) Physical Exam - Reviewed Nursing Documentation Reviewed: Yes Vital Signs Reviewed: Yes - Physical Exam Appears: Positive for: Non-toxic, No Acute Distress Head Exam: Positive for: ATRAUMATIC, NORMAL INSPECTION, NORMOCEPHALIC Skin: Positive for: Normal Color, Warm, Dry Eye Exam: Positive for: EOMI, Normal appearance, PERRL Neck: Positive for: Normal, Painless ROM, Supple Cardiovascular/Chest: Positive for: Regular Rate, Rhythm. Negative for: Murmur Respiratory: Positive for: Wheezing (diffuse wheezing in bilateral lungs). Negative for: Normal Breath Sounds Gastrointestinal/Abdominal: Positive for: Normal Exam, Soft. Negative for: Tenderness Extremity: Positive for: Normal ROM. Negative for: Deformity Neurologic/Psych: Positive for: Alert, Oriented (x 3). Negative for: Motor/ Sensory Deficits - Laboratory Results Result Diagrams: 09/05/17 19:28 09/05/17 19:28 - ECG O2 Sat by Pulse Oximetry: 93 (RA) Pulse Ox Interpretation: Normal Medical Decision Making Medical Decision Makin:42 Impression: difficulty breathing, wheezing Differential diagnoses include: asthma exacerbation Initial Plan: --EKG --BMP --Magnesium --Troponin I --CBC --Duoneb 3 ml INH --Solumedrol 125 mg IVP --Peak flow pre/post Patient refused steroids and requested magnesium. ---- Scribe Attestation: Documented by Rohini Monaco, acting as a scribe for Mio Gallagher MD Provider Scribe Attestation: All medical record entries made by the Scribe were at my direction and personally dictated by me. I have reviewed the chart and agree that the record accurately reflects my personal performance of the history, physical exam, medical decision making, and the department course for this patient. I have also personally directed, reviewed, and agree with the discharge instructions and disposition. Disposition - Clinical Impression Clinical Impression: Moderate COPD (chronic obstructive pulmonary disease) - Patient ED Disposition Is Patient to be Admitted: Transfer of Care Counseled Patient/Family Regarding: Studies Performed, Diagnosis - Disposition Referrals: [facility] [Outside] Disposition: Transfer of Care Disposition Time: 19:00 Condition: STABLE Instructions: Exacerbation of COPD Patient Signed Over To: Mack Higuera Handoff Comments: pending labs, reeval and final dispo
[2017-09-05] MEDS ORDERED: Albuterol-Ipratrop 3 mg / 0.5 (3 ml) UD ONE (19:18)
[2017-09-05 19:34] LABS: BASO # 0.1 K/uL (0.0-0.2); BASO % 1.3 % (0.0-2.0); EOS # 0.5 K/uL (0.0-0.7); EOS % 6.6 % (0.0-4.0); HEMOGLOBIN 13.8 g/dL (12.0-16.0); LYMPH # 2.1 K/uL (1.0-4.3); LYMPH % 29.2 % (20.0-40.0); MEAN CELL VOLUME 93.8 fl (81.0-99.0); MEAN CORPUSCULAR HEMOGLOBIN 31.7 pg (27.0-31.0); MEAN CORPUSCULAR HGB CONC 33.8 g/dL (33.0-37.0); MEAN PLATELET VOLUME 9.3 fl (7.2-11.7); MONO # 0.5 K/uL (0.0-0.8); MONO % 6.5 % (0.0-10.0); NEUT # 4.1 K/uL (1.8-7.0); NEUT % 56.4 % (50.0-75.0); NRBC % 0.1 % (0.0-0.0); RBC 4.36 Mil/uL (3.80-5.20); RED CELL DISTRIBUTION WIDTH 13.8 % (11.5-14.5); WHITE BLOOD COUNT 7.2 K/uL (4.8-10.8)
--- NOTE | 2017-09-05 19:43 | ED PDOC ---
- Laboratory Results Result Diagrams: 09/05/17 19:28 09/05/17 19:28 - ECG O2 Sat by Pulse Oximetry: 93 (RA) Pulse Ox Interpretation: Normal Medical Decision Making Medical Decision Makin --care endorsed by Dr. Whitfield pending labs, reevaluation and final disposition. 21:55 --Aspirin 162 mg PO --Magnesium 1 gm in Dextrose 5% IVPB --Magnesium 1 gm in Dextrose 5% IVPB 23:00 --Patient sitting in bed reading book, saturating well, HR 88, states breathing has improved. Patient has followup with doctor tomorrow. Return precautions advised. ---- Scribe Attestation: Documented by Rohini Monaco, acting as a scribe for Mack Higuera MD Provider Scribe Attestation: All medical record entries made by the Scribe were at my direction and personally dictated by me. I have reviewed the chart and agree that the record accurately reflects my personal performance of the history, physical exam, medical decision making, and the department course for this patient. I have also personally directed, reviewed, and agree with the discharge instructions and disposition. Disposition - Clinical Impression Clinical Impression: Moderate COPD (chronic obstructive pulmonary disease) - POA Present On Arrival: None - Disposition Referrals: [facility] [Outside] Disposition: Routine/Home Disposition Time: 23:03 Condition: STABLE Instructions: Exacerbation of COPD Forms: [employer] (Welsh)
[2017-09-05] MEDS ORDERED: Magnesium Sulfate 1 GM in Dextrose 5% In Water 100 ML IVPB ONE ×3 (19:45→22:00)
[2017-09-05] MEDS ORDERED: Magnesium Sulfate 2 gm/50 ml 2 GM/50 ML BAG IVPB ONE (19:45)
[2017-09-05 19:47] LABS: BLOOD UREA NITROGEN 17 mg/dl (7-17); CALCIUM 9.7 mg/dL (8.4-10.2); GFR NON-AFRICAN AMERICAN > 60
[2017-09-05 23:43] VITALS: BP 103/56; PULSE 71; RESP 14; TEMP 98
--- NOTE | 2017-09-06 09:16 | CARD ---
APPROVED REPORT Date of service: 09/05/2017 EKG Measurement Heart [id number] <Conclusion> Normal sinus rhythm with sinus arrhythmia Nonspecific ST abnormality Abnormal ECG
[2017-09-08 18:43] VITALS: O2SAT 93
== END 2017-09-05 23:40 | disposition home or self-care (01) ==
LOC: H.ER 17:25
DX: J44.9 Chronic obstructive pulmonary disease, unspecified (principal); J45.909 Unspecified asthma, uncomplicated; Z88.0 Allergy status to penicillin
CPT/HCPCS: 80048; 83735; 84484; 85025; 93005; 96365; 96366; 99284; J3475

== ENCOUNTER 2017-09-08 13:28 | Emergency (ER) | payer BC, MEDICARE ==
[2017-09-08 13:28] VITALS: BMI 19.3
[2017-09-08 13:34] VITALS: TEMP 99.2
[2017-09-08 18:02] VITALS: BP 100/70; PULSE 94; RESP 20; O2SAT 96
[2017-09-08] MEDS ORDERED: Naloxone 0.4 mg/ml Inj (Adult) ONE (22:41)
[2017-09-08] MEDS ORDERED: Albuterol-Ipratrop 3 mg / 0.5 (3 ml) UD ONE (22:42)
== END 2017-09-08 13:50 | disposition left against medical advice (07) ==
LOC: H.ER 13:28
DX: Z02.89 Encounter for other administrative examinations (principal)

== ENCOUNTER 2017-09-08 22:28 | Inpatient (IN) | payer BC ==
[2017-09-08] MEDS ORDERED: Succinylcholine 200 mg/10 ml Inj IV ONE ×2 (22:38→23:04)
[2017-09-08] MEDS ORDERED: Etomidate 20 mg/10ml Inj IV ONE ×2 (22:38→23:04)
[2017-09-08] MEDS ORDERED: Naloxone 0.4 mg/ml Inj (Adult) ONE (22:38)
[2017-09-08] MEDS ORDERED: Albuterol-Ipratrop 3 mg / 0.5 (3 ml) UD INH STA ×3 (22:47→23:39)
[2017-09-08] MEDS ORDERED: Magnesium Sulfate 2 gm/50 ml 2 GM/50 ML BAG IV STA (22:47)
[2017-09-08] MEDS ORDERED: Naloxone 0.4 mg/ml Inj (Adult) IVP ONE (22:48)
[2017-09-08 22:56] LABS: ABG ALLEN TEST YES; ARTERIAL BLOOD GAS PCO2 > 150 mm/Hg (35-45); ARTERIAL BLOOD GAS PH 6.95 (7.35-7.45); ARTERIAL BLOOD GAS PO2 75 mm/Hg (80-100)
[2017-09-08] MEDS ORDERED: Propofol 10 mg/ml 2,000 MG/200 ML VIAL ONE (22:57)
[2017-09-08 22:58] LABS: BASO # 0.3 K/uL (0.0-0.2); EOS % 7.4 % (0.0-4.0); HEMOGLOBIN 13.6 g/dL (12.0-16.0); LYMPH # 6.1 K/uL (1.0-4.3); LYMPH % 45.5 % (20.0-40.0); MEAN CELL VOLUME 95.4 fl (81.0-99.0); MEAN CORPUSCULAR HEMOGLOBIN 31.5 pg (27.0-31.0); MEAN CORPUSCULAR HGB CONC 33.1 g/dL (33.0-37.0); MEAN PLATELET VOLUME 8.4 fl (7.2-11.7); MONO % 7.7 % (0.0-10.0); NEUT % 37.4 % (50.0-75.0); NRBC % 0.1 % (0.0-0.0); RBC 4.32 Mil/uL (3.80-5.20); RED CELL DISTRIBUTION WIDTH 13.8 % (11.5-14.5); WHITE BLOOD COUNT 13.4 K/uL (4.8-10.8)
[2017-09-08] MEDS: Propofol 10 mg/ml 1,000 MG/100 ML VIAL IV SCH (23:02)
--- NOTE | 2017-09-08 23:07 | ED PDOC ---
HPI: SOB/CHF/COPD Time Seen by Provider: 09/08/17 23:02 Chief Complaint (Nursing): Respiratory Distress Chief Complaint (Provider): Respiratory Distress History Per: EMS History/Exam Limitations: no limitations Onset/Duration Of Symptoms: Mins Current Symptoms Are (Timing): Still Present Additional Complaint(s): 47 y/o female well known to the ER, with a PMHx of asthma, anxiety, Bronchitis, and COPD brought in by [facility] for asthma exacerbation. Patient unable to give history due to clinical condition. EMS gave 2 gm of Magnesium, Duoneb, 0.25 mg of Terbutaline, and 125 mg of SOLU-medrol. PMD: None Provided Past Medical History Reviewed: Historical Data, Nursing Documentation, Vital Signs Vital Signs: Last Vital Signs Temp 97.8 F 09/09/17 07:50 Pulse 82 09/09/17 09:00 Resp 14 09/09/17 09:00 BP 130/78 09/09/17 09:00 Pulse Ox 95 09/09/17 10:00 - Medical History PMH: Anxiety, Asthma, Bronchitis, COPD Denies: HIV, Chronic Kidney Disease - Surgical History Surgical History: No Surg Hx Denies: Coronary Stent, Pacemaker - Family History Family History: States: Unknown Family Hx - Home Medications Home Medications: Ambulatory Orders Medication Instructions Recorded RX: Albuterol 0.083% [Albuterol 3 ml IH Q4 PRN #20 neb 04/12/17 0.083% Inhal Jamee (2.5 mg/3 ml) UD] RX: Codeine 30 mg PO Q4 PRN 06/03/17 - Allergies Allergies/Adverse Reactions: Allergies Allergy/AdvReac Type Severity Reaction Status Date / Time acetaminophen Allergy SHORTNESS Verified 09/08/17 13:34 OF BREATH moxifloxacin HCl Allergy tendonitis Verified 09/08/17 13:34 [From Avelox] Penicillins Allergy SHORTNESS Verified 09/08/17 13:34 OF BREATH Review of Systems Review Of Systems: ROS cannot be obtained secondary to pt's inabilty to answer questions. Respiratory: Positive for: Other (Respiratory Distress) Physical Exam - Reviewed Nursing Documentation Reviewed: Yes Vital Signs Reviewed: Yes - Physical Exam Appears: Positive for: In Acute Distress (respiratory distress) Head Exam: Positive for: ATRAUMATIC, NORMOCEPHALIC Skin: Positive for: Diaphoresis, Pallor Eye Exam: Positive for: Other (roving eye movements, sluggish pupils) ENT: Positive for: Pharynx Is (clear), Other (tacky, gag reflex intact) Neck: Positive for: Trachea Midline Cardiovascular/Chest: Positive for: Tachycardia (reg rhythm) Respiratory: Positive for: Accessory Muscle Use, Wheezing (Diffuse expiratory), Respiratory Distress (severe) Gastrointestinal/Abdominal: Positive for: Soft. Negative for: Distended Back: Positive for: Normal Inspection Extremity: Negative for: Pedal Edema, Deformity Lymphatic: Negative for: Adenopathy Neurologic/Psych: Positive for: Other (Marked obtundation, occasional incoherent moans, minimally responsive to painful stimuli). Negative for: Oriented - Laboratory Results Result Diagrams: 09/09/17 04:45 09/09/17 04:45 - ECG O2 Sat by Pulse Oximetry: 95 - Critical Care Total Time (In Min): 45 Medical Decision Making Medical Decision Making: -- At bedside on arrival, patient given continuous nebulizers via mask with minimal improvement. Narcan with a questionable increase in alertness (slight moaning). Time: 2255 Impression: Asthma Exacerbation Plan: -- ABG Shock Panel -- Alcohol Serum -- CMP -- Urine Drug Screen -- Magnesium -- ED Urine Dipstick -- ED Urine -- CBC with differentials -- CXR Portable -- Amidate -- Diprivan 1000 mg in 100 ml IV 5 mcg/kg/min -- Duoneb [3 mg/0.5 mg (3 ml) UD] 3 ml -- Magnesium Sulfate 2gm/50 ml IV -- Narcan 0.8 mg IVP -- Quelicin 100 mg IV -- Zofran Inj 4 mg IV -- Blood Culture -- Heplock Insertion -- Roche -- admit [Admit to Hospital] -- Ventilator Settings [RT] -- Peak Flow Pre/Post Tx -- Urinalysis ABG demonstrated severe respiratory acidosis, severe hypercarbia. Intubated for respiratory failure via RSI Propofol drip initially started but continued intermittently due to hypotension. CXR reviewed and no infiltrate/ptx. EKG Sinus tach Serum bloodwork demonstrated leukocytosis and elevated bicarb, otherwise unremarkable. DW Dr Doty Hospitalist for ICU and Dr Guido Medical service. Scribe Attestation: Documented by Devan Gaona acting as a scribe for Dr. Cary Fuller. Provider Scribe Attestation: All medical record entries made by the Scribe were at my direction and personally dictated by me. I have reviewed the chart and agree that the record accurately reflects my personal performance of the history, physical exam, medical decision making, and the department course for this patient. I have also personally directed, reviewed, and agree with the discharge instructions and disposition. Disposition - Clinical Impression Clinical Impression: Respiratory failure, Status asthmaticus - Disposition Disposition Time: 23:00 Condition: CRITICAL - Pt Status Changed To: Hospital Disposition Of: Inpatient - Admit Certification Admit to Inpatient:: After my assessment, the patient will require hospitalization for at least two midnights. This is because of the severity of symptoms shown, intensity of services needed, and/or the medical risk in this patient being treated as an outpatient. - POA Present On Arrival: None Procedure: Intubation - Time Performed Time Performed: 23:00 - Consent Obtained Consent obtained: Emergent consent implied - Performed By Performed by: Attending Physician - Indications Indication(s):: Respiratory failure, Hypercarbia - Method Method:: Oral-Laryngoscopy - Rapid Sequence Intubation Anesthetic:: Etomidate Paralytic:: Succinylcholine Pretreatment:: Pre-oxygenation - Tube type Tube type:: Endotracheal tube Tube size:: Cuffed (7.5) Number of attempts:: 1 Depth measured at lip: cm: 22 - Confirmation Confirmation: Direct visual.of intubate, End-tidal CO2 positive, Bilat. breath sounds, No epigastric gurgle - Post-intubation CXR Post-intubation CXR: Tube in good position - Post-intubation O2 sat % Post-intubation O2 sat%:: 98 - Ventilator Settings Ventilator Settings:: Mode (ac), Rate (14), TV (400), Peep (5), FIO2 (60) - Patient Tolerated Procedure Patient Tolerated Procedure:: Well
[2017-09-08 23:15] LABS: ALB/GLOB RATIO 1.2 (1.0-2.1); ALBUMIN 4.5 g/dL (3.5-5.0); ALT/SGPT 23 U/L (9-52); AST/SGOT 29 U/L (14-36); BLOOD UREA NITROGEN 21 mg/dl (7-17); CALCIUM 9.6 mg/dL (8.4-10.2); GFR AFRICAN-AMERICAN > 60; GFR NON-AFRICAN AMERICAN > 60
--- NOTE | 2017-09-08 23:17 | CP.PCM.CON ---
History of Present Illness - History of Present Illness History of Present Illness: CC: asthma exacerbation HPI: 47 year old female PMH asthma/COPD with frequent admissions presents to the ED in acute hypercarbic hypoxic respiratory failure, was intubated and sedated. pCO2 > 150, hypoxic. Treated empirically for pneumonia, pt also treated with steroids, Mg, aggressive bronchodilators. Patient unable to give any history, no family with patient, history obtained primarily from chart review. ROS: unable to be obtained due to clinical condition PMSH: COPD/asthma FH: unable to be obtained SH: none Allergies: Acetaminophen, Avelox, PCN Past Patient History - Infectious Disease Hx of Infectious Diseases: None - Past Medical History & Family History Past Medical History?: Yes - Past Social History Smoking Status: Never Smoked - CARDIAC Hx Pacemaker: No - PULMONARY Hx Asthma: Yes Hx Bronchitis: Yes Hx Chronic Obstructive Pulmonary Disease (COPD): Yes - NEUROLOGICAL Other/Comment: tetanus - HEENT Hx HEENT Problems: No - RENAL Hx Chronic Kidney Disease: No - ENDOCRINE/METABOLIC Hx Endocrine Disorders: No - HEMATOLOGICAL/ONCOLOGICAL Hx Human Immunodeficiency Virus (HIV): No - INTEGUMENTARY Hx Dermatological Problems: No - MUSCULOSKELETAL/RHEUMATOLOGICAL Hx Musculoskeletal Disorders: No Hx Falls: No - GASTROINTESTINAL Hx Gastrointestinal Disorders: No - GENITOURINARY/GYNECOLOGICAL Hx Genitourinary Disorders: No - PSYCHIATRIC Hx Anxiety: Yes - SURGICAL HISTORY Hx Coronary Stent: No - ANESTHESIA Hx Anesthesia: Yes Hx Anesthesia Reactions: No Hx Malignant Hyperthermia: No Meds Allergies/Adverse Reactions: Allergies Allergy/AdvReac Type Severity Reaction Status Date / Time acetaminophen Allergy SHORTNESS Verified 09/08/17 13:34 OF BREATH moxifloxacin HCl Allergy tendonitis Verified 09/08/17 13:34 [From Avelox] Penicillins Allergy SHORTNESS Verified 09/08/17 13:34 OF BREATH - Medications Medications: Current Medications Magnesium Sulfate (Magnesium Sulfate 2 Gm/50 Ml Water) 2 gm in 50 mls @ 50 mls/ hr IV STAT STA Stop: 09/08/17 23:46 Propofol (Diprivan) 1,000 mg in 100 mls @ 1.701 mls/hr IV .Q24H BRANDI; 5 MCG/KG/ MIN PRN Reason: Protocol Stop: 09/09/17 23:03 Lorazepam (Ativan) 2 mg IVP STAT STA Stop: 09/08/17 23:13 Physical Exam - Constitutional Appears: Non-toxic, No Acute Distress Additional comments: intubated, sedated - Head Exam Head Exam: ATRAUMATIC, NORMOCEPHALIC - Eye Exam Eye Exam: EOMI, Normal appearance, PERRL - ENT Exam ENT Exam: Mucous Membranes Moist, Normal Oropharynx - Respiratory Exam Respiratory Exam: Rales, Wheezes - Cardiovascular Exam Cardiovascular Exam: RRR, +S1, +S2 - GI/Abdominal Exam GI & Abdominal Exam: Normal Bowel Sounds, Soft. absent: Organomegaly, Tenderness - Extremities Exam Extremities exam: Positive for: normal capillary refill, pedal pulses present - Back Exam Back exam: absent: CVA tenderness (L), CVA tenderness (R) - Neurological Exam Neurological exam: Reflexes Normal Additional comments: intubated and sedated - Psychiatric Exam Additional comments: intubated and sedated - Skin Skin Exam: Dry, Warm Results - Vital Signs Recent Vital Signs: Last Vital Signs Temp Pulse 125 H 09/08/17 22:35 Resp 16 09/08/17 22:35 BP 163/86 H 09/08/17 22:35 Pulse Ox 95 09/08/17 23:14 - Labs Result Diagrams: 09/08/17 22:56 09/08/17 22:56 Labs: Laboratory Results - last 24 hr 09/08/17 09/08/17 09/08/17 22:46 22:53 22:56 WBC 13.4 H D RBC 4.32 Hgb 13.6 Hct 41.2 MCV 95.4 MCH 31.5 H MCHC 33.1 RDW 13.8 Plt Count 414 H MPV 8.4 Neut % (Auto) 37.4 L Lymph % (Auto) 45.5 H [place] % (Auto) 7.7 Eos % (Auto) 7.4 H Baso % (Auto) 2.0 Neut # (Auto) 5.0 Lymph # (Auto) 6.1 H [place] # (Auto) 1.0 H Eos # (Auto) 1.0 H Baso # (Auto) 0.3 H pCO2 > 150 H* pO2 75 L ABG pH 6.95 L* ABG O2 Saturation 89.0 L Apolinar Test Yes ABG Potassium 4.3 A-a O2 Difference 443.0 Sodium 139.0 Chloride 101.0 Glucose 255 H Lactate 1.0 FiO2 100.0 Crit Value Called To volodymyr Norman md Crit Value Called By Zaria antony Crit Value Read Back Y Blood Gas Notified Time 2255 POC Glucose (mg/dL) 206 H Arterial Blood Potassium 4.3 Assessment & Plan - Assessment and Plan (Free Text) Plan: 47 year old female PMH asthma/COPD with frequent admissions presents to the ED in acute hypercarbic hypoxic respiratory failure, was intubated and sedated. pCO2 > 150, hypoxic. Treated empirically for pneumonia, pt also treated with steroids, Mg, aggressive bronchodilators. Patient unable to give any history, no family with patient, history obtained primarily from chart review. ACUTE HYPOXIC HYPERCARBIC RESPIRATORY FAILURE RESPIRATORY ACIDOSIS ACUTE ASTHMA COPD EXACERBATION patient is currently intubated and sedated, daily sedation holiday monitor closely in ICU repeat ABG post vent adjustments and in AM CXR pending Procalcitonin to eval for bacterial infection continue aggressive bronchodilators, steroids
[2017-09-08] MEDS ORDERED: Albuterol-Ipratrop 3 mg / 0.5 (3 ml) UD INH PRN (23:22)
[2017-09-08] MEDS ORDERED: Azithromycin 500 MG in Sodium Chloride 0.9% 250 ML IVPB STA (23:44)
[2017-09-08] MEDS ORDERED: Sodium Chloride 0.9% 1,000 ML IV STA (23:48)
[2017-09-09 00:55] LABS: SQUAMOUS EPITHIAL 3 /hpf (0-5); URINE BACTERIA RARE (<OCC); URINE BILIRUBIN NEGATIVE (NEGATIVE); URINE BLOOD SMALL (NEGATIVE); URINE CLARITY CLOUDY (Clear); URINE COLOR YELLOW (YELLOW); URINE GLUCOSE (UA) NEG (Normal); URINE HYALINE CAST 0-2 /hpf (0-2); URINE LEUKOCYTE ESTERASE MOD Leu/uL (Negative); URINE PROTEIN 100 mg/dL (NEGATIVE); URINE UROBILINOGEN 0.2-1.0 mg/dL (0.2-1.0)
[2017-09-09 02:34] VITALS: BMI 18.7
[2017-09-09] MEDS: Albuterol-Ipratrop 3 mg / 0.5 (3 ml) UD INH SCH ×7 (03:36→19:40)
[2017-09-09 05:25] LABS: BASO % 0.1 % (0.0-2.0); HEMOGLOBIN 11.3 g/dL (12.0-16.0); LYMPH # 0.2 K/uL (1.0-4.3); LYMPH % 1.2 % (20.0-40.0); MEAN CELL VOLUME 95.5 fl (81.0-99.0); MEAN CORPUSCULAR HGB CONC 32.4 g/dL (33.0-37.0); MEAN PLATELET VOLUME 8.4 fl (7.2-11.7); MONO # 0.2 K/uL (0.0-0.8); MONO % 1.7 % (0.0-10.0); NEUT # 13.9 K/uL (1.8-7.0); PLATELET COUNT 253 K/uL (130-400); RBC 3.64 Mil/uL (3.80-5.20); RED CELL DISTRIBUTION WIDTH 13.7 % (11.5-14.5); WHITE BLOOD COUNT 14.3 K/uL (4.8-10.8)
[2017-09-09 05:47] LABS: ALB/GLOB RATIO 1.2 (1.0-2.1); ALBUMIN 3.6 g/dL (3.5-5.0); ALT/SGPT 26 U/L (9-52); AST/SGOT 50 U/L (14-36); BLOOD UREA NITROGEN 19 mg/dl (7-17); CALCIUM 8.2 mg/dL (8.4-10.2); GFR AFRICAN-AMERICAN > 60; GFR NON-AFRICAN AMERICAN > 60
[2017-09-09 06:36] LABS: ABG ALLEN TEST YES; ARTERIAL BLOOD GAS HCO3 20.5 mmol/L (21-28); ARTERIAL BLOOD GAS HEMOGLOBIN 11.9 g/dL (11.7-17.4); ARTERIAL BLOOD GAS O2 CAPACITY 16.7 mL/dL (16-24); ARTERIAL BLOOD GAS O2 CONTENT 16.7 ML/dL (15-23); ARTERIAL BLOOD GAS O2 SAT 99.9 % (95-98); ARTERIAL BLOOD GAS PCO2 55 mm/Hg (35-45); ARTERIAL BLOOD GAS PH 7.22 (7.35-7.45); ARTERIAL BLOOD GAS PO2 224 mm/Hg (80-100); ARTERIAL BLOOD GAS TCO2 24.2 mmol/L (22-28)
--- NOTE | 2017-09-09 07:43 | RAD ---
Date of service: 09/08/2017 HISTORY: SOB COMPARISON: Portable chest 05/18/2017. FINDINGS: Endotracheal tube is in place with tip terminating 3 cm above the corey. LUNGS: No active pulmonary disease. PLEURA: No significant pleural effusion identified, no pneumothorax apparent. CARDIOVASCULAR: Normal. OSSEOUS STRUCTURES: No significant abnormalities. VISUALIZED UPPER ABDOMEN: Normal. OTHER FINDINGS: None. IMPRESSION: No demonstrated acute cardiopulmonary disease appreciated.
[2017-09-09] MEDS ORDERED: Chlorhexidine Gluconate 1 APPL/PKT TP ONE (07:50)
[2017-09-09] MEDS: Enoxaparin 40 mg Syringe SC SCH (08:03)
[2017-09-09] MEDS: Propofol 10 mg/ml 1,000 MG/100 ML VIAL IV SCH (08:46)
--- NOTE | 2017-09-09 09:24 | RAD ---
Date of service: 09/09/2017 HISTORY: intubated COMPARISON: Portable chest 09/08/2017. FINDINGS: Endotracheal tube appears stable in position with an interval nasogastric tube now placed entry into left upper quadrant abdomen with the tip off the image. LUNGS: No active pulmonary disease. PLEURA: No significant pleural effusion identified, no pneumothorax apparent. CARDIOVASCULAR: Normal. OSSEOUS STRUCTURES: No significant abnormalities. VISUALIZED UPPER ABDOMEN: Normal. OTHER FINDINGS: None. IMPRESSION: Stable endotracheal intubation with interval NG tube in position as described above. No acute cardiopulmonary findings.
[2017-09-09 10:30] LABS: LYMPHOCYTE 2 % (20-50); MONOCYTE 2 % (0-10); NEUTROPHIL 96 % (42-75); PLATELET ESTIMATE NORMAL (NORMAL); TOTAL CELLS COUNTED 100
[2017-09-09 10:31] LABS: ANISOCYTOSIS SLIGHT
[2017-09-09 10:32] LABS: OVALOCYTES MODERATE; TEARDROP CELLS SLIGHT
[2017-09-09 10:33] LABS: LARGE PLATELETS PRESENT
--- NOTE | 2017-09-09 12:34 | CP.CCUPN ---
CCU Subjective - Physician Review Subjective (Free Text): Sedated on MV, breathing 15 on AC 14, 400ml TV, 60% oxygen, Peak airway pressure 21; SPO2 100%, Afebrile, SBP 130s, HR 82. Other vitals and I/O's reviewed. No further Fever spike over last 24H. ROS: No other pertinent negs or positives on 10+ system review, patient intubated and not interactive. PMSFH: All other Nursing and physician documentation reviewed to date; no new pertinent info noted relevant to current medical problems. EXAM- HEENT: no icterus, no gaze preference, Pupils 3 mm and reactive bilaterally NECK: No JVD, supple, carotids equal upstroke bilat/no bruits CHEST: decreased BS bases, no wheezes audible HEART: regular, distant, S1S2, no rubs or murmurs ABD: soft, no distention, no tympany, no palp tenderness, BS hypoactive EXT: noedema; no peripheral/ digital cyanosis, no calf tenderness or palpable cords, distal pulses intact and symmetrical. NEURO: moves all 4 limbs spontaneously SKIN: no rashes, warm and dry. LABS: 7.22/55/224 WBC= 14.3 HGB= 11.3 PLTs= 253K Zx=320 K= 3.7 WK=704 HCO3= 23 BUN/Cr= 19/0.7 BS= 247 CXR: ETT position OK above corey, no gross consolidation (my interp) IMPRESSION / MAJOR PROBLEMS NOW: 1. Acute Hypercarbic Resp Failure 2 Exacerbation of Asthmatic bronchitis from medication noncompliancy PLAN: 1. MV support, orders placed for MV adjustments. Avoid too rapid a correction of PCO2 levels. 2. Wean anxiolytics to minimum effective dose, daily sedation holiday. 3. Empiric abx coverage noted, she is allergic to Avelox and Pen. 4. IVF hydration, OGT for enteral nutritional support, DVT and GI prx ordered. 5. No Advance Directives, full Code status.
--- NOTE | 2017-09-09 13:11 | CP.PCM.HP ---
History of Present Illness - History of Present Illness History of Present Illness: 47 yo F with PMH asthma, with multiple exacerbations in the past, admitted to ICU due to respiratory failure secondary to asthma exacerbation due to noncompliance. Hx obtained from ED record and past medical records. Pt presented to ED, brought in by EMS, was unable to give history; EMS gave 2gm magnesium, duoneb, 0.25mg terbutaline, 125 mg solumedrol. Pt has multiple, frequent visits to ED, often refuses steroids and CXR; on last admission signed out AMA after refusing medication. In ED, ABG showed severe respiiratory acidosis and hypercarbia. Pt was intubated for resp failure, propofol drip for sedation. CXR - no infiltrate Present on Admission - Present on Admission Any Indicators Present on Admission: No Review of Systems - Review of Systems Systems not reviewed;Unavailable: Intubated Past Patient History - Infectious Disease Hx of Infectious Diseases: None - Past Medical History & Family History Past Medical History?: Yes - Past Social History Smoking Status: Unknown If Ever Smoked - CARDIAC Hx Pacemaker: No - PULMONARY Hx Asthma: Yes Hx Bronchitis: Yes Hx Chronic Obstructive Pulmonary Disease (COPD): Yes - HEENT Hx HEENT Problems: No - RENAL Hx Chronic Kidney Disease: No - ENDOCRINE/METABOLIC Hx Endocrine Disorders: No - HEMATOLOGICAL/ONCOLOGICAL Hx Human Immunodeficiency Virus (HIV): No - INTEGUMENTARY Hx Dermatological Problems: No - MUSCULOSKELETAL/RHEUMATOLOGICAL Hx Musculoskeletal Disorders: No Hx Falls: No (unable to obtain) - GASTROINTESTINAL Hx Gastrointestinal Disorders: No - GENITOURINARY/GYNECOLOGICAL Hx Genitourinary Disorders: No - PSYCHIATRIC Hx Anxiety: Yes - SURGICAL HISTORY Hx Coronary Stent: No - ANESTHESIA Hx Anesthesia: Yes Hx Anesthesia Reactions: No Hx Malignant Hyperthermia: No Meds Allergies/Adverse Reactions: Allergies Allergy/AdvReac Type Severity Reaction Status Date / Time acetaminophen Allergy SHORTNESS Verified 09/08/17 13:34 OF BREATH moxifloxacin HCl Allergy tendonitis Verified 09/08/17 13:34 [From Avelox] Penicillins Allergy SHORTNESS Verified 09/08/17 13:34 OF BREATH Physical Exam - Constitutional Appears: No Acute Distress Additional comments: intubated - Head Exam Head Exam: NORMOCEPHALIC - Respiratory Exam Additional comments: decreased breath sounds, but air movement b/l - Cardiovascular Exam Cardiovascular Exam: REGULAR RHYTHM, +S1, +S2 - GI/Abdominal Exam GI & Abdominal Exam: Normal Bowel Sounds, Soft - Extremities Exam Extremities exam: Positive for: normal capillary refill, normal inspection. Negative for: pedal edema - Neurological Exam Additional comments: intubated Results - Vital Signs Recent Vital Signs: Last Vital Signs Temp 97.8 F 09/09/17 07:50 Pulse 78 09/09/17 11:00 Resp 13 09/09/17 11:00 BP 112/64 09/09/17 11:00 Pulse Ox 100 09/09/17 11:00 - Labs Result Diagrams: 09/09/17 04:45 09/09/17 04:45 Labs: Laboratory Results - last 24 hr 09/08/17 09/08/17 09/08/17 22:46 22:53 22:56 WBC RBC Hgb Hct MCV MCH MCHC RDW Plt Count MPV Neut % (Auto) Lymph % (Auto) [place] % (Auto) Eos % (Auto) Baso % (Auto) Neut # (Auto) Lymph # (Auto) [place] # (Auto) Eos # (Auto) Baso # (Auto) Neutrophils % (Manual) Lymphocytes % (Manual) Monocytes % (Manual) Platelet Estimate Large Platelets Anisocytosis (manual) Macrocytosis (manual) Tear Drop Cells Ovalocytes pCO2 > 150 H* pO2 75 L HCO3 ABG pH 6.95 L* ABG Total CO2 ABG O2 Saturation 89.0 L ABG O2 Content ABG Base Excess ABG Hemoglobin ABG Carboxyhemoglobin POC ABG HHb (Measured) ABG Methemoglobin ABG O2 Capacity Apolinar Test Yes ABG Potassium 4.3 A-a O2 Difference 443.0 Hgb O2 Saturation Sodium 139.0 142 Chloride 101.0 99 Glucose 255 H Lactate 1.0 Vent Mode Mechanical Rate FiO2 100.0 Tidal Volume PEEP Crit Value Called To volodymyr Norman md Crit Value Called By [facility] Crit Value Read Back Y Blood Gas Notified Time 2255 Potassium 4.4 Carbon Dioxide 34 H Anion Gap 13 BUN 21 H Creatinine 0.8 Est GFR ( Amer) > 60 Est GFR (Non-Af Amer) > 60 POC Glucose (mg/dL) 206 H Random Glucose 251 H Calcium 9.6 Magnesium 3.8 H Total Bilirubin 0.7 AST 29 ALT 23 Alkaline Phosphatase 70 Total Protein 8.2 Albumin 4.5 Globulin 3.7 Albumin/Globulin Ratio 1.2 Arterial Blood Potassium 4.3 Urine Color Urine Clarity Urine pH Ur Specific Duncan Urine Protein Urine Glucose (UA) Urine Ketones Urine Blood Urine Nitrate Urine Bilirubin Urine Urobilinogen Ur Leukocyte Esterase Urine RBC (Auto) Urine Microscopic WBC Ur Squamous Epith Cells Urine Bacteria Hyaline Casts Alcohol, Quantitative < 10 09/08/17 09/09/17 09/09/17 22:56 00:24 04:45 WBC 13.4 H D 14.3 H RBC 4.32 3.64 L Hgb 13.6 11.3 L D Hct 41.2 34.8 MCV 95.4 95.5 MCH 31.5 H 31.0 MCHC 33.1 32.4 L RDW 13.8 13.7 Plt Count 414 H 253 D MPV 8.4 8.4 Neut % (Auto) 37.4 L 97.0 H Lymph % (Auto) 45.5 H 1.2 L [place] % (Auto) 7.7 1.7 Eos % (Auto) 7.4 H 0.0 Baso % (Auto) 2.0 0.1 Neut # (Auto) 5.0 13.9 H Lymph # (Auto) 6.1 H 0.2 L [place] # (Auto) 1.0 H 0.2 Eos # (Auto) 1.0 H 0.0 Baso # (Auto) 0.3 H 0.0 Neutrophils % (Manual) 96 H Lymphocytes % (Manual) 2 L Monocytes % (Manual) 2 Platelet Estimate Normal Large Platelets Present Anisocytosis (manual) Slight Macrocytosis (manual) Slight Tear Drop Cells Slight Ovalocytes Moderate pCO2 pO2 HCO3 ABG pH ABG Total CO2 ABG O2 Saturation ABG O2 Content ABG Base Excess ABG Hemoglobin ABG Carboxyhemoglobin POC ABG HHb (Measured) ABG Methemoglobin ABG O2 Capacity Apolinar Test ABG Potassium A-a O2 Difference Hgb O2 Saturation Sodium Chloride Glucose Lactate Vent Mode Mechanical Rate FiO2 Tidal Volume PEEP Crit Value Called To Crit Value Called By Crit Value Read Back Blood Gas Notified Time Potassium Carbon Dioxide Anion Gap BUN Creatinine Est GFR ( Amer) Est GFR (Non-Af Amer) POC Glucose (mg/dL) Random Glucose Calcium Magnesium Total Bilirubin AST ALT Alkaline Phosphatase Total Protein Albumin Globulin Albumin/Globulin Ratio Arterial Blood Potassium Urine Color Yellow Urine Clarity Cloudy Urine pH 5.0 Ur Specific Duncan 1.016 Urine Protein 100 Urine Glucose (UA) Neg Urine Ketones Negative Urine Blood Small Urine Nitrate Negative Urine Bilirubin Negative Urine Urobilinogen 0.2-1.0 Ur Leukocyte Esterase Mod Urine RBC (Auto) 3 Urine Microscopic WBC 22 H Ur Squamous Epith Cells 3 Urine Bacteria Rare Hyaline Casts 0-2 Alcohol, Quantitative 09/09/17 09/09/17 04:45 06:21 WBC RBC Hgb Hct MCV MCH MCHC RDW Plt Count MPV Neut % (Auto) Lymph % (Auto) [place] % (Auto) Eos % (Auto) Baso % (Auto) Neut # (Auto) Lymph # (Auto) [place] # (Auto) Eos # (Auto) Baso # (Auto) Neutrophils % (Manual) Lymphocytes % (Manual) Monocytes % (Manual) Platelet Estimate Large Platelets Anisocytosis (manual) Macrocytosis (manual) Tear Drop Cells Ovalocytes pCO2 55 H pO2 224 H HCO3 20.5 L ABG pH 7.22 L ABG Total CO2 24.2 ABG O2 Saturation 99.9 H ABG O2 Content 16.7 ABG Base Excess -5.6 L ABG Hemoglobin 11.9 ABG Carboxyhemoglobin 1.4 POC ABG HHb (Measured) 0.1 ABG Methemoglobin 2.0 ABG O2 Capacity 16.7 Apolinar Test Yes ABG Potassium A-a O2 Difference 135.0 Hgb O2 Saturation 96.5 Sodium 144 Chloride 109 H Glucose Lactate Vent Mode A/c Mechanical Rate 14 FiO2 60.0 Tidal Volume 400 PEEP 5 Crit Value Called To Crit Value Called By Crit Value Read Back Blood Gas Notified Time Potassium 3.7 Carbon Dioxide 23 Anion Gap 16 BUN 19 H Creatinine 0.7 Est GFR ( Amer) > 60 Est GFR (Non-Af Amer) > 60 POC Glucose (mg/dL) Random Glucose 247 H Calcium 8.2 L Magnesium Total Bilirubin 0.8 AST 50 H D ALT 26 Alkaline Phosphatase 56 Total Protein 6.5 Albumin 3.6 Globulin 2.9 Albumin/Globulin Ratio 1.2 Arterial Blood Potassium Urine Color Urine Clarity Urine pH Ur Specific Duncan Urine Protein Urine Glucose (UA) Urine Ketones Urine Blood Urine Nitrate Urine Bilirubin Urine Urobilinogen Ur Leukocyte Esterase Urine RBC (Auto) Urine Microscopic WBC Ur Squamous Epith Cells Urine Bacteria Hyaline Casts Alcohol, Quantitative Assessment & Plan (1) Respiratory failure Status: Acute (2) Status asthmaticus Status: Acute - Assessment and Plan (Free Text) Plan: - admitted to ICU, ICU consult - on ventilator and sedation; daily sedation holiday as per development planner - pulmonology consult - empiric antibiotics - azithromycin - IV solumedrol 60 mg Q8 - IV hydration - lovenox, pepcid
[2017-09-09] MEDS ORDERED: Morphine 5 MG/ML SYRINGE IVP PRN (14:13)
[2017-09-09] MEDS ORDERED: Morphine 4 MG/ML VIAL ONE (14:18)
[2017-09-09] MEDS ORDERED: Morphine 4 MG/ML VIAL IVP PRN (14:45)
--- NOTE | 2017-09-09 14:45 | CP.PCM.CON ---
History of Present Illness - History of Present Illness History of Present Illness: Pulmonary consult for a 47 y/o F, extensive admission history for Asthma Exacerbation/COPD, [facility] to be evaluated for severe SOB associated to [place], dyspnea at rest, productive cough with no relief. Off note: Pt was admitted to hospital today in AM AMA. Worsening symptoms: On evaluation, ABG's found with severe respiratory acidosis and severe hypercarbia, pCO2 > 150. Pt was admitted to ICU, intubated on Propofol drips. Aggravated factor: Unable to give Hx 2nd to clinical condition. Non compliance with medications. CXR showed: No active pulmonary disease. Review of Systems - Review of Systems Systems not reviewed;Unavailable: Acuity of Condition, Intubated Past Patient History - Infectious Disease Hx of Infectious Diseases: None - Past Medical History & Family History Past Medical History?: Yes Pertinent Family History: Unknown - Past Social History Smoking Status: Unknown If Ever Smoked - CARDIAC Hx Cardiac Disorders: No Hx Pacemaker: No - PULMONARY Hx Respiratory Disorders: Yes Hx Asthma: Yes Hx Bronchitis: Yes Hx Chronic Obstructive Pulmonary Disease (COPD): Yes - NEUROLOGICAL Hx Neurological Disorder: No Other/Comment: tetanus - HEENT Hx HEENT Problems: No - RENAL Hx Chronic Kidney Disease: No - ENDOCRINE/METABOLIC Hx Endocrine Disorders: No - HEMATOLOGICAL/ONCOLOGICAL Hx Blood Disorders: No Hx Human Immunodeficiency Virus (HIV): No - INTEGUMENTARY Hx Dermatological Problems: No - MUSCULOSKELETAL/RHEUMATOLOGICAL Hx Musculoskeletal Disorders: No Hx Falls: No (unable to obtain) - GASTROINTESTINAL Hx Gastrointestinal Disorders: No - GENITOURINARY/GYNECOLOGICAL Hx Genitourinary Disorders: No - PSYCHIATRIC Hx Psychophysiologic Disorder: Yes Hx Anxiety: Yes - SURGICAL HISTORY Hx Coronary Stent: No - ANESTHESIA Hx Anesthesia: Yes Hx Anesthesia Reactions: No Hx Malignant Hyperthermia: No Meds Allergies/Adverse Reactions: Allergies Allergy/AdvReac Type Severity Reaction Status Date / Time acetaminophen Allergy SHORTNESS Verified 09/08/17 13:34 OF BREATH moxifloxacin HCl Allergy tendonitis Verified 09/08/17 13:34 [From Avelox] Penicillins Allergy SHORTNESS Verified 09/08/17 13:34 OF BREATH - Medications Medications: Current Medications Albuterol/Ipratropium (Duoneb 3 Mg/0.5 Mg (3 Ml) Ud) 3 ml INH RQ4 PRN PRN Reason: Shortness of Breath Albuterol/Ipratropium (Duoneb 3 Mg/0.5 Mg (3 Ml) Ud) 3 ml INH Q3H [facility] Last Admin: 09/09/17 13:41 Dose: 3 ml Enoxaparin Sodium (Lovenox) 40 mg SC DAILY [facility] PRN Reason: Protocol Last Admin: 09/09/17 08:03 Dose: 40 mg Propofol (Diprivan) 1,000 mg in 100 mls @ 1.701 mls/hr IV .Q24H [facility]; 5 MCG/KG/ MIN PRN Reason: Protocol Stop: 09/09/17 23:03 Last Titration: 09/09/17 14:33 Dose: 17.63 mcg/kg/min, 6 mls/hr Methylprednisolone (Solu-Medrol) 60 mg IVP Q8H [facility] Last Admin: 09/09/17 08:02 Dose: 60 mg Morphine Sulfate (Morphine) 5 mg IVP Q6H PRN PRN Reason: Agitation Pantoprazole Sodium (Protonix Inj) 40 mg IVP DAILY [facility] Last Admin: 09/09/17 08:03 Dose: 40 mg Physical Exam - Head Exam Head Exam: NORMAL INSPECTION - Eye Exam Additional comments: Pupils reactive to light - ENT Exam Additional comments: Intubated - Neck Exam Neck exam: Positive for: Normal Inspection - Respiratory Exam Respiratory Exam: Decreased Breath Sounds - Cardiovascular Exam Cardiovascular Exam: REGULAR RHYTHM - GI/Abdominal Exam GI & Abdominal Exam: Normal Bowel Sounds, Soft - Extremities Exam Extremities exam: Positive for: normal inspection - Neurological Exam Additional comments: Intubated, unable to assess. - Psychiatric Exam Additional comments: Intubated, unable to assess. - Skin Skin Exam: Warm Results - Vital Signs Recent Vital Signs: Last Vital Signs Temp 98.2 F 09/09/17 12:00 Pulse 83 09/09/17 13:00 Resp 14 09/09/17 13:00 BP 107/62 09/09/17 13:00 Pulse Ox 100 09/09/17 13:00 emily Ceja - Labs Result Diagrams: 09/10/17 04:45 09/10/17 04:45 Labs: Laboratory Results - last 24 hr 09/08/17 09/08/17 09/08/17 22:46 22:53 22:56 WBC RBC Hgb Hct MCV MCH MCHC RDW Plt Count MPV Neut % (Auto) Lymph % (Auto) Stevens % (Auto) Eos % (Auto) Baso % (Auto) Neut # (Auto) Lymph # (Auto) Stevens # (Auto) Eos # (Auto) Baso # (Auto) Neutrophils % (Manual) Lymphocytes % (Manual) Monocytes % (Manual) Platelet Estimate Large Platelets Anisocytosis (manual) Macrocytosis (manual) Tear Drop Cells Ovalocytes pCO2 > 150 H* pO2 75 L HCO3 ABG pH 6.95 L* ABG Total CO2 ABG O2 Saturation 89.0 L ABG O2 Content ABG Base Excess ABG Hemoglobin ABG Carboxyhemoglobin POC ABG HHb (Measured) ABG Methemoglobin ABG O2 Capacity Apolinar Test Yes ABG Potassium 4.3 A-a O2 Difference 443.0 Hgb O2 Saturation Sodium 139.0 142 Chloride 101.0 99 Glucose 255 H Lactate 1.0 Vent Mode Mechanical Rate FiO2 100.0 Tidal Volume PEEP Crit Value Called To volodymyr Norman md Crit Value Called By [facility] Crit Value Read Back Y Blood Gas Notified Time 2255 Potassium 4.4 Carbon Dioxide 34 H Anion Gap 13 BUN 21 H Creatinine 0.8 Est GFR ( Amer) > 60 Est GFR (Non-Af Amer) > 60 POC Glucose (mg/dL) 206 H Random Glucose 251 H Calcium 9.6 Magnesium 3.8 H Total Bilirubin 0.7 AST 29 ALT 23 Alkaline Phosphatase 70 Total Protein 8.2 Albumin 4.5 Globulin 3.7 Albumin/Globulin Ratio 1.2 Arterial Blood Potassium 4.3 Urine Color Urine Clarity Urine pH Ur Specific [place] Urine Protein Urine Glucose (UA) Urine Ketones Urine Blood Urine Nitrate Urine Bilirubin Urine Urobilinogen Ur Leukocyte Esterase Urine RBC (Auto) Urine Microscopic WBC Ur Squamous Epith Cells Urine Bacteria Hyaline Casts Alcohol, Quantitative < 10 09/08/17 09/09/17 09/09/17 22:56 00:24 04:45 WBC 13.4 H D 14.3 H RBC 4.32 3.64 L Hgb 13.6 11.3 L D Hct 41.2 34.8 MCV 95.4 95.5 MCH 31.5 H 31.0 MCHC 33.1 32.4 L RDW 13.8 13.7 Plt Count 414 H 253 D MPV 8.4 8.4 Neut % (Auto) 37.4 L 97.0 H Lymph % (Auto) 45.5 H 1.2 L Stevens % (Auto) 7.7 1.7 Eos % (Auto) 7.4 H 0.0 Baso % (Auto) 2.0 0.1 Neut # (Auto) 5.0 13.9 H Lymph # (Auto) 6.1 H 0.2 L Stevens # (Auto) 1.0 H 0.2 Eos # (Auto) 1.0 H 0.0 Baso # (Auto) 0.3 H 0.0 Neutrophils % (Manual) 96 H Lymphocytes % (Manual) 2 L Monocytes % (Manual) 2 Platelet Estimate Normal Large Platelets Present Anisocytosis (manual) Slight Macrocytosis (manual) Slight Tear Drop Cells Slight Ovalocytes Moderate pCO2 pO2 HCO3 ABG pH ABG Total CO2 ABG O2 Saturation ABG O2 Content ABG Base Excess ABG Hemoglobin ABG Carboxyhemoglobin POC ABG HHb (Measured) ABG Methemoglobin ABG O2 Capacity Apolinar Test ABG Potassium A-a O2 Difference Hgb O2 Saturation Sodium Chloride Glucose Lactate Vent Mode Mechanical Rate FiO2 Tidal Volume PEEP Crit Value Called To Crit Value Called By Crit Value Read Back Blood Gas Notified Time Potassium Carbon Dioxide Anion Gap BUN Creatinine Est GFR ( Amer) Est GFR (Non-Af Amer) POC Glucose (mg/dL) Random Glucose Calcium Magnesium Total Bilirubin AST ALT Alkaline Phosphatase Total Protein Albumin Globulin Albumin/Globulin Ratio Arterial Blood Potassium Urine Color Yellow Urine Clarity Cloudy Urine pH 5.0 Ur Specific [place] 1.016 Urine Protein 100 Urine Glucose (UA) Neg Urine Ketones Negative Urine Blood Small Urine Nitrate Negative Urine Bilirubin Negative Urine Urobilinogen 0.2-1.0 Ur Leukocyte Esterase Mod Urine RBC (Auto) 3 Urine Microscopic WBC 22 H Ur Squamous Epith Cells 3 Urine Bacteria Rare Hyaline Casts 0-2 Alcohol, Quantitative 09/09/17 09/09/17 04:45 06:21 WBC RBC Hgb Hct MCV MCH MCHC RDW Plt Count MPV Neut % (Auto) Lymph % (Auto) Stevens % (Auto) Eos % (Auto) Baso % (Auto) Neut # (Auto) Lymph # (Auto) Stevens # (Auto) Eos # (Auto) Baso # (Auto) Neutrophils % (Manual) Lymphocytes % (Manual) Monocytes % (Manual) Platelet Estimate Large Platelets Anisocytosis (manual) Macrocytosis (manual) Tear Drop Cells Ovalocytes pCO2 55 H pO2 224 H HCO3 20.5 L ABG pH 7.22 L ABG Total CO2 24.2 ABG O2 Saturation 99.9 H ABG O2 Content 16.7 ABG Base Excess -5.6 L ABG Hemoglobin 11.9 ABG Carboxyhemoglobin 1.4 POC ABG HHb (Measured) 0.1 ABG Methemoglobin 2.0 ABG O2 Capacity 16.7 Apolinar Test Yes ABG Potassium A-a O2 Difference 135.0 Hgb O2 Saturation 96.5 Sodium 144 Chloride 109 H Glucose Lactate Vent Mode A/c Mechanical Rate 14 FiO2 60.0 Tidal Volume 400 PEEP 5 Crit Value Called To Crit Value Called By Crit Value Read Back Blood Gas Notified Time Potassium 3.7 Carbon Dioxide 23 Anion Gap 16 BUN 19 H Creatinine 0.7 Est GFR ( Amer) > 60 Est GFR (Non-Af Amer) > 60 POC Glucose (mg/dL) Random Glucose 247 H Calcium 8.2 L Magnesium Total Bilirubin 0.8 AST 50 H D ALT 26 Alkaline Phosphatase 56 Total Protein 6.5 Albumin 3.6 Globulin 2.9 Albumin/Globulin Ratio 1.2 Arterial Blood Potassium Urine Color Urine Clarity Urine pH Ur Specific [place] Urine Protein Urine Glucose (UA) Urine Ketones Urine Blood Urine Nitrate Urine Bilirubin Urine Urobilinogen Ur Leukocyte Esterase Urine RBC (Auto) Urine Microscopic WBC Ur Squamous Epith Cells Urine Bacteria Hyaline Casts Alcohol, Quantitative J.P. - EKG Data EKG comments: J.P. - Imaging and Cardiology Chest x-ray Status: Report reviewed by me (J.P.) Assessment & Plan (1) Acute respiratory failure with hypercapnia Status: Acute Priority: High (2) COPD exacerbation Status: Acute Priority: High - Assessment and Plan (Free Text) Plan: Continue ventilatory support, Yves Choi. - Date & Time Date: 09/09/17 Time: 10:40
[2017-09-09] MEDS ORDERED: Propofol 10 mg/ml 1,000 MG/100 ML VIAL IV SCH (23:30)
[2017-09-10] MEDS: Albuterol-Ipratrop 3 mg / 0.5 (3 ml) UD INH SCH ×11 (00:43→23:32)
[2017-09-10 04:44] LABS: ABG ALLEN TEST YES; ARTERIAL BLOOD GAS HCO3 27.4 mmol/L (21-28); ARTERIAL BLOOD GAS O2 CAPACITY 16.6 mL/dL (16-24); ARTERIAL BLOOD GAS O2 CONTENT 16.5 ML/dL (15-23); ARTERIAL BLOOD GAS O2 SAT 99.6 % (95-98); ARTERIAL BLOOD GAS PCO2 42 mm/Hg (35-45); ARTERIAL BLOOD GAS PH 7.43 (7.35-7.45); ARTERIAL BLOOD GAS PO2 142 mm/Hg (80-100); ARTERIAL BLOOD GAS TCO2 29.2 mmol/L (22-28)
[2017-09-10 06:10] LABS: HEMOGLOBIN 11.7 g/dL (12.0-16.0); LYMPH # 0.4 K/uL (1.0-4.3); LYMPH % 2.1 % (20.0-40.0); MEAN CELL VOLUME 93.4 fl (81.0-99.0); MEAN CORPUSCULAR HGB CONC 34.3 g/dL (33.0-37.0); MEAN PLATELET VOLUME 8.8 fl (7.2-11.7); MONO # 0.8 K/uL (0.0-0.8); MONO % 3.9 % (0.0-10.0); NEUT # 19.7 K/uL (1.8-7.0); PLATELET COUNT 285 K/uL (130-400); RBC 3.66 Mil/uL (3.80-5.20); RED CELL DISTRIBUTION WIDTH 13.4 % (11.5-14.5); WHITE BLOOD COUNT 20.9 K/uL (4.8-10.8)
[2017-09-10 06:30] LABS: ALB/GLOB RATIO 1.3 (1.0-2.1); ALBUMIN 3.9 g/dL (3.5-5.0); ALT/SGPT 36 U/L (9-52); AST/SGOT 66 U/L (14-36); BLOOD UREA NITROGEN 18 mg/dl (7-17); CALCIUM 9.6 mg/dL (8.4-10.2); GFR AFRICAN-AMERICAN > 60; GFR NON-AFRICAN AMERICAN > 60
[2017-09-10] MEDS: Enoxaparin 40 mg Syringe SC SCH (09:39)
--- NOTE | 2017-09-10 10:44 | PCM.PROC ---
Procedures Attestation:: I certify that I have explained the specified Operation(s) or Procedure(s), risks, benefits and reasonable alternatives to the Patient and/or other person responsible. The opportunity was given to ask questions and all questions answered - Extubation Clinical Parameters: Resolution/Stabilization of disease process, Hemodynamically Stable, Intact Cough/Gag Reflex, Spontaneous Respirations, Acceptable Vent Settings (FIO2<50%, PEEP<8, PaO2>75, pH>7.25) Weaning Criteria Met: Yes General Weaning Approaches: Pressure Support Ventilation (PSV) Weaning Patient Condition: Patient has been successfully extubated and assessed Oxygen Therapy: O2 via Nasal Cannula
[2017-09-10] MEDS ORDERED: methylPREDNISolone 40 MG in Sodium Chloride 0.9% 50 ML IVPB SCH (11:00)
--- NOTE | 2017-09-10 11:46 | RAD ---
Date of service: 09/10/2017 HISTORY: intubated COMPARISON: No prior. FINDINGS: LUNGS: No active pulmonary disease. PLEURA: No significant pleural effusion identified, no pneumothorax apparent. CARDIOVASCULAR: Normal. OSSEOUS STRUCTURES: No significant abnormalities. VISUALIZED UPPER ABDOMEN: Normal. OTHER FINDINGS: None. IMPRESSION: No active disease.
[2017-09-10 12:15] LABS: HYPOCHROMIC SLIGHT; LYMPHOCYTE 2 % (20-50); MONOCYTE 2 % (0-10); NEUTROPHIL 96 % (42-75); PLATELET CLUMPS PRESENT; PLATELET ESTIMATE NORMAL (NORMAL); TOTAL CELLS COUNTED 100
[2017-09-10] MEDS: MethylPREDNISolone 40 mg Vial IVP SCH (13:29)
--- NOTE | 2017-09-10 14:41 | CP.PCM.PN ---
Subjective - Date & Time of Evaluation Date of Evaluation: 09/10/17 Time of Evaluation: 11:00 - Subjective Subjective: F/U Acute respiratory failure. Pt awake, extubated in AM, doing well on NC 2 L/M. Objective - Vital Signs/Intake and Output Vital Signs (last 24 hours): Temp Pulse Resp BP Pulse Ox 98.5 F 91 H 15 161/75 H 98 09/10/17 08:00 09/10/17 10:00 09/10/17 10:00 09/10/17 10:00 09/10/17 10:00 Intake and Output: 09/10/17 09/10/17 06:59 18:59 Intake Total 816 180 Output Total 550 400 Balance 266 -220 - Medications Medications: Current Medications Albuterol/Ipratropium (Duoneb 3 Mg/0.5 Mg (3 Ml) Ud) 3 ml INH RQ4 PRN PRN Reason: Shortness of Breath Albuterol/Ipratropium (Duoneb 3 Mg/0.5 Mg (3 Ml) Ud) 3 ml INH Q3H [facility] Last Admin: 09/10/17 14:18 Dose: Not Given Enoxaparin Sodium (Lovenox) 40 mg SC DAILY [facility] PRN Reason: Protocol Last Admin: 09/10/17 09:39 Dose: 40 mg Methylprednisolone (Solu-Medrol) 40 mg IVP Q12H [facility] Last Admin: 09/10/17 13:29 Dose: 40 mg Morphine Sulfate (Morphine) 5 mg IVP Q6H PRN PRN Reason: Agitation Pantoprazole Sodium (Protonix Inj) 40 mg IVP DAILY [facility] Last Admin: 09/10/17 09:39 Dose: 40 mg - Labs Labs: 09/10/17 04:45 09/10/17 04:45 - Constitutional Appears: Other (Intubated) - Head Exam Head Exam: NORMAL INSPECTION - Eye Exam Eye Exam: PERRL Additional comments: Pupils sluggish reactive to light - ENT Exam Additional comments: Extubated. - Neck Exam Neck Exam: Normal Inspection - Respiratory Exam Respiratory Exam: Decreased Breath Sounds - Cardiovascular Exam Cardiovascular Exam: REGULAR RHYTHM - GI/Abdominal Exam GI & Abdominal Exam: Soft, Normal Bowel Sounds - Extremities Exam Extremities Exam: Normal Inspection - Neurological Exam Neurological Exam: Awake, Oriented x3 Additional comments: Extubated. - Psychiatric Exam Psychiatric exam: Normal Mood - Skin Skin Exam: Warm Assessment and Plan (1) Acute respiratory failure with hypercapnia Status: Acute (2) COPD exacerbation Status: Acute - Assessment and Plan (Free Text) Plan: Continue Duoneb, Solu-Medrol, Morphine and rest of Tx. NC 2 L/M.
--- NOTE | 2017-09-10 21:13 | PN ---
Copied To: Bebo Garcias MD Attending MD: Bebo Garcias MD DATE: 09/10/2017 LOCATION: Patient in ICU, bed 435 TIME SPENT: 35 minutes. SUBJECTIVE: Patient is seen and evaluated at the bedside. Past medical, surgical, and social history reviewed. Events overnight noted. 47-year-old female with history significant for asthma/COPD, frequent admissions for the same, admitted with hypercapnic hypoxic respiratory failure, intubated, placed on mechanical ventilation, empirically treated for possible community acquired pneumonia. Overnight uneventful, normotensive, afebrile, less sedated on a Diprivan drip, Diprivan discontinued this morning. Alert, awake. Follows commands appropriate. No distress noted. Patient was placed on CPAP with pressure support, FIO2 30%, tolerated well, extubated, placed on nasal cannula 2 L. Remains alert, awake. Follows commands. No distress. Denies shortness of breath, chest pain, or palpitation. No abdominal discomfort. No diarrhea. No dysuria. PHYSICAL EXAMINATION: VITAL SIGNS: Temperature 98.5, heart rate 89, blood pressure 125/92, mean arterial pressure 103, respiratory rate 14. Intake 1366, output 1050, positive balance 316. Weight 119 pounds. HEENT: Examination of head, eyes, ears, nose, and Throat: Pupils are reactive. Conjunctivae pink. Sclerae are white. NECK: Supple. Trachea is central. CHEST: Bilateral breath sounds. Clear to auscultation. HEART: Rhythm regular. S1, S2 normal intensity. No S3, S4 gallop. No audible murmur. ABDOMEN: Bowel sounds present. Soft. Liver and spleen not palpable. Bladder not distended. EXTREMITIES: No clubbing, cyanosis, or edema. NEUROLOGIC: Nonfocal. CURRENT MEDICATIONS: Albuterol/Atrovent inhalation 2.5 mg every 3 hours, Lovenox 40 subcu daily, Solu-Medrol 60 IV every 8 hours, morphine 5 ml IV every 6 hours p.r.n., and Protonix 40 IV daily. LABORATORY DATA: WBC 20.9, hemoglobin 11.7, hematocrit 34.2, platelet count 25, neutrophils 94, lymphocytes 2.1, and monocytes 3.9. ABG; pH 7.43, pCO2 of 42, pO2 of 142, saturation 99.6 on AC 10/360/40%, PEEP of 3. SMA-7; sodium 143, potassium 4.2, chloride 105, CO2 of 31, blood urea nitrogen 18, creatinine 0.6, random glucose 170, calcium 9.6, total bilirubin 0.4, AST 66, ALT 36, alkaline phosphatase 66, total protein 7, and albumin 3.9. Urinalysis; wbc's in the urine 22. Toxicology screen, alcohol level less than 10. Microbiology, none reported. Chest x-ray, no acute infiltrate. IMPRESSION AND PLAN: Neurology: Alert, awake. Follows commands appropriate. Cardiac: Normal sinus rhythm. No arrhythmia. Pulmonary: Status post hypercapnic hypoxic respiratory failure, chronic obstructive pulmonary disease/asthma exacerbation precipitated by community acquired pneumonia, extubated. Currently on oxygen 2 L nasal cannula, saturating over 94%. Continue DuoNeb. Reduce systemic steroid. Hematology: Leukocytosis, probably secondary to steroid, however, empirically on antibiotic for possible community acquired pneumonia. Renal: No acute issues noted. Endocrine: Maintain blood sugar less than 180. Psychiatric: Normal mood and affect.history of narcotic dependance? consider psychiatry evaluaton to rule out depression. Continue deep vein thrombosis and gastrointestinal prophylaxis. Bebo Garcias MD PARESH
[2017-09-11] MEDS: MethylPREDNISolone 40 mg Vial IVP SCH ×5 (00:19→22:31)
[2017-09-11] MEDS: Albuterol-Ipratrop 3 mg / 0.5 (3 ml) UD INH SCH ×6 (04:24→19:05)
[2017-09-11 05:26] LABS: HEMOGLOBIN 11.3 g/dL (12.0-16.0); LYMPH # 1.2 K/uL (1.0-4.3); LYMPH % 8.6 % (20.0-40.0); MEAN CELL VOLUME 94.3 fl (81.0-99.0); MEAN CORPUSCULAR HEMOGLOBIN 31.1 pg (27.0-31.0); MONO # 0.9 K/uL (0.0-0.8); MONO % 6.7 % (0.0-10.0); NEUT # 11.8 K/uL (1.8-7.0); NEUT % 84.7 % (50.0-75.0); RBC 3.64 Mil/uL (3.80-5.20); WHITE BLOOD COUNT 13.9 K/uL (4.8-10.8)
[2017-09-11 05:47] LABS: ALB/GLOB RATIO 1.2 (1.0-2.1); ALBUMIN 3.6 g/dL (3.5-5.0); ALT/SGPT 37 U/L (9-52); AST/SGOT 54 U/L (14-36); BLOOD UREA NITROGEN 29 mg/dl (7-17); CALCIUM 9.3 mg/dL (8.4-10.2); GFR AFRICAN-AMERICAN > 60; GFR NON-AFRICAN AMERICAN > 60
[2017-09-11] MEDS: Enoxaparin 40 mg Syringe SC SCH (08:35)
[2017-09-11] MEDS ORDERED: methylPREDNISolone 20 MG in Sodium Chloride 0.9% 50 ML IVPB SCH (09:00)
[2017-09-11] MEDS ORDERED: MethylPREDNISolone 40 mg Vial IVP SCH (09:30)
[2017-09-11] MEDS: Pantoprazole 40 mg EC Tab PO SCH (09:40)
[2017-09-11] MEDS ORDERED: methylPREDNISolone 20 MG in Sodium Chloride 0.9% 50 ML IV SCH (11:30)
--- NOTE | 2017-09-11 14:12 | CP.PCM.PN ---
Subjective - Date & Time of Evaluation Date of Evaluation: 09/11/17 Time of Evaluation: 11:20 - Subjective Subjective: F/U Acute respiratory failure no AD, no SOB, occasional productive cough Objective - Vital Signs/Intake and Output Vital Signs (last 24 hours): Temp Pulse Resp BP Pulse Ox 98.1 F 68 20 103/66 95 09/11/17 11:34 09/11/17 11:34 09/11/17 11:34 09/11/17 11:34 09/11/17 11:34 Intake and Output: 09/11/17 09/11/17 06:59 18:59 Intake Total 0 Output Total 500 Balance 0 -500 - Medications Medications: Current Medications Acetaminophen (Tylenol 325mg Tab) 650 mg PO Q6 PRN PRN Reason: Pain, moderate (4-7) Albuterol/Ipratropium (Duoneb 3 Mg/0.5 Mg (3 Ml) Ud) 3 ml INH RQ4 PRN PRN Reason: Shortness of Breath Albuterol/Ipratropium (Duoneb 3 Mg/0.5 Mg (3 Ml) Ud) 3 ml INH Q3H [facility] Last Admin: 09/11/17 12:17 Dose: Not Given Albuterol/Ipratropium (Duoneb 3 Mg/0.5 Mg (3 Ml) Ud) 3 ml INH RQID [facility] Last Admin: 09/11/17 07:25 Dose: 3 ml Enoxaparin Sodium (Lovenox) 40 mg SC DAILY [facility] PRN Reason: Protocol Last Admin: 09/11/17 08:35 Dose: 40 mg Methylprednisolone (Solu-Medrol) 20 mg IVP Q12 [facility] Last Admin: 09/11/17 13:26 Dose: Not Given Morphine Sulfate (Morphine) 5 mg IVP Q6H PRN PRN Reason: Agitation Pantoprazole Sodium (Protonix Ec Tab) 40 mg PO DAILY [facility] Last Admin: 09/11/17 09:40 Dose: 40 mg - Labs Labs: 09/11/17 04:50 09/11/17 04:50 - Constitutional Appears: No Acute Distress - Head Exam Head Exam: NORMAL INSPECTION - Eye Exam Eye Exam: PERRL - Neck Exam Neck Exam: Normal Inspection - Respiratory Exam Respiratory Exam: Wheezes (scattered) - Cardiovascular Exam Cardiovascular Exam: REGULAR RHYTHM - GI/Abdominal Exam GI & Abdominal Exam: Soft, Normal Bowel Sounds - Extremities Exam Extremities Exam: Normal Inspection - Back Exam Back Exam: NORMAL INSPECTION - Neurological Exam Neurological Exam: Alert, Awake, Oriented x3 Additional comments: no focal motor/sensory deficit - Psychiatric Exam Psychiatric exam: Normal Mood - Skin Skin Exam: Warm Assessment and Plan (1) Acute respiratory failure with hypercapnia Status: Resolved (2) COPD exacerbation Status: Resolved - Assessment and Plan (Free Text) Plan: transferred from ICU,continue DuoNeb, taper steroids
--- NOTE | 2017-09-11 22:05 | PN ---
Copied To: Bebo Garcias MD Attending MD: Bebo Garcias MD DATE: 09/11/2017 CRITICAL CARE PROGRESS NOTE LOCATION: The patient in ICU, bed 435. TIME SPENT: 35 minutes. The patient is seen and evaluated at the bedside. Past medical, surgical, social, and family history reviewed. SUBJECTIVE: A 47-year-old female, nonsmoker, history is significant for asthma/chronic obstructive pulmonary disease, frequent admissions for hypercapnic hypoxic respiratory failure, admitted with shortness of breath and noted hypercapnic respiratory failure, intubated, placed on mechanical ventilation overnight, extubated, placed on oxygen supplement 2 liters nasal cannula. Remains normotensive, afebrile. Telemetry, sinus rhythm. This morning, alert and awake, follows commands appropriate. No distress noted. Complaining of mild itching, irritation in the throat associated with cough. No audible wheezing. No expectoration. PHYSICAL EXAMINATION: VITAL SIGNS: Temperature 98.4, heart rate 53 regular, blood pressure 124/83, mean arterial pressure 96, respiratory rate 12 to 16, saturation 100%, oxygen supplement 2 liters. Intake 1366, output 1050, positive balance 316. Weight 119 pounds. HEAD, EYES, EARS, NOSE, AND Throat: Pupils reactive. Conjunctivae pink. Sclerae white. NECK: Supple. Trachea central. No stridor. CHEST: Bilateral scattered rhonchi. HEART: Rhythm regular. S1 and S2, normal intensity. ABDOMEN: Bowel sounds present. Soft. Liver and spleen not palpable. EXTREMITIES: No clubbing, cyanosis, or edema. NEUROLOGIC: Nonfocal. LABORATORY DATA: WBC 13.9, hemoglobin 11.3, hematocrit 34.3, platelet count of 260, neutrophils 84.7, lymphocytes 8.6, and monocytes 6.7. ABG: PH 7.43, pCO2 of 42, pO2 of 142, on ventilator; now on 2 liters, saturating over 94%. SMA-7: Sodium 142, potassium 4.7, chloride 103, CO2 of 32, blood urea nitrogen 29, creatinine 0.9, random glucose 118, calcium 8.3. Total bilirubin 0.4, AST 54, ALT 37, alkaline phosphatase 54, total protein 6.5, albumin 3.6. Urinalysis: Rbc 3, wbc 22. Toxicology screen: Alcohol level less than 10. Microbiology: Sputum culture, normal [place]. Urine culture, no growth. MRSA not detected. Chest x-ray: On 09/10/2017, no active disease. CURRENT MEDICATIONS: Albuterol/Atrovent inhalation every 4 hours, Solu-Medrol 20 IV every 8, Lovenox 40 subcu daily, morphine 5 mg IV every 6 p.r.n. for agitation, Protonix 40 p.o. daily. IMPRESSION: 1. Neurologic: Alert and awake, follows commands appropriate. 2. Pulmonary: Admitted with hypercapnic respiratory failure, extubated, on oxygen 2 liters, saturating over 94%. History of narcotic dependence for pain and shortness of breath, needs evaluation and followup. Would recommend psychiatric evaluation to rule out underlying depression. 3. Cardiac: Sinus rhythm, normotensive. 4. Gastrointestinal: Mildly elevated AST, normal ALT. AST trending down. Urine shows wbc 22; however, no evidence of infection. Hold antibiotic. 5. Endocrine. No history of diabetes or thyroid disorder. Maintain blood sugar below 180 on regular diet. The patient may benefit from Occupational Therapy/Physical Therapy, remains stable. Transferred to medical surgery floor. Bebo Garcias MD
--- NOTE | 2017-09-12 00:07 | CP.PCM.PN ---
Subjective - Date & Time of Evaluation Date of Evaluation: 09/10/17 Time of Evaluation: 10:00 - Subjective Subjective: patient still with scattered wheezes Objective - Vital Signs/Intake and Output Vital Signs (last 24 hours): Temp Pulse Resp BP Pulse Ox 98.9 F 72 18 106/70 92 L 09/11/17 16:29 09/11/17 16:29 09/11/17 16:29 09/11/17 16:29 09/11/17 16:29 Intake and Output: 09/11/17 09/12/17 18:59 06:59 Output Total 500 Balance -500 - Medications Medications: Current Medications Acetaminophen (Tylenol 325mg Tab) 650 mg PO Q6 PRN PRN Reason: Pain, moderate (4-7) Albuterol/Ipratropium (Duoneb 3 Mg/0.5 Mg (3 Ml) Ud) 3 ml INH RQ4 PRN PRN Reason: Shortness of Breath Last Admin: 09/11/17 21:57 Dose: 3 ml Albuterol/Ipratropium (Duoneb 3 Mg/0.5 Mg (3 Ml) Ud) 3 ml INH Q3H [facility] Last Admin: 09/11/17 12:17 Dose: Not Given Albuterol/Ipratropium (Duoneb 3 Mg/0.5 Mg (3 Ml) Ud) 3 ml INH RQID [facility] Last Admin: 09/11/17 19:05 Dose: Not Given Enoxaparin Sodium (Lovenox) 40 mg SC DAILY [facility] PRN Reason: Protocol Last Admin: 09/11/17 08:35 Dose: 40 mg Methylprednisolone (Solu-Medrol) 20 mg IVP Q12 [facility] Last Admin: 09/11/17 22:31 Dose: Not Given Morphine Sulfate (Morphine) 5 mg IVP Q6H PRN PRN Reason: Agitation Pantoprazole Sodium (Protonix Ec Tab) 40 mg PO DAILY [facility] Last Admin: 09/11/17 09:40 Dose: 40 mg - Labs Labs: 09/11/17 04:50 09/11/17 04:50
--- NOTE | 2017-09-12 00:08 | CP.PCM.PN ---
Subjective - Date & Time of Evaluation Date of Evaluation: 09/11/17 Time of Evaluation: 11:00 - Subjective Subjective: patient remains stable Has occasional wheezes, Has no chest pain or SOB afebrile. Objective - Vital Signs/Intake and Output Vital Signs (last 24 hours): Temp Pulse Resp BP Pulse Ox 98.9 F 72 18 106/70 92 L 09/11/17 16:29 09/11/17 16:29 09/11/17 16:29 09/11/17 16:29 09/11/17 16:29 Intake and Output: 09/11/17 09/12/17 18:59 06:59 Output Total 500 Balance -500 - Medications Medications: Current Medications Acetaminophen (Tylenol 325mg Tab) 650 mg PO Q6 PRN PRN Reason: Pain, moderate (4-7) Albuterol/Ipratropium (Duoneb 3 Mg/0.5 Mg (3 Ml) Ud) 3 ml INH RQ4 PRN PRN Reason: Shortness of Breath Last Admin: 09/11/17 21:57 Dose: 3 ml Albuterol/Ipratropium (Duoneb 3 Mg/0.5 Mg (3 Ml) Ud) 3 ml INH Q3H [facility] Last Admin: 09/11/17 12:17 Dose: Not Given Albuterol/Ipratropium (Duoneb 3 Mg/0.5 Mg (3 Ml) Ud) 3 ml INH RQID [facility] Last Admin: 09/11/17 19:05 Dose: Not Given Enoxaparin Sodium (Lovenox) 40 mg SC DAILY BRANDI PRN Reason: Protocol Last Admin: 09/11/17 08:35 Dose: 40 mg Methylprednisolone (Solu-Medrol) 20 mg IVP Q12 [facility] Last Admin: 09/11/17 22:31 Dose: Not Given Morphine Sulfate (Morphine) 5 mg IVP Q6H PRN PRN Reason: Agitation Pantoprazole Sodium (Protonix Ec Tab) 40 mg PO DAILY [facility] Last Admin: 09/11/17 09:40 Dose: 40 mg - Labs Labs: 09/11/17 04:50 09/11/17 04:50
[2017-09-12 00:34] VITALS: RESP 19
[2017-09-12] MEDS: Albuterol-Ipratrop 3 mg / 0.5 (3 ml) UD INH SCH ×5 (00:38→11:55)
[2017-09-12 08:01] VITALS: BP 100/61; PULSE 90; TEMP 98.4; O2SAT 97
[2017-09-12] MEDS: Pantoprazole 40 mg EC Tab PO SCH (08:09)
[2017-09-12] MEDS: Enoxaparin 40 mg Syringe SC SCH ×2 (08:09→08:12)
[2017-09-12] MEDS: MethylPREDNISolone 40 mg Vial IVP SCH (08:09)
--- NOTE | 2017-09-12 13:42 | CP.PCM.PN ---
Subjective - Subjective Subjective: no AD, smiling, denies SOB Objective - Vital Signs/Intake and Output Vital Signs (last 24 hours): Temp Pulse Resp BP Pulse Ox 98.4 F 90 19 100/61 97 09/12/17 08:00 09/12/17 08:00 09/12/17 08:00 09/12/17 08:00 09/12/17 08:00 - Medications Medications: Current Medications Acetaminophen (Tylenol 325mg Tab) 650 mg PO Q6 PRN PRN Reason: Pain, moderate (4-7) Albuterol/Ipratropium (Duoneb 3 Mg/0.5 Mg (3 Ml) Ud) 3 ml INH RQ4 PRN PRN Reason: Shortness of Breath Last Admin: 09/11/17 21:57 Dose: 3 ml Albuterol/Ipratropium (Duoneb 3 Mg/0.5 Mg (3 Ml) Ud) 3 ml INH Q3H [facility] Last Admin: 09/12/17 07:46 Dose: Not Given Albuterol/Ipratropium (Duoneb 3 Mg/0.5 Mg (3 Ml) Ud) 3 ml INH RQID [facility] Last Admin: 09/12/17 11:55 Dose: 3 ml Methylprednisolone (Solu-Medrol) 20 mg IVP Q12 [facility] Last Admin: 09/12/17 08:09 Dose: Not Given Morphine Sulfate (Morphine) 5 mg IVP Q6H PRN PRN Reason: Agitation Pantoprazole Sodium (Protonix Ec Tab) 40 mg PO DAILY [facility] Last Admin: 09/12/17 08:09 Dose: 40 mg - Labs Labs: 09/11/17 04:50 09/11/17 04:50 - Constitutional Appears: No Acute Distress - Head Exam Head Exam: NORMAL INSPECTION - Eye Exam Eye Exam: PERRL - ENT Exam ENT Exam: Normal Exam - Neck Exam Neck Exam: Normal Inspection - Respiratory Exam Respiratory Exam: Wheezes (scattered) - Cardiovascular Exam Cardiovascular Exam: REGULAR RHYTHM - GI/Abdominal Exam GI & Abdominal Exam: Soft, Normal Bowel Sounds - Extremities Exam Extremities Exam: Normal Inspection - Back Exam Back Exam: NORMAL INSPECTION - Neurological Exam Neurological Exam: Alert, CN II-XII Intact, Oriented x3 Additional comments: no focal motor/sensory deficit - Psychiatric Exam Psychiatric exam: Normal Affect - Skin Skin Exam: Warm Assessment and Plan (1) Acute respiratory failure with hypercapnia Status: Resolved (2) COPD exacerbation Status: Resolved - Assessment and Plan (Free Text) Plan: Pulmonary cleared to be discharged, see inst/med sheet MAR
== END 2017-09-12 14:10 | disposition home or self-care (01) | DRG 208 ==
LOC: H.ER 22:28 → H.ERHOLD 23:04 → H.ICU/CCU 09-09 01:00 → H.MEDSURG1 09-11 11:05
PROVIDERS: ADMIT Family Medicine; ATTEND Family Medicine
PROC: 5A1935Z Respiratory Ventilation, Less than 24 Consecutive Hours (ICD-10-PCS; principal; 2017-09-08)
PROC: 0BH17EZ Insertion of Endotracheal Airway into Trachea, Via Natural or Artificial Opening (ICD-10-PCS; 2017-09-08)
DX: J96.02 Acute respiratory failure with hypercapnia (principal); J44.1 Chronic obstructive pulmonary disease with (acute) exacerbation; J45.902 Unspecified asthma with status asthmaticus; E87.2 Acidosis; J96.01 Acute respiratory failure with hypoxia; D72.828 Other elevated white blood cell count; F41.9 Anxiety disorder, unspecified; Z91.14 Patient's other noncompliance with medication regimen; Z91.19 Patient's noncompliance with other medical treatment and regimen; Z88.6 Allergy status to analgesic agent; Z88.0 Allergy status to penicillin

== ENCOUNTER 2017-10-22 02:17 | Emergency (ER) | payer BC, MEDICARE ==
[2017-10-22 02:17] VITALS: BMI 18.7
[2017-10-22] MEDS ORDERED: Magnesium Sulfate 2 gm/50 ml 2 GM/50 ML BAG IVPB ONE (02:42)
[2017-10-22] MEDS ORDERED: Albuterol-Ipratrop 3 mg / 0.5 (3 ml) UD INH STA ×2 (02:42)
[2017-10-22] MEDS ORDERED: Albuterol-Ipratrop 3 mg / 0.5 (3 ml) UD ONE (02:55)
[2017-10-22] MEDS ORDERED: Magnesium Sulfate 2 gm/50 ml 2 GM/50 ML BAG ONE (02:56)
--- NOTE | 2017-10-22 04:16 | ED PDOC ---
HPI: SOB/CHF/COPD Time Seen by Provider: 10/22/17 02:40 Chief Complaint (Nursing): Shortness Of Breath History Per: Patient History/Exam Limitations: no limitations Onset/Duration Of Symptoms: Hrs Current Symptoms Are (Timing): Still Present Additional Complaint(s): Hx of COPD well known to ER presenting with exacerbation. Received susi Leung in the field, state she's still feeling tight. No fevers, chills. Past Medical History Vital Signs: Last Vital Signs Temp 98.1 F 10/22/17 02:22 Pulse 118 H 10/22/17 02:22 Resp 24 10/22/17 03:10 BP 140/86 10/22/17 02:22 Pulse Ox 96 10/22/17 03:10 - Medical History PMH: Anxiety, Asthma, Bronchitis, COPD Denies: HIV, Chronic Kidney Disease - Surgical History Surgical History: Denies: Coronary Stent, Pacemaker - Family History Family History: States: Unknown Family Hx - Home Medications Home Medications: Ambulatory Orders Medication Instructions Recorded Albuterol 0.083% [Albuterol 0.083% 3 ml IH Q4 PRN #20 neb 04/12/17 Inhal Jamee (2.5 mg/3 ml) UD] Codeine 30 mg PO Q4 PRN 06/03/17 Albuterol HFA [Ventolin HFA 90 2 puff IH Q6 PRN #1 puff 09/12/17 mcg/actuation (8 g)] Beclomethasone Dipropionate [Qvar 8.7 gm IH Q12 #1 aer.w.adap 09/12/17 80 mcg] Glycopyrrolate/Formoterol Fum 10.7 gm IH Q12 #1 hfa.aer.ad 09/12/17 [Bevespi Aerosphere Inhaler] Methylprednisolone [Medrol Dose 4 mg PO DAILY #21 mg 09/12/17 Pack (21 tabs)] Pantoprazole [Protonix EC Tab] 40 mg PO DAILY #30 ect 09/12/17 Prednisone [Deltasone] 40 mg PO DAILY 3 Days #6 tablet 10/22/17 - Allergies Allergies/Adverse Reactions: Allergies Allergy/AdvReac Type Severity Reaction Status Date / Time acetaminophen Allergy SHORTNESS Verified 09/08/17 13:34 OF BREATH moxifloxacin HCl Allergy tendonitis Verified 09/08/17 13:34 [From Avelox] Penicillins Allergy SHORTNESS Verified 09/08/17 13:34 OF BREATH Review of Systems ROS Statement: Except As Marked, All Systems Reviewed And Found Negative Respiratory: Positive for: Shortness of Breath, Wheezing Physical Exam - Reviewed Nursing Documentation Reviewed: Yes Vital Signs Reviewed: Yes - Physical Exam Appears: Positive for: Well, Non-toxic, Uncomfortable Head Exam: Positive for: ATRAUMATIC, NORMAL INSPECTION, NORMOCEPHALIC Skin: Positive for: Normal Color, Warm, DRY Eye Exam: Positive for: EOMI, Normal appearance, PERRL ENT: Positive for: Normal ENT Inspection Neck: Positive for: Normal, Painless ROM Cardiovascular/Chest: Positive for: Regular Rate, Rhythm Respiratory: Positive for: Wheezing, Other (Speaking full sentences). Negative for: Accessory Muscle Use, Respiratory Distress Gastrointestinal/Abdominal: Positive for: Normal Exam, Soft. Negative for: Tenderness Back: Positive for: Normal Inspection Extremity: Positive for: Normal ROM Neurologic/Psych: Positive for: Alert, sr. director product management II-XII, Oriented. Negative for: Motor/Sensory Deficits - ECG O2 Sat by Pulse Oximetry: 96 Pulse Ox Interpretation: Normal Medical Decision Making Medical Decision MakinAM Patient presenting with wheezing, ashtma exacerbation --Speaking full sentences, not hypoxic --Will treat w/ Mag, nebs, steroids 415AM --No longer having difficulty breathing --Mildly tachycardic from duonebs --Will advise steroid and f/u w/ PMD Disposition - Clinical Impression Clinical Impression: Asthma exacerbation attacks - Patient ED Disposition Is Patient to be Admitted: No - Disposition Referrals: [facility] [Outside] Disposition: Routine/Home Disposition Time: 04:18 Condition: IMPROVED Prescriptions: Prednisone [Deltasone] 40 mg PO DAILY 3 Days #6 tablet Instructions: Exacerbation of COPD
[2017-10-22 04:25] VITALS: BP 124/81; PULSE 106; RESP 20; TEMP 97.8; O2SAT 99
== END 2017-10-22 04:24 | disposition home or self-care (01) ==
LOC: H.ER 02:17
DX: J45.901 Unspecified asthma with (acute) exacerbation (principal); J44.1 Chronic obstructive pulmonary disease with (acute) exacerbation; Z88.0 Allergy status to penicillin
CPT/HCPCS: 96374; 99284; J2930

== ENCOUNTER 2017-11-08 07:34 | Observation (INO) | payer BC, MEDICARE ==
[2017-11-08 07:39] VITALS: BMI 18.6
[2017-11-08] MEDS ORDERED: Albuterol-Ipratrop 3 mg / 0.5 (3 ml) UD IH STA (07:44)
--- NOTE | 2017-11-08 07:51 | ED PDOC ---
HPI: SOB/CHF/COPD Time Seen by Provider: 11/08/17 07:36 Chief Complaint (Provider): shortness of breath History Per: Patient History/Exam Limitations: no limitations Onset/Duration Of Symptoms: Sudden Onset Current Symptoms Are (Timing): Still Present Additional Complaint(s): 47 year old female with pmHx of asthma, arrives to ED with paramedics for an evaluation of shortness of breath associated with wheezing and non-productive cough. 1gm of MgSO4 and 2 nebulizer treatments were given en route but refused SOLU-medrol. Patient had recent admission and intubation for asthma exacerbation on 10/28/17. She denies any fever, chills, or chest pain. PMD: none provided Past Medical History Reviewed: Historical Data, Nursing Documentation, Vital Signs Vital Signs: Last Vital Signs Temp 98.3 F 11/08/17 07:38 Pulse 119 H 11/08/17 07:38 Resp 18 11/08/17 07:38 BP 132/77 11/08/17 07:38 Pulse Ox 95 11/08/17 07:38 - Medical History PMH: Anxiety, Asthma, Bronchitis, COPD Denies: HIV, Chronic Kidney Disease - Surgical History Surgical History: Denies: Coronary Stent, Pacemaker - Family History Family History: States: Unknown Family Hx - Home Medications Home Medications: Ambulatory Orders Medication Instructions Recorded Albuterol 0.083% [Albuterol 0.083% 3 ml IH Q4 PRN #20 neb 04/12/17 Inhal Jamee (2.5 mg/3 ml) UD] Codeine 30 mg PO Q4 PRN 06/03/17 Albuterol HFA [Ventolin HFA 90 2 puff IH Q6 PRN #1 puff 09/12/17 mcg/actuation (8 g)] Beclomethasone Dipropionate [Qvar 8.7 gm IH Q12 #1 aer.w.adap 09/12/17 80 mcg] Glycopyrrolate/Formoterol Fum 10.7 gm IH Q12 #1 hfa.aer.ad 09/12/17 [Bevespi Aerosphere Inhaler] Methylprednisolone [Medrol Dose 4 mg PO DAILY #21 mg 09/12/17 Pack (21 tabs)] Pantoprazole [Protonix EC Tab] 40 mg PO DAILY #30 ect 09/12/17 Prednisone [Deltasone] 40 mg PO DAILY 3 Days #6 tablet 10/22/17 - Allergies Allergies/Adverse Reactions: Allergies Allergy/AdvReac Type Severity Reaction Status Date / Time acetaminophen Allergy SHORTNESS Verified 11/08/17 08:00 OF BREATH moxifloxacin HCl Allergy tendonitis Verified 11/08/17 08:00 [From Avelox] Penicillins Allergy SHORTNESS Verified 11/08/17 08:00 OF BREATH Review of Systems ROS Statement: Except As Marked, All Systems Reviewed And Found Negative Constitutional: Negative for: Fever, Chills Cardiovascular: Negative for: Chest Pain Respiratory: Positive for: Cough (non-productive), Shortness of Breath, Wheezing Physical Exam - Reviewed Nursing Documentation Reviewed: Yes Vital Signs Reviewed: Yes - Physical Exam Appears: Positive for: In Acute Distress (mildly) Cardiovascular/Chest: Positive for: Chest Non Tender, Tachycardia Respiratory: Positive for: Rhonchi (scattered), Wheezing (expiratory bila terally), Respiratory Distress (mild to moderate) Gastrointestinal/Abdominal: Positive for: Normal Exam, Soft. Negative for: Tenderness Extremity: Positive for: Normal ROM (upper/lower). Negative for: Pedal Edema (bilaterally) Neurologic/Psych: Positive for: Alert, switchboard wirer II-XII (grossly intact), Oriented (x3). Negative for: Motor/Sensory Deficits - Laboratory Results Result Diagrams: 11/08/17 08:20 - ECG O2 Sat by Pulse Oximetry: 95 (RA) Pulse Ox Interpretation: Normal Medical Decision Making Medical Decision Making: Time: 744 Initial Plan: * Labs * CXR * Duoneb 3ml INH * Solu-medrol 125mg IVP 0744 * O2 via high flow NC Scribe Attestation: Documented by Kortney Bae, acting as a scribe for Danny Segura MD. Provider Scribe Attestation: All medical record entries made by the Scribe were at my direction and personally dictated by me. I have reviewed the chart and agree that the record accurately reflects my personal performance of the history, physical exam, medical decision making, and the department course for this patient. I have also personally directed, reviewed, and agree with the discharge instructions and disposition. Disposition - Clinical Impression Clinical Impression: Asthma exacerbation - Patient ED Disposition Is Patient to be Admitted: Yes - Disposition Disposition Time: 08:40 Condition: FAIR - Pt Status Changed To: Hospital Disposition Of: Observation - POA Present On Arrival: None
[2017-11-08] MEDS ORDERED: Albuterol-Ipratrop 3 mg / 0.5 (3 ml) UD ONE (07:56)
[2017-11-08 08:19] LABS: ABG ALLEN TEST YES; ARTERIAL BLOOD GAS HCO3 24.4 mmol/L (21-28); ARTERIAL BLOOD GAS O2 SAT 100.4 % (95-98); ARTERIAL BLOOD GAS PCO2 40 mm/Hg (35-45); ARTERIAL BLOOD GAS PH 7.39 (7.35-7.45); ARTERIAL BLOOD GAS PO2 107 mm/Hg (80-100); ARTERIAL BLOOD GAS TCO2 25.4 mmol/L (22-28)
[2017-11-08 08:31] LABS: BASO # 0.2 K/uL (0.0-0.2); BASO % 2.4 % (0.0-2.0); EOS # 0.6 K/uL (0.0-0.7); EOS % 8.9 % (0.0-4.0); HEMOGLOBIN 12.8 g/dL (12.0-16.0); LYMPH # 2.2 K/uL (1.0-4.3); LYMPH % 32.3 % (20.0-40.0); MEAN CELL VOLUME 92.3 fl (81.0-99.0); MEAN CORPUSCULAR HEMOGLOBIN 31.7 pg (27.0-31.0); MEAN CORPUSCULAR HGB CONC 34.3 g/dL (33.0-37.0); MEAN PLATELET VOLUME 7.7 fl (7.2-11.7); MONO # 0.6 K/uL (0.0-0.8); MONO % 9.5 % (0.0-10.0); NEUT # 3.2 K/uL (1.8-7.0); NEUT % 46.9 % (50.0-75.0); RBC 4.03 Mil/uL (3.80-5.20); RED CELL DISTRIBUTION WIDTH 13.2 % (11.5-14.5); WHITE BLOOD COUNT 6.8 K/uL (4.8-10.8)
[2017-11-08] MEDS ORDERED: Magnesium Sulfate 1 GM in Dextrose 5% In Water 100 ML IVPB ONE (08:43)
[2017-11-08 08:52] LABS: ALB/GLOB RATIO 1.2 (1.0-2.1); ALBUMIN 4.1 g/dL (3.5-5.0); ALT/SGPT 19 U/L (9-52); AST/SGOT 23 U/L (14-36); BLOOD UREA NITROGEN 17 mg/dl (7-17); CALCIUM 9.4 mg/dL (8.4-10.2); GFR NON-AFRICAN AMERICAN > 60
[2017-11-08] MEDS ORDERED: Potassium Chloride 20 mEq ER Tab PO ONE ×2 (08:55→09:04)
--- NOTE | 2017-11-08 09:24 | CARD ---
APPROVED REPORT Date of service: 11/08/2017 EKG Measurement Heart [id number] <Conclusion> Sinus tachycardia Nonspecific ST-T changes abnormal ECG
[2017-11-08] MEDS ORDERED: Albuterol-Ipratrop 3 mg / 0.5 (3 ml) UD INH SCH (16:00)
[2017-11-08 16:21] VITALS: BP 118/80; RESP 18; TEMP 98.1; O2SAT 92
[2017-11-08] MEDS ORDERED: Albuterol-Ipratrop 3 mg / 0.5 (3 ml) UD INH STA (16:32)
--- NOTE | 2017-11-08 16:46 | PCM.RRT ---
PT ESCORT Nurse Assessment - Situation PT ESCORT Responder Arrival Time: 04:22 Location: [facility] Room Number: 402-2 PT ESCORT Reason for Call: Respiratory Distress PT ESCORT Called By: RN - IV IV Inserted during PT ESCORT?: No - Respiratory Oxygen Delivery Method: High-Flow Received Nebulizer Treatments: Yes Was the Patient Ventilated with Bag/Mask 100% O2?: No Secretions Suctioned?: No Was the Patient Intubated?: No Was the Patient Placed on a Ventilator?: No - Ventilator Settings FIO2 (% Oxygen): 70 - Diagnostic Test Ordered EKG: No Chest X-Ray: No CT Scan: No CPR started during PT ESCORT?: No - Time PT ESCORT Ended Time PT ESCORT Ended: 04:45 I.Reason for PT ESCORT - A) Acute Change in Patient: Subjective: PT ESCORT called: 4:22pm PT ESCORT arrival: 423pm Initial vitals during PT ESCORT was Bp:150/103, Pulse: 142 spo2: 100% on high flow oxygen S:PT ESCORT was called by RN after patient did not get better after receiving duonebs for asthma exacerbation because of chest tightness and dyspnea. Patient received 2 g of magnesium in ED, but refused salumedrol. O:Gen: Agitated HEENT: atraumatic, normocephalic Cardio: s1 s2 tachycardic Resp:diffuse wheezing auscultated Abd: soft, nontender, nondistended Neuro: Alert & oriented x 3 PT ESCORT interventions: -High flow oxygen Patient refused treatment of salumedrol. It was explained that salumedrol was the treatment of choice for asthma exacerbation. She was given refusal of treatment form to sign, which explained that current respiratory condition can lead to respiratory failure, intubation, and even . Patient refused to sign, and walked away against medical advise to exit the hospital despite explanation that immediate treatment was pertinent. - Cardiovascular Exam Cardiovascular Exam: Tachycardia
--- NOTE | 2017-11-08 17:06 | CP.PCM.PCO ---
Physician Communication Note - Physician Communication Note Physician Communication Note: Patient signed out AMA before I have seen Her.
[2017-11-08 18:30] VITALS: PULSE 105
== END 2017-11-08 16:45 | disposition left against medical advice (07) ==
LOC: H.ER 07:34 → H.ERHOLD 08:39 → H.TEL 15:01
PROVIDERS: ADMIT Internal Medicine; ATTEND Internal Medicine
DX: J45.901 Unspecified asthma with (acute) exacerbation (principal); Z88.6 Allergy status to analgesic agent; Z88.3 Allergy status to other anti-infective agents; Z88.0 Allergy status to penicillin; F41.9 Anxiety disorder, unspecified; R45.1 Restlessness and agitation
CPT/HCPCS: 36600; 80053; 82803; 82948; 85025; 93005; 94150; 94640; 99285; G0378; J3475

== ENCOUNTER 2018-04-21 19:40 | Emergency (ER) | payer BC ==
[2018-04-21 19:40] VITALS: BMI 18.6
[2018-04-21 20:13] VITALS: BP 102/69; PULSE 104; RESP 16; O2SAT 92
[2018-04-21] MEDS ORDERED: Sodium Chloride 0.9% 1,000 ML IV STA (21:16)
[2018-04-21 22:35] LABS: BASO % 0.2 % (0.0-2.0); HEMOGLOBIN 12.8 g/dL (12.0-16.0); LYMPH # 0.8 K/uL (1.0-4.3); LYMPH % 15.9 % (20.0-40.0); MEAN CELL VOLUME 92.5 fl (81.0-99.0); MEAN CORPUSCULAR HGB CONC 33.5 g/dL (33.0-37.0); MEAN PLATELET VOLUME 8.1 fl (7.2-11.7); MONO # 0.6 K/uL (0.0-0.8); MONO % 10.5 % (0.0-10.0); NEUT # 3.9 K/uL (1.8-7.0); NEUT % 73.4 % (50.0-75.0); RBC 4.14 Mil/uL (3.80-5.20); RED CELL DISTRIBUTION WIDTH 13.3 % (11.5-14.5); WHITE BLOOD COUNT 5.3 K/uL (4.8-10.8)
[2018-04-21 22:40] LABS: ALB/GLOB RATIO 1.2 (1.0-2.1); ALBUMIN 4.6 g/dL (3.5-5.0); ALT/SGPT 23 U/L (9-52); AST/SGOT 31 U/L (14-36); BLOOD UREA NITROGEN 21 mg/dl (7-17); CALCIUM 9.6 mg/dL (8.4-10.2); GFR NON-AFRICAN AMERICAN > 60; LIPASE 29 U/L (23-300)
--- NOTE | 2018-04-21 23:13 | ED PDOC ---
HPI: Abdomen Time Seen by Provider: 04/21/18 20:50 Chief Complaint (Nursing): GI Problem Chief Complaint (Provider): GI Problem History Per: Patient History/Exam Limitations: no limitations Onset/Duration Of Symptoms: Days (2) Additional Complaint(s): 47 y/o female with history of asthma presents to the ED complaining of cough, congestion, fever, chest pain, and vomiting for x2 days. Patient reports she takes her medication as directed which includes albuterol (for asthma) and codeine (for pain.) Patient states she has some phlegm when she coughs. She denies abdominal pain and diarrhea. Patient states she had chest pain yesterday but today it is more like a pressure. Past Medical History Reviewed: Historical Data, Nursing Documentation, Vital Signs Vital Signs: Last Vital Signs Temp 100.2 F H 04/21/18 20:12 Pulse 104 H 04/21/18 20:12 Resp 16 04/21/18 20:12 BP 102/69 04/21/18 20:12 Pulse Ox 92 L 04/21/18 20:12 - Medical History PMH: Anxiety, Asthma, Bronchitis, COPD Denies: HIV, Chronic Kidney Disease - Surgical History Surgical History: No Surg Hx Denies: Coronary Stent, Pacemaker - Family History Family History: States: Unknown Family Hx - Home Medications Home Medications: Ambulatory Orders Medication Instructions Recorded Codeine 30 mg PO Q12 PRN 06/03/17 Albuterol HFA [Ventolin HFA 90 2 puff IH Q6 PRN #1 puff 09/12/17 mcg/actuation (8 g)] Albuterol/Ipratropium [Duoneb 3 3 ml IH Q6 PRN 11/08/17 mg/0.5 mg (3 ml) UD] Beclomethasone Dipropionate [Qvar 1 puff IH Q12 11/08/17 80 mcg] Ibuprofen [Motrin Tab] 600 mg PO DAILY PRN 11/08/17 Levalbuterol [Xopenex] 1.25 mg IH Q8 PRN 11/08/17 Ondansetron ODT [Zofran ODT] 4 mg PO Q8 PRN #12 odt 04/21/18 Oseltamivir Cap [Tamiflu] 75 mg PO BID #10 cap 04/21/18 - Allergies Allergies/Adverse Reactions: Allergies Allergy/AdvReac Type Severity Reaction Status Date / Time acetaminophen Allergy SHORTNESS Verified 04/21/18 20:11 OF BREATH moxifloxacin HCl Allergy tendonitis Verified 04/21/18 20:11 [From Avelox] Penicillins Allergy SHORTNESS Verified 04/21/18 20:11 OF BREATH Review of Systems ROS Statement: Except As Marked, All Systems Reviewed And Found Negative Constitutional: Positive for: Fever ENT: Positive for: Nose Congestion Cardiovascular: Positive for: Chest Pain Respiratory: Positive for: Cough. Negative for: Shortness of Breath Gastrointestinal: Positive for: Vomiting. Negative for: Abdominal Pain, Diarrhea Physical Exam - Reviewed Nursing Documentation Reviewed: Yes Vital Signs Reviewed: Yes - Physical Exam Appears: Positive for: Well, Non-toxic, No Acute Distress Head Exam: Positive for: ATRAUMATIC, NORMAL INSPECTION, NORMOCEPHALIC Skin: Positive for: Normal Color, Warm, DRY Eye Exam: Positive for: EOMI, Normal appearance, PERRL ENT: Positive for: Normal ENT Inspection Neck: Positive for: Normal, Painless ROM Cardiovascular/Chest: Positive for: Regular Rate, Rhythm. Negative for: Murmur Respiratory: Positive for: Wheezing (mild bilaterally) Gastrointestinal/Abdominal: Positive for: Normal Exam, Soft. Negative for: Tenderness Back: Positive for: Normal Inspection Extremity: Positive for: Normal ROM. Negative for: Pedal Edema, Deformity Neurological/Psych: Positive for: Awake, Alert, Normal Tone. Negative for: Motor/Sensory Deficits - Laboratory Results Result Diagrams: 04/21/18 21:49 04/21/18 22:20 Lab Results: Troponin I < 0.0120 ng/mL (0.00-0.120) 04/21/18 22:20 Total Bilirubin 0.3 mg/dl (0.2-1.3) 04/21/18 22:20 AST 31 U/L (14-36) 04/21/18 22:20 ALT 23 U/L (9-52) 04/21/18 22:20 Alkaline Phosphatase 87 U/L (38-126) 04/21/18 22:20 Total Protein 8.5 G/DL (6.3-8.2) H 04/21/18 22:20 Albumin 4.6 g/dL (3.5-5.0) 04/21/18 22:20 Globulin 3.9 gm/dL (2.2-3.9) 04/21/18 22:20 Albumin/Globulin Ratio 1.2 (1.0-2.1) 04/21/18 22:20 Lipase 29 U/L (23-300) 04/21/18 22:20 - ECG O2 Sat by Pulse Oximetry: 92 (RA) Pulse Ox Interpretation: Abnormal Medical Decision Making Medical Decision Making: Time:21:09 Initial Impression:chest pain also fever and vomiting Differential includes pneumonia, influenza, asthma exacerbation Initial Plan: * Labs * Motrin 600 mg * IV fluids * Zofran Patient is refusing chest x-ray. 23:15 Patient will be discharged home. Diagnosis is influenza. Upon provider evaluation patient is medically stable, and requires no further treatment in the ED at this time. Patient will be discharged home. Counseling was provided and all questions were answered regarding diagnosis and need for follow up with PMD. There is agreement to discharge plan. Return if symptoms persist or worsen. Scribe Attestation: Documented by Shemar Boyle, acting as a scribe forDr. Mio Whitfield MD. Provider Scribe Attestation: All medical record entries made by the Scribe were at my direction and person ally dictated by me. I have reviewed the chart and agree that the record accurately reflects my personal performance of the history, physical exam, medical decision making, and the department course for this patient. I have also personally directed, reviewed, and agree with the discharge instructions and disposition. Disposition - Clinical Impression Clinical Impression: Asthma, Influenza A - Patient ED Disposition Is Patient to be Admitted: No Doctor Will See Patient In The: Office Counseled Patient/Family Regarding: Studies Performed, Diagnosis, Need For Followup - Disposition Referrals: [facility] [Outside] Disposition: Routine/Home Disposition Time: 23:15 Condition: GOOD Additional Instructions: KAYLEN NEVAREZ, thank you for letting us take care of you today. Your provider was Mio Whitifeld MD and you were treated for ABD PAIN/VOMITING. The emergen cy medical care you received today was directed at your acute symptoms. If you were prescribed any medication, please fill it and take as directed. It may take several days for your symptoms to resolve. Return to the Emergency Department if your symptoms worsen, do not improve, or if you have any other problems. Please contact your doctor or call one of the physicians/clinics you have been referred to that are listed on the Patient Visit Information form that is included in your discharge packet. Bring any paperwork you were given at discharge with you along with any medications you are taking to your follow up visit. Our treatment cannot replace ongoing medical care by a primary care provi kermit outside of the emergency department. Thank you for allowing the [facility] team to be part of your care today. If you had an X-Ray or CT scan: A Radiologist will review the ED reading if any change in treatment is needed we will contact you. If you had a blood, urine, or wound culture: It will take several days for the results, if any change in treatment is needed we will contact you. If you had an STI test: It will take 48 hours for the results. Please call after 1 week if you have not heard back. Prescriptions: Ondansetron ODT [Zofran ODT] 4 mg PO Q8 PRN #12 odt PRN Reason: Nausea/Vomiting Oseltamivir Cap [Tamiflu] 75 mg PO BID #10 cap Instructions: Asthma in Adults, Flu, Adult (DC) Forms: [employer] (Mauritian), [facility] ED School/Work Excuse
[2018-04-21 23:21] VITALS: TEMP 99
--- NOTE | 2018-04-22 12:20 | CARD ---
APPROVED REPORT Date of service: 04/21/2018 EKG Measurement Heart [id number] <Conclusion> Normal sinus rhythm Normal ECG
== END 2018-04-22 | disposition home or self-care (01) ==
LOC: H.ER 19:40
DX: J09.X2 Influenza due to identified novel influenza A virus with other respiratory manifestations (principal); J45.909 Unspecified asthma, uncomplicated; Z88.0 Allergy status to penicillin
CPT/HCPCS: 80053; 83690; 83735; 84484; 85025; 87804; 93005; 96361; 96374; 99283; J2405; J7030

== ENCOUNTER 2018-04-25 23:31 | Emergency (ER) | payer BC ==
[2018-04-25 23:32] VITALS: BMI 18.6
[2018-04-26] MEDS ORDERED: Sodium Chloride 0.9% 2,000 ML IV STA (00:10)
[2018-04-26 00:28] LABS: BASO % 0.7 % (0.0-2.0); HEMOGLOBIN 12.1 g/dL (12.0-16.0); LYMPH # 2.6 K/uL (1.0-4.3); LYMPH % 51.4 % (20.0-40.0); MEAN CELL VOLUME 91.5 fl (81.0-99.0); MEAN CORPUSCULAR HEMOGLOBIN 30.7 pg (27.0-31.0); MEAN CORPUSCULAR HGB CONC 33.5 g/dL (33.0-37.0); MONO # 0.6 K/uL (0.0-0.8); MONO % 11.6 % (0.0-10.0); NEUT # 1.9 K/uL (1.8-7.0); NEUT % 36.3 % (50.0-75.0); NRBC % 0.1 % (0.0-0.0); RBC 3.94 Mil/uL (3.80-5.20); RED CELL DISTRIBUTION WIDTH 13.5 % (11.5-14.5); WHITE BLOOD COUNT 5.1 K/uL (4.8-10.8)
[2018-04-26 01:10] LABS: ALBUMIN 3.9 g/dL (3.5-5.0); ALT/SGPT 19 U/L (9-52); AST/SGOT 30 U/L (14-36); BLOOD UREA NITROGEN 18 mg/dl (7-17); CALCIUM 9.7 mg/dL (8.4-10.2); GFR NON-AFRICAN AMERICAN > 60
--- NOTE | 2018-04-26 02:57 | ED PDOC ---
HPI: Abdomen Time Seen by Provider: 04/26/18 00:01 Chief Complaint (Nursing): GI Problem Chief Complaint (Provider): GI Problem History Per: Patient History/Exam Limitations: no limitations Onset/Duration Of Symptoms: Days Current Symptoms Are (Timing): Still Present Additional Complaint(s): 48 y/o female with a PMHx of COPD presents to the ED for evaluation of diarrhea, onset one day ago. Patient reports of having three to four episodes of diarrhea yesterday. Patient notes of feeling dehydrated associated with a dry throat and cracked lips. Patient states that she is trying to hydrate herself but feels like she can't drink enough fluids. Patient reports of being developing lightheadedness and dizziness additionally associated with some nausea. Otherwise, patient denies abdominal pain and vomiting. PMD: none provided Past Medical History Reviewed: Historical Data, Nursing Documentation, Vital Signs Vital Signs: Last Vital Signs Temp 98.3 F 04/25/18 23:57 Pulse 72 04/25/18 23:57 Resp 16 04/25/18 23:57 BP 117/78 04/25/18 23:57 Pulse Ox 98 04/25/18 23:57 - Medical History PMH: Anxiety, Asthma, Bronchitis, COPD Denies: HIV, Chronic Kidney Disease - Surgical History Surgical History: No Surg Hx Denies: Coronary Stent, Pacemaker - Family History Family History: States: Unknown Family Hx - Home Medications Home Medications: Ambulatory Orders Medication Instructions Recorded Codeine 30 mg PO Q12 PRN 06/03/17 Albuterol HFA [Ventolin HFA 90 2 puff IH Q6 PRN #1 puff 09/12/17 mcg/actuation (8 g)] Albuterol/Ipratropium [Duoneb 3 3 ml IH Q6 PRN 11/08/17 mg/0.5 mg (3 ml) UD] Beclomethasone Dipropionate [Qvar 1 puff IH Q12 11/08/17 80 mcg] Ibuprofen [Motrin Tab] 600 mg PO DAILY PRN 11/08/17 Levalbuterol [Xopenex] 1.25 mg IH Q8 PRN 11/08/17 Ondansetron ODT [Zofran ODT] 4 mg PO Q8 PRN #12 odt 04/21/18 Oseltamivir Cap [Tamiflu] 75 mg PO BID #10 cap 04/21/18 - Allergies Allergies/Adverse Reactions: Allergies Allergy/AdvReac Type Severity Reaction Status Date / Time acetaminophen Allergy SHORTNESS Verified 04/25/18 23:57 OF BREATH moxifloxacin HCl Allergy tendonitis Verified 04/25/18 23:57 [From Avelox] Penicillins Allergy SHORTNESS Verified 04/25/18 23:57 OF BREATH Review of Systems ROS Statement: Except As Marked, All Systems Reviewed And Found Negative Constitutional: Positive for: Other (dehydration) ENT: Positive for: Other (dry throat, cracked lips) Gastrointestinal: Positive for: Nausea, Diarrhea. Negative for: Vomiting, Abdominal Pain Neurological: Positive for: Dizziness (and lightheadedness) Physical Exam - Reviewed Nursing Documentation Reviewed: Yes Vital Signs Reviewed: Yes - Physical Exam Appears: Positive for: No Acute Distress Head Exam: Positive for: ATRAUMATIC, NORMOCEPHALIC Skin: Positive for: Normal Color, Warm, Dry Eye Exam: Positive for: Normal appearance, EOMI, PERRL ENT: Positive for: Normal ENT Inspection Neck: Positive for: Normal, Painless ROM, Supple Cardiovascular/Chest: Positive for: Regular Rate, Rhythm. Negative for: Murmur Respiratory: Positive for: Normal Breath Sounds. Negative for: Respiratory Distress Gastrointestinal/Abdominal: Positive for: Normal Exam, Soft. Negative for: Tenderness Extremity: Positive for: Normal ROM. Negative for: Deformity Neurological/Psych: Positive for: Awake, Alert, Oriented. Negative for: Motor/Sensory Deficits - Laboratory Results Result Diagrams: 04/26/18 00:20 04/26/18 00:20 Lab Results: Total Bilirubin 0.3 mg/dl (0.2-1.3) 04/26/18 00:20 AST 30 U/L (14-36) 04/26/18 00:20 ALT 19 U/L (9-52) 04/26/18 00:20 Alkaline Phosphatase 78 U/L (38-126) 04/26/18 00:20 Total Protein 7.9 G/DL (6.3-8.2) 04/26/18 00:20 Albumin 3.9 g/dL (3.5-5.0) 04/26/18 00:20 Globulin 4.0 gm/dL (2.2-3.9) H 04/26/18 00:20 Albumin/Globulin Ratio 1.0 (1.0-2.1) 04/26/18 00:20 - ECG O2 Sat by Pulse Oximetry: 98 (RA) Pulse Ox Interpretation: Normal Medical Decision Making Medical Decision Making: Time: 001 Diarrhea with mild dehydration. Patient is well appearing Plan: -- CMP -- Magnesium -- CBC with Differentials -- Sodium Chloride 0.9% IV 2000 mls/hr 500 --Patient remains well appearing, vitals stable, suitable for outpatient followup Scribe Attestation: Documented by Devan Gaona, acting as a scribe for Mack Higuera MD. Provider Scribe Attestation: All medical record entries made by the Scribe were at my direction and personally dictated by me. I have reviewed the chart and agree that the record a ccurately reflects my personal performance of the history, physical exam, medical decision making, and the department course for this patient. I have also personally directed, reviewed, and agree with the discharge instructions and disposition. Disposition - Clinical Impression Clinical Impression: Diarrhea - Patient ED Disposition Is Patient to be Admitted: No - Disposition Referrals: [facility] [Outside] Disposition: Routine/Home Disposition Time: 05:00 Condition: IMPROVED Instructions: Diarrhea in Adolescents and Adults Forms: [facility] (Welsh)
[2018-04-26 05:14] VITALS: BP 104/53; PULSE 65; RESP 14; TEMP 99
[2018-04-26 06:27] VITALS: O2SAT 98
== END 2018-04-26 05:15 | disposition home or self-care (01) ==
LOC: H.ER 23:31
DX: R19.7 Diarrhea, unspecified (principal); J44.9 Chronic obstructive pulmonary disease, unspecified; Z88.0 Allergy status to penicillin
CPT/HCPCS: 80053; 83735; 85025; 96360; 96361; 99284; J7030